=== PATIENT | male | born 1965 | race Caucasian/White ===

== ENCOUNTER 2017-10-28 15:00 | Outpatient (RCR) | payer MEDICAID, SELFPAY ==
[2017-10-14 15:09] VITALS: BP 148/102; PULSE 97; RESP 18; TEMP 37.6; BMI 56.1
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
[2017-10-19 13:52] VITALS: BP 152/85; PULSE 96; RESP 18; TEMP 37; BMI 56.1
[2017-10-21 15:44] VITALS: BP 135/87; PULSE 98; RESP 20; TEMP 36.1; BMI 56.1
--- NOTE | 2017-10-21 16:25 | PCM.WC.PN ---
(1) Ulcer of right lower extremity with fat layer exposed Status: Chronic Current Visit: Yes Code(s): L97.912 - Non-pressure chronic ulcer of unspecified part of right lower leg with fat layer exposed (2) Ulcer of left lower extremity with fat layer exposed Status: Chronic Current Visit: Yes Code(s): L97.922 - Non-pressure chronic ulcer of unspecified part of left lower leg with fat layer exposed (3) Edema of both legs Status: Chronic Current Visit: Yes Code(s): R60.0 - Localized edema (4) Venous insufficiency Status: Chronic Current Visit: Yes Code(s): I87.2 - Venous insufficiency (chronic) (peripheral) (5) Peripheral vascular disease Status: Suspected Current Visit: Yes Code(s): I73.9 - Peripheral vascular disease, unspecified (6) Malnutrition Status: Chronic Current Visit: Yes Code(s): E46 - Unspecified protein-calorie malnutrition Type of Wound Date of Service: 10/21/17 Chief Complaint: Bilateral leg ulcers with chronic swelling History of Wound: This 52-year-old male with multiple comorbidities presents for a left leg wound that has been resistant to traditional wound healing program. He denies recent trauma. He is not able to get home health and his return to the wound care center for help with dressing changes. He denies current shortness of breath or chest pain or fever, chill, nausea, vomiting. He denies odor. He denies claudication. He denies rest paresthesias. He is not able to obtain the recommended tests and studies yet; this scheduled for this upcoming Thursday. Progress of Wound: Stable - Physical Exam Vital Signs Temp Pulse Resp BP 97 F L 98 20 H 135/87 H 10/21/17 15:44 10/21/17 15:44 10/21/17 15:44 10/21/17 15:44 General: Alert, Oriented x3, Cooperative Extremities: No cyanosis, Capillary Refill Less than 3 Seconds, No Calf Tenderness - Negative Tamayo sign bilateral, Diminished Peripheral Pulses, Edema Skin: Ulcer/ Wound - No purulence, no erythema, no streaking, no odor. Decreased skin induration necrosis and scaling noted bilateral. There is hyperpigmentation and continued chronic swelling bilateral there is no interdigital mass bilateral. His skin is very atrophic and friable. Wound Measurements and Assessment WC - Nurse 1 - General Ulcer Measurement Start: 10/14/17 15:08 Freq: Status: Active Protocol: Activity Type Activity Date Activity User E-Sign Co-Sign Detail Recorded Client Recorded Date Recorded By Document 10/19/17 13:52 [facility] [id number] 10/19/17 14:12 [facility] Document 10/21/17 15:44 RB [id number] 10/21/17 15:56 RB 10/19/17 10/21/17 13:52 15:44 Wound Center Nurse 1 [Ulcer Assessment] 2. RLE circumferentail -Combined with other wound No -Current Size (cm) - Length 33 -Current Size (cm) - Width 18 -Current Size (cm) - Depth 0.1 -Total Square Cm 594 -Photo Taken Yes -Tunneling No -Undermining/Tunneling No -Circular Undermining No -Classification - Thickness Full Thickness without Exposed Support Structure -Exudate Amt Small (1-33%) -Exudate Type Serosanguineous -Wound Margin Distinct, Outline Attached -Granulation Amt Medium (34-66%) -Granulation Quality [place] -Slough/Fibrin Yes -Necrosis Amt Medium (34-66%) -Necrotic Tissue Type Adherent Slough -Structure Exposed N/A -Texture (Candy-wound Skin Appearance) Assessed -Moisture (Candy-wound Skin Appearance Maceration ) -Color (Candy-wound Skin Appearance) Assessed -Temperature (Candy-wound Skin No Abnormality Appearance) (Pt Warm) -Tenderness on Palpation (Candy-wound No Skin Appearance) -Ulcer Cleansing Wound Cleanser -Foul Odor after Cleansing Yes -Anesthetic Used 4% Lidocaine Solution 1-left lateral calf cluster -Combined with other wound No No -Current Size (cm) - Length 12 -Current Size (cm) - Width 28 -Current Size (cm) - Depth 0.2 -Total Square Cm 336 -Photo Taken No No -Epithelialization Small 1-33% -Tunneling No No -Undermining/Tunneling No No -Circular Undermining No No -Classification - Thickness Full Thickness without Exposed Support Structure -Classification - Gonzalez Grading ( Grade 2 Diabetic Ulcer) -Exudate Amt Large (67-100%) Large (67-100%) -Exudate Type Serosanguineous Serosanguineous -Wound Margin Flat & Intact Distinct, Outline Attached -Granulation Amt Large (67-100%) Small (1-33%) -Granulation Quality [place] -Slough/Fibrin Yes Yes -Necrosis Amt Small (1-33%) Medium (34-66%) -Necrotic Tissue Type Adherent Slough Adherent Slough -Structure Exposed Fascia N/A Fat Layer Exposed -Texture (Candy-wound Skin Appearance) Excoriation Assessed Friable Localized Edema Scarring -Moisture (Candy-wound Skin Appearance Weeping Assessed ) -Color (Candy-wound Skin Appearance) Erythema Assessed Hemosiderin Staining -Temperature (Candy-wound Skin No Abnormality No Abnormality Appearance) (Pt Warm) (Pt Warm) -Tenderness on Palpation (Candy-wound No Skin Appearance) -Ulcer Cleansing CODY HEX Wound Cleanser -Foul Odor after Cleansing No No -Anesthetic Used 4% Lidocaine Solution [Edema Assessment] -Lower Limb Edema Present Yes -Right Calf (cm) 57.6 -Right Ankle (cm) 32.6 -Left Calf (cm) 58.2 -Left Ankle (cm) 31.5 WC - Nurse 2 - General Ulcer CM Notes Start: 10/14/17 15:08 Freq: Status: Active Protocol: Activity Type Activity Date Activity User E-Sign Co-Sign Detail Recorded Client Recorded Date Recorded By Document 10/21/17 16:17 [id number] 10/21/17 16:22 10/21/17 16:17 Wound Center Nurse 2 [Procedure/Treatment] 2. RLE circumferentail -Time 16:18 -Correct Patient Yes -Correct Side, Site, Position Yes -Correct Procedure Yes -Procedure Performed Yes -Type of Procedure Debridement -Clinical Debridement Subcutaneous -Post Debridement Size (cm) - Length 33.1 -Post Debridement Size (cm) - Width 18.1 -Post Debridement Size (cm) - Depth 0.1 -Total Square Cm 599.11 -Wound/Ulcer Outcome Not Healed -Ulcer Cleansing Rinsed/ Irrigated with Saline -Foul Odor after Cleansing No -Bioengineered Tissue No -Topical Lidocaine (%) 4 -Bleeding Controlled with Pressure -Treatment Response Procedure Tolerated Well 1-left lateral calf cluster -Time 16:18 -Correct Patient Yes -Correct Side, Site, Position Yes -Correct Procedure Yes -Procedure Performed Yes -Type of Procedure Debridement -Clinical Debridement Subcutaneous -Post Debridement Size (cm) - Length 12.1 -Post Debridement Size (cm) - Width 28.1 -Post Debridement Size (cm) - Depth 0.2 -Total Square Cm 340.01 -Wound/Ulcer Outcome Not Healed -Ulcer Cleansing Rinsed/ Irrigated with Saline -Foul Odor after Cleansing No -Bioengineered Tissue No -Bleeding Controlled with Pressure -Treatment Response Procedure Tolerated Well [See Physician Procedure note for Specifics] Pain Scale: 0-10 Numeric [Pain] -Is Patient Pain Free? Yes Musculoskeletal: No Tenderness to Palpation of Joints or Extremities, Muscle Wasting, - - No crepitus on palpation bilateral lower extremities and the compartments remain soft. AROM x 10. Neurological: - - Lack of epicritic sensation light touch bilateral lower extremities Psych/Mental Status: Normal Affect, Appropriate Debridement Note Post-Debridement Measurements/Treatment WC - Nurse 2 - General Ulcer CM Notes Start: 10/14/17 15:08 Freq: Status: Active Protocol: Activity Type Activity Date Activity User E-Sign Co-Sign Detail Recorded Client Recorded Date Recorded By Document 10/21/17 16:17 [id number] 10/21/17 16:22 10/21/17 16:17 Wound Center Nurse 2 2. RLE circumferentail -Time 16:18 -Correct Patient Yes -Correct Side, Site, Position Yes -Correct Procedure Yes -Procedure Performed Yes -Type of Procedure Debridement -Clinical Debridement Subcutaneous -Post Debridement Size (cm) - Length 33.1 -Post Debridement Size (cm) - Width 18.1 -Post Debridement Size (cm) - Depth 0.1 -Total Square Cm 599.11 -Wound/Ulcer Outcome Not Healed -Ulcer Cleansing Rinsed/ Irrigated with Saline -Foul Odor after Cleansing No -Bioengineered Tissue No -Topical Lidocaine (%) 4 -Bleeding Controlled with Pressure -Treatment Response Procedure Tolerated Well 1-left lateral calf cluster -Time 16:18 -Correct Patient Yes -Correct Side, Site, Position Yes -Correct Procedure Yes -Procedure Performed Yes -Type of Procedure Debridement -Clinical Debridement Subcutaneous -Post Debridement Size (cm) - Length 12.1 -Post Debridement Size (cm) - Width 28.1 -Post Debridement Size (cm) - Depth 0.2 -Total Square Cm 340.01 -Wound/Ulcer Outcome Not Healed -Ulcer Cleansing Rinsed/ Irrigated with Saline -Foul Odor after Cleansing No -Bioengineered Tissue No -Bleeding Controlled with Pressure -Treatment Response Procedure Tolerated Well Pain Scale: 0-10 Numeric Is Patient Pain Free? Yes Wound debrided: leg Laterality: Right Type of Debridement: Excisional debridement Anesthesia Used: 4% Lidocaine Solution Depth: in the subcutaneous layer Percentage of wound debrided: 50 Instrument Used: 5mm curette Tissue Removed: fibrous, devitalized subcutaneous, biofilm, slough Severity: Fat Layer Exposed Amount of bleeding with debridement: Mild Bleeding Controlled with: Pressure Patient tolerated procedure well - Additional Wound Wound debrided: leg Laterality: Left Type of Debridement: Excisional debridement Anesthesia Used: 4% Lidocaine Solution Depth: in the subcutaneous layer Percentage of wound debrided: 50 Instrument Used: 5mm curette Tissue Removed: fibrous, devitalized subcutaneous, biofilm, slough Severity: Fat Layer Exposed Amount of bleeding with debridement: Mild Bleeding Controlled with: Pressure Patient tolerated procedure: Patient tolerated procedure well Assessment/Plan Active Problems Ulcer of left lower extremity with fat layer exposed (Chronic) Edema of both legs (Chronic) Venous insufficiency (Chronic) Malnutrition (Chronic) Ulcer of right lower extremity with fat layer exposed (Chronic) Assessment: Cluster left leg ulcer with fat layer exposed, no cellulitis. Cluster right leg with fat layer exposed, no cellulitis. Lower extremity edema. Venous insufficiency. Rule out peripheral vascular disease. Lymphedema. Malnutrition possible. Diabetes with complications Plan: I reviewed and discussed his case today. Debridement of the ulcer sites were performed as noted in the clinical panel. To change the dressing daily with hydrogel and Adaptic and Tubigrip for compression management. I ordered arterial noninvasive studies and venous Doppler studies of reflux. This is scheduled for the thursday. Additional compression or workup will be implemented if the studies indicate further workup. To elevate the legs at rest and to avoid idle sitting and standing. He was reassured no infection is noted today and I do not recommend refilling his antibiotics. To offload this site by keeping pressure off of the posterior leg while lying in bed. I recommend nutritional supplementation to optimize healing. A prescription for Álvaro was provided last visit. To continue to control blood sugars. I recommended diagnostic data including CBC and CMP and hemoglobin A1c. He relates he does have some lab work done at the end of the month. I answered all his questions. To return to clinic in 1 week or call sooner if he has any questions or concerns. He also plans to return prior to that time for nursing dressing changes.
--- NOTE | 2017-10-23 12:46 | VDLE_ITS ---
Reason For Study: Non-healing wound RIGHT LEFT CFV is compressible, spontaneous, phasic, CFV is compressible, spontaneous, phasic, competent and demonstrates normal competent, and demonstrates normal augmentation. augmentation. FV is compressible, spontaneous, phasic, FV is compressible, spontaneous, phasic, competent and demonstrates normal competent and demonstrates normal augmentation. augmentation. POP V is compressible, spontaneous, phasic, POP V is compressible, spontaneous, phasic, competent and demonstrates normal competent and demonstrates normal augmentation. augmentation. T/P Trunk is compressible. T/P Trunk is compressible. SFJ is competent SFJ is INCOMPETENT with reflux greater GSV is INCOMPETENT with reflux greater than .5 sec than .5 sec and diameter of .84 x .83 cm GSV is INCOMPETENT with reflux greater SSV is INCOMPETENT with reflux greater than .5 sec and diameter of .93 x .88 cm than .5 sec and diameter of .85 x .95 cm SSV is INCOMPETENT with reflux greater INCOMPETENT jig and fixture maker 23 cm prox to medial than .5 sec and diameter of .74 x .72 cm. malleolus. Procedure Exam performed in department. Technically difficult due to body habitus. Calf veins not visualized. A preliminary report was called and/or faxed to [facility]. Interpretation Summary Deep veins of the lower extremities are bilaterally patent and compressible segmentally. There is no evidence of deep vein thrombosis on either side. Valvular competence appears intact within the proximal deep venous systems bilaterally. Deep veins of the calf were not visualized on either side. The greater saphenous veins appear bilaterally patent and compressible segmentally. The right sapheno-femoral junction is competent . The left sapheno-femoral junction is incompetent . Segmental valvular incompetence is noted within the greater saphenous veins bilaterally. Small saphenous veins are patent and incompetent bilaterally. An incompetent jig and fixture maker vein is noted in the right calf, located 23 centimeters proximal to the right medial malleolus. Ordering Physician: Taryn Schaffer Referring Physician: Gabby Tolentino Performed By: Cora Brewster RVT
[2017-10-23 14:31] VITALS: BP 159/84; RESP 20; TEMP 37.2; BMI 56.1
--- NOTE | 2017-10-26 08:22 | LEAS_ITS ---
Arterial Study - Arterial Study Arterial Study: This is a 52-year-old male with a history of hypertension and diabetes mellitus. The patient presents with chronic nonhealing wounds to the lower extremities. Suspecting the presence of atherosclerotic peripheral arterial occlusive disease, the patient was brought to the noninvasive vascular laboratory at this time for the purpose of bilateral noninvasive lower extremity arterial assessment. Doppler signal assessment was used to evaluate the pulses at ankle level bilaterally. The posterior tibial and dorsalis pedis pulses were triphasic bilaterally. Segmental limb pressures were obtained at ankle level bilaterally. The right ankle pressure, as determined by posterior tibial pulse, was measured at 138 mmHg. The right ankle pressure, as determined by dorsalis pedis pulse, was measured at 142 mmHg. The left ankle pressure, as determined by posterior tibial pulse, was measured at 154 mmHg. The left ankle pressure, as determined by dorsalis pedis pulse, was measured at 154 mmHg. Pulse-volume recordings were obtained bilaterally and segmentally. Waveform amplitudes appeared to be satisfactory at all levels bilaterally, including low thigh, calf, ankle, and digital levels. Resting ankle-brachial indices were calculated bilaterally. The resting right ankle-brachial index was calculated to be 1.14. The resting left ankle- brachial index was calculated to be 1.23. Impression: Based upon the findings of this resting noninvasive lower extremity arterial study, there is no evidence of significant atherosclerotic peripheral arterial occlusive disease in the lower extremities bilaterally. Triphasic waveforms were noted at ankle level bilaterally. Resting ankle-brachial indices were bilaterally normal. In summary, this represents a normal resting noninvasive lower extremity arterial study bilaterally.
[2017-10-26 15:08] VITALS: BP 147/93; PULSE 94; RESP 18; TEMP 37.2; BMI 56.1
[2017-10-28 15:01] VITALS: BP 147/84; PULSE 91; RESP 18; TEMP 37; BMI 56.1
--- NOTE | 2017-10-28 16:20 | PCM.WC.PN ---
(1) Ulcer of right lower extremity with fat layer exposed Status: Chronic Code(s): L97.912 - Non-pressure chronic ulcer of unspecified part of right lower leg with fat layer exposed (2) Ulcer of left lower extremity with fat layer exposed Status: Chronic Code(s): L97.922 - Non-pressure chronic ulcer of unspecified part of left lower leg with fat layer exposed (3) Edema of both legs Status: Chronic Code(s): R60.0 - Localized edema (4) Venous insufficiency Status: Chronic Code(s): I87.2 - Venous insufficiency (chronic) (peripheral) (5) Peripheral vascular disease Status: Ruled-out Code(s): I73.9 - Peripheral vascular disease, unspecified (6) Malnutrition Status: Chronic Code(s): E46 - Unspecified protein-calorie malnutrition Type of Wound Date of Service: 10/29/17 Chief Complaint: Bilateral leg ulcers with chronic swelling History of Wound: This 52-year-old male with multiple comorbidities presents for a left leg wound that has been resistant to traditional wound healing program. He denies current shortness of breath fever, chill, nausea, vomiting. He denies odor. He denies claudication. He denies rest paresthesias. He is did obtain the recommended tests and studies and is here today to review the findings. Progress of Wound: Improving - Physical Exam Vital Signs Temp Pulse Resp BP 98.6 F 91 18 147/84 H 10/28/17 15:01 10/28/17 15:01 10/28/17 15:01 10/28/17 15:01 General: Alert, Oriented x3, Cooperative Extremities: No cyanosis, Capillary Refill Less than 3 Seconds, No Calf Tenderness - Negative Aline and Tamayo bilateral, Diminished Peripheral Pulses, Edema - Continued moderate bilateral lower extremities with significant skin induration. There is resolved lichenification and scaling Skin: Ulcer/ Wound - No purulence, no erythema, no streaking, no odor. The skin is atrophic. The wounds are granular and fibrous base. Wound Measurements and Assessment WC - Nurse 1 - General Ulcer Measurement Start: 10/14/17 15:08 Freq: Status: Active Protocol: Activity Type Activity Date Activity User E-Sign Co-Sign Detail Recorded Client Recorded Date Recorded By Document 10/26/17 15:08 CARMELINA [id number] 10/26/17 15:12 JF Document 10/28/17 15:01 [id number] 10/28/17 15:11 JF 10/26/17 10/28/17 15:08 15:01 Wound Center Nurse 1 [Ulcer Assessment] 2. RLE circumferentail -Combined with other wound No -Current Size (cm) - Length 20 -Current Size (cm) - Width 16 -Current Size (cm) - Depth 0.1 -Total Square Cm 320 -Photo Taken No -Epithelialization Medium 34-66% -Tunneling No -Undermining/Tunneling No -Circular Undermining No -Exudate Amt Small (1-33%) Large (67-100%) -Exudate Type Serosanguineous Serosanguineous -Wound Margin Flat & Intact -Granulation Amt Medium (34-66%) -Granulation Quality Red -Slough/Fibrin Yes -Necrosis Amt Medium (34-66%) -Necrotic Tissue Type Adherent Slough -Structure Exposed N/A -Texture (Candy-wound Skin Appearance) Localized Edema Assessed Scarring Localized Edema -Moisture (Candy-wound Skin Appearance No Abnormality Assessed ) Dry/Scaly -Color (Candy-wound Skin Appearance) Hemosiderin Assessed Staining Hemosiderin Staining -Temperature (Candy-wound Skin No Abnormality No Abnormality Appearance) (Pt Warm) (Pt Warm) -Tenderness on Palpation (Candy-wound No Skin Appearance) -Ulcer Cleansing Wound Cleanser Wound Cleanser -Foul Odor after Cleansing No -Anesthetic Used 4% Lidocaine Solution 1-left lateral calf cluster -Combined with other wound No -Current Size (cm) - Length 16.0 -Current Size (cm) - Width 10 -Current Size (cm) - Depth 0.1 -Total Square Cm 160.0 -Photo Taken No -Epithelialization Medium 34-66% -Tunneling No -Undermining/Tunneling No -Circular Undermining No -Exudate Amt Small (1-33%) Large (67-100%) -Exudate Type Serosanguineous Serosanguineous -Wound Margin Flat & Intact -Granulation Amt Large (67-100%) -Granulation Quality Red -Slough/Fibrin Yes -Necrosis Amt Small (1-33%) -Necrotic Tissue Type Adherent Slough -Structure Exposed N/A -Texture (Candy-wound Skin Appearance) Localized Edema Assessed Scarring Localized Edema -Moisture (Candy-wound Skin Appearance No Abnormality Assessed ) Dry/Scaly -Color (Candy-wound Skin Appearance) Hemosiderin Assessed Staining Hemosiderin Staining -Temperature (Candy-wound Skin No Abnormality No Abnormality Appearance) (Pt Warm) (Pt Warm) -Tenderness on Palpation (Candy-wound No Skin Appearance) -Ulcer Cleansing Wound Cleanser Wound Cleanser -Foul Odor after Cleansing No No -Anesthetic Used 4% Lidocaine 4% Lidocaine Solution Solution [Edema Assessment] -Lower Limb Edema Present Yes -Right Calf (cm) 53.6 57.4 -Right Ankle (cm) 32.5 31.6 -Left Calf (cm) 52.2 57.7 -Left Ankle (cm) 31.7 30.5 WC - Nurse 2 - General Ulcer CM Notes Start: 10/14/17 15:08 Freq: Status: Active Protocol: Activity Type Activity Date Activity User E-Sign Co-Sign Detail Recorded Client Recorded Date Recorded By Document 10/28/17 15:33 [id number] 10/28/17 15:34 CARMELINA 10/28/17 15:33 Wound Center Nurse 2 [Procedure/Treatment] 2. RLE circumferentail -Time 15:33 -Correct Patient Yes -Correct Side, Site, Position Yes -Correct Procedure Yes -Procedure Performed Yes -Type of Procedure Debridement -Clinical Debridement Subcutaneous -Post Debridement Size (cm) - Length 20.1 -Post Debridement Size (cm) - Width 16.0 -Post Debridement Size (cm) - Depth 0.1 -Total Square Cm 321.60 -Wound/Ulcer Outcome Not Healed -Ulcer Cleansing Rinsed/ Irrigated with Saline -Foul Odor after Cleansing No -Bioengineered Tissue No -Bleeding Controlled with Pressure -Treatment Response Procedure Tolerated Well 1-left lateral calf cluster -Time 15:33 -Correct Patient Yes -Correct Side, Site, Position Yes -Correct Procedure Yes -Procedure Performed Yes -Type of Procedure Debridement -Clinical Debridement Subcutaneous -Post Debridement Size (cm) - Length 16.1 -Post Debridement Size (cm) - Width 10.1 -Post Debridement Size (cm) - Depth 0.1 -Total Square Cm 162.61 -Wound/Ulcer Outcome Not Healed -Ulcer Cleansing Rinsed/ Irrigated with Saline -Foul Odor after Cleansing No -Bioengineered Tissue No -Bleeding Controlled with Pressure -Treatment Response Procedure Tolerated Well [See Physician Procedure note for Specifics] Pain Scale: 0-10 Numeric [Pain] -Is Patient Pain Free? Yes Musculoskeletal: No Tenderness to Palpation of Joints or Extremities, Muscle Wasting, - - Compartments soft bilateral lower extremities Neurological: Sensory exam intact to light touch and pain Psych/Mental Status: Normal Affect, Appropriate Debridement Note Post-Debridement Measurements/Treatment WC - Nurse 2 - General Ulcer CM Notes Start: 10/14/17 15:08 Freq: Status: Active Protocol: Activity Type Activity Date Activity User E-Sign Co-Sign Detail Recorded Client Recorded Date Recorded By Document 10/21/17 16:17 TM [id number] 10/21/17 16:22 TM Document 10/28/17 15:33 [id number] 10/28/17 15:34 10/21/17 10/28/17 16:17 15:33 Wound Center Nurse 2 2Gregory MONTEZ circumferentail -Time 16:18 15:33 -Correct Patient Yes Yes -Correct Side, Site, Position Yes Yes -Correct Procedure Yes Yes -Procedure Performed Yes Yes -Type of Procedure Debridement Debridement -Clinical Debridement Subcutaneous Subcutaneous -Post Debridement Size (cm) - Length 33.1 20.1 -Post Debridement Size (cm) - Width 18.1 16.0 -Post Debridement Size (cm) - Depth 0.1 0.1 -Total Square Cm 599.11 321.60 -Wound/Ulcer Outcome Not Healed Not Healed -Ulcer Cleansing Rinsed/ Rinsed/ Irrigated with Irrigated with Saline Saline -Foul Odor after Cleansing No No -Bioengineered Tissue No No -Topical Lidocaine (%) 4 -Bleeding Controlled with Pressure Pressure -Treatment Response Procedure Procedure Tolerated Well Tolerated Well 1-left lateral calf cluster -Time 16:18 15:33 -Correct Patient Yes Yes -Correct Side, Site, Position Yes Yes -Correct Procedure Yes Yes -Procedure Performed Yes Yes -Type of Procedure Debridement Debridement -Clinical Debridement Subcutaneous Subcutaneous -Post Debridement Size (cm) - Length 12.1 16.1 -Post Debridement Size (cm) - Width 28.1 10.1 -Post Debridement Size (cm) - Depth 0.2 0.1 -Total Square Cm 340.01 162.61 -Wound/Ulcer Outcome Not Healed Not Healed -Ulcer Cleansing Rinsed/ Rinsed/ Irrigated with Irrigated with Saline Saline -Foul Odor after Cleansing No No -Bioengineered Tissue No No -Bleeding Controlled with Pressure Pressure -Treatment Response Procedure Procedure Tolerated Well Tolerated Well Pain Scale: 0-10 Numeric Is Patient Pain Free? Yes Yes Wound debrided: leg cluster Laterality: Right Type of Debridement: Excisional debridement Anesthesia Used: 4% Lidocaine Solution Depth: in the subcutaneous layer Percentage of wound debrided: 100 Instrument Used: 5mm curette Tissue Removed: fibrous, devitalized subcutaneous, biofilm, slough Severity: Fat Layer Exposed Amount of bleeding with debridement: Mild Bleeding Controlled with: Pressure Patient tolerated procedure well - Additional Wound Wound debrided: leg cluster Laterality: Left Wound Grade/Stage: fibrous, devitalized subcutaneous, biofilm, slough Type of Debridement: Excisional debridement Anesthesia Used: 4% Lidocaine Solution Depth: in the subcutaneous layer Percentage of wound debrided: 100 Instrument Used: #15 blade Tissue Removed: fibrous, devitalized subcutaneous, biofilm, slough Severity: Fat Layer Exposed Amount of bleeding with debridement: Mild Bleeding Controlled with: Pressure Patient tolerated procedure: Patient tolerated procedure well Assessment/Plan Assessment: Cluster left leg ulcer with fat layer exposed, no cellulitis. Cluster right leg with fat layer exposed, no cellulitis. Lower extremity edema. Venous insufficiency. peripheral vascular disease has been ruled out. Lymphedema. Malnutrition possible. Diabetes with complications Plan: I reviewed and discussed his case today. Debridement of the ulcer sites were performed as noted in the clinical panel. To change the dressing daily with hydrogel and Adaptic and Tubigrip for compression management. I ordered arterial noninvasive studies and venous Doppler studies of reflux. He demonstrates adequate perfusion of bilateral lower extremities with good waveforms and normal ankle-brachial indices. His venous Doppler studies did demonstrate multiple incompetent veins and I recommend referral. A referral to Dr. Pearson was provided today see potential intervention exists. Additional compression will be applied today with bilateral 3M2L. To elevate the legs at rest and to avoid idle sitting and standing. He was reassured no infection is noted today and I do not recommend refilling his antibiotics. To offload this site by keeping pressure off of the posterior leg while lying in bed. I recommend nutritional supplementation to optimize healing. A prescription for Álvaro was provided last visit. To continue to control blood sugars. I recommended diagnostic data including CBC and CMP and hemoglobin A1c. It is noted he did not obtain this and I encouraged him to obtain this information. I answered all his questions. To return to clinic in 1 week or call sooner if he has any questions or concerns. He also plans to return prior to that time for nursing dressing changes. Advanced wound care products such as Apligraf for epi fix will be considered upon improved edema control. He is demonstrating progress so far and understands he still at limb loss risk.
== END 2017-10-28 23:59 ==
LOC: WC 15:00
PROVIDERS: Family Provider Family Medicine; PCP Family Medicine; Visit Provider Podiatrist
DX: E11.622 Type 2 diabetes mellitus with other skin ulcer (principal); E11.51 Type 2 diabetes mellitus with diabetic peripheral angiopathy without gangrene; I10 Essential (primary) hypertension; R60.0 Localized edema; Z86.718 Personal history of other venous thrombosis and embolism; Z86.711 Personal history of pulmonary embolism; Z79.899 Other long term (current) drug therapy; L97.222 Non-pressure chronic ulcer of left calf with fat layer exposed; L97.812 Non-pressure chronic ulcer of other part of right lower leg with fat layer exposed
CPT/HCPCS: 11042; 11045; 29581; 93923; 93970; 99203; 99213; 99214; G0463

== ENCOUNTER 2017-11-25 15:15 | Outpatient (RCR) | payer MEDICAID, SELFPAY ==
[2017-10-29 01:11] VITALS: PULSE 91; RESP 18; TEMP 37
[2017-10-30 14:47] VITALS: BP 154/111; PULSE 90; RESP 18; TEMP 36.9
[2017-11-02 15:13] VITALS: BP 154/94; PULSE 93; RESP 18; TEMP 36.5
[2017-11-04 15:49] VITALS: BP 156/100; PULSE 86; RESP 18; TEMP 37
--- NOTE | 2017-11-04 16:35 | PCM.WC.PN ---
(1) Ulcer of right lower extremity with fat layer exposed Status: Chronic Current Visit: Yes Code(s): L97.912 - Non-pressure chronic ulcer of unspecified part of right lower leg with fat layer exposed (2) Ulcer of left lower extremity with fat layer exposed Status: Chronic Current Visit: Yes Code(s): L97.922 - Non-pressure chronic ulcer of unspecified part of left lower leg with fat layer exposed (3) Edema of both legs Status: Chronic Current Visit: Yes Code(s): R60.0 - Localized edema (4) Venous insufficiency Status: Chronic Current Visit: Yes Code(s): I87.2 - Venous insufficiency (chronic) (peripheral) Type of Wound Date of Service: 11/04/17 Chief Complaint: Bilateral leg ulcers with chronic swelling History of Wound: This 52-year-old male with multiple comorbidities presents for a left leg wound that has been resistant to traditional wound healing program. He denies recent trauma. He denies current shortness of breath or chest pain or fever, chill, nausea, vomiting, calf pain or shortness of breath. She is scheduled to go for vascular surgery consultation on November 11, [address] Pearson. Progress of Wound: Improving - Physical Exam Vital Signs Temp Pulse Resp BP 98.6 F 86 18 156/100 H 11/04/17 15:49 11/04/17 15:49 11/04/17 15:49 11/04/17 15:49 General: Alert, Oriented x3, Cooperative Extremities: No cyanosis, Capillary Refill Less than 3 Seconds, No Calf Tenderness - Negative creatinine Aline sign bilateral, Diminished Peripheral Pulses, Edema - Decreased leg circumference noted bilateral Skin: Ulcer/ Wound - No purulence, no erythema, no streaking, no infection, no necrosis. Granular wound beds improving and progressive epithelialization is noted bilateral Wound Measurements and Assessment WC - Nurse 1 - General Ulcer Measurement Start: 10/30/17 14:47 Freq: Status: Active Protocol: Activity Type Activity Date Activity User E-Sign Co-Sign Detail Recorded Client Recorded Date Recorded By Document 11/02/17 15:13 DV [id number] 11/02/17 15:19 DV Document 11/04/17 15:49 RB [id number] 11/04/17 16:15 RB 11/02/17 11/04/17 15:13 15:49 Wound Center Nurse 1 [Ulcer Assessment] 2. RLE LOWER LATERAL -Combined with other wound No No -Current Size (cm) - Length 2.5 -Current Size (cm) - Width 3.5 -Current Size (cm) - Depth 0.1 -Total Square Cm 8.75 -Photo Taken No -Tunneling No -Undermining/Tunneling No -Circular Undermining No -Classification - Thickness Full Thickness without Exposed Support Structure -Exudate Amt Medium (34-66%) -Exudate Type Serosanguineous -Wound Margin Distinct, Outline Attached -Granulation Amt Medium (34-66%) -Granulation Quality [place] -Slough/Fibrin Yes -Necrosis Amt Medium (34-66%) -Necrotic Tissue Type Adherent Slough -Structure Exposed N/A -Texture (Candy-wound Skin Appearance) Assessed -Moisture (Candy-wound Skin Appearance Assessed ) Dry/Scaly -Color (Candy-wound Skin Appearance) Assessed Hemosiderin Staining -Temperature (Candy-wound Skin No Abnormality Appearance) (Pt Warm) -Tenderness on Palpation (Candy-wound No Skin Appearance) -Ulcer Cleansing Wound Cleanser -Foul Odor after Cleansing No -Anesthetic Used 4% Lidocaine Solution 1-left lateral calf cluster -Combined with other wound No -Current Size (cm) - Length 17.5 -Current Size (cm) - Width 11 -Current Size (cm) - Depth 0.1 -Total Square Cm 192.5 -Photo Taken No -Tunneling No -Undermining/Tunneling No -Circular Undermining No -Classification - Gonzalez Grading ( Grade 2 Diabetic Ulcer) -Exudate Amt Small (1-33%) -Exudate Type Serosanguineous -Wound Margin Distinct, Outline Attached -Granulation Amt Medium (34-66%) -Granulation Quality [place] -Slough/Fibrin Yes -Necrosis Amt Medium (34-66%) -Necrotic Tissue Type Adherent Slough -Structure Exposed N/A -Texture (Candy-wound Skin Appearance) Assessed -Moisture (Candy-wound Skin Appearance Dry/Scaly ) -Color (Candy-wound Skin Appearance) Assessed Hemosiderin Staining -Temperature (Candy-wound Skin No Abnormality Appearance) (Pt Warm) -Tenderness on Palpation (Candy-wound No Skin Appearance) -Ulcer Cleansing Wound Cleanser -Foul Odor after Cleansing No -Anesthetic Used 4% Lidocaine Solution [Edema Assessment] -Lower Limb Edema Present Yes Yes -Right Calf (cm) 51.8 49.5 -Right Ankle (cm) 31.6 30.8 -Left Calf (cm) 51.6 51.2 -Left Ankle (cm) 30.3 29 WC - Nurse 2 - General Ulcer CM Notes Start: 10/30/17 14:47 Freq: Status: Active Protocol: Activity Type Activity Date Activity User E-Sign Co-Sign Detail Recorded Client Recorded Date Recorded By Document 11/04/17 16:19 [id number] 11/04/17 16:21 11/04/17 16:19 Wound Center Nurse 2 [Procedure/Treatment] 3-RIGHT SUPERIOR LATERAL LEG -Time 16:21 -Correct Patient Yes -Correct Side, Site, Position Yes -Correct Procedure Yes -Procedure Performed Yes -Type of Procedure Debridement -Clinical Debridement Subcutaneous -Post Debridement Size (cm) - Length 3.5 -Post Debridement Size (cm) - Width 2 -Post Debridement Size (cm) - Depth 0.1 -Total Square Cm 7.0 -Wound/Ulcer Outcome Not Healed -Ulcer Cleansing Rinsed/ Irrigated with Saline -Foul Odor after Cleansing No -Bioengineered Tissue No -Bleeding Controlled with Pressure -Treatment Response Procedure Tolerated Well 2. RLE LOWER LATERAL -Time 16:20 -Correct Patient Yes -Correct Side, Site, Position Yes -Correct Procedure Yes -Procedure Performed Yes -Type of Procedure Debridement -Clinical Debridement Subcutaneous -Post Debridement Size (cm) - Length 2.5 -Post Debridement Size (cm) - Width 3.5 -Post Debridement Size (cm) - Depth 0.1 -Total Square Cm 8.75 -Wound/Ulcer Outcome Not Healed -Ulcer Cleansing Rinsed/ Irrigated with Saline -Foul Odor after Cleansing No -Bioengineered Tissue No -Bleeding Controlled with Pressure -Treatment Response Procedure Tolerated Well 1-left lateral calf cluster -Time 16:20 -Correct Patient Yes -Correct Side, Site, Position Yes -Correct Procedure Yes -Procedure Performed Yes -Type of Procedure Debridement -Clinical Debridement Subcutaneous -Post Debridement Size (cm) - Length 17.5 -Post Debridement Size (cm) - Width 11.1 -Post Debridement Size (cm) - Depth 0.1 -Total Square Cm 194.25 -Wound/Ulcer Outcome Not Healed -Ulcer Cleansing Rinsed/ Irrigated with Saline -Foul Odor after Cleansing No -Bioengineered Tissue No -Bleeding Controlled with Pressure -Treatment Response Procedure Tolerated Well [See Physician Procedure note for Specifics] Pain Scale: 0-10 Numeric [Pain] -Is Patient Pain Free? Yes Musculoskeletal: No Tenderness to Palpation of Joints or Extremities, - - Active range of motion toes bilateral. No crepitus on palpation bilateral legs Neurological: Sensory exam intact to light touch and pain Psych/Mental Status: Normal Affect, Appropriate Debridement Note Post-Debridement Measurements/Treatment WC - Nurse 2 - General Ulcer CM Notes Start: 10/30/17 14:47 Freq: Status: Active Protocol: Activity Type Activity Date Activity User E-Sign Co-Sign Detail Recorded Client Recorded Date Recorded By Document 11/04/17 16:19 [id number] 11/04/17 16:21 11/04/17 16:19 Wound Center Nurse 2 3-RIGHT SUPERIOR LATERAL LEG -Time 16:21 -Correct Patient Yes -Correct Side, Site, Position Yes -Correct Procedure Yes -Procedure Performed Yes -Type of Procedure Debridement -Clinical Debridement Subcutaneous -Post Debridement Size (cm) - Length 3.5 -Post Debridement Size (cm) - Width 2 -Post Debridement Size (cm) - Depth 0.1 -Total Square Cm 7.0 -Wound/Ulcer Outcome Not Healed -Ulcer Cleansing Rinsed/ Irrigated with Saline -Foul Odor after Cleansing No -Bioengineered Tissue No -Bleeding Controlled with Pressure -Treatment Response Procedure Tolerated Well 2. RLE LOWER LATERAL -Time 16:20 -Correct Patient Yes -Correct Side, Site, Position Yes -Correct Procedure Yes -Procedure Performed Yes -Type of Procedure Debridement -Clinical Debridement Subcutaneous -Post Debridement Size (cm) - Length 2.5 -Post Debridement Size (cm) - Width 3.5 -Post Debridement Size (cm) - Depth 0.1 -Total Square Cm 8.75 -Wound/Ulcer Outcome Not Healed -Ulcer Cleansing Rinsed/ Irrigated with Saline -Foul Odor after Cleansing No -Bioengineered Tissue No -Bleeding Controlled with Pressure -Treatment Response Procedure Tolerated Well 1-left lateral calf cluster -Time 16:20 -Correct Patient Yes -Correct Side, Site, Position Yes -Correct Procedure Yes -Procedure Performed Yes -Type of Procedure Debridement -Clinical Debridement Subcutaneous -Post Debridement Size (cm) - Length 17.5 -Post Debridement Size (cm) - Width 11.1 -Post Debridement Size (cm) - Depth 0.1 -Total Square Cm 194.25 -Wound/Ulcer Outcome Not Healed -Ulcer Cleansing Rinsed/ Irrigated with Saline -Foul Odor after Cleansing No -Bioengineered Tissue No -Bleeding Controlled with Pressure -Treatment Response Procedure Tolerated Well Pain Scale: 0-10 Numeric Is Patient Pain Free? Yes Wound debrided: leg Laterality: Right Type of Debridement: Excisional debridement Anesthesia Used: 4% Lidocaine Solution Depth: in the subcutaneous layer Percentage of wound debrided: 100 Instrument Used: 5mm curette Tissue Removed: fibrous, devitalized subcutaneous, biofilm, slough Severity: Fat Layer Exposed Amount of bleeding with debridement: Mild Bleeding Controlled with: Pressure Patient tolerated procedure well - Additional Wound Wound debrided: leg Laterality: Left Type of Debridement: Excisional debridement Anesthesia Used: 4% Lidocaine Solution Depth: in the subcutaneous layer Percentage of wound debrided: 100 Instrument Used: #15 blade Tissue Removed: fibrous, devitalized subcutaneous, biofilm, slough Severity: Fat Layer Exposed Amount of bleeding with debridement: Mild Bleeding Controlled with: Pressure Patient tolerated procedure: Patient tolerated procedure well Assessment/Plan Active Problems Ulcer of left lower extremity with fat layer exposed (Chronic) Edema of both legs (Chronic) Venous insufficiency (Chronic) Ulcer of right lower extremity with fat layer exposed (Chronic) Assessment: Cluster left leg ulcer with fat layer exposed, no cellulitis. Cluster right leg with fat layer exposed, no cellulitis. Lower extremity edema. Venous insufficiency. Rule out peripheral vascular disease. Lymphedema. Malnutrition possible. Diabetes with complications Plan: I reviewed and discussed his case today. Debridement of the ulcer sites were performed as noted in the clinical panel. To change the dressing daily with hydrogel and Adaptic and Tubigrip for compression management. Incompetent veins were noted on the venous Doppler he is referred to Dr. Pearson for potential intervention to assist in timely wound healing and future prevention. He is scheduled for November 12, 2017. To elevate the legs at rest and to avoid idle sitting and standing. He was reassured no infection is noted today and I do not recommend refilling his antibiotics. To offload this site by keeping pressure off of the posterior leg while lying in bed. I recommend nutritional supplementation to optimize healing. A prescription for Álvaro was provided last visit. To continue to control blood sugars. I recommended diagnostic data including CBC and CMP and hemoglobin A1c. He relates he does have some lab work done at the end of the month. I answered all his questions. To return to clinic in 1 week or call sooner if he has any questions or concerns. He also plans to return prior to that time for nursing dressing changes.
[2017-11-06 15:11] VITALS: BP 155/108; PULSE 88; RESP 18; TEMP 36.8
[2017-11-09 15:08] VITALS: BP 130/77; PULSE 80; RESP 18; TEMP 37
[2017-11-11 15:22] VITALS: BP 145/87; PULSE 85; RESP 18; TEMP 37.3
--- NOTE | 2017-11-11 17:24 | PCM.WC.PN ---
(1) Ulcer of right lower extremity with fat layer exposed Status: Chronic Current Visit: Yes Code(s): L97.912 - Non-pressure chronic ulcer of unspecified part of right lower leg with fat layer exposed (2) Ulcer of left lower extremity with fat layer exposed Status: Resolved Current Visit: Yes Code(s): L97.922 - Non-pressure chronic ulcer of unspecified part of left lower leg with fat layer exposed (3) Edema of both legs Status: Chronic Current Visit: Yes Code(s): R60.0 - Localized edema (4) Venous insufficiency Status: Chronic Current Visit: Yes Code(s): I87.2 - Venous insufficiency (chronic) (peripheral) (5) Diabetes mellitus with complication Status: Chronic Current Visit: Yes Code(s): E11.8 - Type 2 diabetes mellitus with unspecified complications Type of Wound Date of Service: 11/14/17 Chief Complaint: Bilateral leg ulcers with chronic swelling History of Wound: This 52-year-old male with multiple comorbidities presents for a left leg wound that has been resistant to traditional wound healing program. He denies recent trauma. He denies current shortness of breath or chest pain or fever, chill, nausea, vomiting, calf pain or shortness of breath. He he has been referred to vascular surgery. He reports decreased drainage to the legs. Progress of Wound: Improving - Physical Exam Vital Signs Temp Pulse Resp BP 99.1 F 85 18 145/87 H 11/11/17 15:22 11/11/17 15:22 11/11/17 15:22 11/11/17 15:22 General: Alert, Oriented x3, Cooperative HEENT: Atraumatic Extremities: No cyanosis, Capillary Refill Less than 3 Seconds, No Calf Tenderness - Negative Aline and Tamayo sign bilateral, Diminished Peripheral Pulses, Edema - Bilateral lower extremities decreased Skin: Ulcer/ Wound - No purulence, no erythema, no streaking, no odor bilateral. The skin is atrophic and there is diffuse hyperpigmentation to the legs Wound Measurements and Assessment WC - Nurse 1 - General Ulcer Measurement Start: 10/30/17 14:47 Freq: Status: Active Protocol: Activity Type Activity Date Activity User E-Sign Co-Sign Detail Recorded Client Recorded Date Recorded By Document 11/09/17 15:08 DL [id number] 11/09/17 15:17 DL Document 11/11/17 15:22 DL [id number] 11/11/17 15:27 DL 11/09/17 11/11/17 15:08 15:22 Wound Center Nurse 1 [Ulcer Assessment] 3-RIGHT SUPERIOR LATERAL LEG -Combined with other wound No -Current Size (cm) - Length 0.1 -Current Size (cm) - Width 0.1 -Current Size (cm) - Depth 0.1 -Total Square Cm 0.01 -Photo Taken No No -Epithelialization Large 67-100% -Tunneling No -Undermining/Tunneling No -Circular Undermining No -Classification - Thickness Full Thickness without Exposed Support Structure -Exudate Amt Medium (34-66%) None Present (0 %) -Exudate Type Serous -Wound Margin Distinct, Flat & Intact Outline Attached -Granulation Amt Large (67-100%) Large (67-100%) -Granulation Quality Blue Mounds Blue Mounds -Slough/Fibrin Yes -Necrosis Amt Small (1-33%) Small (1-33%) -Necrotic Tissue Type Adherent Slough Adherent Slough -Structure Exposed Fascia N/A Fat Layer Exposed -Texture (Candy-wound Skin Appearance) Localized Edema Scarring Scarring -Moisture (Candy-wound Skin Appearance No Abnormality Dry/Scaly ) -Color (Candy-wound Skin Appearance) Erythema Hemosiderin Hemosiderin Staining Staining -Temperature (Candy-wound Skin No Abnormality Appearance) (Pt Warm) -Tenderness on Palpation (Candy-wound No Skin Appearance) -Ulcer Cleansing danyel hex Wound Cleanser -Foul Odor after Cleansing No 2. RLE LOWER LATERAL -Combined with other wound No -Current Size (cm) - Length 0.1 -Current Size (cm) - Width 0.1 -Current Size (cm) - Depth 0.1 -Total Square Cm 0.01 -Photo Taken No No -Epithelialization Large 67-100% -Tunneling No -Undermining/Tunneling No -Circular Undermining No -Classification - Thickness Full Thickness without Exposed Support Structure -Exudate Amt Small (1-33%) None Present (0 %) -Exudate Type Serous -Wound Margin Distinct, Flat & Intact Outline Attached -Granulation Amt Large (67-100%) Large (67-100%) -Granulation Quality Blue Mounds Blue Mounds -Slough/Fibrin Yes -Necrosis Amt Small (1-33%) Small (1-33%) -Necrotic Tissue Type Adherent Slough Adherent Slough -Structure Exposed Fascia N/A Fat Layer Exposed -Texture (Candy-wound Skin Appearance) Localized Edema Scarring Scarring -Moisture (Candy-wound Skin Appearance No Abnormality Dry/Scaly ) -Color (Candy-wound Skin Appearance) Erythema Hemosiderin Hemosiderin Staining Staining -Temperature (Candy-wound Skin No Abnormality No Abnormality Appearance) (Pt Warm) (Pt Warm) -Tenderness on Palpation (Candy-wound No Skin Appearance) -Ulcer Cleansing danyel hex Wound Cleanser -Foul Odor after Cleansing No No 1-left lateral calf cluster -Combined with other wound No -Current Size (cm) - Length 3 -Current Size (cm) - Width 1.1 -Current Size (cm) - Depth 0.1 -Total Square Cm 3.3 -Photo Taken No No -Epithelialization Large 67-100% -Tunneling No -Undermining/Tunneling No -Circular Undermining No -Classification - Thickness Full Thickness without Exposed Support Structure -Exudate Amt Small (1-33%) None Present (0 %) -Exudate Type Serous -Wound Margin Distinct, Flat & Intact Outline Attached -Granulation Amt Large (67-100%) Large (67-100%) -Granulation Quality Blue Mounds Blue Mounds -Slough/Fibrin Yes -Necrosis Amt Small (1-33%) Small (1-33%) -Necrotic Tissue Type Adherent Slough Adherent Slough -Structure Exposed Fascia N/A Fat Layer Exposed -Texture (Candy-wound Skin Appearance) Localized Edema Scarring Scarring -Moisture (Candy-wound Skin Appearance No Abnormality Dry/Scaly ) -Color (Candy-wound Skin Appearance) Erythema Hemosiderin Hemosiderin Staining Staining -Temperature (Candy-wound Skin No Abnormality No Abnormality Appearance) (Pt Warm) (Pt Warm) -Tenderness on Palpation (Candy-wound No Skin Appearance) -Ulcer Cleansing danyel hex Wound Cleanser -Foul Odor after Cleansing No No -Anesthetic Used 4% Lidocaine Solution [Edema Assessment] -Lower Limb Edema Present Yes -Right Calf (cm) 48.1 48.2 -Right Ankle (cm) 31.2 30.7 -Left Calf (cm) 48.0 47.2 -Left Ankle (cm) 30.5 29.6 WC - Nurse 2 - General Ulcer CM Notes Start: 10/30/17 14:47 Freq: Status: Active Protocol: Activity Type Activity Date Activity User E-Sign Co-Sign Detail Recorded Client Recorded Date Recorded By Document 11/11/17 15:50 [id number] 11/11/17 15:53 11/11/17 15:50 Wound Center Nurse 2 [Procedure/Treatment] 3-RIGHT SUPERIOR LATERAL LEG -Time 15:50 -Correct Patient Yes -Correct Side, Site, Position Yes -Correct Procedure Yes -Procedure Performed Yes -Post Debridement Size (cm) - Length 0 -Post Debridement Size (cm) - Width 0 -Post Debridement Size (cm) - Depth 0 -Total Square Cm 0 -Wound/Ulcer Outcome Healed- Epithelialized -Ulcer Cleansing hibiclens -Foul Odor after Cleansing No -Bioengineered Tissue No -Topical Lidocaine (%) 5 -Bleeding Controlled with NA -Treatment Response Procedure Tolerated Well 2. RLE LOWER LATERAL -Time 15:51 -Correct Patient Yes -Correct Side, Site, Position Yes -Correct Procedure Yes -Procedure Performed Yes -Type of Procedure Debridement -Clinical Debridement Subcutaneous -Post Debridement Size (cm) - Length 3.8 -Post Debridement Size (cm) - Width 0.7 -Post Debridement Size (cm) - Depth 0.1 -Total Square Cm 2.66 -Wound/Ulcer Outcome Not Healed -Ulcer Cleansing Rinsed/ Irrigated with Saline -Foul Odor after Cleansing No -Bioengineered Tissue No -Topical Lidocaine (%) 5 -Bleeding Controlled with Pressure -Treatment Response Procedure Tolerated Well 1-left lateral calf cluster -Time 15:52 -Correct Patient Yes -Correct Side, Site, Position Yes -Correct Procedure Yes -Procedure Performed Yes -Post Debridement Size (cm) - Length 0 -Post Debridement Size (cm) - Width 0 -Post Debridement Size (cm) - Depth 0 -Total Square Cm 0 -Wound/Ulcer Outcome Healed- Epithelialized -Ulcer Cleansing Rinsed/ Irrigated with Saline -Foul Odor after Cleansing No -Bioengineered Tissue No -Bleeding Controlled with NA -Treatment Response Procedure Tolerated Well [See Physician Procedure note for Specifics] Pain Scale: 0-10 Numeric [Pain] -Is Patient Pain Free? Yes Musculoskeletal: No Tenderness to Palpation of Joints or Extremities, Muscle Wasting, - - Compartments soft bilateral lower extremities Neurological: Sensory exam intact to light touch and pain Psych/Mental Status: Normal Affect, Appropriate Debridement Note Post-Debridement Measurements/Treatment WC - Nurse 2 - General Ulcer CM Notes Start: 10/30/17 14:47 Freq: Status: Active Protocol: Activity Type Activity Date Activity User E-Sign Co-Sign Detail Recorded Client Recorded Date Recorded By Document 11/04/17 16:19 [id number] 11/04/17 16:21 Document 11/11/17 15:50 [id number] 11/11/17 15:53 11/04/17 11/11/17 16:19 15:50 Wound Center Nurse 2 3-RIGHT SUPERIOR LATERAL LEG -Time 16:21 15:50 -Correct Patient Yes Yes -Correct Side, Site, Position Yes Yes -Correct Procedure Yes Yes -Procedure Performed Yes Yes -Type of Procedure Debridement -Clinical Debridement Subcutaneous -Post Debridement Size (cm) - Length 3.5 0 -Post Debridement Size (cm) - Width 2 0 -Post Debridement Size (cm) - Depth 0.1 0 -Total Square Cm 7.0 0 -Wound/Ulcer Outcome Not Healed Healed- Epithelialized -Ulcer Cleansing Rinsed/ hibiclens Irrigated with Saline -Foul Odor after Cleansing No No -Bioengineered Tissue No No -Topical Lidocaine (%) 5 -Bleeding Controlled with Pressure NA -Treatment Response Procedure Procedure Tolerated Well Tolerated Well 2. RLE LOWER LATERAL -Time 16:20 15:51 -Correct Patient Yes Yes -Correct Side, Site, Position Yes Yes -Correct Procedure Yes Yes -Procedure Performed Yes Yes -Type of Procedure Debridement Debridement -Clinical Debridement Subcutaneous Subcutaneous -Post Debridement Size (cm) - Length 2.5 3.8 -Post Debridement Size (cm) - Width 3.5 0.7 -Post Debridement Size (cm) - Depth 0.1 0.1 -Total Square Cm 8.75 2.66 -Wound/Ulcer Outcome Not Healed Not Healed -Ulcer Cleansing Rinsed/ Rinsed/ Irrigated with Irrigated with Saline Saline -Foul Odor after Cleansing No No -Bioengineered Tissue No No -Topical Lidocaine (%) 5 -Bleeding Controlled with Pressure Pressure -Treatment Response Procedure Procedure Tolerated Well Tolerated Well 1-left lateral calf cluster -Time 16:20 15:52 -Correct Patient Yes Yes -Correct Side, Site, Position Yes Yes -Correct Procedure Yes Yes -Procedure Performed Yes Yes -Type of Procedure Debridement -Clinical Debridement Subcutaneous -Post Debridement Size (cm) - Length 17.5 0 -Post Debridement Size (cm) - Width 11.1 0 -Post Debridement Size (cm) - Depth 0.1 0 -Total Square Cm 194.25 0 -Wound/Ulcer Outcome Not Healed Healed- Epithelialized -Ulcer Cleansing Rinsed/ Rinsed/ Irrigated with Irrigated with Saline Saline -Foul Odor after Cleansing No No -Bioengineered Tissue No No -Bleeding Controlled with Pressure NA -Treatment Response Procedure Procedure Tolerated Well Tolerated Well Pain Scale: 0-10 Numeric Is Patient Pain Free? Yes Yes Wound debrided: leg cluster Laterality: Right Wound Grade/Stage: grade 1 Type of Debridement: Excisional debridement Anesthesia Used: 4% Lidocaine Solution Depth: in the subcutaneous layer Percentage of wound debrided: 100 Instrument Used: #15 blade Tissue Removed: fibrous, devitalized subcutaneous, biofilm, slough Severity: Fat Layer Exposed Amount of bleeding with debridement: Mild Bleeding Controlled with: Pressure Patient tolerated procedure well Assessment/Plan Active Problems Edema of both legs (Chronic) Venous insufficiency (Chronic) Ulcer of right lower extremity with fat layer exposed (Chronic) Diabetes mellitus with complication (Chronic) Assessment: Left leg ulcer healed. Cluster right leg with fat layer exposed, no cellulitis- improving. Lower extremity edema. Venous insufficiency. Ruled out peripheral vascular disease. Lymphedema. Malnutrition possible. Diabetes with complications Plan: I reviewed and discussed his case today. Debridement of the ulcer site was performed as noted in the clinical panel. To change the dressing every other day with hydrogel with collagen and adaptic. Compression dressing 3M2L was applied and he will come to the wound center once per week for nursing change. Incompetent veins were noted on the venous Doppler he is referred to Dr. Pearson for potential intervention to assist in timely wound healing and future prevention. He is scheduled for November 12, 2017. To elevate the legs at rest and to avoid idle sitting and standing. He was reassured no infection is noted today and I do not recommend antibiotics. To offload this site by keeping pressure off of the posterior leg while lying in bed (right). I recommend nutritional supplementation to optimize healing. A prescription for Álvaro was provided last visit. To continue to control blood sugars. I answered all his questions. To return to clinic in 1 week or call sooner if he has any questions or concerns.
[2017-11-18 14:56] VITALS: BP 138/79; PULSE 77; RESP 18; TEMP 37.2
--- NOTE | 2017-11-18 16:28 | PN.PCM_ITS ---
(1) Ulcer of right lower extremity with fat layer exposed Status: Chronic Current Visit: Yes Code(s): L97.912 - Non-pressure chronic ulcer of unspecified part of right lower leg with fat layer exposed (2) Edema of both legs Status: Resolved Current Visit: Yes Code(s): R60.0 - Localized edema (3) Venous insufficiency Status: Chronic Current Visit: Yes Code(s): I87.2 - Venous insufficiency ( chronic) (peripheral) (4) Diabetes mellitus with complication Status: Chronic Current Visit: Yes Code(s): E11.8 - Type 2 diabetes mellitus with unspecified complications (5) Lymphedema Status: Chronic Current Visit: Yes Code(s): I89.0 - Lymphedema, not elsewhere classified (6) Ingrowing nail, right great toe Status: Acute Current Visit: Yes Code(s): L60.0 - Ingrowing nail (7) Cellulitis of great toe, right Status: Acute Current Visit: Yes Code(s): L03.031 - Cellulitis of right toe (8) Tinea unguium Status: Chronic Current Visit: Yes Code(s): B35.1 - Tinea unguium Type of Wound Date of Service: 11/18/17 Chief Complaint: Right leg ulcer. Right great toe. Long toenails History of Wound: This 52-year-old male with multiple comorbidities presents for a right leg wound that has been resistant to traditional wound healing program. His left leg ulcers remain healed and both of his legs have decreased edema. He has a red right great toe he denies recent trauma. He denies current shortness of breath or chest pain or fever, chill, nausea, vomiting, calf pain or shortness of breath. And does not recall any trauma or odor. The site is red. He also has long thickened toenails that he does not feel safe trimming on his own. He asked for help today. It is noted that he does have diabetes and lymphedema. Progress of Wound: Improving right leg. New ingrown toenail wound - Physical Exam Vital Signs Temp Pulse Resp BP 98.9 F 77 18 138/79 H 11/18/17 14:56 11/18/17 14:56 11/18/17 14:56 11/18/17 14:56 General: Alert, Oriented x3, Cooperative Extremities: No cyanosis, Capillary Refill Less than 3 Seconds, No Calf Tenderness - Negative Aline and Tamayo signs bilateral, Diminished Peripheral Pulses, Edema - Decreased bilateral lower extremities; still considered moderate with induration Skin: Ulcer/ Wound - Right leg posterior ankle wound does not have any erythema , purulence, odor, infection, or deep exposed tissue noted. The peripheral skin is atrophic and without hair. He does have incurvated right lateral hallux nail border that has created a skin discontinuity, erythema extending to the hallux interphalangeal joint level, and edema. This is consistent with a mild infection., - - Toenails bilateral 1, 2, 3, 4, 5 are elongated, mild the second, with subungual debris in these sites are compromising the adjacent skin on all the toes. Wound Measurements and Assessment WC - Nurse 1 - General Ulcer Measurement Start: 10/30/17 14:47 Freq: Status: Active Protocol: Activity Type Activity Date Activity User E-Sign Co-Sign Detail Recorded Client Recorded Date Recorded By Document 11/18/17 14:56 MW [id number] 11/18/17 14:57 MW 11/18/17 14:56 Wound Center Nurse 1 [Ulcer Assessment] 2. RLE LOWER LATERAL -Combined with other wound No -Current Size (cm) - Length 0.1 -Current Size (cm) - Width 0.1 -Current Size (cm) - Depth 0.1 -Total Square Cm 0.01 -Photo Taken No -Epithelialization Large 67-100% -Tunneling No -Undermining/Tunneling No -Circular Undermining No -Exudate Amt None Present (0 %) -Granulation Amt None Present (0 %) -Granulation Quality N/A -Slough/Fibrin No -Structure Exposed N/A -Texture (Candy-wound Skin Appearance) Assessed Localized Edema -Moisture (Candy-wound Skin Appearance No Abnormality ) Dry/Scaly -Color (Candy-wound Skin Appearance) Assessed Hemosiderin Staining -Temperature (Candy-wound Skin No Abnormality Appearance) (Pt Warm) -Tenderness on Palpation (Candy-wound No Skin Appearance) -Ulcer Cleansing Wound Cleanser -Foul Odor after Cleansing No [Edema Assessment] -Lower Limb Edema Present Yes -Right Calf (cm) 48.2 -Right Ankle (cm) 30.5 -Left Calf (cm) 48.5 -Left Ankle (cm) 29.2 WC - Nurse 2 - General Ulcer CM Notes Start: 10/30/17 14:47 Freq: Status: Active Protocol: Activity Type Activity Date Activity User E-Sign Co-Sign Detail Recorded Client Recorded Date Recorded By Document 11/18/17 15:41 [id number] 11/18/17 15:44 11/18/17 15:41 Wound Center Nurse 2 [Procedure/Treatment] 2. RLE LOWER LATERAL -Time 15:42 -Correct Patient Yes -Correct Side, Site, Position Yes -Correct Procedure Yes -Procedure Performed Yes -Type of Procedure Debridement -Clinical Debridement Subcutaneous -Post Debridement Size (cm) - Length 0.4 -Post Debridement Size (cm) - Width 0.8 -Post Debridement Size (cm) - Depth 0.1 -Total Square Cm 0.32 -Wound/Ulcer Outcome Not Healed -Ulcer Cleansing Rinsed/ Irrigated with Saline -Foul Odor after Cleansing No -Bioengineered Tissue No -Bleeding Controlled with Pressure -Treatment Response Procedure Tolerated Well [See Physician Procedure note for Specifics] Pain Scale: 0-10 Numeric [Pain] -Is Patient Pain Free? Yes Musculoskeletal: No Tenderness to Palpation of Joints or Extremities, Muscle Wasting, Tenderness - No pain with wound debridement right leg, - - Lymphedema bilateral lower extremity Neurological: Sensory exam intact to light touch and pain - Leg right, - - Decreased sensation with palpation to the right great toe Psych/Mental Status: Normal Affect, Appropriate Debridement Note Post-Debridement Measurements/Treatment - Nurse 2 - General Ulcer CM Notes Start: 10/30/17 14:47 Freq: Status: Active Protocol: Activity Type Activity Date Activity User E-Sign Co-Sign Detail Recorded Client Recorded Date Recorded By Document 11/04/17 16:19 [id number] 11/04/17 16:21 Document 11/11/17 15:50 [id number] 11/11/17 15:53 Document 11/18/17 15:41 [id number] 11/18/17 15:44 11/04/17 11/11/17 11/18/17 16:19 15:50 15:41 Wound Center Nurse 2 3-RIGHT SUPERIOR LATERAL LEG -Time 16:21 15:50 -Correct Patient Yes Yes -Correct Side, Site, Position Yes Yes -Correct Procedure Yes Yes -Procedure Performed Yes Yes -Type of Procedure Debridement -Clinical Debridement Subcutaneous -Post Debridement Size (cm) - Length 3.5 0 -Post Debridement Size (cm) - Width 2 0 -Post Debridement Size (cm) - Depth 0.1 0 -Total Square Cm 7.0 0 -Wound/Ulcer Outcome Not Healed Healed- Epithelialized -Ulcer Cleansing Rinsed/ hibiclens Irrigated with Saline -Foul Odor after Cleansing No No -Bioengineered Tissue No No -Topical Lidocaine (%) 5 -Bleeding Controlled with Pressure NA -Treatment Response Procedure Procedure Tolerated Well Tolerated Well 2. RLE LOWER LATERAL -Time 16:20 15:51 15:42 -Correct Patient Yes Yes Yes -Correct Side, Site, Position Yes Yes Yes -Correct Procedure Yes Yes Yes -Procedure Performed Yes Yes Yes -Type of Procedure Debridement Debridement Debridement -Clinical Debridement Subcutaneous Subcutaneous Subcutaneous -Post Debridement Size (cm) - Length 2.5 3.8 0.4 -Post Debridement Size (cm) - Width 3.5 0.7 0.8 -Post Debridement Size (cm) - Depth 0.1 0.1 0.1 -Total Square Cm 8.75 2.66 0.32 -Wound/Ulcer Outcome Not Healed Not Healed Not Healed -Ulcer Cleansing Rinsed/ Rinsed/ Rinsed/ Irrigated with Irrigated with Irrigated with Saline Saline Saline -Foul Odor after Cleansing No No No -Bioengineered Tissue No No No -Topical Lidocaine (%) 5 -Bleeding Controlled with Pressure Pressure Pressure -Treatment Response Procedure Procedure Procedure Tolerated Well Tolerated Well Tolerated Well 1-left lateral calf cluster -Time 16:20 15:52 -Correct Patient Yes Yes -Correct Side, Site, Position Yes Yes -Correct Procedure Yes Yes -Procedure Performed Yes Yes -Type of Procedure Debridement -Clinical Debridement Subcutaneous -Post Debridement Size (cm) - Length 17.5 0 -Post Debridement Size (cm) - Width 11.1 0 -Post Debridement Size (cm) - Depth 0.1 0 -Total Square Cm 194.25 0 -Wound/Ulcer Outcome Not Healed Healed- Epithelialized -Ulcer Cleansing Rinsed/ Rinsed/ Irrigated with Irrigated with Saline Saline -Foul Odor after Cleansing No No -Bioengineered Tissue No No -Bleeding Controlled with Pressure NA -Treatment Response Procedure Procedure Tolerated Well Tolerated Well Pain Scale: 0-10 Numeric Is Patient Pain Free? Yes Yes Yes Wound debrided: posterior leg Laterality: Right Wound Grade/Stage: grade 1 Type of Debridement: Excisional debridement Anesthesia Used: 4% Lidocaine Solution Depth: in the subcutaneous layer Percentage of wound debrided: 100 Instrument Used: #15 blade Tissue Removed: fibrous, devitalized subcutaneous tissue, biofilm, slough Severity: Fat Layer Exposed Amount of bleeding with debridement: Mild Bleeding Controlled with: Pressure Patient tolerated procedure well Assessment/Plan Active Problems Edema of both legs (Chronic) Venous insufficiency (Chronic) Ulcer of right lower extremity with fat layer exposed (Chronic) Diabetes mellitus with complication (Chronic) Lymphedema (Chronic) Ingrowing nail, right great toe (Acute) Cellulitis of great toe, right (Acute) Tinea unguium (Chronic) Assessment: Left leg ulcer bill healed. Ulcer of right leg with fat layer exposed, no cellulitis- improving. New ingrown right hallux lateral toenail with right toe cellulitis. Tinea unguium bilateral 1, 2, 3, 4, 5. Lower extremity edema. Venous insufficiency. Ruled out peripheral vascular disease. Lymphedema. Malnutrition possible. Diabetes with complications Plan: I reviewed and discussed his case today. Debridement of the ulcer site was performed as noted in the clinical panel the right leg. To change the dressing every other day with hydrogel with collagen and adaptic. Compression dressing 3M2L was applied and he will come to the wound center once per week for nursing change. Incompetent veins were noted on the venous Doppler he is referred to Dr. Pearson for potential intervention to assist in timely wound healing and future prevention. He is scheduled for November 12, 2017. To elevate the legs at rest and to avoid idle sitting and standing. To offload this site by keeping pressure off of the posterior leg while lying in bed (right). A prescription for bilateral lower extremity CircAid graduated compression wraps were initiated and preauthorization is pending. I recommend nutritional supplementation to optimize healing. A prescription for Álvaro was provided at a previous visit. To continue to control blood sugars. A nail nipper was used to perform a partial nail avulsion on the right lateral hallux. He does not have feeling to this toe and tolerated this well. There was no trang necrosis or purulence on expression and upon removal of the offending nail border. Deep wound aerobic and anaerobic cultures were obtained. He was started on Bactrim and was advised on safe and proper use. His penicillin allergy was noted. He was advised to clean the site daily with water and soap. To change this dressing daily with gauze and hydrogel with collagen. A prescription was provided to obtain supplies. To offload this site by wearing an open toe shoe while at home. To call immediately if his local signs of infection progresses or if he develops systemic signs of illness. His toenails were manually debrided with a nail nipper in length and thickness; bilateral 1, 2, 3, 4, 5. He tolerated this well. The purpose was to reduce pressure on the adjacent toe soft tissue structures. He is not able to safely perform this on his own. I answered all his questions. To return to clinic in 1 week or call sooner if he has any questions or concerns.
[2017-11-25 15:26] VITALS: BP 138/84; PULSE 74; RESP 18; TEMP 37.4
--- NOTE | 2017-11-25 23:42 | PN.PCM_ITS ---
(1) Ulcer of right lower extremity with fat layer exposed Status: Chronic Current Visit: Yes Code(s): L97.912 - Non-pressure chronic ulcer of unspecified part of right lower leg with fat layer exposed (2) Edema of both legs Status: Chronic Current Visit: Yes Code(s): R60.0 - Localized edema (3) Venous insufficiency Status: Chronic Current Visit: Yes Code(s): I87.2 - Venous insufficiency ( chronic) (peripheral) (4) Diabetes mellitus with complication Status: Chronic Current Visit: Yes Code(s): E11.8 - Type 2 diabetes mellitus with unspecified complications (5) Lymphedema Status: Chronic Current Visit: Yes Code(s): I89.0 - Lymphedema, not elsewhere classified (6) Ingrowing nail, right great toe Status: Acute Current Visit: Yes Code(s): L60.0 - Ingrowing nail (7) Cellulitis of great toe, right Status: Acute Current Visit: Yes Code(s): L03.031 - Cellulitis of right toe (8) Tinea unguium Status: Chronic Current Visit: Yes Code(s): B35.1 - Tinea unguium Type of Wound Date of Service: 11/25/17 Chief Complaint: Right leg ulcer. Right great toe cellulitis resolved with recent hallux lateral wedge resection History of Wound: This 52-year-old male with multiple comorbidities presents for a right leg wound that has been resistant to traditional wound healing program. His left leg ulcers remain healed and both of his legs have decreased edema. He denies current shortness of breath or chest pain or fever, chill, nausea, vomiting, calf pain or shortness of breath. And does not recall any trauma or odor. He has a new wound to the right leg and denies trauma. He tries to elevate his legs at rest. He relates his right great toe is less red and he denies pain. He took his antibiotics, augmentin, as advised. Progress of Wound: healed lower leg. new right leg wound proximal medial. resolved cellulitis at ingrown toenail site - Physical Exam Vital Signs Temp Pulse Resp BP 99.3 F H 74 18 138/84 H 11/25/17 15:26 11/25/17 15:26 11/25/17 15:26 11/25/17 15:26 General: Alert, Oriented x3, Cooperative Extremities: No cyanosis, Capillary Refill Less than 3 Seconds, No Calf Tenderness - negative sia and gomez signs bilateral, Diminished Peripheral Pulses, Edema - bilateral lower exremities severe Skin: Ulcer/ Wound - no purulence, no erythema, no infection, no necrosis noted. inflammation is resolved to the right hallux and there is no longer drainage or a wound noted. the distal posterior right leg ulcer site has full epithelialization notee Wound Measurements and Assessment WC - Nurse 1 - General Ulcer Measurement Start: 10/30/17 14:47 Freq: Status: Active Protocol: Activity Type Activity Date Activity User E-Sign Co-Sign Detail Recorded Client Recorded Date Recorded By Document 11/25/17 15:26 MW [id number] 11/25/17 15:35 MW 11/25/17 15:26 Wound Center Nurse 1 [Ulcer Assessment] #4 RLE POSTERIOR -Combined with other wound No -Current Size (cm) - Length 1.1 -Current Size (cm) - Width 6.5 -Current Size (cm) - Depth 0.1 -Total Square Cm 7.15 -Date of Last Picture (Recall this 11/25/17 field) -Photo Taken Yes -Epithelialization None Present -Tunneling No -Undermining/Tunneling No -Circular Undermining No -Exudate Amt Small (1-33%) -Exudate Type Serosanguineous -Wound Margin Flat & Intact -Granulation Amt Large (67-100%) -Granulation Quality Red -Slough/Fibrin Yes -Necrosis Amt Small (1-33%) -Necrotic Tissue Type Adherent Slough -Structure Exposed N/A -Texture (Candy-wound Skin Appearance) Assessed Localized Edema -Moisture (Candy-wound Skin Appearance Assessed ) Dry/Scaly -Color (Candy-wound Skin Appearance) Assessed Hemosiderin Staining -Temperature (Candy-wound Skin No Abnormality Appearance) (Pt Warm) -Ulcer Cleansing SOAP AND WATER -Foul Odor after Cleansing No -Anesthetic Used 5% Lidocaine Gel 2. RLE LOWER LATERAL -Combined with other wound No -Current Size (cm) - Length 0.1 -Current Size (cm) - Width 0.1 -Current Size (cm) - Depth 0.1 -Total Square Cm 0.01 -Photo Taken No -Epithelialization None Present -Tunneling No -Undermining/Tunneling No -Circular Undermining No -Wound Margin Flat & Intact -Granulation Amt None Present (0 %) -Granulation Quality N/A -Necrosis Amt Small (1-33%) -Necrotic Tissue Type Adherent Slough -Structure Exposed N/A -Texture (Candy-wound Skin Appearance) Assessed Localized Edema -Moisture (Candy-wound Skin Appearance Assessed ) Dry/Scaly -Color (Candy-wound Skin Appearance) Assessed Hemosiderin Staining -Temperature (Candy-wound Skin No Abnormality Appearance) (Pt Warm) -Tenderness on Palpation (Candy-wound No Skin Appearance) -Ulcer Cleansing SOAP AND WATER -Foul Odor after Cleansing No [Edema Assessment] -Lower Limb Edema Present Yes -Right Calf (cm) 47.2 -Right Ankle (cm) 29.7 -Left Calf (cm) 49.5 -Left Ankle (cm) 28.2 WC - Nurse 2 - General Ulcer CM Notes Start: 10/30/17 14:47 Freq: Status: Active Protocol: Activity Type Activity Date Activity User E-Sign Co-Sign Detail Recorded Client Recorded Date Recorded By Document 11/25/17 16:03 [id number] 11/25/17 16:05 CARMELINA 11/25/17 16:03 Wound Center Nurse 2 [Procedure/Treatment] #4 RLE POSTERIOR -Time 16:03 -Correct Patient Yes -Correct Side, Site, Position Yes -Correct Procedure Yes -Procedure Performed Yes -Type of Procedure Debridement -Clinical Debridement Subcutaneous -Post Debridement Size (cm) - Length 1.2 -Post Debridement Size (cm) - Width 6.5 -Post Debridement Size (cm) - Depth 0.1 -Total Square Cm 7.80 -Wound/Ulcer Outcome Not Healed -Ulcer Cleansing Rinsed/ Irrigated with Saline -Foul Odor after Cleansing No -Bioengineered Tissue No -Bleeding Controlled with Pressure -Treatment Response Procedure Tolerated Well 2. RLE LOWER LATERAL -Time 16:05 -Correct Patient No -Correct Side, Site, Position No -Correct Procedure No -Procedure Performed No -Post Debridement Size (cm) - Length 0 -Post Debridement Size (cm) - Width 0 -Post Debridement Size (cm) - Depth 0 -Total Square Cm 0 -Wound/Ulcer Outcome Healed- Epithelialized -Bleeding Controlled with Pressure -Treatment Response Procedure Tolerated Well [See Physician Procedure note for Specifics] Pain Scale: 0-10 Numeric [Pain] -Is Patient Pain Free? Yes Musculoskeletal: No Tenderness to Palpation of Joints or Extremities, Muscle Wasting Neurological: - - lack of epicritic sensation via light touch noted bilateral lower extremities Psych/Mental Status: Normal Affect, Appropriate Debridement Note Post-Debridement Measurements/Treatment WC - Nurse 2 - General Ulcer CM Notes Start: 10/30/17 14:47 Freq: Status: Active Protocol: Activity Type Activity Date Activity User E-Sign Co-Sign Detail Recorded Client Recorded Date Recorded By Document 11/04/17 16:19 [id number] 11/04/17 16:21 Document 11/11/17 15:50 [id number] 11/11/17 15:53 Document 11/18/17 15:41 [id number] 11/18/17 15:44 Document 11/25/17 16:03 [id number] 11/25/17 16:05 11/04/17 11/11/17 11/18/17 16:19 15:50 15:41 Wound Center Nurse 2 #4 RLE POSTERIOR -Time -Correct Patient -Correct Side, Site, Position -Correct Procedure -Procedure Performed -Type of Procedure -Clinical Debridement -Post Debridement Size (cm) - Length -Post Debridement Size (cm) - Width -Post Debridement Size (cm) - Depth -Total Square Cm -Wound/Ulcer Outcome -Ulcer Cleansing -Foul Odor after Cleansing -Bioengineered Tissue -Bleeding Controlled with -Treatment Response 3-RIGHT SUPERIOR LATERAL LEG -Time 16:21 15:50 -Correct Patient Yes Yes -Correct Side, Site, Position Yes Yes -Correct Procedure Yes Yes -Procedure Performed Yes Yes -Type of Procedure Debridement -Clinical Debridement Subcutaneous -Post Debridement Size (cm) - Length 3.5 0 -Post Debridement Size (cm) - Width 2 0 -Post Debridement Size (cm) - Depth 0.1 0 -Total Square Cm 7.0 0 -Wound/Ulcer Outcome Not Healed Healed- Epithelialized -Ulcer Cleansing Rinsed/ hibiclens Irrigated with Saline -Foul Odor after Cleansing No No -Bioengineered Tissue No No -Topical Lidocaine (%) 5 -Bleeding Controlled with Pressure NA -Treatment Response Procedure Procedure Tolerated Well Tolerated Well 2. RLE LOWER LATERAL -Time 16:20 15:51 15:42 -Correct Patient Yes Yes Yes -Correct Side, Site, Position Yes Yes Yes -Correct Procedure Yes Yes Yes -Procedure Performed Yes Yes Yes -Type of Procedure Debridement Debridement Debridement -Clinical Debridement Subcutaneous Subcutaneous Subcutaneous -Post Debridement Size (cm) - Length 2.5 3.8 0.4 -Post Debridement Size (cm) - Width 3.5 0.7 0.8 -Post Debridement Size (cm) - Depth 0.1 0.1 0.1 -Total Square Cm 8.75 2.66 0.32 -Wound/Ulcer Outcome Not Healed Not Healed Not Healed -Ulcer Cleansing Rinsed/ Rinsed/ Rinsed/ Irrigated with Irrigated with Irrigated with Saline Saline Saline -Foul Odor after Cleansing No No No -Bioengineered Tissue No No No -Topical Lidocaine (%) 5 -Bleeding Controlled with Pressure Pressure Pressure -Treatment Response Procedure Procedure Procedure Tolerated Well Tolerated Well Tolerated Well 1-left lateral calf cluster -Time 16:20 15:52 -Correct Patient Yes Yes -Correct Side, Site, Position Yes Yes -Correct Procedure Yes Yes -Procedure Performed Yes Yes -Type of Procedure Debridement -Clinical Debridement Subcutaneous -Post Debridement Size (cm) - Length 17.5 0 -Post Debridement Size (cm) - Width 11.1 0 -Post Debridement Size (cm) - Depth 0.1 0 -Total Square Cm 194.25 0 -Wound/Ulcer Outcome Not Healed Healed- Epithelialized -Ulcer Cleansing Rinsed/ Rinsed/ Irrigated with Irrigated with Saline Saline -Foul Odor after Cleansing No No -Bioengineered Tissue No No -Bleeding Controlled with Pressure NA -Treatment Response Procedure Procedure Tolerated Well Tolerated Well Pain Scale: 0-10 Numeric Is Patient Pain Free? Yes Yes Yes 11/25/17 16:03 Wound Center Nurse 2 #4 RLE POSTERIOR -Time 16:03 -Correct Patient Yes -Correct Side, Site, Position Yes -Correct Procedure Yes -Procedure Performed Yes -Type of Procedure Debridement -Clinical Debridement Subcutaneous -Post Debridement Size (cm) - Length 1.2 -Post Debridement Size (cm) - Width 6.5 -Post Debridement Size (cm) - Depth 0.1 -Total Square Cm 7.80 -Wound/Ulcer Outcome Not Healed -Ulcer Cleansing Rinsed/ Irrigated with Saline -Foul Odor after Cleansing No -Bioengineered Tissue No -Bleeding Controlled with Pressure -Treatment Response Procedure Tolerated Well 3-RIGHT SUPERIOR LATERAL LEG -Time -Correct Patient -Correct Side, Site, Position -Correct Procedure -Procedure Performed -Type of Procedure -Clinical Debridement -Post Debridement Size (cm) - Length -Post Debridement Size (cm) - Width -Post Debridement Size (cm) - Depth -Total Square Cm -Wound/Ulcer Outcome -Ulcer Cleansing -Foul Odor after Cleansing -Bioengineered Tissue -Topical Lidocaine (%) -Bleeding Controlled with -Treatment Response 2. RLE LOWER LATERAL -Time 16:05 -Correct Patient No -Correct Side, Site, Position No -Correct Procedure No -Procedure Performed No -Type of Procedure -Clinical Debridement -Post Debridement Size (cm) - Length 0 -Post Debridement Size (cm) - Width 0 -Post Debridement Size (cm) - Depth 0 -Total Square Cm 0 -Wound/Ulcer Outcome Healed- Epithelialized -Ulcer Cleansing -Foul Odor after Cleansing -Bioengineered Tissue -Topical Lidocaine (%) -Bleeding Controlled with Pressure -Treatment Response Procedure Tolerated Well 1-left lateral calf cluster -Time -Correct Patient -Correct Side, Site, Position -Correct Procedure -Procedure Performed -Type of Procedure -Clinical Debridement -Post Debridement Size (cm) - Length -Post Debridement Size (cm) - Width -Post Debridement Size (cm) - Depth -Total Square Cm -Wound/Ulcer Outcome -Ulcer Cleansing -Foul Odor after Cleansing -Bioengineered Tissue -Bleeding Controlled with -Treatment Response Pain Scale: 0-10 Numeric Is Patient Pain Free? Yes Wound debrided: leg Laterality: Right Wound Grade/Stage: grade 1 Type of Debridement: Excisional debridement Anesthesia Used: 4% Lidocaine Solution Depth: in the subcutaneous layer Percentage of wound debrided: 100 Instrument Used: #15 blade Tissue Removed: fibrous, devitalized subcutaneous, biofilm, slough Severity: Fat Layer Exposed Amount of bleeding with debridement: Mild Bleeding Controlled with: Pressure Patient tolerated procedure well Assessment/Plan Active Problems Edema of both legs (Chronic) Venous insufficiency (Chronic) Ulcer of right lower extremity with fat layer exposed (Chronic) Diabetes mellitus with complication (Chronic) Lymphedema (Chronic) Ingrowing nail, right great toe (Acute) Cellulitis of great toe, right (Acute) Tinea unguium (Chronic) Assessment: Left leg ulcer bill healed. Ulcer of right leg at posterior distal site - healed today. new ulcer right leg medial posterior with fat layer exposed - no infection. ingrown right hallux lateral toenail with resolved cellulitis and wound s/p wedge resection. Lower extremity edema. Venous insufficiency. Ruled out peripheral vascular disease. Lymphedema. Diabetes with complications Plan: I reviewed and discussed his case today. Debridement of the ulcer site was performed as noted in the clinical panel the right leg at the new site. The right hallux and lower leg have healed and he was reassured no infection is noted. To change the dressing every other day with hydrogel with collagen and adaptic. Compression dressing 3M2L was applied and he will come to the wound center once per week for nursing change. Incompetent veins were noted on the venous Doppler he is referred to Dr. Pearson for potential intervention to assist in timely wound healing and future prevention. He is scheduled for November 12, 2017. To elevate the legs at rest and to avoid idle sitting and standing. To offload this site by keeping pressure off of the posterior leg while lying in bed (right). A prescription for bilateral lower extremity CircAid graduated compression wraps were initiated and preauthorization was completed. He will have a fee of around 66 dollars. He was encouraged to proceed if he has the funds to prevent ongoing leg swelling and ulcer formation. I recommend nutritional supplementation to optimize healing. A prescription for Álvaro was provided at a previous visit. To continue to control blood sugars. . I reviewed his cultures obtained from the right toe last week and evaluated his toe clinically. His wound and infection are resolved. No additional antibiotics are recommended and he is not required to do dressing care to this healed site. . I answered all his questions. To return to clinic in 1 week or call sooner if he has any questions or concerns.
== END 2017-11-28 23:59 ==
LOC: WC 15:15
PROVIDERS: Family Provider Family Medicine; PCP Family Medicine; Visit Provider Podiatrist
DX: E11.622 Type 2 diabetes mellitus with other skin ulcer (principal); L97.822 Non-pressure chronic ulcer of other part of left lower leg with fat layer exposed; L97.812 Non-pressure chronic ulcer of other part of right lower leg with fat layer exposed; R60.0 Localized edema; I89.0 Lymphedema, not elsewhere classified; E11.51 Type 2 diabetes mellitus with diabetic peripheral angiopathy without gangrene; L60.0 Ingrowing nail; L03.031 Cellulitis of right toe; B35.1 Tinea unguium
CPT/HCPCS: 11042; 11045; 11721; 29581; 87070; 87075; 87077; 87186; 87205; 99212; 99213; 99214; G0463

== ENCOUNTER 2017-12-23 15:45 | Outpatient (RCR) | payer MEDICAID, SELFPAY ==
[2017-11-29 00:58] VITALS: PULSE 74; RESP 18; TEMP 37.4
[2017-12-02 15:53] VITALS: BP 149/90; PULSE 82; RESP 16; TEMP 37.6
--- NOTE | 2017-12-02 15:57 | WC ---
pt has excoration of LLE noted after 3M removed
--- NOTE | 2017-12-02 22:24 | PN.PCM_ITS ---
(1) Ulcer of left lower extremity with fat layer exposed Status: Acute Current Visit: Yes Code(s): L97.922 - Non-pressure chronic ulcer of unspecified part of left lower leg with fat layer exposed (2) Edema of both legs Status: Chronic Current Visit: Yes Code(s): R60.0 - Localized edema (3) Venous insufficiency Status: Chronic Current Visit: Yes Code(s): I87.2 - Venous insufficiency ( chronic) (peripheral) (4) Malnutrition Status: Chronic Current Visit: No Code(s): E46 - Unspecified protein- calorie malnutrition (5) Ulcer of right lower extremity with fat layer exposed Status: Resolved Current Visit: Yes Code(s): L97.912 - Non-pressure chronic ulcer of unspecified part of right lower leg with fat layer exposed (6) Diabetes mellitus with complication Status: Chronic Current Visit: Yes Code(s): E11.8 - Type 2 diabetes mellitus with unspecified complications (7) Lymphedema Status: Chronic Current Visit: Yes Code(s): I89.0 - Lymphedema, not elsewhere classified Type of Wound Date of Service: 12/03/17 Chief Complaint: Right leg ulcer. Right great toe cellulitis resolved with recent hallux lateral wedge resection History of Wound: This 52-year-old male with multiple comorbidities presents for a right leg wound that has not been draining. His left leg now has an opening. He denies current shortness of breath or chest pain or fever, chill, nausea, vomiting, calf pain or shortness of breath. And does not recall any trauma or odor to the left limb. He was not able to afford the recommended circaid compression garments. He denies other new concerns today. Progress of Wound: healed lower leg right. new left leg wound central cluster - Physical Exam Vital Signs Temp Pulse Resp BP 99.6 F H 82 16 149/90 H 12/02/17 15:53 12/02/17 15:53 12/02/17 15:53 12/02/17 15:53 General: Alert, Oriented x3, Cooperative Extremities: No cyanosis, Capillary Refill Less than 3 Seconds, No Calf Tenderness - negative sia and gomez signs bilateral, Diminished Peripheral Pulses, Edema - bilateral lower extremity +3 edema and lymphedema clinical findings Skin: - - full epithelialization right leg; the ulcer has healed. granular based skin discontinuity (cluster) to left leg. atrophic and hairless skin noted bilateral Wound Measurements and Assessment WC - Nurse 1 - General Ulcer Measurement Start: 12/02/17 15:53 Freq: Status: Active Protocol: Activity Type Activity Date Activity User E-Sign Co-Sign Detail Recorded Client Recorded Date Recorded By Document 12/02/17 15:53 RB [id number] 12/02/17 15:58 RB 12/02/17 15:53 Wound Center Nurse 1 [Ulcer Assessment] 5. LLE cluster -Combined with other wound No -Current Size (cm) - Length 22 -Current Size (cm) - Width 23 -Current Size (cm) - Depth 0.1 -Total Square Cm 506 -Photo Taken Yes -Tunneling No -Undermining/Tunneling No -Circular Undermining No -Classification - Thickness Full Thickness without Exposed Support Structure -Exudate Amt Small (1-33%) -Exudate Type Serosanguineous -Wound Margin Distinct, Outline Attached -Granulation Amt Large (67-100%) -Granulation Quality [place] -Slough/Fibrin Yes -Necrosis Amt Small (1-33%) -Necrotic Tissue Type Adherent Slough -Structure Exposed N/A -Texture (Candy-wound Skin Appearance) Assessed Excoriation -Moisture (Candy-wound Skin Appearance Assessed ) -Color (Candy-wound Skin Appearance) Assessed -Temperature (Candy-wound Skin No Abnormality Appearance) (Pt Warm) -Tenderness on Palpation (Candy-wound No Skin Appearance) -Ulcer Cleansing Wound Cleanser -Anesthetic Used 4% Lidocaine Solution #4 RLE POSTERIOR -Combined with other wound No -Current Size (cm) - Length 0.3 -Current Size (cm) - Width 0.3 -Current Size (cm) - Depth 0.1 -Total Square Cm 0.09 -Photo Taken No -Tunneling No -Undermining/Tunneling No -Circular Undermining No -Classification - Thickness Full Thickness without Exposed Support Structure -Exudate Amt Small (1-33%) -Exudate Type Serosanguineous -Wound Margin Distinct, Outline Attached -Granulation Amt Medium (34-66%) -Granulation Quality [place] -Slough/Fibrin Yes -Necrosis Amt Small (1-33%) -Necrotic Tissue Type Adherent Slough -Structure Exposed N/A -Texture (Candy-wound Skin Appearance) Assessed Excoriation -Moisture (Candy-wound Skin Appearance Assessed ) -Color (Candy-wound Skin Appearance) Assessed -Temperature (Candy-wound Skin No Abnormality Appearance) (Pt Warm) -Tenderness on Palpation (Candy-wound No Skin Appearance) -Ulcer Cleansing Wound Cleanser -Foul Odor after Cleansing No -Anesthetic Used 5% Lidocaine Gel [Edema Assessment] -Lower Limb Edema Present Yes -Right Calf (cm) 49.5 -Right Ankle (cm) 29.5 -Left Calf (cm) 49 -Left Ankle (cm) 28.8 12/02/17 15:57 Wound Center by Ade Boateng pt has excoration of LLE noted after 3M removed Initialized on 12/02/17 15:57 - END OF NOTE WC - Nurse 2 - General Ulcer CM Notes Start: 12/02/17 15:53 Freq: Status: Active Protocol: Activity Type Activity Date Activity User E-Sign Co-Sign Detail Recorded Client Recorded Date Recorded By Document 12/02/17 16:14 CARMELINA [id number] 12/02/17 16:17 CARMELINA 12/02/17 16:14 Wound Center Nurse 2 [Procedure/Treatment] 5. LLE cluster -Time 16:16 -Correct Patient Yes -Correct Side, Site, Position Yes -Correct Procedure Yes -Procedure Performed Yes -Type of Procedure Debridement -Clinical Debridement Subcutaneous -Post Debridement Size (cm) - Length 22.1 -Post Debridement Size (cm) - Width 23 -Post Debridement Size (cm) - Depth 0.1 -Total Square Cm 508.3 -Wound/Ulcer Outcome Not Healed -Ulcer Cleansing Rinsed/ Irrigated with Saline -Foul Odor after Cleansing No -Bioengineered Tissue No -Bleeding Controlled with Pressure -Other only 5% of ulcer was debrided. -Treatment Response Procedure Tolerated Well #4 RLE POSTERIOR -Correct Patient No -Correct Side, Site, Position No -Correct Procedure No -Procedure Performed No -Post Debridement Size (cm) - Length 0 -Post Debridement Size (cm) - Width 0 -Post Debridement Size (cm) - Depth 0 -Total Square Cm 0 -Wound/Ulcer Outcome Healed- Epithelialized [See Physician Procedure note for Specifics] Pain Scale: 0-10 Numeric [Pain] -Is Patient Pain Free? Yes Musculoskeletal: No Tenderness to Palpation of Joints or Extremities, Muscle Wasting, - - no crepitus to palpate bilateral lower extremities Neurological: Sensory exam intact to light touch and pain Psych/Mental Status: Normal Affect, Appropriate Debridement Note Post-Debridement Measurements/Treatment WC - Nurse 2 - General Ulcer CM Notes Start: 12/02/17 15:53 Freq: Status: Active Protocol: Activity Type Activity Date Activity User E-Sign Co-Sign Detail Recorded Client Recorded Date Recorded By Document 12/02/17 16:14 CARMELINA [id number] 12/02/17 16:17 CARMELINA 12/02/17 16:14 Wound Center Nurse 2 5. LLE cluster -Time 16:16 -Correct Patient Yes -Correct Side, Site, Position Yes -Correct Procedure Yes -Procedure Performed Yes -Type of Procedure Debridement -Clinical Debridement Subcutaneous -Post Debridement Size (cm) - Length 22.1 -Post Debridement Size (cm) - Width 23 -Post Debridement Size (cm) - Depth 0.1 -Total Square Cm 508.3 -Wound/Ulcer Outcome Not Healed -Ulcer Cleansing Rinsed/ Irrigated with Saline -Foul Odor after Cleansing No -Bioengineered Tissue No -Bleeding Controlled with Pressure -Other only 5% of ulcer was debrided. -Treatment Response Procedure Tolerated Well #4 RLE POSTERIOR -Correct Patient No -Correct Side, Site, Position No -Correct Procedure No -Procedure Performed No -Post Debridement Size (cm) - Length 0 -Post Debridement Size (cm) - Width 0 -Post Debridement Size (cm) - Depth 0 -Total Square Cm 0 -Wound/Ulcer Outcome Healed- Epithelialized Pain Scale: 0-10 Numeric Is Patient Pain Free? Yes Wound debrided: leg cluster Laterality: Left Type of Debridement: Excisional debridement Anesthesia Used: 4% Lidocaine Solution Depth: in the subcutaneous layer Percentage of wound debrided: - - 5% Instrument Used: 3mm curette Tissue Removed: devitalized subcutaneous, fibrous, biofilm, slough Severity: Fat Layer Exposed Amount of bleeding with debridement: Mild Bleeding Controlled with: Pressure Patient tolerated procedure well Assessment/Plan Active Problems Ulcer of left lower extremity with fat layer exposed (Acute) Edema of both legs (Chronic) Venous insufficiency (Chronic) Diabetes mellitus with complication (Chronic) Lymphedema (Chronic) Assessment: Left leg ulcer new with fat layer exposed. Ulcer of right leg - healed today. Lower extremity edema. Venous insufficiency. Ruled out peripheral vascular disease. Lymphedema. Diabetes with complications Plan: I reviewed and discussed his case today. Debridement of the ulcer site was performed as noted in the clinical panel the left leg at the new site. To change the dressing every other day with hydrogel with collagen and adaptic. Compression dressing 3M2L was applied and he will come to the wound center once per week for nursing change. Incompetent veins were noted on the venous Doppler he is referred to Dr. Pearson for potential intervention to assist in timely wound healing and future prevention. To elevate the legs at rest and to avoid idle sitting and standing. To offload this site by keeping pressure off of the leg while lying in bed (left). A prescription for bilateral lower extremity CircAid graduated compression wraps were initiated and preauthorization was completed. This is medically necessary and imperative to prevent chronic recurrence and limb loss. He will have a fee of around 66 dollars. He cannot afford this and additional coverage options will be pursued. I recommend nutritional supplementation to optimize healing. A prescription for Álvaro was provided at a previous visit. To continue to control blood sugars. His toe site cellulitis, ingrown toenail, and wound have resolved. There is no infection noted. . I answered all his questions. To return to clinic in 1 week or call sooner if he has any questions or concerns.
[2017-12-09 15:42] VITALS: BP 157/110; PULSE 89; RESP 24; TEMP 37.5
--- NOTE | 2017-12-09 17:27 | PN.PCM_ITS ---
(1) Ulcer of right lower extremity with fat layer exposed Status: Chronic Current Visit: Yes Code(s): L97.912 - Non-pressure chronic ulcer of unspecified part of right lower leg with fat layer exposed (2) Ulcer of left lower extremity with fat layer exposed Status: Chronic Current Visit: Yes Code(s): L97.922 - Non-pressure chronic ulcer of unspecified part of left lower leg with fat layer exposed (3) Edema of both legs Status: Chronic Current Visit: Yes Code(s): R60.0 - Localized edema (4) Venous insufficiency Status: Chronic Current Visit: Yes Code(s): I87.2 - Venous insufficiency ( chronic) (peripheral) (5) Malnutrition Status: Chronic Current Visit: No Code(s): E46 - Unspecified protein- calorie malnutrition (6) Diabetes mellitus with complication Status: Chronic Current Visit: Yes Code(s): E11.8 - Type 2 diabetes mellitus with unspecified complications (7) Lymphedema Status: Chronic Current Visit: Yes Code(s): I89.0 - Lymphedema, not elsewhere classified Type of Wound Date of Service: 12/09/17 Chief Complaint: Right leg ulcer. left leg ulcer History of Wound: This 52-year-old male with multiple comorbidities presents for a right leg wound that has not been draining. His left leg now has an opening. He denies current shortness of breath or chest pain or fever, chill, nausea, vomiting, calf pain or shortness of breath. And does not recall any trauma or odor to the left limb. He was not able to afford the recommended circaid compression garments. He denies other new concerns today. Progress of Wound: Stable. Return right leg ulcer - Physical Exam Vital Signs Temp Pulse Resp BP 99.5 F H 89 24 H 157/110 H 12/09/17 15:42 12/09/17 15:42 12/09/17 15:42 12/09/17 15:42 General: Alert, Oriented x3, Cooperative Extremities: No cyanosis, Capillary Refill Less than 3 Seconds, No Calf Tenderness - Negative Aline and Tamayo bilateral, Diminished Peripheral Pulses, Edema - Bilateral lower extremities Skin: Ulcer/ Wound - Return the right leg ulcer. No purulence, no erythema, streaking, no odor, no infection bilateral lower extremities. The skin is atrophic bilateral. Wound Measurements and Assessment WC - Nurse 1 - General Ulcer Measurement Start: 12/02/17 15:53 Freq: Status: Active Protocol: Activity Type Activity Date Activity User E-Sign Co-Sign Detail Recorded Client Recorded Date Recorded By Document 12/09/17 15:42 GEMMA [id number] 12/09/17 16:02 GEMMA 12/09/17 15:42 Wound Center Nurse 1 [Ulcer Assessment] #7 RIGHT MEDIAL CALF (Lower Leg) -Combined with other wound No -Current Size (cm) - Length 1.5 -Current Size (cm) - Width 2.2 -Current Size (cm) - Depth 0.1 -Total Square Cm 3.30 -Date of Last Picture (Recall this 12/09/17 field) -Photo Taken Yes -Epithelialization None Present -Tunneling No -Undermining/Tunneling No -Circular Undermining No -Classification - Thickness Full Thickness without Exposed Support Structure -Exudate Amt Small (1-33%) -Exudate Type Serosanguineous -Wound Margin Distinct, Outline Attached -Granulation Amt Medium (34-66%) -Granulation Quality [place] -Slough/Fibrin Yes -Necrosis Amt None Present (0 %) -Necrotic Tissue Type Adherent Slough -Structure Exposed None/Limited to Skin Breakdown -Texture (Candy-wound Skin Appearance) No Abnormality -Moisture (Candy-wound Skin Appearance We[place] ) -Color (Candy-wound Skin Appearance) Hemosiderin Staining -Temperature (Candy-wound Skin No Abnormality Appearance) (Pt Warm) -Tenderness on Palpation (Candy-wound No Skin Appearance) -Ulcer Cleansing PROVON SOAP -Foul Odor after Cleansing No -Anesthetic Used 5% Lidocaine Gel #6 RIGHT POSTERIOR CALF -Combined with other wound No -Current Size (cm) - Length 0.8 -Current Size (cm) - Width 1.5 -Current Size (cm) - Depth 0.1 -Total Square Cm 1.20 -Date of Last Picture (Recall this 12/09/17 field) -Photo Taken Yes -Epithelialization None Present -Tunneling No -Undermining/Tunneling No -Circular Undermining No -Classification - Thickness Full Thickness without Exposed Support Structure -Exudate Amt Small (1-33%) -Exudate Type Serosanguineous -Wound Margin Distinct, Outline Attached -Granulation Amt Small (1-33%) -Granulation Quality [place] -Slough/Fibrin Yes -Necrosis Amt None Present (0 %) -Necrotic Tissue Type Adherent Slough -Structure Exposed None/Limited to Skin Breakdown -Texture (Candy-wound Skin Appearance) No Abnormality -Moisture (Candy-wound Skin Appearance Weeping ) -Color (Candy-wound Skin Appearance) Hemosiderin Staining -Temperature (Candy-wound Skin No Abnormality Appearance) (Pt Warm) -Tenderness on Palpation (Candy-wound No Skin Appearance) -Ulcer Cleansing PROVON SOAP -Foul Odor after Cleansing No -Anesthetic Used 5% Lidocaine Gel 5. LLE cluster -Combined with other wound No -Current Size (cm) - Length 1.5 -Current Size (cm) - Width 7.4 -Current Size (cm) - Depth 0.1 -Total Square Cm 11.10 -Date of Last Picture (Recall this 12/02/17 field) -Photo Taken No -Epithelialization Small 1-33% -Tunneling No -Undermining/Tunneling No -Circular Undermining No -Classification - Thickness Full Thickness without Exposed Support Structure -Exudate Amt Medium (34-66%) -Exudate Type Serosanguineous -Wound Margin Distinct, Outline Attached -Granulation Amt Small (1-33%) -Granulation Quality [place] -Slough/Fibrin Yes -Necrosis Amt None Present (0 %) -Necrotic Tissue Type Adherent Slough -Structure Exposed N/A -Texture (Candy-wound Skin Appearance) Localized Edema -Moisture (Candy-wound Skin Appearance No Abnormality ) -Color (Candy-wound Skin Appearance) Hemosiderin Staining -Temperature (Candy-wound Skin No Abnormality Appearance) (Pt Warm) -Tenderness on Palpation (Candy-wound No Skin Appearance) -Ulcer Cleansing PROVON SOAP -Foul Odor after Cleansing No -Anesthetic Used 5% Lidocaine Gel [Edema Assessment] -Lower Limb Edema Present Yes -Right Calf (cm) 58.5 -Right Ankle (cm) 30.5 -Left Calf (cm) 55.5 -Left Ankle (cm) 28.5 WC - Nurse 2 - General Ulcer CM Notes Start: 12/02/17 15:53 Freq: Status: Active Protocol: Activity Type Activity Date Activity User E-Sign Co-Sign Detail Recorded Client Recorded Date Recorded By Document 12/09/17 16:48 TM [id number] 12/09/17 16:52 TM 12/09/17 16:48 Wound Center Nurse 2 [Procedure/Treatment] #7 RIGHT MEDIAL CALF (Lower Leg) -Time 16:50 -Correct Patient Yes -Correct Side, Site, Position Yes -Correct Procedure Yes -Procedure Performed Yes -Type of Procedure Debridement -Clinical Debridement Subcutaneous -Post Debridement Size (cm) - Length 1.6 -Post Debridement Size (cm) - Width 2.3 -Post Debridement Size (cm) - Depth 0.1 -Total Square Cm 3.68 -Wound/Ulcer Outcome Not Healed -Ulcer Cleansing Rinsed/ Irrigated with Saline -Foul Odor after Cleansing No -Bioengineered Tissue No -Topical Lidocaine (%) 5 -Bleeding Controlled with Pressure -Treatment Response Procedure Tolerated Well #6 RIGHT POSTERIOR CALF -Time 16:50 -Correct Patient Yes -Correct Side, Site, Position Yes -Correct Procedure Yes -Procedure Performed Yes -Type of Procedure Debridement -Clinical Debridement Subcutaneous -Post Debridement Size (cm) - Length 0.9 -Post Debridement Size (cm) - Width 1.6 -Post Debridement Size (cm) - Depth 0.1 -Total Square Cm 1.44 -Wound/Ulcer Outcome Not Healed -Ulcer Cleansing Rinsed/ Irrigated with Saline -Foul Odor after Cleansing No -Bioengineered Tissue No -Topical Lidocaine (%) 5 -Bleeding Controlled with Pressure -Treatment Response Procedure Tolerated Well 5. LLE cluster -Time 16:51 -Correct Patient Yes -Correct Side, Site, Position Yes -Correct Procedure Yes -Procedure Performed Yes -Type of Procedure Debridement -Clinical Debridement Subcutaneous -Post Debridement Size (cm) - Length 1.6 -Post Debridement Size (cm) - Width 7.5 -Post Debridement Size (cm) - Depth 0.1 -Total Square Cm 12.00 -Wound/Ulcer Outcome Not Healed -Ulcer Cleansing Rinsed/ Irrigated with Saline -Foul Odor after Cleansing No -Bioengineered Tissue No -Topical Lidocaine (%) 5 -Bleeding Controlled with Pressure -Treatment Response Procedure Tolerated Well [See Physician Procedure note for Specifics] Pain Scale: 0-10 Numeric [Pain] -Is Patient Pain Free? Yes Musculoskeletal: No Tenderness to Palpation of Joints or Extremities, Muscle Wasting, - - arom all toes. Compartments remain soft to touch bilateral lower extremities Neurological: Sensory exam intact to light touch and pain Psych/Mental Status: Normal Affect, Appropriate Debridement Note Post-Debridement Measurements/Treatment WC - Nurse 2 - General Ulcer CM Notes Start: 04/04/18 15:53 Freq: Status: Active Protocol: Activity Type Activity Date Activity User E-Sign Co-Sign Detail Recorded Client Recorded Date Recorded By Document 12/02/17 16:14 [id number] 12/02/17 16:17 Document 12/09/17 16:48 TM [id number] 12/09/17 16:52 TM 12/02/17 12/09/17 16:14 16:48 Wound Center Nurse 2 #7 RIGHT MEDIAL CALF (Lower Leg) -Time 16:50 -Correct Patient Yes -Correct Side, Site, Position Yes -Correct Procedure Yes -Procedure Performed Yes -Type of Procedure Debridement -Clinical Debridement Subcutaneous -Post Debridement Size (cm) - Length 1.6 -Post Debridement Size (cm) - Width 2.3 -Post Debridement Size (cm) - Depth 0.1 -Total Square Cm 3.68 -Wound/Ulcer Outcome Not Healed -Ulcer Cleansing Rinsed/ Irrigated with Saline -Foul Odor after Cleansing No -Bioengineered Tissue No -Topical Lidocaine (%) 5 -Bleeding Controlled with Pressure -Treatment Response Procedure Tolerated Well #6 RIGHT POSTERIOR CALF -Time 16:50 -Correct Patient Yes -Correct Side, Site, Position Yes -Correct Procedure Yes -Procedure Performed Yes -Type of Procedure Debridement -Clinical Debridement Subcutaneous -Post Debridement Size (cm) - Length 0.9 -Post Debridement Size (cm) - Width 1.6 -Post Debridement Size (cm) - Depth 0.1 -Total Square Cm 1.44 -Wound/Ulcer Outcome Not Healed -Ulcer Cleansing Rinsed/ Irrigated with Saline -Foul Odor after Cleansing No -Bioengineered Tissue No -Topical Lidocaine (%) 5 -Bleeding Controlled with Pressure -Treatment Response Procedure Tolerated Well 5. LLE cluster -Time 16:16 16:51 -Correct Patient Yes Yes -Correct Side, Site, Position Yes Yes -Correct Procedure Yes Yes -Procedure Performed Yes Yes -Type of Procedure Debridement Debridement -Clinical Debridement Subcutaneous Subcutaneous -Post Debridement Size (cm) - Length 22.1 1.6 -Post Debridement Size (cm) - Width 23 7.5 -Post Debridement Size (cm) - Depth 0.1 0.1 -Total Square Cm 508.3 12.00 -Wound/Ulcer Outcome Not Healed Not Healed -Ulcer Cleansing Rinsed/ Rinsed/ Irrigated with Irrigated with Saline Saline -Foul Odor after Cleansing No No -Bioengineered Tissue No No -Topical Lidocaine (%) 5 -Bleeding Controlled with Pressure Pressure -Other only 5% of ulcer was debrided. -Treatment Response Procedure Procedure Tolerated Well Tolerated Well #4 RLE POSTERIOR -Correct Patient No -Correct Side, Site, Position No -Correct Procedure No -Procedure Performed No -Post Debridement Size (cm) - Length 0 -Post Debridement Size (cm) - Width 0 -Post Debridement Size (cm) - Depth 0 -Total Square Cm 0 -Wound/Ulcer Outcome Healed- Epithelialized Pain Scale: 0-10 Numeric Is Patient Pain Free? Yes Yes Wound debrided: leg Laterality: Right Wound Grade/Stage: grade 1 Type of Debridement: Excisional debridement Anesthesia Used: 4% Lidocaine Solution Depth: in the subcutaneous layer Percentage of wound debrided: 100 Instrument Used: #15 blade Tissue Removed: fibrous, devitalized subcutaneous, biofilm, slough Severity: Fat Layer Exposed Amount of bleeding with debridement: Mild Bleeding Controlled with: Pressure Patient tolerated procedure well - Additional Wound Wound debrided: leg Laterality: Left Wound Grade/Stage: grade 1 Type of Debridement: Excisional debridement Anesthesia Used: 4% Lidocaine Solution Depth: in the subcutaneous layer Percentage of wound debrided: 100 Instrument Used: #15 blade Tissue Removed: fibrous, devitalized subcutaneous, biofilm, slough Severity: Fat Layer Exposed Amount of bleeding with debridement: Mild Bleeding Controlled with: Pressure Patient tolerated procedure: Patient tolerated procedure well Assessment/Plan Active Problems Ulcer of left lower extremity with fat layer exposed (Chronic) Edema of both legs (Chronic) Venous insufficiency (Chronic) Ulcer of right lower extremity with fat layer exposed (Chronic) Diabetes mellitus with complication (Chronic) Lymphedema (Chronic) Assessment: Left leg ulcer new with fat layer exposed. Ulcer of right leg - returned today. Lower extremity edema. Venous insufficiency. Ruled out peripheral vascular disease. Lymphedema. Diabetes with complications Plan: I reviewed and discussed his case today. Debridement of the ulcer sites were performed as noted in the clinical panel the left leg at the new site. To change the dressing every other day with hydrogel with collagen and adaptic. Compression dressing 3M2L was applied and he will come to the wound center once per week for nursing change. Incompetent veins were noted on the venous Doppler he is referred to Dr. Pearson for potential intervention to assist in timely wound healing and future prevention. To elevate the legs at rest and to avoid idle sitting and standing. To offload this site by keeping pressure off of the leg while lying in bed (left). A prescription for bilateral lower extremity CircAid graduated compression wraps were initiated and preauthorization was completed. This is medically necessary and imperative to prevent chronic recurrence and limb loss. He will have a fee of around 66 dollars. He cannot afford this and additional coverage options will be pursued. His sunshine option is still pending. He reports he is in significant financial hardship at this time and this is imperative for his long-term. He understands he is at risk for limb loss. I recommend nutritional supplementation to optimize healing. A prescription for Álvaro was provided at a previous visit. To continue to control blood sugars. . I answered all his questions. To return to clinic in 1 week or call sooner if he has any questions or concerns.
[2017-12-16 16:11] VITALS: BP 153/108; PULSE 78; RESP 18; TEMP 37.1
[2017-12-16 16:17] LABS: Absolute Lymphocyte Count 2.86 X10^3/ul (0.83-4.51); Absolute Neutrophil Count 6.6 X10^3/uL (2.0-7.7); Basophil# 0.03 X10^3/uL; Basophil% 0.3 % (0-1); Eosinophil# 0.29 X10^3/uL; Eosinophils% 2.7 % (0-5); Hematocrit 40.8 % (40-54); Hemoglobin 12.5 g/dl (13.0-16.5); Lymphocyte # 2.86 X10^3/ul (4.0); Lymphocyte % 26.8 % (19-41); Mean Corp Hgb Conc 30.6 g/gl (32-36); Mean Corpuscular Hgb 28.6 pg (27.0-32.0); Mean Corpuscular Volume 93.4 fL (80-94); Mean Platelet Vol. 9.8 fl (6.2-12.0); Monocyte# 0.85 X10^3/uL; Neutrophil # 6.62 X10^3/uL (2.7-7.7); Neutrophil % 61.9 % (47-70); POSITIVE COUNT NO; POSITIVE DIFFERENTIAL NO; POSITIVE MORPHOLOGY NO; Platelet Count 240 K/mm3 (150-450); RBC Distribution Width SD 46.2 fl (35.1-43.9); Red Blood Count 4.37 M/mm3 (4.6-6.2); White Blood Count 10.7 K/mm3 (4.4-11.0)
[2017-12-16 16:24] LABS: Hemoglobin A1c 8.4 % (4.2-6.3)
[2017-12-16 16:29] LABS: ALB/GLOB Ratio 0.6 RATIO (0.9-2.4); AST(SGOT) 15 U/L (15-37); Alanine Aminotransfer ALT/SGPT 23 U/L (16-61); Albumin, Serum 2.9 g/dL (3.2-5.0); Alkaline Phosphatase 81 U/L (45-117); Anion Gap 8 (5-15); BUN 30 mg/dL (7-18); BUN/Creat Ratio 16.4 RATIO (10-20); Calcium,Total 8.6 mg/dL (8.5-10.1); Chloride 101 mmol/L (98-107); Creatinine, Serum 1.83 mg/dL (0.70-1.30); EST Glomerular Filtration Rate 42 mL/min (>60); Est Glom Filt Rate - Afr Amer 50 mL/min (>60); Estimated Creatinine Clearance 52.42 ml/min; Globulin 5.2 g/dL (2.2-4.2); Glucose 150 mg/dL (74-106); Potassium 4.4 mmol/L (3.5-5.1); Protein, Total 8.1 g/dL (6.4-8.2); Sodium Level 136 mmol/L (136-145)
[2017-12-23 16:07] VITALS: BP 153/95; PULSE 86; RESP 18; TEMP 36.3
--- NOTE | 2017-12-24 12:55 | PN.PCM_ITS ---
(1) Ulcer of right lower extremity with fat layer exposed Status: Chronic Current Visit: Yes Code(s): L97.912 - Non-pressure chronic ulcer of unspecified part of right lower leg with fat layer exposed (2) Ulcer of left lower extremity with fat layer exposed Status: Chronic Current Visit: Yes Code(s): L97.922 - Non-pressure chronic ulcer of unspecified part of left lower leg with fat layer exposed (3) Edema of both legs Status: Chronic Current Visit: Yes Code(s): R60.0 - Localized edema (4) Venous insufficiency Status: Chronic Current Visit: Yes Code(s): I87.2 - Venous insufficiency ( chronic) (peripheral) (5) Malnutrition Status: Chronic Current Visit: No Code(s): E46 - Unspecified protein- calorie malnutrition (6) Diabetes mellitus with complication Status: Chronic Current Visit: Yes Code(s): E11.8 - Type 2 diabetes mellitus with unspecified complications (7) Lymphedema Status: Chronic Current Visit: Yes Code(s): I89.0 - Lymphedema, not elsewhere classified Type of Wound Date of Service: 12/25/17 Chief Complaint: Right leg ulcer healed. left leg ulcer History of Wound: This 52-year-old male with multiple comorbidities presents for a right leg wound he thinks is now healed and a left leg ulcer. He denies fever, chill, nausea, vomiting, calf pain or shortness of breath. And does not recall any trauma or odor to the left limb. He was not able to afford the recommended circaid compression garments. He denies other new concerns today. Progress of Wound: Stable left leg ulcer with improvement. Healed right leg ulcer - Physical Exam Vital Signs Temp Pulse Resp BP 97.3 F L 86 18 153/95 H 12/23/17 16:07 12/23/17 16:07 12/23/17 16:07 12/23/17 16:07 General: Alert, Oriented x3, Cooperative Extremities: No cyanosis, No edema, No Calf Tenderness - Negative Aline and Tamayo bilateral, Diminished Peripheral Pulses, Edema Skin: Ulcer/ Wound - No purulence, no erythema, streaking, no odor, no necrosis no acute signs of infection bilateral lower extremity. Full epithelialization noted to the right lower extremity and is noted his skin does have some hyperpigmentation and no hair. The left leg cluster site has skin discontinuity involving approximately 10% of the noted measure in the clinical panel in this is some hemorrhagic and granular base. Wound Measurements and Assessment WC - Nurse 1 - General Ulcer Measurement Start: 12/02/17 15:53 Freq: Status: Active Protocol: Activity Type Activity Date Activity User E-Sign Co-Sign Detail Recorded Client Recorded Date Recorded By Document 12/23/17 16:07 RB [id number] 12/23/17 16:28 RB 12/23/17 16:07 Wound Center Nurse 1 [Ulcer Assessment] #7 RIGHT MEDIAL CALF (Lower Leg) -Combined with other wound No -Current Size (cm) - Length 0.1 -Current Size (cm) - Width 0.1 -Current Size (cm) - Depth 0.1 -Total Square Cm 0.01 -Photo Taken No -Tunneling No -Undermining/Tunneling No -Circular Undermining No -Classification - Thickness Full Thickness without Exposed Support Structure -Exudate Amt None Present (0 %) -Wound Margin Distinct, Outline Attached -Granulation Amt Large (67-100%) -Granulation Quality Red -Slough/Fibrin Yes -Necrosis Amt Small (1-33%) -Necrotic Tissue Type Adherent Slough -Structure Exposed N/A -Texture (Candy-wound Skin Appearance) Assessed Excoriation -Moisture (Candy-wound Skin Appearance Assessed ) -Color (Candy-wound Skin Appearance) Assessed -Temperature (Candy-wound Skin No Abnormality Appearance) (Pt Warm) -Tenderness on Palpation (Candy-wound No Skin Appearance) -Ulcer Cleansing Wound Cleanser -Foul Odor after Cleansing No -Anesthetic Used 5% Lidocaine Gel #6 RIGHT POSTERIOR CALF -Combined with other wound No -Current Size (cm) - Length 0.1 -Current Size (cm) - Width 0.1 -Current Size (cm) - Depth 0.1 -Total Square Cm 0.01 -Epithelialization Large 67-100% -Tunneling No -Undermining/Tunneling No -Circular Undermining No -Classification - Thickness Full Thickness without Exposed Support Structure -Exudate Amt None Present (0 %) -Wound Margin Distinct, Outline Attached -Granulation Amt Large (67-100%) -Granulation Quality [place] -Necrosis Amt None Present (0 %) -Structure Exposed N/A -Texture (Candy-wound Skin Appearance) Assessed -Moisture (Candy-wound Skin Appearance Assessed ) -Color (Candy-wound Skin Appearance) Assessed -Temperature (Candy-wound Skin No Abnormality Appearance) (Pt Warm) -Tenderness on Palpation (Candy-wound No Skin Appearance) -Ulcer Cleansing Wound Cleanser #5 LLE cluster -Combined with other wound No -Current Size (cm) - Length 8 -Current Size (cm) - Width 7.5 -Current Size (cm) - Depth 0.1 -Total Square Cm 60.0 -Epithelialization Small 1-33% -Tunneling No -Undermining/Tunneling No -Circular Undermining No -Classification - Thickness Full Thickness without Exposed Support Structure -Exudate Amt Small (1-33%) -Exudate Type Serosanguineous -Wound Margin Distinct, Outline Attached -Granulation Amt Medium (34-66%) -Granulation Quality Red -Slough/Fibrin Yes -Necrosis Amt Small (1-33%) -Necrotic Tissue Type Adherent Slough -Structure Exposed N/A -Texture (Candy-wound Skin Appearance) Assessed Excoriation -Moisture (Candy-wound Skin Appearance Assessed ) -Color (Candy-wound Skin Appearance) Assessed -Temperature (Candy-wound Skin No Abnormality Appearance) (Pt Warm) -Tenderness on Palpation (Candy-wound No Skin Appearance) -Ulcer Cleansing Wound Cleanser -Foul Odor after Cleansing No -Anesthetic Used 5% Lidocaine Gel [Edema Assessment] -Lower Limb Edema Present Yes -Right Calf (cm) 47.5 -Right Ankle (cm) 28.2 -Left Calf (cm) 47.5 -Left Ankle (cm) 29.5 WC - Nurse 2 - General Ulcer CM Notes Start: 12/02/17 15:53 Freq: Status: Active Protocol: Activity Type Activity Date Activity User E-Sign Co-Sign Detail Recorded Client Recorded Date Recorded By Document 12/23/17 17:07 CARMELINA [id number] 12/23/17 17:10 CARMELINA 12/23/17 17:07 Wound Center Nurse 2 [Procedure/Treatment] #7 RIGHT MEDIAL CALF (Lower Leg) -Correct Patient No -Correct Side, Site, Position No -Correct Procedure No -Procedure Performed No -Post Debridement Size (cm) - Length 0 -Post Debridement Size (cm) - Width 0 -Post Debridement Size (cm) - Depth 0 -Total Square Cm 0 -Wound/Ulcer Outcome Healed- Epithelialized #6 RIGHT POSTERIOR CALF -Correct Patient No -Correct Side, Site, Position No -Correct Procedure No -Procedure Performed No -Post Debridement Size (cm) - Length 0 -Post Debridement Size (cm) - Width 0 -Post Debridement Size (cm) - Depth 0 -Total Square Cm 0 -Wound/Ulcer Outcome Healed- Epithelialized #5 LLE cluster -Time 17:09 -Correct Patient Yes -Correct Side, Site, Position Yes -Correct Procedure Yes -Procedure Performed Yes -Type of Procedure Debridement -Clinical Debridement Subcutaneous -Post Debridement Size (cm) - Length 8.0 -Post Debridement Size (cm) - Width 7.6 -Post Debridement Size (cm) - Depth 0.1 -Total Square Cm 60.80 -Wound/Ulcer Outcome Not Healed -Ulcer Cleansing Rinsed/ Irrigated with Saline -Foul Odor after Cleansing No -Bioengineered Tissue No -Bleeding Controlled with Pressure -Other 20% of wound debridement by Dr Schaffer. -Treatment Response Procedure Tolerated Well [See Physician Procedure note for Specifics] Pain Scale: 0-10 Numeric [Pain] -Is Patient Pain Free? Yes Musculoskeletal: No Tenderness to Palpation of Joints or Extremities, Muscle Wasting, - - No pain with wound manipulation. Bilateral lymphedema noted. Neurological: - - Lack of normal epicritic sensation bilateral lower extremities Psych/Mental Status: Normal Affect, Appropriate Debridement Note Post-Debridement Measurements/Treatment WC - Nurse 2 - General Ulcer CM Notes Start: 12/02/17 15:53 Freq: Status: Active Protocol: Activity Type Activity Date Activity User E-Sign Co-Sign Detail Recorded Client Recorded Date Recorded By Document 12/02/17 16:14 [id number] 12/02/17 16:17 Document 12/09/17 16:48 [id number] 12/09/17 16:52 Document 12/23/17 17:07 [id number] 12/23/17 17:10 12/02/17 12/09/17 12/23/17 16:14 16:48 17:07 Wound Center Nurse 2 #7 RIGHT MEDIAL CALF (Lower Leg) -Time 16:50 -Correct Patient Yes No -Correct Side, Site, Position Yes No -Correct Procedure Yes No -Procedure Performed Yes No -Type of Procedure Debridement -Clinical Debridement Subcutaneous -Post Debridement Size (cm) - Length 1.6 0 -Post Debridement Size (cm) - Width 2.3 0 -Post Debridement Size (cm) - Depth 0.1 0 -Total Square Cm 3.68 0 -Wound/Ulcer Outcome Not Healed Healed- Epithelialized -Ulcer Cleansing Rinsed/ Irrigated with Saline -Foul Odor after Cleansing No -Bioengineered Tissue No -Topical Lidocaine (%) 5 -Bleeding Controlled with Pressure -Treatment Response Procedure Tolerated Well #6 RIGHT POSTERIOR CALF -Time 16:50 -Correct Patient Yes No -Correct Side, Site, Position Yes No -Correct Procedure Yes No -Procedure Performed Yes No -Type of Procedure Debridement -Clinical Debridement Subcutaneous -Post Debridement Size (cm) - Length 0.9 0 -Post Debridement Size (cm) - Width 1.6 0 -Post Debridement Size (cm) - Depth 0.1 0 -Total Square Cm 1.44 0 -Wound/Ulcer Outcome Not Healed Healed- Epithelialized -Ulcer Cleansing Rinsed/ Irrigated with Saline -Foul Odor after Cleansing No -Bioengineered Tissue No -Topical Lidocaine (%) 5 -Bleeding Controlled with Pressure -Treatment Response Procedure Tolerated Well #5 LLE cluster -Time 16:16 16:51 17:09 -Correct Patient Yes Yes Yes -Correct Side, Site, Position Yes Yes Yes -Correct Procedure Yes Yes Yes -Procedure Performed Yes Yes Yes -Type of Procedure Debridement Debridement Debridement -Clinical Debridement Subcutaneous Subcutaneous Subcutaneous -Post Debridement Size (cm) - Length 22.1 1.6 8.0 -Post Debridement Size (cm) - Width 23 7.5 7.6 -Post Debridement Size (cm) - Depth 0.1 0.1 0.1 -Total Square Cm 508.3 12.00 60.80 -Wound/Ulcer Outcome Not Healed Not Healed Not Healed -Ulcer Cleansing Rinsed/ Rinsed/ Rinsed/ Irrigated with Irrigated with Irrigated with Saline Saline Saline -Foul Odor after Cleansing No No No -Bioengineered Tissue No No No -Topical Lidocaine (%) 5 -Bleeding Controlled with Pressure Pressure Pressure -Other only 5% of 20% of wound ulcer was debridement by debrided. Dr Schaffer. -Treatment Response Procedure Procedure Procedure Tolerated Well Tolerated Well Tolerated Well #4 RLE POSTERIOR -Correct Patient No -Correct Side, Site, Position No -Correct Procedure No -Procedure Performed No -Post Debridement Size (cm) - Length 0 -Post Debridement Size (cm) - Width 0 -Post Debridement Size (cm) - Depth 0 -Total Square Cm 0 -Wound/Ulcer Outcome Healed- Epithelialized Pain Scale: 0-10 Numeric Is Patient Pain Free? Yes Yes Yes Wound debrided: leg Laterality: Left Type of Debridement: Excisional debridement Anesthesia Used: 4% Lidocaine Solution Depth: in the subcutaneous layer Percentage of wound debrided: 10 Instrument Used: #15 blade Tissue Removed: fibrous, devitalized subcutaneous, biofilm, slough Severity: Fat Layer Exposed Amount of bleeding with debridement: Mild Bleeding Controlled with: Pressure Patient tolerated procedure well Assessment/Plan Active Problems Ulcer of left lower extremity with fat layer exposed (Chronic) Edema of both legs (Chronic) Venous insufficiency (Chronic) Ulcer of right lower extremity with fat layer exposed (Chronic) Diabetes mellitus with complication (Chronic) Lymphedema (Chronic) Assessment: Left leg ulcer new with fat layer exposed. Ulcer of right leg - healed today. Lower extremity edema. Venous insufficiency. Ruled out peripheral vascular disease. Lymphedema. Diabetes with complications Plan: I reviewed and discussed his case today. Debridement of the ulcer site was performed as noted in the clinical panel the left leg at the new site. To change the dressing every other day with hydrogel with collagen and adaptic. Compression dressing 3M2L was applied and he will come to the wound center once per week for nursing change. Incompetent veins were noted on the venous Doppler he is referred to Dr. Pearson for potential intervention to assist in timely wound healing and future prevention. To elevate the legs at rest and to avoid idle sitting and standing. To offload this site by keeping pressure off of the leg while lying in bed (left). A prescription for bilateral lower extremity CircAid graduated compression wraps were initiated and preauthorization was completed. This is medically necessary and imperative to prevent chronic recurrence and limb loss. He will have a fee of around 66 dollars. He cannot afford this and additional coverage options will be pursued. His sunshine option is still pending in the committee that reviews this is anticipated to me during the first week of the upcoming month. He reports he is in significant financial hardship at this time and this is imperative for his long-term. He understands he is at risk for limb loss. Pending results with the CircAid wraps, a lymphedema clinic referral or compression pumps may also be considered in the future. I recommend nutritional supplementation to optimize healing. A prescription for Álvaro was provided at a previous visit. To continue to control blood sugars. . I answered all his questions. To return to clinic in 1 week or call sooner if he has any questions or concerns.
== END 2017-12-28 23:59 ==
LOC: WC 15:45
PROVIDERS: Family Provider Family Medicine; PCP Family Medicine; Visit Provider Podiatrist
DX: E11.622 Type 2 diabetes mellitus with other skin ulcer (principal); R60.0 Localized edema; L97.822 Non-pressure chronic ulcer of other part of left lower leg with fat layer exposed; I87.2 Venous insufficiency (chronic) (peripheral); I89.0 Lymphedema, not elsewhere classified; L97.812 Non-pressure chronic ulcer of other part of right lower leg with fat layer exposed
CPT/HCPCS: 11042; 11045; 29580; 29581; 36415; 80053; 83036; 85025

== ENCOUNTER 2018-01-27 14:00 | Outpatient (RCR) | payer MEDICAID, SELFPAY ==
[2017-12-29 00:48] VITALS: PULSE 86; RESP 18; TEMP 36.3
[2017-12-30 14:35] VITALS: BP 165/101; PULSE 100; RESP 20; TEMP 37
--- NOTE | 2017-12-30 17:27 | PCM.WC.PN ---
(1) Ulcer of right lower extremity with fat layer exposed Status: Resolved Current Visit: Yes Code(s): L97.912 - Non-pressure chronic ulcer of unspecified part of right lower leg with fat layer exposed (2) Ulcer of left lower extremity with fat layer exposed Status: Resolved Current Visit: Yes Code(s): L97.922 - Non-pressure chronic ulcer of unspecified part of left lower leg with fat layer exposed (3) Edema of both legs Status: Chronic Current Visit: Yes Code(s): R60.0 - Localized edema (4) Diabetes mellitus with complication Status: Chronic Current Visit: Yes Code(s): E11.8 - Type 2 diabetes mellitus with unspecified complications (5) Lymphedema Status: Chronic Current Visit: Yes Code(s): I89.0 - Lymphedema, not elsewhere classified Type of Wound Date of Service: 12/31/17 Chief Complaint: Right leg ulcer healed. left leg ulcer healed History of Wound: This 52-year-old male with multiple comorbidities presents for a right leg wound he thinks is now healed and a left leg ulcer. He denies fever, chill, nausea, vomiting, calf pain or shortness of breath. And does not recall any trauma or odor to the left limb. He was not able to afford the recommended circaid compression garments and donation is still pending. The meeting is most likely this upcoming week. He denies other new concerns today. He denies drainage and thinks the wounds are healed. Progress of Wound: . Healed right and left leg ulcers - Physical Exam Vital Signs Temp Pulse Resp BP 98.6 F 100 20 H 165/101 H 12/30/17 14:35 12/30/17 14:35 12/30/17 14:35 12/30/17 14:35 General: Alert, Oriented x3, Cooperative HEENT: Atraumatic Extremities: No cyanosis, Capillary Refill Less than 3 Seconds, No Calf Tenderness - negative Aline and Tamayo sign bilateral, Diminished Peripheral Pulses, Edema Skin: Ulcer/ Wound - No purulence, no erythema, streaking, no odor, and no infection bilateral. There is no hair bilateral., - - The skin is atrophic and with hyperpigmentation bilateral Wound Measurements and Assessment WC - Nurse 1 - General Ulcer Measurement Start: 12/30/17 14:34 Freq: Status: Active Protocol: Activity Type Activity Date Activity User E-Sign Co-Sign Detail Recorded Client Recorded Date Recorded By Document 12/30/17 14:35 [email or web address] [id number] 12/30/17 14:39 DV 12/30/17 14:35 Wound Center Nurse 1 [Ulcer Assessment] #5 LLE cluster -Combined with other wound No -Current Size (cm) - Length 0.1 -Current Size (cm) - Width 0.1 -Current Size (cm) - Depth 0.1 -Total Square Cm 0.01 -Photo Taken No -Epithelialization Small 1-33% -Undermining/Tunneling No -Circular Undermining No -Classification - Thickness Full Thickness without Exposed Support Structure -Exudate Amt None Present (0 %) -Granulation Amt None Present (0 %) -Slough/Fibrin Yes -Necrosis Amt Small (1-33%) -Necrotic Tissue Type Adherent Slough -Structure Exposed None/Limited to Skin Breakdown -Texture (Candy-wound Skin Appearance) Assessed Localized Edema Scarring -Moisture (Candy-wound Skin Appearance No Abnormality ) Assessed -Color (Candy-wound Skin Appearance) Assessed Hemosiderin Staining -Temperature (Candy-wound Skin No Abnormality Appearance) (Pt Warm) -Tenderness on Palpation (Candy-wound No Skin Appearance) -Ulcer Cleansing Wound Cleanser -Foul Odor after Cleansing No [Edema Assessment] -Lower Limb Edema Present Yes -Right Calf (cm) 51.5 -Right Ankle (cm) 29.5 -Left Calf (cm) 53.2 -Left Ankle (cm) 28.0 WC - Nurse 2 - General Ulcer CM Notes Start: 12/30/17 14:34 Freq: Status: Active Protocol: Activity Type Activity Date Activity User E-Sign Co-Sign Detail Recorded Client Recorded Date Recorded By Document 12/30/17 14:59 [id number] 12/30/17 15:01 12/30/17 14:59 Wound Center Nurse 2 [Procedure/Treatment] #5 LLE cluster -Correct Patient No -Correct Side, Site, Position No -Correct Procedure No -Procedure Performed No -Post Debridement Size (cm) - Length 0 -Post Debridement Size (cm) - Width 0 -Post Debridement Size (cm) - Depth 0 -Total Square Cm 0 -Wound/Ulcer Outcome Healed- Epithelialized [See Physician Procedure note for Specifics] Pain Scale: 0-10 Numeric [Pain] -Is Patient Pain Free? Yes Musculoskeletal: No Tenderness to Palpation of Joints or Extremities, Muscle Wasting, - - Negative Aline and Tamayo sign bilateral Neurological: - Psych/Mental Status: Normal Affect, Appropriate Debridement Note Post-Debridement Measurements/Treatment WC - Nurse 2 - General Ulcer CM Notes Start: 12/30/17 14:34 Freq: Status: Active Protocol: Activity Type Activity Date Activity User E-Sign Co-Sign Detail Recorded Client Recorded Date Recorded By Document 12/30/17 14:59 [id number] 12/30/17 15:01 12/30/17 14:59 Wound Center Nurse 2 #5 LLE cluster -Correct Patient No -Correct Side, Site, Position No -Correct Procedure No -Procedure Performed No -Post Debridement Size (cm) - Length 0 -Post Debridement Size (cm) - Width 0 -Post Debridement Size (cm) - Depth 0 -Total Square Cm 0 -Wound/Ulcer Outcome Healed- Epithelialized Pain Scale: 0-10 Numeric Is Patient Pain Free? Yes Patient did not tolerate procedure well - The wounds are healed Assessment/Plan Active Problems Edema of both legs (Chronic) Diabetes mellitus with complication (Chronic) Lymphedema (Chronic) Assessment: . Ulcer of right and left leg -healed. Lower extremity edema. Venous insufficiency. Lymphedema. Diabetes with complications Plan: I reviewed and discussed his case today. The ulcers are healed and there was no debridement performed today. Compression dressing 3M2L was applied and he will come to the wound center next week for nursing change until he can get his CircAid dressings hopefully in the very near future. His donated pair decision is still pending. Incompetent veins were noted on the venous Doppler he is referred to Dr. Pearson for potential intervention to assist in timely wound healing and future prevention. To elevate the legs at rest and to avoid idle sitting and standing. To offload this site by keeping pressure off of the leg while lying in bed (left). The compression dressings is medically necessary and imperative to prevent chronic recurrence and limb loss. He will have a fee of around 66 dollars. He cannot afford this and additional coverage options will be pursued. His sunshine option is still pending in the committee that reviews this is anticipated to me during the first week of the upcoming month. He reports he is in significant financial hardship at this time and this is imperative for his long-term. He understands he is at risk for limb loss. Pending results with the CircAid wraps, a lymphedema clinic referral or compression pumps may also be considered in the future. I recommend nutritional supplementation to optimize healing. A prescription for Álvaro was provided at a previous visit. To continue to control blood sugars. . I answered all his questions. To return to clinic in 1 week or call sooner if he has any questions or concerns.
[2018-01-06 09:22] VITALS: BP 128/77; PULSE 70; RESP 18; TEMP 36.6
[2018-01-13 15:02] VITALS: BP 133/79; PULSE 84; RESP 18; TEMP 37.3
--- NOTE | 2018-01-13 15:13 | WC ---
exoration noted on LLE
--- NOTE | 2018-01-13 16:02 | PCM.WC.PN ---
(1) Ulcer of right lower extremity with fat layer exposed Status: Acute Current Visit: Yes Code(s): L97.912 - Non-pressure chronic ulcer of unspecified part of right lower leg with fat layer exposed (2) Ulcer of left lower extremity with fat layer exposed Status: Acute Current Visit: Yes Code(s): L97.922 - Non-pressure chronic ulcer of unspecified part of left lower leg with fat layer exposed (3) Edema of both legs Status: Chronic Current Visit: Yes Code(s): R60.0 - Localized edema (4) Diabetes mellitus with complication Status: Chronic Current Visit: Yes Code(s): E11.8 - Type 2 diabetes mellitus with unspecified complications (5) Lymphedema Status: Chronic Current Visit: Yes Code(s): I89.0 - Lymphedema, not elsewhere classified Type of Wound Date of Service: 01/14/18 Chief Complaint: Right leg ulcer return. left leg ulcer return History of Wound: This 52-year-old male with multiple comorbidities presents a new right and leg ulcer. He was advised to change his dressings and compression wraps since his last visit and he was not able to do so. He developed new wounds underneath the dressings. He was approved for CircAid compression wraps through donation and has not received the medical devices yet. He denies trauma. He denies fever, chill, nausea, vomiting, calf pain or shortness of breath. Progress of Wound: . Returned right and left leg ulcers - Physical Exam Vital Signs Temp Pulse Resp BP 99.1 F 84 18 133/79 H 01/13/18 15:02 01/13/18 15:02 01/13/18 15:02 01/13/18 15:02 General: Alert, Oriented x3, Cooperative Extremities: No cyanosis, Capillary Refill Less than 3 Seconds, No Calf Tenderness - Negative Aline and Tamayo sign bilateral, Diminished Peripheral Pulses, Edema - Bilateral lower extremities Skin: Ulcer/ Wound - No part no purulence, no erythema, streaking, no odor, no acute infection, bilateral. The skin is atrophic and hairless Wound Measurements and Assessment WC - Nurse 1 - General Ulcer Measurement Start: 12/30/17 14:34 Freq: Status: Active Protocol: Activity Type Activity Date Activity User E-Sign Co-Sign Detail Recorded Client Recorded Date Recorded By Document 01/13/18 15:02 RB [id number] 01/13/18 15:13 01/13/18 15:02 Wound Center Nurse 1 [Edema Assessment] -Lower Limb Edema Present Yes -Right Calf (cm) 48 -Right Ankle (cm) 29.4 -Left Calf (cm) 47 -Left Ankle (cm) 29.2 01/13/18 15:13 Wound Center by Ade Boateng exoration noted on LLE Initialized on 01/13/18 15:13 - END OF NOTE Musculoskeletal: No Tenderness to Palpation of Joints or Extremities, Muscle Wasting Neurological: Sensory exam intact to light touch and pain Psych/Mental Status: Normal Affect, Appropriate Debridement Note Post-Debridement Measurements/Treatment WC - Nurse 2 - General Ulcer CM Notes Start: 12/30/17 14:34 Freq: Status: Active Protocol: Activity Type Activity Date Activity User E-Sign Co-Sign Detail Recorded Client Recorded Date Recorded By Document 12/30/17 14:59 [id number] 12/30/17 15:01 12/30/17 14:59 Wound Center Nurse 2 #5 LLE cluster -Correct Patient No -Correct Side, Site, Position No -Correct Procedure No -Procedure Performed No -Post Debridement Size (cm) - Length 0 -Post Debridement Size (cm) - Width 0 -Post Debridement Size (cm) - Depth 0 -Total Square Cm 0 -Wound/Ulcer Outcome Healed- Epithelialized Pain Scale: 0-10 Numeric Is Patient Pain Free? Yes Wound debrided: leg Laterality: Right Type of Debridement: Excisional debridement Anesthesia Used: 5% Lidocaine Gel Depth: in the subcutaneous layer Percentage of wound debrided: 100 Instrument Used: 5mm curette Tissue Removed: fibrous, devitalized subcutaneous, biofilm, slough Severity: Fat Layer Exposed Amount of bleeding with debridement: Mild Bleeding Controlled with: Pressure Patient tolerated procedure well - Additional Wound Wound debrided: leg Laterality: Left Type of Debridement: Excisional debridement Anesthesia Used: 5% Lidocaine Gel Depth: in the subcutaneous layer Percentage of wound debrided: 100 Instrument Used: #15 blade Tissue Removed: fibrous, devitalized subcutaneous, biofilm, slough Severity: Fat Layer Exposed Amount of bleeding with debridement: Mild Bleeding Controlled with: Pressure Patient tolerated procedure: Patient tolerated procedure well Assessment/Plan Active Problems Ulcer of left lower extremity with fat layer exposed (Acute) Edema of both legs (Chronic) Ulcer of right lower extremity with fat layer exposed (Acute) Diabetes mellitus with complication (Chronic) Lymphedema (Chronic) Assessment: . Ulcer of right and left leg - returned. Lower extremity edema. Venous insufficiency. Lymphedema. Diabetes with complications. Compliance challenge Plan: I reviewed and discussed his case today. The ulcers have recurred and debridement was performed performed today as noted in the clinical panel. Compression dressing 3M2L was applied and he will come to the wound center next week. To proceed with obtaining a CircAid compression garments. His donated pair decision was approved. Incompetent veins were noted on the venous Doppler he is referred to Dr. Pearson for potential intervention to assist in timely wound healing and future prevention. To elevate the legs at rest and to avoid idle sitting and standing. To offload this site by keeping pressure off of the leg while lying in bed (left). I also recommend a lymphedema clinic referral or compression pumps may also be considered in the future. I recommend nutritional supplementation to optimize healing. A prescription for Álvaro was provided at a previous visit. To continue to control blood sugars. . I answered all his questions. To return to clinic in 1 week or call sooner if he has any questions or concerns. Compliance was discussed and is imperative he participated in his treatment plan for success.
[2018-01-20 15:37] VITALS: BP 162/110; PULSE 87; RESP 20; TEMP 36.5
--- NOTE | 2018-01-20 16:33 | PCM.WC.PN ---
(1) Ulcer of right lower extremity with fat layer exposed Status: Resolved Current Visit: Yes Code(s): L97.912 - Non-pressure chronic ulcer of unspecified part of right lower leg with fat layer exposed (2) Ulcer of left lower extremity with fat layer exposed Status: Resolved Current Visit: Yes Code(s): L97.922 - Non-pressure chronic ulcer of unspecified part of left lower leg with fat layer exposed (3) Edema of both legs Status: Chronic Current Visit: Yes Code(s): R60.0 - Localized edema (4) Diabetes mellitus with complication Status: Chronic Current Visit: Yes Code(s): E11.8 - Type 2 diabetes mellitus with unspecified complications (5) Lymphedema Status: Chronic Current Visit: Yes Code(s): I89.0 - Lymphedema, not elsewhere classified Type of Wound Date of Service: 01/22/18 Chief Complaint: Right leg ulcer healed. left leg ulcer healed History of Wound: This 52-year-old male with multiple comorbidities presents a new right and leg ulcer. He denies drainage. He denies illness. He did not obtain his CircAid compression dressings yet. Progress of Wound: . Healed right and left leg ulcers - Physical Exam Vital Signs Temp Pulse Resp BP 97.7 F L 87 20 H 162/110 H 01/20/18 15:37 01/20/18 15:37 01/20/18 15:37 01/20/18 15:37 General: Alert, Oriented x3, Cooperative Extremities: No cyanosis, Capillary Refill Less than 3 Seconds, No Calf Tenderness, Diminished Peripheral Pulses, Edema Skin: Ulcer/ Wound - Full epithelialization is noted in the wounds have healed. There is no excoriations. There is hyperpigmentation and edema noted bilateral lower extremities. His skin is atrophic. Wound Measurements and Assessment WC - Nurse 1 - General Ulcer Measurement Start: 12/30/17 14:34 Freq: Status: Active Protocol: Activity Type Activity Date Activity User E-Sign Co-Sign Detail Recorded Client Recorded Date Recorded By Document 01/20/18 15:37 DL [id number] 01/20/18 15:47 DL 01/20/18 15:37 Wound Center Nurse 1 [Edema Assessment] -Right Calf (cm) 47 -Right Ankle (cm) 29.8 -Left Calf (cm) 46.2 -Left Ankle (cm) 28 WC - Nurse 2 - General Ulcer CM Notes Start: 12/30/17 14:34 Freq: Status: Active Protocol: Activity Type Activity Date Activity User E-Sign Co-Sign Detail Recorded Client Recorded Date Recorded By Document 01/20/18 16:05 [id number] 01/20/18 16:06 01/20/18 16:05 Pain Scale: 0-10 Numeric [Pain] -Is Patient Pain Free? Yes Musculoskeletal: No Tenderness to Palpation of Joints or Extremities, Muscle Wasting Neurological: - - Lack of normal epicritic sensation light touch bilateral lower extremities Psych/Mental Status: Normal Affect, Appropriate Debridement Note Post-Debridement Measurements/Treatment WC - Nurse 2 - General Ulcer CM Notes Start: 12/30/17 14:34 Freq: Status: Active Protocol: Activity Type Activity Date Activity User E-Sign Co-Sign Detail Recorded Client Recorded Date Recorded By Document 12/30/17 14:59 [id number] 12/30/17 15:01 Document 01/20/18 16:05 [id number] 01/20/18 16:06 12/30/17 01/20/18 14:59 16:05 Wound Center Nurse 2 #5 LLE cluster -Correct Patient No -Correct Side, Site, Position No -Correct Procedure No -Procedure Performed No -Post Debridement Size (cm) - Length 0 -Post Debridement Size (cm) - Width 0 -Post Debridement Size (cm) - Depth 0 -Total Square Cm 0 -Wound/Ulcer Outcome Healed- Epithelialized Pain Scale: 0-10 Numeric Is Patient Pain Free? Yes Yes No debridement was completed today - All of the wounds have healed Assessment/Plan Active Problems Edema of both legs (Chronic) Diabetes mellitus with complication (Chronic) Lymphedema (Chronic) Assessment: . Ulcer of right and left leg -healed. Lower extremity edema. Venous insufficiency. Lymphedema. Diabetes with complications. Compliance challenge Plan: I reviewed and discussed his case today. The ulcers fully epithelialized and prevention was discussed today. To proceed with obtaining a CircAid compression garments. His donated pair decision was approved. Incompetent veins were noted on the venous Doppler he is referred to Dr. Pearson for potential intervention to assist in timely wound healing and future prevention. To elevate the legs at rest and to avoid idle sitting and standing. To offload this site by keeping pressure off of the leg while lying in bed (left). I also recommend a lymphedema clinic referral or compression pumps may also be considered in the future. To discontinue all wound care changes. Compression dressings consisting of 3 m 2 L were applied bilaterally. I answered all his questions. To return to clinic in 2 week or call sooner if he has any questions or concerns. He will return in 1 week for nurse visit to change his compression dressings while he is getting set up for his CircAid compression wraps. Compliance was discussed and is imperative he participated in his treatment plan for success.
[2018-01-27 14:43] VITALS: BP 147/86; PULSE 84; RESP 18; TEMP 36.3
== END 2018-01-28 23:59 ==
LOC: WC 14:00
PROVIDERS: Family Provider Family Medicine; PCP Family Medicine; Visit Provider Podiatrist
DX: I89.0 Lymphedema, not elsewhere classified (principal); I87.2 Venous insufficiency (chronic) (peripheral); R60.0 Localized edema; E11.8 Type 2 diabetes mellitus with unspecified complications
CPT/HCPCS: 11042; 29581; 99212; 99213; 99214; G0463

== ENCOUNTER 2018-02-17 14:30 | Outpatient (RCR) | payer MEDICAID, SELFPAY ==
[2018-01-29 00:42] VITALS: BP 147/86; PULSE 84; RESP 18; TEMP 36.3
[2018-02-10 14:36] VITALS: BP 168/96; PULSE 83; RESP 18; TEMP 36.6
--- NOTE | 2018-02-10 14:38 | WC ---
pt stopped at [facility] and circaid not in yet maybe will arrive by this thursday.
[2018-02-17 14:39] VITALS: BP 160/93; PULSE 89; RESP 18; TEMP 37.3
--- NOTE | 2018-02-17 15:40 | PCM.WC.PN ---
(1) Edema of both legs Status: Chronic Current Visit: Yes Code(s): R60.0 - Localized edema (2) Venous insufficiency Status: Chronic Current Visit: Yes Code(s): I87.2 - Venous insufficiency (chronic) (peripheral) (3) Lymphedema Status: Chronic Current Visit: Yes Code(s): I89.0 - Lymphedema, not elsewhere classified Type of Wound Date of Service: 02/17/18 Chief Complaint: Right leg ulcer healed. left leg ulcer healed History of Wound: This 52-year-old male with multiple comorbidities presents for follow-up of chronic leg swelling and healed ulcers. He denies drainage. He denies illness. He did obtain his CircAid compression dressings yet. He is ready for education on how to apply these at home today. His father is here to consider on the educational session as well. He denies calf pain, shortness of breath, chest pain, increased leg swelling. Progress of Wound: . Healed right and left leg ulcers - Physical Exam Vital Signs Temp Pulse Resp BP 99.1 F 89 18 160/93 H 02/17/18 14:39 02/17/18 14:39 02/17/18 14:39 02/17/18 14:39 General: Alert, Oriented x3, Cooperative Extremities: No cyanosis, Capillary Refill Less than 3 Seconds, No Calf Tenderness - Negative Aline and Tamayo sign bilateral, Diminished Peripheral Pulses, Edema - Bilateral lower extremities and lymphedema, - - 5 out of 5 ankle muscle strength in all directions bilateral lower extremities Skin: Ulcer/ Wound - No purulence, no erythema, streaking, no odor, no infection bilateral. The skin is atrophic and hypopigmented bilateral lower extremities. There is no ulcer full epithelialization is noted to bilateral lower extremities Wound Measurements and Assessment WC - Nurse 1 - General Ulcer Measurement Start: 02/10/18 14:36 Freq: Status: Active Protocol: Activity Type Activity Date Activity User E-Sign Co-Sign Detail Recorded Client Recorded Date Recorded By Document 02/17/18 14:39 RB [id number] 02/17/18 14:43 RB 02/17/18 14:39 Wound Center Nurse 1 [Edema Assessment] -Lower Limb Edema Present Yes -Right Calf (cm) 46.2 -Right Ankle (cm) 28.5 -Left Calf (cm) 46 -Left Ankle (cm) 27.4 WC - Nurse 2 - General Ulcer CM Notes Start: 02/10/18 14:36 Freq: Status: Active Protocol: Activity Type Activity Date Activity User E-Sign Co-Sign Detail Recorded Client Recorded Date Recorded By Document 02/17/18 15:21 [id number] 02/17/18 15:22 02/17/18 15:21 Pain Scale: 0-10 Numeric [Pain] -Is Patient Pain Free? Yes Musculoskeletal: No Tenderness to Palpation of Joints or Extremities, Muscle Wasting Neurological: Sensory exam intact to light touch and pain Psych/Mental Status: Normal Affect, Appropriate Debridement Note Post-Debridement Measurements/Treatment WC - Nurse 2 - General Ulcer CM Notes Start: 02/10/18 14:36 Freq: Status: Active Protocol: Activity Type Activity Date Activity User E-Sign Co-Sign Detail Recorded Client Recorded Date Recorded By Document 02/17/18 15:21 [id number] 02/17/18 15:22 02/17/18 15:21 Pain Scale: 0-10 Numeric Is Patient Pain Free? Yes No debridement was completed today - There are no open lesions today bilateral Assessment/Plan Active Problems Edema of both legs (Chronic) Venous insufficiency (Chronic) Lymphedema (Chronic) Assessment: . Ulcer of right and left leg -healed. Lower extremity edema. Venous insufficiency. Lymphedema. Diabetes with complications. Compliance challenge Plan: I reviewed and discussed his case today. The ulcers fully epithelialized and prevention was discussed today. To proceed with obtaining a CircAid compression garments. His donated pair decision was approved any about the devices today; education was provided for the patient as well as his father. Incompetent veins were noted on the venous Doppler he is referred to Dr. Pearson for potential intervention to assist in timely wound healing and future prevention. To elevate the legs at rest and to avoid idle sitting and standing. To offload this site by keeping pressure off of the leg while lying in bed (left). I also recommend a lymphedema clinic referral or compression pumps may also be considered in the future. To discontinue all wound care changes. Compression dressings consisting of 3 m 2 L were applied bilaterally. I answered all his questions. To return to clinic in 1 month or call sooner if he has any questions or concerns.
--- NOTE | 2018-02-17 15:49 | PN.PCM_ITS ---
(1) Edema of both legs Status: Chronic Current Visit: Yes Code(s): R60.0 - Localized edema (2) Venous insufficiency Status: Chronic Current Visit: Yes Code(s): I87.2 - Venous insufficiency ( chronic) (peripheral) (3) Lymphedema Status: Chronic Current Visit: Yes Code(s): I89.0 - Lymphedema, not elsewhere classified Type of Wound Date of Service: 02/17/18 Chief Complaint: Right leg ulcer healed. left leg ulcer healed History of Wound: This 52-year-old male with multiple comorbidities presents for follow-up of chronic leg swelling and healed ulcers. He denies drainage. He denies illness. He did obtain his CircAid compression dressings yet. He is ready for education on how to apply these at home today. His father is here to consider on the educational session as well. He denies calf pain, shortness of breath, chest pain, increased leg swelling. Progress of Wound: . Healed right and left leg ulcers - Physical Exam Vital Signs Temp Pulse Resp BP 99.1 F 89 18 160/93 H 02/17/18 14:39 02/17/18 14:39 02/17/18 14:39 02/17/18 14:39 General: Alert, Oriented x3, Cooperative Extremities: No cyanosis, Capillary Refill Less than 3 Seconds, No Calf Tenderness - Negative Aline and Tamayo sign bilateral, Diminished Peripheral Pulses, Edema - Bilateral lower extremities and lymphedema, - - 5 out of 5 ankle muscle strength in all directions bilateral lower extremities Skin: Ulcer/ Wound - No purulence, no erythema, streaking, no odor, no infection bilateral. The skin is atrophic and hypopigmented bilateral lower extremities. There is no ulcer full epithelialization is noted to bilateral lower extremities Wound Measurements and Assessment WC - Nurse 1 - General Ulcer Measurement Start: 02/10/18 14:36 Freq: Status: Active Protocol: Activity Type Activity Date Activity User E-Sign Co-Sign Detail Recorded Client Recorded Date Recorded By Document 02/17/18 14:39 RB [id number] 02/17/18 14:43 RB 02/17/18 14:39 Wound Center Nurse 1 [Edema Assessment] -Lower Limb Edema Present Yes -Right Calf (cm) 46.2 -Right Ankle (cm) 28.5 -Left Calf (cm) 46 -Left Ankle (cm) 27.4 WC - Nurse 2 - General Ulcer CM Notes Start: 02/10/18 14:36 Freq: Status: Active Protocol: Activity Type Activity Date Activity User E-Sign Co-Sign Detail Recorded Client Recorded Date Recorded By Document 02/17/18 15:21 [id number] 02/17/18 15:22 02/17/18 15:21 Pain Scale: 0-10 Numeric [Pain] -Is Patient Pain Free? Yes Musculoskeletal: No Tenderness to Palpation of Joints or Extremities, Muscle Wasting Neurological: Sensory exam intact to light touch and pain Psych/Mental Status: Normal Affect, Appropriate Debridement Note Post-Debridement Measurements/Treatment WC - Nurse 2 - General Ulcer CM Notes Start: 02/10/18 14:36 Freq: Status: Active Protocol: Activity Type Activity Date Activity User E-Sign Co-Sign Detail Recorded Client Recorded Date Recorded By Document 02/17/18 15:21 [id number] 02/17/18 15:22 02/17/18 15:21 Pain Scale: 0-10 Numeric Is Patient Pain Free? Yes No debridement was completed today - There are no open lesions today bilateral Assessment/Plan Active Problems Edema of both legs (Chronic) Venous insufficiency (Chronic) Lymphedema (Chronic) Assessment: . Ulcer of right and left leg -healed. Lower extremity edema. Venous insufficiency. Lymphedema. Diabetes with complications. Compliance challenge Plan: I reviewed and discussed his case today. The ulcers fully epithelialized and prevention was discussed today. To proceed with obtaining a CircAid compression garments. His donated pair decision was approved any about the devices today; education was provided for the patient as well as his father. Incompetent veins were noted on the venous Doppler he is referred to Dr. Pearson for potential intervention to assist in timely wound healing and future prevention. To elevate the legs at rest and to avoid idle sitting and standing. To offload this site by keeping pressure off of the leg while lying in bed (left). I also recommend a lymphedema clinic referral or compression pumps may also be considered in the future. To discontinue all wound care changes. Compression dressings consisting of 3 m 2 L were applied bilaterally. I answered all his questions. To return to clinic in 1 month or call sooner if he has any questions or concerns.
== END 2018-02-27 23:59 ==
LOC: WC 14:30
PROVIDERS: Family Provider Family Medicine; PCP Family Medicine; Visit Provider Podiatrist
DX: R60.0 Localized edema (principal); I87.2 Venous insufficiency (chronic) (peripheral); I89.0 Lymphedema, not elsewhere classified; E11.8 Type 2 diabetes mellitus with unspecified complications
CPT/HCPCS: 99212; 99213; G0463

== ENCOUNTER 2018-03-17 14:17 | Inpatient (IN) | payer MEDICAID, SELFPAY ==
[2018-03-17] VITALS (8 sets, daily range): BP systolic 125–150; BP diastolic 85–102; PULSE 92–119; RESP 14–24; TEMP 37.1; O2SAT 96–98; BMI 54.2; BMI 54.1
--- NOTE | 2018-03-17 15:08 | ED.VISSUMM ---
- ER Visit Summary Date of Service: 03/17/18 Chief Complaint: Cellulitis History of Present Illness: The patient is a 52 M with a history of chronic lymphedema and he follows with the wound center. Patient states his legs worsened last weekend and has yellow pustules with draining of clear fluid. He went to urgent care today where his temperature, measured in his ear, was reportedly 101.5. He was sent to the ER. Patient denies known fever or chills at home. He is a diabetic but does not check his blood sugars regularly. Physical Examination: Blood pressure is 150/102, temperature 98.7 TA, heart rate 119, respiratory rate 24, pulse ox 98% on room air. Oral temperature at the time of my examination is 98.3. Head neck examination is unremarkable. Heart is slightly tachycardic and regular. Lung sounds are clear. Abdomen is soft nontender. Lower external examination was chronic lymphedema to the bilateral lower legs with linear excoriations. They are yellow colored scabs and serosanguineous drainage noted. Test Results: CBC was a white count of 14.7 with 75% neutrophils. Hemoglobin is 12.3. Chemistry studies reveal sodium of 132, glucose 205, BUN 30, creatinine 1.91. Blood cultures were obtained. Emergency Department Course and Treatment: Patient is given a dose IV clindamycin. Due to some nausea he was given Zofran. Patient be admitted for IV antibiotics. Treatment Plan: [] Disposition: Admit Impression: Cellulitis bilateral lower extremities This note was generated with [employer] dictation software. It may contain incorrect words, spelling, and punctuation that were not noted in review of the chart prior to signing ED Disposition - Plan for ED Patient: Disposition: Acute Care Hospital [facility] Chief Complaint: Cellulitis
[2018-03-17] MEDS: Clindamycin 600 MG/50 ML BAG 100 MG IV (16:38)
[2018-03-17] MEDS: Ondansetron 4 MG/2 ML Vial IV ×2 (16:55→22:07)
[2018-03-17 16:56] LABS: Anion Gap 6 (5-15); BUN 30 mg/dL (7-18); BUN/Creat Ratio 15.7 RATIO (10-20); Calcium,Total 8.8 mg/dL (8.5-10.1); Chloride 101 mmol/L (98-107); Creatinine, Serum 1.91 mg/dL (0.70-1.30); EST Glomerular Filtration Rate 40 mL/min (>60); Est Glom Filt Rate - Afr Amer 48 mL/min (>60); Estimated Creatinine Clearance 50.22 ml/min; Glucose 205 mg/dL (74-106); Potassium 4.6 mmol/L (3.5-5.1); Sodium Level 132 mmol/L (136-145)
[2018-03-17 18:58] LABS: Absolute Lymphocyte Count 1.76 X10^3/ul (0.83-4.51); Absolute Neutrophil Count 11.1 X10^3/uL (2.0-7.7); Basophil# 0.03 X10^3/uL; Basophil% 0.2 % (0-1); Eosinophil# 0.07 X10^3/uL; Eosinophils% 0.5 % (0-5); Hematocrit 38.8 % (40-54); Hemoglobin 12.3 g/dl (13.0-16.5); Lymphocyte # 1.76 X10^3/ul (4.0); Mean Corp Hgb Conc 31.7 g/gl (32-36); Mean Corpuscular Hgb 28.8 pg (27.0-32.0); Mean Corpuscular Volume 90.9 fL (80-94); Mean Platelet Vol. 9.5 fl (6.2-12.0); Monocyte# 1.66 X10^3/uL; Monocyte% 11.3 % (0-10); Neutrophil # 11.11 X10^3/uL (2.7-7.7); Neutrophil % 75.6 % (47-70); Platelet Count 275 K/mm3 (150-450); RBC Distribution Width CV 14.1 % (11.6-14.6); RBC Distribution Width SD 46.5 fl (35.1-43.9); Red Blood Count 4.27 M/mm3 (4.6-6.2); White Blood Count 14.7 K/mm3 (4.4-11.0)
[2018-03-17 19:00] LABS: Differential Indicated SCAN CRITERIA MET; POSITIVE COUNT NO; POSITIVE DIFFERENTIAL YES; POSITIVE MORPHOLOGY NO
[2018-03-17 19:24] LABS: Differential Comment SCANNED
--- NOTE | 2018-03-17 20:05 | NURSING ---
Dr. Kline called this RN and advised me that there was a consult for Dr. Rodriguez but that Dr. Rodriguez had called him back and the consult was complete.
--- NOTE | 2018-03-17 20:12 | PCM.HP.STD ---
Problem List (1) Redness of the legs Status: Acute (2) Localized swelling of both lower legs Status: Acute History of Present Illness Date of Admission: 03/17/18 Chief Complaint: Increased swelling of the lower legs, increased redness of the lower legs The patient is a 52 year old M who was seen in the emergency room at [facility] after being sent in from an urgent care where he went for evaluation of increased swelling of his lower legs and increased redness of his lower legs. Patient has a history of chronic lymphedema and chronic wounds to both lower legs, he is being seen on an ongoing basis at the wound care center. Patient states the swelling and redness of his legs increased starting 3 days ago, he could not tell this examiner why he waited so long to seek medical care. Patient was an overall poor informant, he stated he has been placed on insulin recently but could not tell this examiner what type of insulin he was taking. Evaluation in the emergency room included labs which showed an elevated white blood cell count 14.7, creatinine was elevated at 1.91, BUN was elevated at 30, and glucose was 205. Examination of the patient's lower legs revealed chronic lymphedematous changes over both lower legs along with redness and warmth from an area just above the ankles extending to the mid lower leg area. There appeared to be excoriation over multiple areas of the lower legs. Patient was given IV clindamycin in the emergency room as he was allergic to penicillin (patient stated that he had peeling of the soles of his feet after he was given penicillin at one time), and reviewing the patient's blood cultures from October of this year, it appears the patient had enterococcus, strep, and a staph organism which may have been a skin contaminant. I have decided to place the patient on vancomycin and have ID see the patient tomorrow, Dr. Rodriguez was notified by phone tonight and I discussed the case with him. Patient will be admitted to [facility] for bilateral cellulitis. Past Medical History Past Medical History (Chronic Problems): Chronic Problems Edema of both legs (Chronic) Venous insufficiency (Chronic) Malnutrition (Chronic) Diabetes mellitus with complication (Chronic) Lymphedema (Chronic) Tinea unguium (Chronic) Allergies Penicillins [PCN] Allergy (Verified 03/17/18 14:19) Other skin peels Home Medications: Ambulatory Orders Medication Instructions Recorded Alogliptin Benzoate [Nesina] 25 mg PO DAILY 10/14/17 Clonidine HCl 0.1 mg PO BID 10/14/17 Furosemide [Lasix] 20 mg PO BID 10/14/17 Glipizide [Glipizide ER] 10 mg PO DAILY 10/14/17 Lisinopril [Zestril] 10 mg PO DAILY 10/14/17 Metoprolol Tartrate [Lopressor 100 mg PO BID 10/14/17 (Beta Patrick)] Rivaroxaban [Xarelto] 20 mg PO DAILY 10/14/17 hydrALAZINE [Apresoline] 25 mg PO TID 10/14/17 Insulin Glargine,Hum.rec.anlog 1 dose SQ DAILY 03/17/18 [Basaglar Kwikpen U-100] Surgical History: no surgical history Psychiatric History: No pertinent psych hx Lives: With Family Smoking Status: Never smoker Tobacco Use: Non-smoker Alcohol: None Drugs: None - *Family History Maternal History Items: Diabetes Paternal History Items: No pertinent history Review of Systems Constitutional: Denies: Anorexia, Chills, Fever, Night Sweats, Malaise, Weakness, Weight Change, Fatigue Eyes: Denies: Blurred vision, Cataracts, Conjunctivae Inflammation, Double vision, Drainage HEENT: Denies: Difficulty Swallowing, Dysphasia, Ear Pain, Eye Pain, Head Aches, Hearing Changes, Nasal bleeding, Nasal Congestion, Post Nasal Drip Cardiovascular: Denies: Chest Pain, Claudication, Chest Pressure, Chest Tightness, Edema, Heaviness, Orthopnea, Palpitations, Paroxysmal Noc. Dyspnea, Syncope Respiratory: Denies: Cough, Hemoptysis, Pleuritic Pain, Shortness of Breath, Shortness of breath at rest, Shortness of breath upon exertion, Sputum production Gastrointestinal: Denies: Abdominal Pain, Constipation, Diarrhea, Hematemesis, Hematochezia, Nausea, Melena, Vomiting Genitourinary: Denies: Dysuria, Frequency, Hematuria, Hesitancy, Incontinence, Nocturia, Retention, Urgency Musculoskeletal: Reports: Leg Pain. Denies: Back Pain, Foot Pain, Hand Pain, Joint Pain, Joint stiffness, Joint swelling, Joint Tenderness Skin: Reports: Rash - Patient reports increased redness to his lower legs X 3 days, Skin Changes - Patient has a history of lymphedematous changes his lower legs, Wounds - Patient has a history of chronic wounds of his lower legs. Denies: Dryness, Pruritis Neurological: Denies: Balance problems, Blurred vision, Double vision, Slurred speech, Difficulty swallowing, Focal weakness, Headaches, Incoordination, Numbness, Tingling Psychiatric: Denies: Anxiety, Depression, Homicidal Ideations, Suicidal Ideations Endocrine: Denies: Change in Body Habitus, Heat/ Cold Intolerance, Polydipsia, Polyuria Hematologic/ Lymphatic: Denies: Adenopathy, Anemia, Easy Bruising, Easy Bleeding, Petechiae, Purpura VTE Information - Inpt Only VTE Present on Admission: No VTE Mechan Device Prophylaxis: None VTE Pharm Prophylaxis ordered?: No Reason prophylaxis not ordered:: Medical Contraindication - On Xarelto Patient Problems: Active and Suspected Problems Redness of the legs (Acute) Localized swelling of both lower legs (Acute) - Physical Exam General: Alert, Oriented x3, Cooperative, No apparent distress, Well developed, Well nourished HEENT: Atraumatic, PERRLA, EOMI, Normocephalic Oral: Moist Mucosa Neck: Supple, No JVD, Negative Carotid Bruits, No Nuchal Rigidity, Trachea Midline, Thyroid Normal Size and Texture Lungs: Clear to auscultation, Normal air movement, No rhonchi, No wheeze, No rales Cardiovascular: Regular rate, Regular Rhythm, Normal S1, Normal S2, No murmurs, No Ectopic Activity, PMI Normal, No rub noted, No Gallop Abdomen: Bowel Sounds Present, Soft, Non Tender, Non-Distended, Obese, No hernias noted Extremities: No clubbing, No cyanosis, Edema - Generalized lymphedematous changes are noted over both lower legs, there is redness and excoriation over the patient's lower legs from the mid lower leg area down to the ankles Skin: Ulcer/ Wound - There are multiple superficial ulcerations noted of the patient's lower legs along with generalized excoriation of the skin of the lower legs from the mid lower leg area down to the area just above the ankles, Rash Present, Excoriated - Both lower legs are excoriated Musculoskeletal: No Tenderness to Palpation of Joints or Extremities Neurological: Cranial nerves II-XII grossly intact, Neuro grossly intact, Sensory exam intact to light touch and pain, Coordination normal Psych/Mental Status: Appropriate, Flat Affect, Alert and oriented to time, place, person, mood and affect Vital Signs Temp Pulse Resp BP Pulse Ox 98.7 F 92 14 135/96 H 98 03/17/18 14:18 03/17/18 20:11 03/17/18 20:11 03/17/18 20:11 03/17/18 20:11 Oxygen Delivery Method Room Air Assessment/Plan All Active Problems Ulcer of left lower extremity with fat layer exposed (Resolved) Peripheral vascular disease (Ruled-out) Ulcer of right lower extremity with fat layer exposed (Resolved) Ingrowing nail, right great toe (Acute) Cellulitis of great toe, right (Acute) Redness of the legs (Acute) Localized swelling of both lower legs (Acute) #1 cellulitis of the lower legs-suspect staph or strep, and in addition, enterococcus may be present-patient will be admitted to [facility], he was placed on IV vancomycin with pharmacy to dose, labs will be monitored, ID will see the patient, wound care nurse will see the patient tomorrow, I talked with Dr. Schaffer who has seen him before and she will see him tomorrow #2 chronic lymphedema of both lower legs #3 type 2 diabetes-patient will remain on most of his home medications with the addition of sliding scale insulin, blood sugars will be monitored #4 morbid obesity #5 Poor compliance with medical regimen at home-patient states that he supposed to wrap his legs at home, he does not know the wrapping material for his legs #6 chronic kidney disease stage III secondary to type 2 diabetes #7 History of pulmonary embolism-on Xarelto, I have gleaned this information from the patient's wound care notes I suspect patient has a component of cognitive impairment (? MRDD) Code Visit Inpatient E&M: 20194 Init Hosp L3
--- NOTE | 2018-03-17 20:22 | HP.PCM_ITS ---
Problem List (1) Redness of the legs Status: Acute (2) Localized swelling of both lower legs Status: Acute History of Present Illness Date of Admission: 03/17/18 Chief Complaint: Increased swelling of the lower legs, increased redness of the lower legs The patient is a 52 year old M who was seen in the emergency room at [facility] after being sent in from an urgent care where he went for evaluation of increased swelling of his lower legs and increased redness of his lower legs. Patient has a history of chronic lymphedema and chronic wounds to both lower legs, he is being seen on an ongoing basis at the wound care center. Patient states the swelling and redness of his legs increased starting 3 days ago, he could not tell this examiner why he waited so long to seek medical care. Patient was an overall poor informant, he stated he has been placed on insulin recently but could not tell this examiner what type of insulin he was taking. Evaluation in the emergency room included labs which showed an elevated white blood cell count 14.7, creatinine was elevated at 1.91, BUN was elevated at 30, and glucose was 205. Examination of the patient's lower legs revealed chronic lymphedematous changes over both lower legs along with redness and warmth from an area just above the ankles extending to the mid lower leg area. There appeared to be excoriation over multiple areas of the lower legs. Patient was given IV clindamycin in the emergency room as he was allergic to penicillin (patient stated that he had peeling of the soles of his feet after he was given penicillin at one time), and reviewing the patient's blood cultures from October of this year, it appears the patient had enterococcus, strep , and a staph organism which may have been a skin contaminant. I have decided to place the patient on vancomycin and have ID see the patient tomorrow, Dr. Rodriguez was notified by phone tonight and I discussed the case with him. Patient will be admitted to [facility] for bilateral cellulitis. Past Medical History Past Medical History (Chronic Problems): Chronic Problems Edema of both legs (Chronic) Venous insufficiency (Chronic) Malnutrition (Chronic) Diabetes mellitus with complication (Chronic) Lymphedema (Chronic) Tinea unguium (Chronic) Allergies Penicillins [PCN] Allergy (Verified 03/17/18 14:19) Other skin peels Home Medications: Ambulatory Orders Medication Instructions Recorded Alogliptin Benzoate [Nesina] 25 mg PO DAILY 10/14/17 Clonidine HCl 0.1 mg PO BID 10/14/17 Furosemide [Lasix] 20 mg PO BID 10/14/17 Glipizide [Glipizide ER] 10 mg PO DAILY 10/14/17 Lisinopril [Zestril] 10 mg PO DAILY 10/14/17 Metoprolol Tartrate [Lopressor 100 mg PO BID 10/14/17 (Beta Patrick)] Rivaroxaban [Xarelto] 20 mg PO DAILY 10/14/17 hydrALAZINE [Apresoline] 25 mg PO TID 10/14/17 Insulin Glargine,Hum.rec.anlog 1 dose SQ DAILY 03/17/18 [Basaglar Kwikpen U-100] Surgical History: no surgical history Psychiatric History: No pertinent psych hx Lives: With Family Smoking Status: Never smoker Tobacco Use: Non-smoker Alcohol: None Drugs: None - *Family History Maternal History Items: Diabetes Paternal History Items: No pertinent history Review of Systems Constitutional: Denies: Anorexia, Chills, Fever, Night Sweats, Malaise, Weakness , Weight Change, Fatigue Eyes: Denies: Blurred vision, Cataracts, Conjunctivae Inflammation, Double vision, Drainage HEENT: Denies: Difficulty Swallowing, Dysphasia, Ear Pain, Eye Pain, Head Aches , Hearing Changes, Nasal bleeding, Nasal Congestion, Post Nasal Drip Cardiovascular: Denies: Chest Pain, Claudication, Chest Pressure, Chest Tightness, Edema, Heaviness, Orthopnea, Palpitations, Paroxysmal Noc. Dyspnea, Syncope Respiratory: Denies: Cough, Hemoptysis, Pleuritic Pain, Shortness of Breath, Shortness of breath at rest, Shortness of breath upon exertion, Sputum production Gastrointestinal: Denies: Abdominal Pain, Constipation, Diarrhea, Hematemesis, Hematochezia, Nausea, Melena, Vomiting Genitourinary: Denies: Dysuria, Frequency, Hematuria, Hesitancy, Incontinence, Nocturia, Retention, Urgency Musculoskeletal: Reports: Leg Pain. Denies: Back Pain, Foot Pain, Hand Pain, Joint Pain, Joint stiffness, Joint swelling, Joint Tenderness Skin: Reports: Rash - Patient reports increased redness to his lower legs X 3 days, Skin Changes - Patient has a history of lymphedematous changes his lower legs, Wounds - Patient has a history of chronic wounds of his lower legs. Denies: Dryness, Pruritis Neurological: Denies: Balance problems, Blurred vision, Double vision, Slurred speech, Difficulty swallowing, Focal weakness, Headaches, Incoordination, Numbness, Tingling Psychiatric: Denies: Anxiety, Depression, Homicidal Ideations, Suicidal Ideations Endocrine: Denies: Change in Body Habitus, Heat/ Cold Intolerance, Polydipsia, Polyuria Hematologic/ Lymphatic: Denies: Adenopathy, Anemia, Easy Bruising, Easy Bleeding , Petechiae, Purpura VTE Information - Inpt Only VTE Present on Admission: No VTE Mechan Device Prophylaxis: None VTE Pharm Prophylaxis ordered?: No Reason prophylaxis not ordered:: Medical Contraindication - On Xarelto Patient Problems: Active and Suspected Problems Redness of the legs (Acute) Localized swelling of both lower legs (Acute) - Physical Exam General: Alert, Oriented x3, Cooperative, No apparent distress, Well developed, Well nourished HEENT: Atraumatic, PERRLA, EOMI, Normocephalic Oral: Moist Mucosa Neck: Supple, No JVD, Negative Carotid Bruits, No Nuchal Rigidity, Trachea Midline, Thyroid Normal Size and Texture Lungs: Clear to auscultation, Normal air movement, No rhonchi, No wheeze, No rales Cardiovascular: Regular rate, Regular Rhythm, Normal S1, Normal S2, No murmurs, No Ectopic Activity, PMI Normal, No rub noted, No Gallop Abdomen: Bowel Sounds Present, Soft, Non Tender, Non-Distended, Obese, No hernias noted Extremities: No clubbing, No cyanosis, Edema - Generalized lymphedematous changes are noted over both lower legs, there is redness and excoriation over the patient's lower legs from the mid lower leg area down to the ankles Skin: Ulcer/ Wound - There are multiple superficial ulcerations noted of the patient's lower legs along with generalized excoriation of the skin of the lower legs from the mid lower leg area down to the area just above the ankles, Rash Present, Excoriated - Both lower legs are excoriated Musculoskeletal: No Tenderness to Palpation of Joints or Extremities Neurological: Cranial nerves II-XII grossly intact, Neuro grossly intact, Sensory exam intact to light touch and pain, Coordination normal Psych/Mental Status: Appropriate, Flat Affect, Alert and oriented to time, place , person, mood and affect Vital Signs Temp Pulse Resp BP Pulse Ox 98.7 F 92 14 135/96 H 98 03/17/18 14:18 03/17/18 20:11 03/17/18 20:11 03/17/18 20:11 03/17/18 20:11 Oxygen Delivery Method Room Air Assessment/Plan All Active Problems Ulcer of left lower extremity with fat layer exposed (Resolved) Peripheral vascular disease (Ruled-out) Ulcer of right lower extremity with fat layer exposed (Resolved) Ingrowing nail, right great toe (Acute) Cellulitis of great toe, right (Acute) Redness of the legs (Acute) Localized swelling of both lower legs (Acute) #1 cellulitis of the lower legs-suspect staph or strep, and in addition, enterococcus may be present-patient will be admitted to [facility], he was placed on IV vancomycin with pharmacy to dose, labs will be monitored, ID will see the patient, wound care nurse will see the patient tomorrow, I talked with Dr. Schaffer who has seen him before and she will see him tomorrow #2 chronic lymphedema of both lower legs #3 type 2 diabetes-patient will remain on most of his home medications with the addition of sliding scale insulin, blood sugars will be monitored #4 morbid obesity #5 Poor compliance with medical regimen at home-patient states that he supposed to wrap his legs at home, he does not know the wrapping material for his legs #6 chronic kidney disease stage III secondary to type 2 diabetes #7 History of pulmonary embolism-on Xarelto, I have gleaned this information from the patient's wound care notes I suspect patient has a component of cognitive impairment (? MRDD) Code Visit Inpatient E&M: 69784 Init Hosp L3
[2018-03-17] MEDS: 0.9% NaCl Peripheral Flush Adult/Peds IV (22:07)
[2018-03-17] MEDS: cloNIDine HCl 0.1 MG Tablet PO (22:14)
[2018-03-17] MEDS: hydrALAZINE 25 MG Tablet PO (22:15)
[2018-03-17] MEDS: Metoprolol Tartrate 100 MG Tablet PO (22:16)
[2018-03-17] MEDS: Insulin Lispro 100 UNIT/ML INSULN.PEN SC (22:20)
[2018-03-17 22:55] LABS: Bedside Glucose 224 mg/dL (70-110)
[2018-03-18] VITALS (11 sets, daily range): BP systolic 99–129; BP diastolic 54–83; PULSE 78–109; RESP 18–22; TEMP 36.7–37.1; O2SAT 95–100
--- NOTE | 2018-03-18 03:09 | PCM.RX.CS ---
Consult Pharmacy has been consulted to manage selected antiobiotic: Vancomycin Type of Consult: New start Suspected Infection: Skin/Soft tissue Prior Doses of Antibiotics Received/Current Regimen: Medications Discontinued Medications Clindamycin Phosphate (Cleocin) 600 mg in 50 mls @ 100 mls/hr IV X1 ONE Stop: 03/17/18 15:34 Last Admin: 03/17/18 16:38 Dose: 100 mls/hr Vancomycin HCl 2,000 mg/ (Sodium Chloride) 540 mls @ 260 mls/hr IV X1 ONE Stop: 03/18/18 00:04 Last Admin: 03/17/18 22:07 Dose: 260 mls/hr Labs: Sodium 132 mmol/L (136-145) L 03/17/18 16:30 Potassium 4.6 mmol/L (3.5-5.1) 03/17/18 16:30 Chloride 101 mmol/L (98-107) 03/17/18 16:30 Carbon Dioxide 25.0 mmol/L (21.0-32.0) 03/17/18 16:30 Anion Gap 6 (5-15) 03/17/18 16:30 BUN 30 mg/dL (7-18) H 03/17/18 16:30 Creatinine 1.91 mg/dL (0.70-1.30) H 03/17/18 16:30 Est GFR (MDRD) Af Amer 48 mL/min (>60) L 03/17/18 16:30 Est GFR (MDRD) Non-Af 40 mL/min (>60) L 03/17/18 16:30 BUN/Creatinine Ratio 15.7 RATIO (10-20) 03/17/18 16:30 Glucose 205 mg/dL (74-106) H 03/17/18 16:30 Weight used for dosin.4 kg Estimated Creatinine Clearance: 50.22 Goal Trough: 10-15 mcg/mL Pharmacy Plan for Drug Dosing: Pharmacy Service will continue to monitor and adjust dosing as required. Follow-Up Labs: Trough Vancomycin Labs to be done on [date and time ordered]: 01/17 @ 1000
[2018-03-18] MEDS: hydrALAZINE 25 MG Tablet PO ×3 (06:20→22:54)
[2018-03-18] MEDS: Insulin Lispro 100 UNIT/ML INSULN.PEN SC ×3 (06:25→22:53)
[2018-03-18 06:30] LABS: Bedside Glucose 183 mg/dL (70-110)
[2018-03-18 06:31] LABS: Absolute Lymphocyte Count 1.65 X10^3/ul (0.83-4.51); Basophil# 0.02 X10^3/uL; Basophil% 0.1 % (0-1); Eosinophil# 0.14 X10^3/uL; Hematocrit 37.5 % (40-54); Hemoglobin 11.7 g/dl (13.0-16.5); Lymphocyte # 1.65 X10^3/ul (4.0); Lymphocyte % 11.7 % (19-41); Mean Corp Hgb Conc 31.2 g/gl (32-36); Mean Corpuscular Hgb 28.7 pg (27.0-32.0); Mean Corpuscular Volume 91.9 fL (80-94); Mean Platelet Vol. 9.6 fl (6.2-12.0); Monocyte% 9.2 % (0-10); Neutrophil # 10.98 X10^3/uL (2.7-7.7); Neutrophil % 77.7 % (47-70); Platelet Count 305 K/mm3 (150-450); RBC Distribution Width CV 14.3 % (11.6-14.6); Red Blood Count 4.08 M/mm3 (4.6-6.2); White Blood Count 14.1 K/mm3 (4.4-11.0)
[2018-03-18 06:43] LABS: POSITIVE COUNT NO; POSITIVE DIFFERENTIAL NO; POSITIVE MORPHOLOGY NO
--- NOTE | 2018-03-18 06:43 | PCM.PROGNOTE ---
Subjective: Mr Kent is a 52 YO male with super obesity, chronic venous insufficiency of both lower extremities, chronic renal failure stage III, diabetes mellitus type 2 and history of pulmonary embolus on chronic anticoagulation with Xarelto who was sent to the [facility] emergency department from an urgent care for increased swelling and redness of his legs. He is followed chronically at the wound care center. Vital signs at presentation to the emergency room were temp 98.7, pulse rate 119, blood pressure 150/102, respiratory rate 24 and he was 90% saturated on room air. White blood cell count was elevated at 14.7 with 75.6% neutrophils. Hemoglobin is decreased to 12.3 with an MCV of 90.9 and an RDW of 14.1. Platelets were within normal limits. Sodium was low at 132 and the BUN was 30 with a creatinine of 1.91 and an estimated GFR of 40. Arterial studies done in October 2017 showed no evidence of PVD. Venous ultrasounds done in October 2017 showed no evidence of deep vein thrombosis. Valvular competence appeared intact within the proximal deep venous systems bilaterally. On physical examination at admission there were multiple superficial ulcerations of the patient's lower legs. He was admitted to the hospital and started on vancomycin. Consult was ordered with Dr. Schaffer who follows him in the wound care clinic. Hemoglobin A1c in November was 8.4%. Afebrile since admission Antibiotic day #2 Blood pressure and heart rate are well controlled He denies pain Objective: PHYSICAL EXAM: GENERAL: alert, oriented X 3, Cooperative, NAD ORAL: moist mucosa, no mucosal lesions NECK: No JVD, supple, trachea midline LUNGS: CTA, symmetric chest expansion HEART: RRR, Normal S1 and S2, no rub, no gallop ABDOMEN: soft, NT, ND, BS present, no guarding with palpation EXTREMITIES: Both LE's had just been examined by Dr. Schaffer and the dressings were reapplied. Please see her dicattion for appearance of the wounds SKIN: No rashes, no breakdown NEUROLOGIC: no focal neurologic deficits PSYCH: appropriate, normal affect, pleasant - Physical Exam Vital Signs Temp Pulse Resp BP Pulse Ox 98.7 F 88 22 H 115/83 H 95 03/18/18 02:45 03/18/18 06:20 03/18/18 02:45 03/18/18 02:45 03/18/18 02:45 Oxygen Delivery Method Room Air Weight: 400 lb 0.001 oz Body Mass Index (BMI) 54.1 Intake and Output for Last 24 Hours 03/16/18 03/17/18 03/18/18 23:59 23:59 23:59 Intake Total 448 / 448 645 / 645 Output Total 400 / 400 Balance 48 / 48 645 / 645 Laboratory Tests Past 24 Hrs 03/18/18 05:36 WBC Pending RBC Pending Hgb Pending Hct Pending MCV Pending MCH Pending MCHC Pending RDW Pending RDW Differential Pending Plt Count Pending Neut % (Auto) Pending Absolute Neuts (auto) Pending Total Counted Pending POC Glucose 03/18/18 03/17/18 06:25 22:14 POC Glucose 183 H 224 H Medical Necessity - Tobacco Use Smoking Status: Never smoker Tobacco Use: Non-smoker Assessment/Plan All Active Problems Cellulitis of left leg (Acute) Cellulitis of right leg (Acute) Ulcer of left lower extremity with fat layer exposed (Resolved) Peripheral vascular disease (Ruled-out) Ulcer of right lower extremity with fat layer exposed (Resolved) Ingrowing nail, right great toe (Acute) Cellulitis of great toe, right (Acute) Redness of the legs (Acute) Localized swelling of both lower legs (Acute) Impressions 1. cellulitis of the BL LE's with multiple venous stasis ulcers - wound culture is unremarkable. Having low grade fevers today in conjunction with N/V and Abdominal pain - fevers may be due to gastroenteritis and not cellulitis because the wounds look good. 2. suspect gastroenteritis 3. morbid obesity 4. DM II-not adequately controlled with a hemoglobin A1c of 9.3 5. venous insufficiency with multiple incompetent valves on venous US's 6. stasis dermatitis 7. Chronic renal failure stage II 8. History of pulmonary embolus in the past on chronic anticoagulation with Xarelto 9. Erratic blood pressures 10. Hyponatremia at admission 11. Constipation Continue the current care Dr. Rodriguez is following - he will manage antibiotics discussed with Dr. Schaffer Code Visit Inpatient E&M: 62883 Subs Hosp L2
[2018-03-18 07:30] LABS: Erythrocyte Sedimentation Rate 104 mm/hr (0-20)
[2018-03-18] MEDS: glipiZIDE 10 MG Tablet PO (07:36)
[2018-03-18] MEDS: levoFLOXacin 500 MG Tablet PO (07:36)
[2018-03-18 08:04] LABS: Hemoglobin A1c 9.3 % (4.2-6.3)
[2018-03-18 08:29] LABS: Cholesterol 94 mg/dL (200); High Density Lipoprotein 36 mg/dL; Magnesium 1.9 mg/dL (1.6-2.6); Phosphorus 2.8 mg/dL (2.5-4.9); Triglycerides 88 mg/dL; Very Low Density Lipoprotein 18 mg/dL (5-40)
[2018-03-18] MEDS: Metoprolol Tartrate 100 MG Tablet PO ×2 (09:40→22:54)
[2018-03-18] MEDS: Vancomycin IV 1,000 MG/200 ML BAG 200 MG IV ×2 (09:41→22:07)
[2018-03-18] MEDS: cloNIDine HCl 0.1 MG Tablet PO ×2 (09:41→22:54)
[2018-03-18] MEDS: Furosemide 40 MG Tablet PO (09:41)
[2018-03-18] MEDS: Glucerna Shake 120 ML LIQUID PO ×4 (09:41→22:53)
[2018-03-18] MEDS: Rivaroxaban 20 MG Tablet PO (09:42)
[2018-03-18] MEDS: Lisinopril 10 MG Tablet PO (09:43)
--- NOTE | 2018-03-18 10:39 | NURSING ---
ATTEMPTED TO START IV IN RT FA, THOUGHT IT WAS IN, BUT IT INFILTRATED IMMEDIATELY AND DC'D. fLUSHED THE IV SITE IN LT FA AND IT FLUSHED WELL AND NO EDEMA OR INFILTRATION WHEN FLUSHED, WILL KEEP SITE FOR NOW AND MONITOR. INSTRUCTED TO NOTIFY NURSE IF IT BECOMES PAINFUL, EDEMATOUS OR INCREASES IN REDNESS. VERBALIZED UNDERSTANDING.
--- NOTE | 2018-03-18 10:40 | CASEMGMT ---
RN ASHWINI Face to Face with patient for initial transition planning/care coordination assessment. RN CM introduced self and role at [facility]. Patient lying in bed, alert and oriented. Patient willing to participate in assessment and is able to answer all questions appropriately. Care providers, pharmacy, and demographics verified. See link attached. Patient wishes to discharge home, denies need for home health at this time. Patient states he has no further needs or concerns at this time. CM to follow for discharge planning needs that may arise. Disposition Plan: Patient to discharge home with family support and follow-up plans in place.
--- NOTE | 2018-03-18 11:56 | PCM.PROGNOTE ---
Patient Problems: Active and Suspected Problems Redness of the legs (Acute) Localized swelling of both lower legs (Acute) Subjective: This 52 male was seen bedside for bilateral lower extremity worsening swelling redness and wound recurrence. He was admitted for IV antibiotics. He has been previously seen the wound center for bilateral leg chronic swelling and wounds. He has been educated on home compression dressing use and is simply not been able to remain compliant on how to perform this. He denies leg pain today. He denies fever or chill. He relates he was having nausea and even vomited yesterday. - Physical Exam General: Alert, Oriented x3, Cooperative Extremities: No cyanosis, Capillary Refill Less than 3 Seconds, No Calf Tenderness - Negative Aline and Tamayo sign bilateral, Diminished Peripheral Pulses - Likely secondary to edema Skin: Ulcer/ Wound - Multiple excoriations in cluster formation circumferential to bilateral legs with a problem to the posterior aspect. There is peripheral dark erythema with some dried hematogenous drainage noted. There is more inflammation, erythema, and induration compared to previous examinations consistent with cellulitis and venous stasis flareup. His skin is atrophic and hairless to bilateral lower extremities. There is no interdigital macerations or deep tissues exposed bilateral Musculoskeletal: No Tenderness to Palpation of Joints or Extremities, - - No pain with excoriation palpation. Bilateral lower extremity compartments remain soft Neurological: Sensory exam intact to light touch and pain Psych/Mental Status: Normal Affect, Appropriate Vital Signs Temp Pulse Resp BP Pulse Ox 98.4 F 91 18 122/82 H 97 03/18/18 09:34 03/18/18 09:40 03/18/18 09:34 03/18/18 09:34 03/18/18 09:34 Oxygen Delivery Method Room Air Weight: 181.437 kg Body Mass Index (BMI) 54.1 Intake and Output for Last 24 Hours 03/16/18 03/17/18 03/18/18 23:59 23:59 23:59 Intake Total 448 / 448 645 / 645 Output Total 400 / 400 Balance 48 / 48 645 / 645 Laboratory Tests Past 24 Hrs 03/18/18 03/18/18 03/18/18 05:36 05:36 05:36 WBC 14.1 H RBC 4.08 L Hgb 11.7 L Hct 37.5 L MCV 91.9 MCH 28.7 MCHC 31.2 L RDW 14.3 RDW Differential 47.0 H Plt Count 305 MPV 9.6 Immature Gran % (Auto) 0.300 Neut % (Auto) 77.7 H Lymph % (Auto) 11.7 L [place] % (Auto) 9.2 Eos % (Auto) 1.0 Baso % (Auto) 0.1 Absolute Neuts (auto) 11.0 H Absolute Lymphs (auto) 1.65 Total Counted Not Reportable ESR 104 H Hemoglobin A1c Phosphorus 2.8 Magnesium 1.9 C-React Prot Ext Range 140.00 H Triglycerides 88 Cholesterol 94 LDL Cholesterol 40 VLDL Cholesterol 18 HDL Cholesterol 36 L 03/18/18 03/18/18 05:36 05:36 WBC RBC Hgb Hct MCV MCH MCHC RDW RDW Differential Plt Count MPV Immature Gran % (Auto) Neut % (Auto) Lymph % (Auto) [place] % (Auto) Eos % (Auto) Baso % (Auto) Absolute Neuts (auto) Absolute Lymphs (auto) Total Counted ESR Hemoglobin A1c 9.3 H Phosphorus Cancelled Magnesium C-React Prot Ext Range Triglycerides Cholesterol LDL Cholesterol VLDL Cholesterol HDL Cholesterol POC Glucose 03/18/18 03/17/18 06:25 22:14 POC Glucose 183 H 224 H Medical Necessity - Tobacco Use Smoking Status: Never smoker Tobacco Use: Non-smoker Assessment/Plan All Active Problems Ulcer of left lower extremity with fat layer exposed (Resolved) Peripheral vascular disease (Ruled-out) Ulcer of right lower extremity with fat layer exposed (Resolved) Ingrowing nail, right great toe (Acute) Cellulitis of great toe, right (Acute) Redness of the legs (Acute) Localized swelling of both lower legs (Acute) Cellulitis bilateral lower extremities excoriations /superficial wounds bilateral legs Venous insufficiency Lower extremity edema noncompliance and inability to follow care plan I reviewed and discussed his case today. His legs are evaluated. Dressings were applied including Adaptic, gauze, abdominal pad, and Holden wrap. I reviewed his chart and his diagnostic data. He does have leukocytosis and his white blood cell count is 14.7. It is noted that he is on Levaquin and vancomycin. Blood cultures are negative for bacterial growth so far. A culture of the wound was ordered and results are pending. I recommend more aggressive edema control. I recommend he elevate the limbs at rest and additional Unna boot with multilayer compression. He has been educated on proper CircAid compression wraps on multiple occasions and does not demonstrate ability to do this at home on his own. He is not able to get extended home health coverage for compression gear. This will be reviewed again with him once his cellulitis has resolved and he is transitioning back into the home. He is previously known to wound care center and was advised to follow-up there after discharge. Answered all his questions please not hesitate to call if you have any questions. Thank you very much for the consultation. Taryn Schaffer DPM, F[facility] [phone]
[2018-03-18] MEDS: 0.9% NaCl Peripheral Flush Adult/Peds IV (11:58)
[2018-03-18 12:01] LABS: Bedside Glucose 222 mg/dL (70-110)
--- NOTE | 2018-03-18 13:34 | NURSING ---
Pt resting in bed. was asked to see patient for wounds to bilateral lower legs. Had been in earlier this am to see patient, but wanted to wait to assess wounds since Dr Schaffer was consulted. Pt states that Dr Schaffer had just been in and redressed wounds. pt prefers this nurse does not unwrap the legs again. left dressings and LUPILLO wraps in place for now. will assess in am. Kaden RN aware as well.
--- NOTE | 2018-03-18 15:27 | CHAPLAIN ---
Type of Pastoral Visit _x__ Initial Visit ___ Follow-up Visit ___ On-call Visit ___ General Patient Visit ___ Spiritual Assessment ___ Family Conference ___ Bereavement ___ Rapid Response ___ Code Blue ___ Other (describe below) Pastoral Care Referral From _x__ Patient ___ Family ___ Nurse ___ Physician ___ Material Engineer ___ Order Analyst ___ Other (describe below) Sacrament/Intervention _x__ Active listening ___ Anointing ___ Sikhism ___ Bereavement ___ Communion ___ Ramonita exploration ___ ___ Life review _x__ Prayer ___ Reconciliation ___ Sacrament of Sick ___ Supportive presence ___ Wedding ___ Other (describe below) Pastoral Comments patient appears and says that he is content with situation; pt does not work and would not be doing much if not in the hospital; pt has a ramonita connection and accepts prayer; no other concerns
--- NOTE | 2018-03-18 16:53 | PCM.HP.ID ---
Problem List (1) Localized swelling of both lower legs Status: Acute Reason for Consult: cellulitis Consulted by: Dr. Kline History of Present Illness: The patient is a 52 year old M with chronic BLE edema and DM who presented to ED 03/17 with about a week of increased BLE swelling, redness, and clear yellowish drainage. No fever or chills. Did have some nausea and an episode of emesis. No recent abx. No inciting events. Pain was moderate. Went to urgent care, was told to go to ED. Given dose of clinda, admitted on vanc, levaquin was added. Seen by Dr. Schaffer. Legs wrapped. Full ROS performed and neg except as noted above. - Medical History Past Medical History (Chronic Problems): Chronic Problems Edema of both legs (Chronic) Venous insufficiency (Chronic) Malnutrition (Chronic) Diabetes mellitus with complication (Chronic) Lymphedema (Chronic) Tinea unguium (Chronic) Allergies/Adverse Reactions: Allergies Penicillins [PCN] Allergy (Verified 03/17/18 14:19) Other skin peels Home Medications: Ambulatory Orders Medication Instructions Recorded Alogliptin Benzoate [Nesina] 25 mg PO DAILY 10/14/17 Clonidine HCl 0.1 mg PO BID 10/14/17 Furosemide [Lasix] 20 mg PO BID 10/14/17 Glipizide [Glipizide ER] 10 mg PO DAILY 10/14/17 Lisinopril [Zestril] 10 mg PO DAILY 10/14/17 Metoprolol Tartrate [Lopressor 100 mg PO BID 10/14/17 (Beta Patrick)] Rivaroxaban [Xarelto] 20 mg PO DAILY 10/14/17 hydrALAZINE [Apresoline] 25 mg PO TID 10/14/17 Insulin Glargine,Hum.rec.anlog 1 dose SQ DAILY 03/17/18 [Basaglar Kwikpen U-100] - Social History SMOKING STATUS:: Never smoker Vital Signs Temp Pulse Resp BP Pulse Ox 98.0 F 97 20 H 99/54 L 95 03/18/18 19:45 03/18/18 20:10 03/18/18 19:45 03/18/18 19:45 03/18/18 19:45 Oxygen Delivery Method Room Air Weight: 181.437 kg Body Mass Index (BMI) 54.1 Laboratory Tests Past 24 Hrs 03/18/18 03/18/18 03/18/18 05:36 05:36 05:36 WBC 14.1 H RBC 4.08 L Hgb 11.7 L Hct 37.5 L MCV 91.9 MCH 28.7 MCHC 31.2 L RDW 14.3 RDW Differential 47.0 H Plt Count 305 MPV 9.6 Immature Gran % (Auto) 0.300 Neut % (Auto) 77.7 H Lymph % (Auto) 11.7 L [place] % (Auto) 9.2 Eos % (Auto) 1.0 Baso % (Auto) 0.1 Absolute Neuts (auto) 11.0 H Absolute Lymphs (auto) 1.65 Total Counted Not Reportable ESR 104 H Hemoglobin A1c Phosphorus 2.8 Magnesium 1.9 C-React Prot Ext Range 140.00 H Triglycerides 88 Cholesterol 94 LDL Cholesterol 40 VLDL Cholesterol 18 HDL Cholesterol 36 L 03/18/18 03/18/18 05:36 05:36 WBC RBC Hgb Hct MCV MCH MCHC RDW RDW Differential Plt Count MPV Immature Gran % (Auto) Neut % (Auto) Lymph % (Auto) [place] % (Auto) Eos % (Auto) Baso % (Auto) Absolute Neuts (auto) Absolute Lymphs (auto) Total Counted ESR Hemoglobin A1c 9.3 H Phosphorus Cancelled Magnesium C-React Prot Ext Range Triglycerides Cholesterol LDL Cholesterol VLDL Cholesterol HDL Cholesterol - Other Studies Radiology: [] reviewed Other Studies: [] Route of nutrition/ use of supplements: [] Nutritional Intake: [] IV Site: [] Willett Catheter: [] - Physical Exam General: Alert, Oriented x3, Cooperative, No apparent distress HEENT: Atraumatic, PERRLA, EOMI Neck: Supple, No Nodes Lungs: Clear to auscultation, Normal air movement Cardiovascular: Regular rate, Regular Rhythm Abdomen: Bowel Sounds Present, Soft, Non Tender, Non-Distended Extremities: Edema Skin: Rash Present - BLE shins/calves IV Site: Peripheral, without redness Musculoskeletal: No Tenderness to Palpation of Joints or Extremities Neurological: Cranial nerves II-XII grossly intact - Assessment/Plan Antibiotics: [] Assessment/Plan: [] Active and Suspected Problems Redness of the legs (Acute) Localized swelling of both lower legs (Acute) BLE cellulitis with ELIER on CKD and chronic edema - wbc elevated, no fever. Reports h/o reaction to PCN as an , denies taking any other beta lactams in the past. Seen by Dr. Schaffer. Wound cx and bcx pending. Previous wound cx of toe with enterococcus, staph simulans, anaerobes, and group C strep. Not clear at this point how severe his infection is. Cont vanc and levaquin for now. Thank you, will follow, d/w Dr. Kline.
[2018-03-18 17:01] LABS: Bedside Glucose 124 mg/dL (70-110)
[2018-03-18 23:15] LABS: Bedside Glucose 252 mg/dL (70-110)
[2018-03-19] VITALS (10 sets, daily range): BP systolic 90–162; BP diastolic 49–94; PULSE 83–100; RESP 18–20; TEMP 36.9–38.1; O2SAT 93–97
[2018-03-19] MEDS: Insulin Lispro 100 UNIT/ML INSULN.PEN SC ×4 (07:19→22:35)
[2018-03-19 07:50] LABS: Bedside Glucose 229 mg/dL (70-110)
--- NOTE | 2018-03-19 09:59 | NURSING ---
wound photo: right anterior lower leg
--- NOTE | 2018-03-19 09:59 | NURSING ---
wound photo: right posterior/lateral lower leg
--- NOTE | 2018-03-19 10:00 | NURSING ---
wound photo: left anterior lower leg
--- NOTE | 2018-03-19 10:00 | NURSING ---
wound photo: left lateral lower leg
[2018-03-19 10:03] LABS: Vancomycin, Trough Level 15.7 ug/mL (5.0-15.0)
--- NOTE | 2018-03-19 10:31 | PN_ITS ---
Patient Problems: Active and Suspected Problems Redness of the legs (Acute) Localized swelling of both lower legs (Acute) Subjective: Mr Kent is a 52 YO male with super obesity, chronic venous insufficiency of both lower extremities, chronic renal failure stage III, diabetes mellitus type 2 and history of pulmonary embolus on chronic anticoagulation with Xarelto who was sent to the [facility] emergency department from an urgent care for increased swelling and redness of his legs. He is followed chronically at the wound care center by Dr. Schaffer. He was diagnosed with cellulitis and venous stasis ulcers and admitted to the hospital on Vanco and Levaquin. He is being followed by Dr. Schaffer and Dr. Rodriguez. BL unna boots were placed this AM. Day #3 vancomycin and Levaquin T-max is 99.9 this a.m. at 4 AM. Blood sugars are creeping up. ESR at admission was 104 and the CRP was 140. Hemoglobin A1c is 9.3 and I suspect he is not compliant with diet. The Gram stain on the wound drainage showed no white blood cells. Culture is pending. Blood cultures have no growth to date. Arterial and venous studies in October 2017 were negative for significant arterial disease and negative for VTE. The valves in the distal lower extremities are incompetent. He is complaining of nausea today. He had an emesis last night. He is also complaining of epigastric distress. Denies chest pain, denies shortness of breath, he is not diaphoretic. EKG was obtained and showed normal sinus rhythm with no suspicious ST or T-wave changes. He has not had a BM since Thursday and he feels bloated. - Physical Exam General: Alert, Cooperative, No apparent distress HEENT: Atraumatic, Normocephalic Oral: Moist Mucosa, No Gingival or Mucosal Lesions/ Ulcerations Neck: Supple, Trachea Midline Lungs: Clear to auscultation Cardiovascular: Regular rate, Regular Rhythm, Normal S1, Normal S2, No Gallop Abdomen: Bowel Sounds Present, Soft, Non-Distended, Obese, Tender - tender in the epigastric area with no guarding Extremities: No clubbing, No cyanosis, - - the edema in the LE's is much improved with elevation and compression and the toes are wrinkled Skin: - - There is stasis hyperpigmentation of both LE's from long standing swelling. He has linear abrasion and a linear erosion on the distal LE that look as though they may be from the elastic straps on his home compression stockings being too tight...he applies himself. He has extensive superficial venous stasis ulcers on the R lateral/posterio R calf......a few on the Left lateral posterior calf. There is no purulent DC and no odor. The erythema is more due to venous hypertension/insufficiency and not to cellulitis Neurological: Cranial nerves II-XII grossly intact, Neuro grossly intact Psych/Mental Status: Appropriate, Flat Affect Vital Signs Temp Pulse Resp BP Pulse Ox 99.9 F H 90 18 90/49 L 93 03/19/18 04:02 03/19/18 07:42 03/19/18 04:02 03/19/18 07:42 03/19/18 04:02 Oxygen Delivery Method Room Air Weight: 400 lb 0.001 oz Body Mass Index (BMI) 54.1 Intake and Output for Last 24 Hours 03/17/18 03/18/18 03/19/18 23:59 23:59 23:59 Intake Total 448 / 448 1246 / 1246 1051 / 1051 Output Total 400 / 400 300 / 300 Balance 48 / 48 1246 / 1246 751 / 751 Microbiology Past 72 Hours 03/18/18 17:30 Gram Stain - Final Wound - Aerobic & Anaerobic Swabs Laboratory Tests Past 24 Hrs 03/19/18 09:15 Vancomycin Trough 15.7 H POC Glucose 03/19/18 03/18/18 03/18/18 07:17 22:48 16:55 POC Glucose 229 H 252 H 124 H 03/18/18 11:53 POC Glucose 222 H Medical Necessity - Tobacco Use Smoking Status: Never smoker Tobacco Use: Non-smoker Assessment/Plan All Active Problems Ulcer of left lower extremity with fat layer exposed (Resolved) Peripheral vascular disease (Ruled-out) Ulcer of right lower extremity with fat layer exposed (Resolved) Ingrowing nail, right great toe (Acute) Cellulitis of great toe, right (Acute) Redness of the legs (Acute) Localized swelling of both lower legs (Acute) Impressions 1. cellulitis of the BL LE's with multiple venous stasis ulcers - wound culture is unremarkable. Having low grade fevers today in conjunction with N/V and Abdominal pain - fevers may be due to gastroenteritis and not cellulitis because the wounds look good. 2. suspect gastroenteritis 3. morbid obesity 4. DM II-not adequately controlled with a hemoglobin A1c of 9.3 5. venous insufficiency with multiple incompetent valves on venous US's 6. stasis dermatitis 7. Chronic renal failure stage II 8. History of pulmonary embolus in the past on chronic anticoagulation with Xarelto 9. Erratic blood pressures 10. Hyponatremia at admission 11. Constipation Hx is difficult to obtain from this gentleman whom I suspect has MRDD. Will start a stool softener. Give Anti-emetics. Add pepcid to his drug regimen and repeat lab in the AM. If no further N/V/abd pain in the AM DC home on Doxy and Levaquin for 7 days.....discussed with Dr. Rodriguez Code Visit Inpatient E&M: 14437 Subs Hosp L2
--- NOTE | 2018-03-19 10:46 | PCM.RX.CS ---
Consult Pharmacy has been consulted to manage selected antiobiotic: Vancomycin Type of Consult: Follow-up Suspected Infection: Skin/Soft tissue Prior Doses of Antibiotics Received/Current Regimen: Medications Vancomycin HCl (Vancomycin) 1,000 mg in 200 mls @ 200 mls/hr IV Q12H CLAU Last Admin: 03/18/18 22:07 Dose: 200 mls/hr Labs: Sodium 132 mmol/L (136-145) L 03/17/18 16:30 Potassium 4.6 mmol/L (3.5-5.1) 03/17/18 16:30 Chloride 101 mmol/L (98-107) 03/17/18 16:30 Carbon Dioxide 25.0 mmol/L (21.0-32.0) 03/17/18 16:30 Anion Gap 6 (5-15) 03/17/18 16:30 BUN 30 mg/dL (7-18) H 03/17/18 16:30 Creatinine 1.91 mg/dL (0.70-1.30) H 03/17/18 16:30 Est GFR (MDRD) Af Amer 48 mL/min (>60) L 03/17/18 16:30 Est GFR (MDRD) Non-Af 40 mL/min (>60) L 03/17/18 16:30 BUN/Creatinine Ratio 15.7 RATIO (10-20) 03/17/18 16:30 Glucose 205 mg/dL (74-106) H 03/17/18 16:30 Vancomycin Trough 15.7 ug/mL (5.0-15.0) H 03/19/18 09:15 Microbiology: Microbiology 03/18/18 17:30 Wound - Aerobic & Anaerobic Swabs Gram Stain - Final Weight used for dosin kg Estimated Creatinine Clearance: 50 mL/min Goal Trough: 10-15 mcg/mL Pharmacy Plan for Drug Dosing: Vancomycin trough (11 hr) at high end of goal range. Recommend to change to q24h dosing, 2000mg. Likely not at steady-state yet considering large BMI and q12h dosing may lead to accumulation once steady-state is reached. Check trough Thursday. Pharmacy Service will continue to monitor and adjust dosing as required. Follow-Up Labs: Trough Vancomycin - 03/22/18 @ 1100
--- NOTE | 2018-03-19 11:05 | EKG12_ITS ---
Test Reason : INDIGESION/CP Blood Pressure : / mmHG Vent. Rate : 095 BPM Atrial Rate : 095 BPM P-R Int : 194 ms QRS Dur : 090 ms QT Int : 360 ms P-R-T Axes : 046 014 040 degrees QTc Int : 452 ms Normal sinus rhythm Low voltage QRS Poor R wave progression Borderline ECG Confirmed by EL VALERO, BRENTON ([id number]), news videotape editor NICOLE LONG ([id number] on 03/30/2018 3:31:07 PM Referred By: IDA Confirmed By:BRENTON GALLEGOS MD
[2018-03-19 11:46] LABS: Bedside Glucose 242 mg/dL (70-110)
[2018-03-19] MEDS: Ondansetron 4 MG/2 ML Vial IV (12:08)
[2018-03-19] MEDS: 0.9% NaCl Peripheral Flush Adult/Peds IV (12:08)
[2018-03-19] MEDS: Mag Hydrox/Al Hydrox/Simeth 30 ML UDC PO (12:12)
[2018-03-19] MEDS: levoFLOXacin 250 MG Tablet PO (13:04)
--- NOTE | 2018-03-19 16:11 | PCM.PN.ID ---
Patient Problems: Active and Suspected Problems Redness of the legs (Acute) Localized swelling of both lower legs (Acute) Subjective: Feeling better, no fever, legs less sore. - Physical Exam General: Alert, Cooperative Lungs: Clear to auscultation, Normal air movement Cardiovascular: Regular rate, Regular Rhythm Abdomen: Soft, Non Tender, Non-Distended Skin: Rash Present - reviewed photos, BLE redness Vital Signs Temp Pulse Resp BP Pulse Ox 100.6 F H 93 20 H 154/94 H 94 03/19/18 10:02 03/19/18 10:02 03/19/18 10:02 03/19/18 10:02 03/19/18 10:02 Oxygen Delivery Method Room Air Weight: 181.437 kg Body Mass Index (BMI) 54.1 Intake and Output for Last 24 Hours 03/17/18 03/18/18 03/19/18 23:59 23:59 23:59 Intake Total 448 / 448 1246 / 1246 1051 / 1051 Output Total 400 / 400 300 / 300 Balance 48 / 48 1246 / 1246 751 / 751 Microbiology Past 72 Hours 03/18/18 17:30 Gram Stain - Final Wound - Aerobic & Anaerobic Swabs Wound Culture - Preliminary Staphylococcus species Gram negative kenisha Laboratory Tests Past 24 Hrs 03/19/18 09:15 Vancomycin Trough 15.7 H POC Glucose 03/19/18 03/19/18 03/18/18 11:37 07:17 22:48 POC Glucose 242 H 229 H 252 H 03/18/18 16:55 POC Glucose 124 H Medical Necessity - Tobacco Use Smoking Status: Never smoker Tobacco Use: Non-smoker Route of nutrition/ use of supplements: [] Nutritional Intake: [] IV Site: [] Willett Catheter: [] - Assessment/Plan Antibiotics: [] Assessment/Plan: [] Active and Suspected Problems Redness of the legs (Acute) Localized swelling of both lower legs (Acute) BLE cellulitis with ELIER on CKD and chronic edema - wbc elevated, no fever. Reports h/o reaction to PCN as an infant, denies taking any other beta lactams in the past. Seen by Dr. Schaffer. Wound cx with staph and anaerobes. Previous wound cx of toe with enterococcus, staph simulans, anaerobes, and group C strep. Plan on total 7 days of abx. Narrow him to doxy/levaquin. Will follow, d/w Dr. Castillo
[2018-03-19] MEDS: Polyethylene Glycol 3350 17 GM PACKET PO (16:32)
[2018-03-19] MEDS: glipiZIDE 10 MG Tablet PO (16:32)
[2018-03-19] MEDS: Rivaroxaban 20 MG Tablet PO (16:32)
[2018-03-19] MEDS: cloNIDine HCl 0.1 MG Tablet PO ×2 (16:33→22:41)
[2018-03-19] MEDS: Furosemide 40 MG Tablet PO (16:33)
[2018-03-19] MEDS: Metoprolol Tartrate 100 MG Tablet PO ×2 (16:33→22:40)
[2018-03-19 17:20] LABS: Bedside Glucose 208 mg/dL (70-110)
[2018-03-19] MEDS: Lisinopril 10 MG Tablet PO (17:51)
[2018-03-19] MEDS: hydrALAZINE 25 MG Tablet PO ×2 (17:52→22:41)
[2018-03-19] MEDS: Bisacodyl 5 MG Tablet 10 MG PO (17:52)
[2018-03-19] MEDS: Doxycycline 100 MG CAPSULE PO (22:35)
[2018-03-19] MEDS: Glucerna Shake 120 ML LIQUID PO (22:37)
[2018-03-19] MEDS: Famotidine 20 MG Tablet PO (22:42)
[2018-03-20 03:20] VITALS: BP 105/67; PULSE 79; RESP 18; TEMP 36.6; O2SAT 95
[2018-03-20 03:31] LABS: Bedside Glucose 176 mg/dL (70-110)
[2018-03-20 06:49] VITALS: BP 135/78; PULSE 82
[2018-03-20] MEDS: Insulin Lispro 100 UNIT/ML INSULN.PEN SC ×2 (06:49→11:11)
[2018-03-20] MEDS: hydrALAZINE 25 MG Tablet PO ×2 (06:49→14:24)
[2018-03-20] MEDS: levoFLOXacin 500 MG Tablet PO (07:00)
[2018-03-20 07:01] LABS: Bedside Glucose 163 mg/dL (70-110)
[2018-03-20 07:33] LABS: Absolute Lymphocyte Count 1.86 X10^3/ul (0.83-4.51); Absolute Neutrophil Count 6.4 X10^3/uL (2.0-7.7); Basophil# 0.05 X10^3/uL; Basophil% 0.5 % (0-1); Eosinophil# 0.33 X10^3/uL; Eosinophils% 3.5 % (0-5); Hematocrit 35.2 % (40-54); Hemoglobin 10.8 g/dl (13.0-16.5); Lymphocyte # 1.86 X10^3/ul (4.0); Lymphocyte % 19.9 % (19-41); Mean Corp Hgb Conc 30.7 g/gl (32-36); Mean Corpuscular Hgb 28.7 pg (27.0-32.0); Mean Corpuscular Volume 93.6 fL (80-94); Mean Platelet Vol. 9.4 fl (6.2-12.0); Monocyte# 0.74 X10^3/uL; Monocyte% 7.9 % (0-10); Neutrophil # 6.35 X10^3/uL (2.7-7.7); Neutrophil % 67.9 % (47-70); Platelet Count 278 K/mm3 (150-450); RBC Distribution Width CV 14.3 % (11.6-14.6); RBC Distribution Width SD 47.1 fl (35.1-43.9); Red Blood Count 3.76 M/mm3 (4.6-6.2); White Blood Count 9.4 K/mm3 (4.4-11.0)
[2018-03-20 07:40] LABS: POSITIVE COUNT NO; POSITIVE DIFFERENTIAL NO; POSITIVE MORPHOLOGY NO
[2018-03-20 07:41] LABS: Anion Gap 7 (5-15); BUN 30 mg/dL (7-18); Calcium,Total 8.6 mg/dL (8.5-10.1); Chloride 105 mmol/L (98-107); Creatinine, Serum 1.88 mg/dL (0.70-1.30); EST Glomerular Filtration Rate 40 mL/min (>60); Est Glom Filt Rate - Afr Amer 49 mL/min (>60); Estimated Creatinine Clearance 51.02 ml/min; Glucose 162 mg/dL (74-106); Potassium 4.8 mmol/L (3.5-5.1); Sodium Level 139 mmol/L (136-145)
[2018-03-20 09:20] VITALS: BP 113/66; PULSE 97; RESP 18; TEMP 36.8; O2SAT 94
[2018-03-20] MEDS: Doxycycline 100 MG CAPSULE PO (09:22)
[2018-03-20] MEDS: Famotidine 20 MG Tablet PO (09:22)
[2018-03-20] MEDS: Polyethylene Glycol 3350 17 GM PACKET PO (09:22)
[2018-03-20] MEDS: cloNIDine HCl 0.1 MG Tablet PO (09:23)
[2018-03-20] MEDS: Rivaroxaban 20 MG Tablet PO (09:23)
[2018-03-20] MEDS: Furosemide 40 MG Tablet PO (09:24)
[2018-03-20] MEDS: glipiZIDE 10 MG Tablet PO (09:24)
[2018-03-20] MEDS: Glucerna Shake 120 ML LIQUID PO ×2 (09:24→14:25)
[2018-03-20 09:29] VITALS: PULSE 97
[2018-03-20] MEDS: Metoprolol Tartrate 100 MG Tablet PO (09:29)
[2018-03-20] MEDS: Lisinopril 10 MG Tablet PO (09:30)
--- NOTE | 2018-03-20 10:48 | PCM.PN.HOSP ---
Patient Problems: Active and Suspected Problems Redness of the legs (Acute) Localized swelling of both lower legs (Acute) Subjective: Patient seen and examined this morning. He was sitting comfortably in bed and had no complaints. Lower legs were wrapped in Holden wraps. He denied any fever or chills, any cough or chest pain, any shortness of breath, abdominal pain, any diarrhea or vomiting. Review of systems is otherwise negative. Vitals/I&O's: Vital Signs Temp Pulse Resp BP Pulse Ox 98.2 F 97 18 113/66 94 03/20/18 09:20 03/20/18 09:29 03/20/18 09:20 03/20/18 09:20 03/20/18 09:20 Oxygen Delivery Method Room Air Weight: 400 lb 0.001 oz Body Mass Index (BMI) 54.1 Intake and Output for Last 24 Hours 03/18/18 03/19/18 03/20/18 23:59 23:59 23:59 Intake Total 1246 / 1246 2783 / 2783 1013 / 1013 Output Total 300 / 300 Balance 1246 / 1246 2483 / 2483 1013 / 1013 General: Alert, Oriented x3, Cooperative, No apparent distress HEENT: Atraumatic, PERRLA, EOMI, Normocephalic Oral: Moist Mucosa Neck: Supple, No JVD, Negative Carotid Bruits Lungs: Clear to auscultation, Normal air movement, No rhonchi, No wheeze, No rales Cardiovascular: Regular rate, Regular Rhythm, Normal S1, Normal S2, No murmurs Abdomen: Bowel Sounds Present, Soft, Non Tender, Non-Distended, No Hepato-splenomegaly Extremities: No clubbing, No cyanosis, No edema, Capillary Refill Less than 3 Seconds, - - LEs wrapped in HOLDEN bandages. Skin: No rashes, No breakdown Musculoskeletal: No Tenderness to Palpation of Joints or Extremities Lymphatic: No Cervical, Supraclavicular, or Inguinal Adenopathy Neurological: Cranial nerves II-XII grossly intact Psych/Mental Status: Normal Affect, Appropriate, Alert and oriented to time, place, person, mood and affect Microbiology Past 72 Hours 03/18/18 17:30 Wound - Aerobic & Anaerobic Swabs Gram Stain - Final 03/18/18 17:30 Wound - Aerobic & Anaerobic Swabs Wound Culture - Preliminary Staphylococcus aureus Gram negative kenisha Laboratory Results 03/19/18 11:37: POC Glucose 242 H 03/19/18 16:44: POC Glucose 208 H 03/19/18 22:34: POC Glucose 176 H 03/20/18 06:44: POC Glucose 163 H 03/20/18 07:00: WBC 9.4, RBC 3.76 L, Hgb 10.8 L, Hct 35.2 L, MCV 93.6, MCH 28.7, MCHC 30.7 L, RDW 14.3, RDW Differential 47.1 H, Plt Count 278, MPV 9.4, Immature Gran % (Auto) 0.300, Neut % (Auto) 67.9, Lymph % (Auto) 19.9, Johnson % (Auto) 7.9, Eos % (Auto) 3.5, Baso % (Auto) 0.5, Absolute Neuts (auto) 6.4, Absolute Lymphs (auto) 1.86, Total Counted Not Reportable 03/20/18 07:00: Sodium 139, Potassium 4.8, Chloride 105, Carbon Dioxide 27.0, Anion Gap 7, BUN 30 H, Creatinine 1.88 H, Estim Creat Clear Calc 51.02, Est GFR (MDRD) Af Amer 49 L, Est GFR (MDRD) Non-Af 40 L, BUN/Creatinine Ratio 16.0, Glucose 162 H, Calcium 8.6 Current Medications Acetaminophen (Tylenol) 650 mg PO Q6H PRN PRN PRN Reason: Mild Pain (1-3)/Temp > 100.7 F Clonidine (Catapres) 0.1 mg PO BID [facility] Last Admin: 03/20/18 09:23 Dose: 0.1 mg Doxycycline Monohydrate (Doxycycline) 100 mg PO BID [facility] Last Admin: 03/20/18 09:22 Dose: 100 mg Famotidine (Pepcid) 20 mg PO BID [facility] Last Admin: 03/20/18 09:22 Dose: 20 mg Furosemide (Lasix) 40 mg PO DAILY [facility] Last Admin: 03/20/18 09:24 Dose: 40 mg Glipizide (Glucotrol) 10 mg PO DAILY@0730 [facility] Last Admin: 03/20/18 09:24 Dose: 10 mg Hydralazine HCl (Apresoline) 25 mg PO TID [facility] Last Admin: 03/20/18 06:49 Dose: 25 mg Sodium Chloride () 250 mls @ 15 mls/hr IV .[id number] PRN PRN Reason: SALINE FLUSH Insulin Human Lispro (Humalog Kwikpen (Bkc)) 0 unit SC ACHS [facility] PRN Reason: Protocol Last Admin: 03/20/18 06:49 Dose: 2 units Levofloxacin (Levaquin Tablet) 500 mg PO DAILY@0600 [facility] Last Admin: 03/20/18 07:00 Dose: 500 mg Lisinopril (Zestril) 10 mg PO DAILY [facility] Last Admin: 03/20/18 09:30 Dose: 10 mg Metoprolol Tartrate (Lopressor (Beta Patrick)) 100 mg PO BID [facility] Last Admin: 03/20/18 09:29 Dose: 100 mg Nutritional Formula (Lactose Free) (Glucerna Shake) 120 ml PO 4X/DAY [facility] Last Admin: 03/20/18 09:24 Dose: 120 ml Ondansetron HCl (Zofran) 4 mg IV Q6H PRN PRN PRN Reason: NAUSEA Last Admin: 03/19/18 12:08 Dose: 4 mg Polyethylene Glycol (Miralax) 17 gm PO DAILY [facility] Last Admin: 03/20/18 09:22 Dose: 17 gm Rivaroxaban (Xarelto) 20 mg PO DAILY [facility] Last Admin: 03/20/18 09:23 Dose: 20 mg Sodium Chloride () 5 - 30 ml IV UD PRN PRN Reason: SALINE FLUSH Last Admin: 03/19/18 12:08 Dose: 10 ml Medical Necessity - Tobacco Use Smoking Status: Never smoker Tobacco Use: Non-smoker Assessment/Plan All Active Problems Ulcer of left lower extremity with fat layer exposed (Resolved) Peripheral vascular disease (Ruled-out) Ulcer of right lower extremity with fat layer exposed (Resolved) Ingrowing nail, right great toe (Acute) Cellulitis of great toe, right (Acute) Redness of the legs (Acute) Localized swelling of both lower legs (Acute) 1. Cellulitis of the LEs bilaterally has bilateral venous stasis ulcers. has no complaints today. LEs in HOLDEN wraps. for DC today on PO doxycycline and levaquin for 7 days. ID on board and ok with plan. 2. Low grade fever: resolved. Temp was up to 100.6F 2 days ago but has resolved. 3. DM2: A1C is 9.3. Inadequately controlled. On insulin and oral hypoglycemic agents. To follow up with PCP for adjustment of meds and doses on outpatient basis. 4. CKD II: stable 5. History of PE: stable. on xarelto 6. Hyponatremia: resolved. 7. DVT prophylaxis; xarelto. Disposition: DC home today on levaquin and doxyxycline for 7 days. r
--- NOTE | 2018-03-20 10:57 | PN_ITS ---
Patient Problems: Active and Suspected Problems Redness of the legs (Acute) Localized swelling of both lower legs (Acute) Subjective: Patient seen and examined this morning. He was sitting comfortably in bed and had no complaints. Lower legs were wrapped in Holden wraps. He denied any fever or chills, any cough or chest pain, any shortness of breath, abdominal pain, any diarrhea or vomiting. Review of systems is otherwise negative. Vitals/I&O's: Vital Signs Temp Pulse Resp BP Pulse Ox 98.2 F 97 18 113/66 94 03/20/18 09:20 03/20/18 09:29 03/20/18 09:20 03/20/18 09:20 03/20/18 09:20 Oxygen Delivery Method Room Air Weight: 400 lb 0.001 oz Body Mass Index (BMI) 54.1 Intake and Output for Last 24 Hours 03/18/18 03/19/18 03/20/18 23:59 23:59 23:59 Intake Total 1246 / 1246 2783 / 2783 1013 / 1013 Output Total 300 / 300 Balance 1246 / 1246 2483 / 2483 1013 / 1013 General: Alert, Oriented x3, Cooperative, No apparent distress HEENT: Atraumatic, PERRLA, EOMI, Normocephalic Oral: Moist Mucosa Neck: Supple, No JVD, Negative Carotid Bruits Lungs: Clear to auscultation, Normal air movement, No rhonchi, No wheeze, No rales Cardiovascular: Regular rate, Regular Rhythm, Normal S1, Normal S2, No murmurs Abdomen: Bowel Sounds Present, Soft, Non Tender, Non-Distended, No Hepato- splenomegaly Extremities: No clubbing, No cyanosis, No edema, Capillary Refill Less than 3 Seconds, - - LEs wrapped in HOLDEN bandages. Skin: No rashes, No breakdown Musculoskeletal: No Tenderness to Palpation of Joints or Extremities Lymphatic: No Cervical, Supraclavicular, or Inguinal Adenopathy Neurological: Cranial nerves II-XII grossly intact Psych/Mental Status: Normal Affect, Appropriate, Alert and oriented to time, place, person, mood and affect Microbiology Past 72 Hours 03/18/18 17:30 Wound - Aerobic & Anaerobic Swabs Gram Stain - Final 03/18/18 17:30 Wound - Aerobic & Anaerobic Swabs Wound Culture - Preliminary Staphylococcus aureus Gram negative kenisha Laboratory Results 03/19/18 11:37: POC Glucose 242 H 03/19/18 16:44: POC Glucose 208 H 03/19/18 22:34: POC Glucose 176 H 03/20/18 06:44: POC Glucose 163 H 03/20/18 07:00: WBC 9.4, RBC 3.76 L, Hgb 10.8 L, Hct 35.2 L, MCV 93.6, MCH 28.7 , MCHC 30.7 L, RDW 14.3, RDW Differential 47.1 H, Plt Count 278, MPV 9.4, Immature Gran % (Auto) 0.300, Neut % (Auto) 67.9, Lymph % (Auto) 19.9, [place] % ( Auto) 7.9, Eos % (Auto) 3.5, Baso % (Auto) 0.5, Absolute Neuts (auto) 6.4, Absolute Lymphs (auto) 1.86, Total Counted Not Reportable 03/20/18 07:00: Sodium 139, Potassium 4.8, Chloride 105, Carbon Dioxide 27.0, Anion Gap 7, BUN 30 H, Creatinine 1.88 H, Estim Creat Clear Calc 51.02, Est GFR (MDRD) Af Amer 49 L, Est GFR (MDRD) Non-Af 40 L, BUN/Creatinine Ratio 16.0, Glucose 162 H, Calcium 8.6 Current Medications Acetaminophen (Tylenol) 650 mg PO Q6H PRN PRN PRN Reason: Mild Pain (1-3)/Temp > 100.7 F Clonidine (Catapres) 0.1 mg PO BID [facility] Last Admin: 03/20/18 09:23 Dose: 0.1 mg Doxycycline Monohydrate (Doxycycline) 100 mg PO BID [facility] Last Admin: 03/20/18 09:22 Dose: 100 mg Famotidine (Pepcid) 20 mg PO BID [facility] Last Admin: 03/20/18 09:22 Dose: 20 mg Furosemide (Lasix) 40 mg PO DAILY [facility] Last Admin: 03/20/18 09:24 Dose: 40 mg Glipizide (Glucotrol) 10 mg PO DAILY@0730 [facility] Last Admin: 03/20/18 09:24 Dose: 10 mg Hydralazine HCl (Apresoline) 25 mg PO TID [facility] Last Admin: 03/20/18 06:49 Dose: 25 mg Sodium Chloride () 250 mls @ 15 mls/hr IV .[id number] PRN PRN Reason: SALINE FLUSH Insulin Human Lispro (Humalog Kweliopen (Bkc)) 0 unit SC ACHS [facility] PRN Reason: Protocol Last Admin: 03/20/18 06:49 Dose: 2 units Levofloxacin (Levaquin Tablet) 500 mg PO DAILY@0600 [facility] Last Admin: 03/20/18 07:00 Dose: 500 mg Lisinopril (Zestril) 10 mg PO DAILY [facility] Last Admin: 03/20/18 09:30 Dose: 10 mg Metoprolol Tartrate (Lopressor (Beta Patrick)) 100 mg PO BID [facility] Last Admin: 03/20/18 09:29 Dose: 100 mg Nutritional Formula (Lactose Free) (Glucerna Shake) 120 ml PO 4X/DAY [facility] Last Admin: 03/20/18 09:24 Dose: 120 ml Ondansetron HCl (Zofran) 4 mg IV Q6H PRN PRN PRN Reason: NAUSEA Last Admin: 03/19/18 12:08 Dose: 4 mg Polyethylene Glycol (Miralax) 17 gm PO DAILY [facility] Last Admin: 03/20/18 09:22 Dose: 17 gm Rivaroxaban (Xarelto) 20 mg PO DAILY [facility] Last Admin: 03/20/18 09:23 Dose: 20 mg Sodium Chloride () 5 - 30 ml IV UD PRN PRN Reason: SALINE FLUSH Last Admin: 03/19/18 12:08 Dose: 10 ml Medical Necessity - Tobacco Use Smoking Status: Never smoker Tobacco Use: Non-smoker Assessment/Plan All Active Problems Ulcer of left lower extremity with fat layer exposed (Resolved) Peripheral vascular disease (Ruled-out) Ulcer of right lower extremity with fat layer exposed (Resolved) Ingrowing nail, right great toe (Acute) Cellulitis of great toe, right (Acute) Redness of the legs (Acute) Localized swelling of both lower legs (Acute) 1. Cellulitis of the LEs bilaterally * has bilateral venous stasis ulcers. * has no complaints today. * LEs in HOLDEN wraps. * for DC today on PO doxycycline and levaquin for 7 days. ID on board and ok with plan. * 2. Low grade fever: resolved. Temp was up to 100.6F 2 days ago but has resolved. 3. DM2: A1C is 9.3. Inadequately controlled. On insulin and oral hypoglycemic agents. To follow up with PCP for adjustment of meds and doses on outpatient basis. 4. CKD II: stable 5. History of PE: stable. on xarelto 6. Hyponatremia: resolved. 7. DVT prophylaxis; xarelto. Disposition: DC home today on levaquin and doxyxycline for 7 days. r
--- NOTE | 2018-03-20 11:05 | PCM.DC ---
- Discharge Diagnoses Current Active Problems: Current Active and Chronic Problems Redness of the legs (Acute) Localized swelling of both lower legs (Acute) You will use the following diet at home:: Calorie/Carbohydrate Controlled (specify 1200, 1400, etc) Your food should be the consistency of: Regular Your liquids should be the consistency of: Regular/Thin Discharge Activity: Return to Normal Activity Call your doctor if you observe: Fever of 101 or Higher Additional Instructions: Keep LEs elevated. Allergies/Adverse Reactions: Allergies Penicillins [PCN] Allergy (Verified 03/17/18 14:19) Other skin peels Medications to take at Discharge Alogliptin Benzoate [Nesina] 25 mg PO DAILY 10/14/17 Clonidine HCl 0.1 mg PO BID 10/14/17 Furosemide [Lasix] 20 mg PO BID 10/14/17 Lisinopril [Zestril] 10 mg PO DAILY 10/14/17 Metoprolol Tartrate [Lopressor (beta maxim)] 100 mg PO BID 10/14/17 Rivaroxaban [Xarelto] 20 mg PO DAILY 10/14/17 hydrALAZINE [Apresoline] 25 mg PO TID 10/14/17 Insulin Glargine,Hum.rec.anlog [Basaglar Kwikpen U-100] 1 dose SQ DAILY 03/17/18 Doxycycline 100 mg PO BID #14 cap 03/20/18 glipiZIDE [Glucotrol] 10 mg PO DAILY@0730 #30 tab 03/20/18 levoFLOXacin tablet [Levaquin tablet] 500 mg PO DAILY@0600 #7 tab 03/20/18 The following prescriptions were given: glipiZIDE [Glucotrol] 10 mg PO DAILY@0730 #30 tab levoFLOXacin tablet [Levaquin tablet] 500 mg PO DAILY@0600 #7 tab Doxycycline 100 mg PO BID #14 cap Test Results: Test results from this visit will be discussed in further detail at your follow-up appointment, if applicable. Please Follow Up With: Josep Rodriguez MD When: one week Please Follow Up With: Taryn Schaffer DPM When: next Thursday03/24/18 Proposed Discharge Date: 03/20/18
--- NOTE | 2018-03-20 11:14 | DCINST_ITS ---
- Discharge Diagnoses Current Active Problems: Current Active and Chronic Problems Redness of the legs (Acute) Localized swelling of both lower legs (Acute) You will use the following diet at home:: Calorie/Carbohydrate Controlled ( specify 1200, 1400, etc) Your food should be the consistency of: Regular Your liquids should be the consistency of: Regular/Thin Discharge Activity: Return to Normal Activity Call your doctor if you observe: Fever of 101 or Higher Additional Instructions: Keep LEs elevated. Allergies/Adverse Reactions: Allergies Penicillins [PCN] Allergy (Verified 03/17/18 14:19) Other skin peels Medications to take at Discharge Alogliptin Benzoate [Nesina] 25 mg PO DAILY 10/14/17 Clonidine HCl 0.1 mg PO BID 10/14/17 Furosemide [Lasix] 20 mg PO BID 10/14/17 Lisinopril [Zestril] 10 mg PO DAILY 10/14/17 Metoprolol Tartrate [Lopressor (beta maxim)] 100 mg PO BID 10/14/17 Rivaroxaban [Xarelto] 20 mg PO DAILY 10/14/17 hydrALAZINE [Apresoline] 25 mg PO TID 10/14/17 Insulin Glargine,Hum.rec.anlog [Basaglar Kwikpen U-100] 1 dose SQ DAILY Doxycycline 100 mg PO BID #14 cap 03/20/18 glipiZIDE [Glucotrol] 10 mg PO DAILY@0730 #30 tab 03/20/18 levoFLOXacin tablet [Levaquin tablet] 500 mg PO DAILY@0600 #7 tab 03/20/18 The following prescriptions were given: glipiZIDE [Glucotrol] 10 mg PO DAILY@0730 #30 tab levoFLOXacin tablet [Levaquin tablet] 500 mg PO DAILY@0600 #7 tab Doxycycline 100 mg PO BID #14 cap Test Results: Test results from this visit will be discussed in further detail at your follow- up appointment, if applicable. Please Follow Up With: Josep Rodriguez MD When: one week Please Follow Up With: Taryn Schaffer DPM When: next Thursday03/24/18 Proposed Discharge Date: 03/20/18
--- NOTE | 2018-03-20 11:15 | DS.PCM_ITS ---
Discharge Date and Diagnosis Date of Admission: 03/17/18 Date of Discharge: 03/20/18 - Primary Discharge Diagnosis Active and Suspected Problems Redness of the legs (Acute) Localized swelling of both lower legs (Acute) - Secondary Discharge Diagnosis Chronic Problems Edema of both legs (Chronic) Venous insufficiency (Chronic) Malnutrition (Chronic) Diabetes mellitus with complication (Chronic) Lymphedema (Chronic) Tinea unguium (Chronic) Hospital Course and Treatment Imaging Results: Microbiology Past 72 Hours 03/18/18 17:30 Gram Stain - Final Wound - Aerobic & Anaerobic Swabs Wound Culture - Preliminary Staphylococcus aureus Gram negative kenisha Anaerobic Culture - Preliminary Checking for anaerobes, further studies to follow. 03/17/18 16:30 Blood Culture - Preliminary Blood Culture (Wb) - Right Wrist No growth in 48 hours. 03/17/18 16:30 Blood Culture - Preliminary Blood Culture (Wb) - Anticubital Left No growth in 48 hours. Laboratory Tests Past 24 Hrs 03/20/18 03/20/18 07:00 07:00 WBC 9.4 RBC 3.76 L Hgb 10.8 L Hct 35.2 L MCV 93.6 MCH 28.7 MCHC 30.7 L RDW 14.3 RDW Differential 47.1 H Plt Count 278 MPV 9.4 Immature Gran % (Auto) 0.300 Neut % (Auto) 67.9 Lymph % (Auto) 19.9 [place] % (Auto) 7.9 Eos % (Auto) 3.5 Baso % (Auto) 0.5 Absolute Neuts (auto) 6.4 Absolute Lymphs (auto) 1.86 Total Counted Not Reportable Sodium 139 Potassium 4.8 Chloride 105 Carbon Dioxide 27.0 Anion Gap 7 BUN 30 H Creatinine 1.88 H Estim Creat Clear Calc 51.02 Est GFR (MDRD) Af Amer 49 L Est GFR (MDRD) Non-Af 40 L BUN/Creatinine Ratio 16.0 Glucose 162 H Calcium 8.6 Consultations 03/17/18 20:35 Consult: Onc/Wound/credit and collections representative Routine Comment: Operations: None Procedures: None Summary of Care Provided: The patient is a 52 year old M with a history of diabetes mellitus and venous insufficiency as well as lymphedema of both lower extremities. He was admitted with a complaint of increased swelling and redness of his lower extremities. He does have a history of chronic wounds to both lower extremities for which she was being seen at the wound center. Swelling and redness was of 3 days duration. Labs in the ED showed elevated white cell count of 14.7 with creatinine of 1.91 BUN elevated at 30 and glucose of 205. He was started on IV clindamycin and managed for cellulitis of the lower extremities. He was subsequently put on IV vancomycin and ID was consulted. She remained stable and his low-grade fever also resolved. He was discharged home on 03/20/2018 on p.o. doxycycline and p.o. Levaquin for 7 days. His glipizide was also increased to 10 mg daily upon discharge he is to follow-up with his PCP for adjustment of diabetes medications as A1c was 9.3. Please continue his Xarelto which he takes for history of embolic events. He is to follow-up with his primary care doctor, podiatry and ID doctor. [] Discharge Diet: 1800 Calorie Control Diet Discharge Activity: Return to Normal Activity Weight Bearing Status: Weight bearing as tolerated Call your doctor if you observe: Fever of 101 or Higher Home Medications: Medications to take at Discharge Alogliptin Benzoate [Nesina] 25 mg PO DAILY 10/14/17 Clonidine HCl 0.1 mg PO BID 10/14/17 Furosemide [Lasix] 20 mg PO BID 10/14/17 Lisinopril [Zestril] 10 mg PO DAILY 10/14/17 Metoprolol Tartrate [Lopressor (beta maxim)] 100 mg PO BID 10/14/17 Rivaroxaban [Xarelto] 20 mg PO DAILY 10/14/17 hydrALAZINE [Apresoline] 25 mg PO TID 10/14/17 Insulin Glargine,Hum.rec.anlog [Basaglar Kwikpen U-100] 1 dose SQ DAILY Doxycycline 100 mg PO BID #14 cap 03/20/18 glipiZIDE [Glucotrol] 10 mg PO DAILY@0730 #30 tab 03/20/18 levoFLOXacin tablet [Levaquin tablet] 500 mg PO DAILY@0600 #7 tab 03/20/18 Following Prescrptions Were Given to Patient: glipiZIDE [Glucotrol] 10 mg PO DAILY@0730 #30 tab levoFLOXacin tablet [Levaquin tablet] 500 mg PO DAILY@0600 #7 tab Doxycycline 100 mg PO BID #14 cap Primary Care Physician: Care Physician,No Primary [Primary Care Provider] - Please Follow Up With: Josep Rodriguez MD When: one week Please Follow Up With: Taryn Schaffer DPM When: next Thursday03/24/18 Disposition: Home Minutes spent on discharge:: 35 Patient Condition:: Stable Medical Necessity - Tobacco Use Smoking Status: Never smoker Tobacco Use: Non-smoker Meaningful Use Info Meaningful Use Diagnoses (Choose all that apply): None applicable Code Visit Inpatient E&M: 33758 Disch Hosp
[2018-03-20 11:21] LABS: Bedside Glucose 218 mg/dL (70-110)
[2018-03-20 14:24] VITALS: PULSE 80
[2018-03-20] MEDS: Acetaminophen 325 MG Tablet 650 MG PO (14:35)
[2018-03-20 14:38] VITALS: BP 107/63; PULSE 80; RESP 18; TEMP 36.8; O2SAT 94
--- NOTE | 2018-03-20 14:46 | PCM.DC.POD ---
Discharge Activity: Return to Normal Activity Call your doctor if your incision/area has: Continuous Slow Oozing, Sudden Increased Bleeding, Increased Pain/ Swelling, Increased Redness, Foul Smelling Discharge, Swelling at the incision site Call your doctor if you observe: Fever of 101 or Higher, Increased palpitations (irregular heartbeat), Calf discomfort Cleanse incision/area with: Keep Dressing Clean & Dry - both legs Allergies/Adverse Reactions: Allergies Penicillins [PCN] Allergy (Verified 03/17/18 14:19) Other skin peels Medications to take at Discharge Alogliptin Benzoate [Nesina] 25 mg PO DAILY 10/14/17 Clonidine HCl 0.1 mg PO BID 10/14/17 Furosemide [Lasix] 20 mg PO BID 10/14/17 Lisinopril [Zestril] 10 mg PO DAILY 10/14/17 Metoprolol Tartrate [Lopressor (beta maxim)] 100 mg PO BID 10/14/17 Rivaroxaban [Xarelto] 20 mg PO DAILY 10/14/17 hydrALAZINE [Apresoline] 25 mg PO TID 10/14/17 Insulin Glargine,Hum.rec.anlog [Basaglar Kwikpen U-100] 1 dose SQ DAILY 03/17/18 Doxycycline 100 mg PO BID #14 cap 03/20/18 glipiZIDE [Glucotrol] 10 mg PO DAILY@0730 #30 tab 03/20/18 levoFLOXacin tablet [Levaquin tablet] 500 mg PO DAILY@0600 #7 tab 03/20/18 The following prescriptions were given: glipiZIDE [Glucotrol] 10 mg PO DAILY@0730 #30 tab levoFLOXacin tablet [Levaquin tablet] 500 mg PO DAILY@0600 #7 tab Doxycycline 100 mg PO BID #14 cap Primary Care Physician: Care Physician,No Primary [Primary Care Provider] - Test Results: Test results from this visit will be discussed in further detail at your follow-up appointment, if applicable. Please Follow Up With: Josep Rodriguez MD When: one week Please Follow Up With: Taryn Schaffer DPM When: [facility] Thursday03/24/[facility] Proposed Discharge Date: 03/20/18
== END 2018-03-20 15:04 | disposition home or self-care (01) | DRG 277 ==
LOC: ED 16:14 → MS3 20:08
PROVIDERS: Internal Medicine; Admitting Provider Internal Medicine; Emergency Provider Emergency Medicine; Visit Provider Student in an Organized Health Care Education/Training Program
DX: L03.116 Cellulitis of left lower limb (principal); E87.1 Hypo-osmolality and hyponatremia; E11.65 Type 2 diabetes mellitus with hyperglycemia; N18.2 Chronic kidney disease, stage 2 (mild); N17.9 Acute kidney failure, unspecified; L03.115 Cellulitis of right lower limb; I87.2 Venous insufficiency (chronic) (peripheral); I89.0 Lymphedema, not elsewhere classified; D72.829 Elevated white blood cell count, unspecified; R50.9 Fever, unspecified; R11.2 Nausea with vomiting, unspecified; K59.00 Constipation, unspecified; I12.9 Hypertensive chronic kidney disease with stage 1 through stage 4 chronic kidney disease, or unspecified chronic kidney disease; E11.22 Type 2 diabetes mellitus with diabetic chronic kidney disease; Z79.4 Long term (current) use of insulin; Z91.19 Patient's noncompliance with other medical treatment and regimen; E66.01 Morbid (severe) obesity due to excess calories; Z68.43 Body mass index [BMI] 50.0-59.9, adult; Z86.718 Personal history of other venous thrombosis and embolism; Z86.711 Personal history of pulmonary embolism; Z79.899 Other long term (current) drug therapy; Z79.02 Long term (current) use of antithrombotics/antiplatelets
CPT/HCPCS: 36415; 80048; 80061; 80202; 82962; 83036; 83735; 84100; 85025; 85652; 86140; 87040; 87070; 87075; 87077; 87186; 87205; 93005; 97802; 99285; J7040; J7050; A4216; J2405

== ENCOUNTER 2018-04-28 15:45 | Outpatient (RCR) | payer MEDICAID, SELFPAY ==
[2018-02-28 00:39] VITALS: BP 160/93; PULSE 89; RESP 18; TEMP 37.3
[2018-03-24 13:12] VITALS: BP 120/76; PULSE 79; RESP 18; TEMP 36.6; BMI 54.3
--- NOTE | 2018-03-24 14:33 | PCM.WC.PN ---
(1) Ulcer of right lower extremity with fat layer exposed Status: Chronic Code(s): L97.912 - Non-pressure chronic ulcer of unspecified part of right lower leg with fat layer exposed (2) Cellulitis of left leg Status: Resolved Code(s): L03.116 - Cellulitis of left lower limb (3) Cellulitis of right leg Status: Resolved Code(s): L03.115 - Cellulitis of right lower limb (4) Edema of both legs Status: Chronic Code(s): R60.0 - Localized edema (5) Venous insufficiency Status: Chronic Code(s): I87.2 - Venous insufficiency (chronic) (peripheral) (6) Diabetes mellitus with complication Status: Chronic Code(s): E11.8 - Type 2 diabetes mellitus with unspecified complications (7) Lymphedema Status: Chronic Code(s): I89.0 - Lymphedema, not elsewhere classified Type of Wound Date of Service: 03/24/18 Chief Complaint: Right leg ulcer returned History of Wound: This 52-year-old male with multiple comorbidities presents for follow-up of chronic leg swelling and healed ulcers. He denies drainage. He denies illness. He did obtain his CircAid compression dressings and reports that he does indeed know how to use them. During his last hospital admission he seemed very confused on proper use and now relates he actually wore them to bed which initiated these issues. He also reports he is trying to wash them in the sink and they never fully dried he thinks this was also contributing factor to his return of wounds and cellulitis which she was admitted to the hospital for. He is taking his antibiotics as recommended. He denies fever, chill, nausea, vomiting, loss of appetite, calf pain, shortness of breath or chest pain. Progress of Wound: Return right leg ulcer - Physical Exam Vital Signs Temp Pulse Resp BP 97.9 F 79 18 120/76 03/24/18 13:12 03/24/18 13:12 03/24/18 13:12 03/24/18 13:12 General: Alert, Oriented x3, Cooperative Extremities: No cyanosis, Capillary Refill Less than 3 Seconds, No Calf Tenderness - Negative Aline and Tamayo bilateral, Diminished Peripheral Pulses, Edema, - - Decrease inflammation bilateral legs with most excoriation sites resolved compared to most recent hospital admission Skin: Ulcer/ Wound - No purulence, no erythema, streaking, no odor, no infection bilateral. The peripheral skin is atrophic hairless skin with skin peeling. Wound bed is granular and fibrous to the right leg in a linear horizontally oriented fashion to the limb Wound Measurements and Assessment WC - Nurse 1 - General Ulcer Measurement Start: 03/24/18 13:12 Freq: Status: Active Protocol: Activity Type Activity Date Activity User E-Sign Co-Sign Detail Recorded Client Recorded Date Recorded By Document 03/24/18 13:12 DL [id number] 03/24/18 13:32 DL 03/24/18 13:12 Wound Center Nurse 1 [Ulcer Assessment] #8 R Lat LE -Current Size (cm) - Length 1 -Current Size (cm) - Width 10.3 -Current Size (cm) - Depth 0.2 -Total Square Cm 10.3 -Photo Taken Yes -Exudate Amt Medium (34-66%) -Exudate Type Serosanguineous -Wound Margin Distinct, Outline Attached -Granulation Amt Medium (34-66%) -Granulation Quality Red -Necrosis Amt Medium (34-66%) -Necrotic Tissue Type Adherent Slough -Structure Exposed N/A -Texture (Candy-wound Skin Appearance) Scarring -Color (Candy-wound Skin Appearance) Erythema Hemosiderin Staining Rubor -Temperature (Candy-wound Skin No Abnormality Appearance) (Pt Warm) -Tenderness on Palpation (Candy-wound No Skin Appearance) -Ulcer Cleansing Wound Cleanser -Foul Odor after Cleansing No -Anesthetic Used 4% Lidocaine Solution [Edema Assessment] -Right Calf (cm) 48 -Right Ankle (cm) 28.8 -Left Calf (cm) 50 -Left Ankle (cm) 29.4 WC - Nurse 2 - General Ulcer CM Notes Start: 03/24/18 13:12 Freq: Status: Active Protocol: Activity Type Activity Date Activity User E-Sign Co-Sign Detail Recorded Client Recorded Date Recorded By Document 03/24/18 13:57 CARMELINA [id number] 03/24/18 13:58 CARMELINA 03/24/18 13:57 Wound Center Nurse 2 [Procedure/Treatment] #8 R Lat LE -Time 13:57 -Correct Patient Yes -Correct Side, Site, Position Yes -Correct Procedure Yes -Procedure Performed Yes -Type of Procedure Debridement -Clinical Debridement Subcutaneous -Post Debridement Size (cm) - Length 1 -Post Debridement Size (cm) - Width 10.5 -Post Debridement Size (cm) - Depth 0.2 -Total Square Cm 10.5 -Wound/Ulcer Outcome Not Healed -Ulcer Cleansing Rinsed/ Irrigated with Saline -Foul Odor after Cleansing No -Bioengineered Tissue No -Bleeding Controlled with Pressure -Treatment Response Procedure Tolerated Well [See Physician Procedure note for Specifics] Pain Scale: 0-10 Numeric [Pain] -Is Patient Pain Free? Yes Musculoskeletal: No Tenderness to Palpation of Joints or Extremities, Muscle Wasting, - - Compartment soft on palpation right and left Neurological: - - Lack of epicritic sensation light touch Psych/Mental Status: Normal Affect, Appropriate Debridement Note Post-Debridement Measurements/Treatment WC - Nurse 2 - General Ulcer CM Notes Start: 03/24/18 13:12 Freq: Status: Active Protocol: Activity Type Activity Date Activity User E-Sign Co-Sign Detail Recorded Client Recorded Date Recorded By Document 03/24/18 13:57 CARMELINA [id number] 03/24/18 13:58 CARMELINA 03/24/18 13:57 Wound Center Nurse 2 #8 R Lat LE -Time 13:57 -Correct Patient Yes -Correct Side, Site, Position Yes -Correct Procedure Yes -Procedure Performed Yes -Type of Procedure Debridement -Clinical Debridement Subcutaneous -Post Debridement Size (cm) - Length 1 -Post Debridement Size (cm) - Width 10.5 -Post Debridement Size (cm) - Depth 0.2 -Total Square Cm 10.5 -Wound/Ulcer Outcome Not Healed -Ulcer Cleansing Rinsed/ Irrigated with Saline -Foul Odor after Cleansing No -Bioengineered Tissue No -Bleeding Controlled with Pressure -Treatment Response Procedure Tolerated Well Pain Scale: 0-10 Numeric Is Patient Pain Free? Yes Wound debrided: leg Laterality: Right Wound Grade/Stage: grade 1 Type of Debridement: Excisional debridement Anesthesia Used: 5% Lidocaine Gel Depth: in the subcutaneous layer Percentage of wound debrided: 100 Instrument Used: 5mm curette Tissue Removed: fibrous, devitalized subcutaneous, biofilm, slough Severity: Fat Layer Exposed Amount of bleeding with debridement: Mild Bleeding Controlled with: Pressure Patient tolerated procedure well Assessment/Plan Assessment: Cellulitis bilateral lower extremities resolved. Ulcer of right leg return. Lower extremity edema decreased after Unna boot use last week. Venous insufficiency. Lymphedema. Diabetes with complications. Compliance challenge Plan: I reviewed and discussed his case today. The ulcers fully epithelialized to the left limb and the right leg ulcer was debrided as noted in the clinical panel.. To proceed with obtaining a CircAid compression garments. Incompetent veins were noted on the venous Doppler he is referred to Dr. Pearson for potential intervention to assist in timely wound healing and future prevention. To elevate the legs at rest and to avoid idle sitting and standing. To offload this site by keeping pressure off of the leg while lying in bed (left). I also recommend a lymphedema clinic referral or compression pumps may also be considered in the future. To discontinue all wound care changes. Compression dressings Holden wraps are applied and he will resume his CircAid dressings when he returns home. He will bring these for further education and evaluation next week. Prior authorization will be initiated for peer applied to address his resolving periwound inflammation. Further advanced wound products will be considered if needed if lack of healing is noted. She was advised to change his dressing daily with [employer]el Ag and this was applied today. I answered all his questions. To return to clinic in 1 month or call sooner if he has any questions or concerns.
[2018-03-31 14:13] VITALS: BP 159/95; PULSE 85; RESP 20; TEMP 36.6; BMI 54.3
--- NOTE | 2018-04-01 20:37 | PCM.WC.PN ---
(1) Ulcer of right lower extremity with fat layer exposed Status: Chronic Current Visit: Yes Code(s): L97.912 - Non-pressure chronic ulcer of unspecified part of right lower leg with fat layer exposed (2) Edema of both legs Status: Chronic Current Visit: No Code(s): R60.0 - Localized edema (3) Venous insufficiency Status: Chronic Current Visit: Yes Code(s): I87.2 - Venous insufficiency (chronic) (peripheral) (4) Diabetes mellitus with complication Status: Chronic Current Visit: Yes Code(s): E11.8 - Type 2 diabetes mellitus with unspecified complications (5) Lymphedema Status: Chronic Current Visit: Yes Code(s): I89.0 - Lymphedema, not elsewhere classified Type of Wound Date of Service: 03/31/18 Chief Complaint: Right leg ulcer returned History of Wound: This 52-year-old male with multiple comorbidities presents for follow-up of chronic leg swelling and healed ulcers. He denies drainage. He denies illness. He did obtain his CircAid compression dressings and reports that he does indeed know how to use them. He denies fever, chill, nausea, vomiting, loss of appetite, calf pain, shortness of breath or chest pain. He changed so to a nonallergenic baby soap and has less skin irritation. Progress of Wound: Return right leg ulcer - Physical Exam Vital Signs Temp Pulse Resp BP 98 F 85 20 H 159/95 H 03/31/18 14:13 03/31/18 14:13 03/31/18 14:13 03/31/18 14:13 General: Alert, Oriented x3, Cooperative Extremities: No cyanosis, Capillary Refill Less than 3 Seconds, No Calf Tenderness - Negative Aline and Tamayo sign bilateral, Diminished Peripheral Pulses, Edema - Moderate bilateral lower extremities Skin: Ulcer/ Wound - No purulence, no erythema, streaking, odor, no infection right lower extremity with significant peripheral epithelialization to the wound. The bed is granular. No ulcer noted to left lower extremity. Wound Measurements and Assessment WC - Nurse 1 - General Ulcer Measurement Start: 03/24/18 13:12 Freq: Status: Active Protocol: Activity Type Activity Date Activity User E-Sign Co-Sign Detail Recorded Client Recorded Date Recorded By Document 03/31/18 14:13 DL [id number] 03/31/18 14:16 DL 03/31/18 14:13 Wound Center Nurse 1 [Ulcer Assessment] #8 R Lat LE -Current Size (cm) - Length 0.7 -Current Size (cm) - Width 5 -Current Size (cm) - Depth 0.2 -Total Square Cm 3.5 -Photo Taken No -Exudate Amt Medium (34-66%) -Exudate Type Serosanguineous -Wound Margin Distinct, Outline Attached -Granulation Amt Large (67-100%) -Granulation Quality Red -Necrosis Amt Small (1-33%) -Necrotic Tissue Type Adherent Slough -Structure Exposed N/A -Texture (Candy-wound Skin Appearance) Localized Edema Scarring -Moisture (Candy-wound Skin Appearance No Abnormality ) -Color (Candy-wound Skin Appearance) Hemosiderin Staining -Temperature (Candy-wound Skin No Abnormality Appearance) (Pt Warm) -Ulcer Cleansing Wound Cleanser -Foul Odor after Cleansing No -Anesthetic Used 4% Lidocaine Solution [Edema Assessment] -Right Calf (cm) 52 -Right Ankle (cm) 29.5 -Left Calf (cm) 50.5 -Left Ankle (cm) 29.2 WC - Nurse 2 - General Ulcer CM Notes Start: 03/24/18 13:12 Freq: Status: Active Protocol: Activity Type Activity Date Activity User E-Sign Co-Sign Detail Recorded Client Recorded Date Recorded By Document 03/31/18 14:44 [id number] 03/31/18 14:45 03/31/18 14:44 Wound Center Nurse 2 [Procedure/Treatment] #8 R Lat LE -Time 14:44 -Correct Patient Yes -Correct Side, Site, Position Yes -Correct Procedure Yes -Procedure Performed Yes -Type of Procedure Debridement -Clinical Debridement Subcutaneous -Post Debridement Size (cm) - Length 0.8 -Post Debridement Size (cm) - Width 5.1 -Post Debridement Size (cm) - Depth 0.2 -Total Square Cm 4.08 -Ulcer Cleansing Rinsed/ Irrigated with Saline -Foul Odor after Cleansing No -Bioengineered Tissue No -Topical Lidocaine (%) 4 -Bleeding Controlled with Pressure -Treatment Response Procedure Tolerated Well [See Physician Procedure note for Specifics] Pain Scale: 0-10 Numeric [Pain] -Is Patient Pain Free? Yes Musculoskeletal: No Tenderness to Palpation of Joints or Extremities, Muscle Wasting Neurological: - - Lack of normal sensation light touch and debridement right lower extremity. No infection noted Psych/Mental Status: Normal Affect, Appropriate Debridement Note Post-Debridement Measurements/Treatment WC - Nurse 2 - General Ulcer CM Notes Start: 03/24/18 13:12 Freq: Status: Active Protocol: Activity Type Activity Date Activity User E-Sign Co-Sign Detail Recorded Client Recorded Date Recorded By Document 03/24/18 13:57 [id number] 03/24/18 13:58 Document 03/31/18 14:44 [id number] 03/31/18 14:45 03/24/18 03/31/18 13:57 14:44 Wound Center Nurse 2 #8 R Lat LE -Time 13:57 14:44 -Correct Patient Yes Yes -Correct Side, Site, Position Yes Yes -Correct Procedure Yes Yes -Procedure Performed Yes Yes -Type of Procedure Debridement Debridement -Clinical Debridement Subcutaneous Subcutaneous -Post Debridement Size (cm) - Length 1 0.8 -Post Debridement Size (cm) - Width 10.5 5.1 -Post Debridement Size (cm) - Depth 0.2 0.2 -Total Square Cm 10.5 4.08 -Wound/Ulcer Outcome Not Healed -Ulcer Cleansing Rinsed/ Rinsed/ Irrigated with Irrigated with Saline Saline -Foul Odor after Cleansing No No -Bioengineered Tissue No No -Topical Lidocaine (%) 4 -Bleeding Controlled with Pressure Pressure -Treatment Response Procedure Procedure Tolerated Well Tolerated Well Pain Scale: 0-10 Numeric Is Patient Pain Free? Yes Yes Wound debrided: leg Laterality: Right Wound Grade/Stage: grade 1 Type of Debridement: Excisional debridement Anesthesia Used: 4% Lidocaine Solution Depth: in the subcutaneous layer Percentage of wound debrided: 100 Instrument Used: #15 blade Tissue Removed: fibrous, devitalized subcutaneous, biofilm, slough Severity: Fat Layer Exposed Amount of bleeding with debridement: Mild Bleeding Controlled with: Pressure Patient tolerated procedure well Assessment/Plan Active Problems Venous insufficiency (Chronic) Ulcer of right lower extremity with fat layer exposed (Chronic) Diabetes mellitus with complication (Chronic) Lymphedema (Chronic) Assessment: Cellulitis bilateral lower extremities resolved. Ulcer of right leg with fat layer exposed. Lower extremity edema. Venous insufficiency. Lymphedema. Diabetes with complications. Compliance challenge Plan: I reviewed and discussed his case today. The ulcers fully epithelialized to the left limb and the right leg ulcer was debrided as noted in the clinical panel. To proceed with obtaining a CircAid compression garments. Incompetent veins were noted on the venous Doppler he is referred to Dr. Pearson for potential intervention to assist in timely wound healing and future prevention. He is following up as advised. To elevate the legs at rest and to avoid idle sitting and standing. To offload this site by keeping pressure off of the leg while lying in bed (left). I also recommend a lymphedema clinic referral or compression pumps may also be considered in the future. To discontinue all wound care changes. Compression dressings Holden wraps are applied and he will resume his CircAid dressings when he returns home. He was educated on proper use. Purpaly, collagen and antimicrobial wound care product, authorization will be initiated for peer applied to address his resolving periwound inflammation. Further advanced wound products will be considered if needed if lack of healing is noted. he was advised to change his dressing daily with Aquacel Ag and this was applied today. To continue to use a non-irritating soap for personal hygiene daily. I answered all his questions. To return to clinic in 1 week or call sooner if he has any questions or concerns.
--- NOTE | 2018-04-01 20:42 | PN.PCM_ITS ---
(1) Ulcer of right lower extremity with fat layer exposed Status: Chronic Current Visit: Yes Code(s): L97.912 - Non-pressure chronic ulcer of unspecified part of right lower leg with fat layer exposed (2) Edema of both legs Status: Chronic Current Visit: No Code(s): R60.0 - Localized edema (3) Venous insufficiency Status: Chronic Current Visit: Yes Code(s): I87.2 - Venous insufficiency ( chronic) (peripheral) (4) Diabetes mellitus with complication Status: Chronic Current Visit: Yes Code(s): E11.8 - Type 2 diabetes mellitus with unspecified complications (5) Lymphedema Status: Chronic Current Visit: Yes Code(s): I89.0 - Lymphedema, not elsewhere classified Type of Wound Date of Service: 03/31/18 Chief Complaint: Right leg ulcer returned History of Wound: This 52-year-old male with multiple comorbidities presents for follow-up of chronic leg swelling and healed ulcers. He denies drainage. He denies illness. He did obtain his CircAid compression dressings and reports that he does indeed know how to use them. He denies fever, chill, nausea, vomiting, loss of appetite, calf pain, shortness of breath or chest pain. He changed so to a nonallergenic baby soap and has less skin irritation. Progress of Wound: Return right leg ulcer - Physical Exam Vital Signs Temp Pulse Resp BP 98 F 85 20 H 159/95 H 03/31/18 14:13 03/31/18 14:13 03/31/18 14:13 03/31/18 14:13 General: Alert, Oriented x3, Cooperative Extremities: No cyanosis, Capillary Refill Less than 3 Seconds, No Calf Tenderness - Negative Aline and Tamayo sign bilateral, Diminished Peripheral Pulses, Edema - Moderate bilateral lower extremities Skin: Ulcer/ Wound - No purulence, no erythema, streaking, odor, no infection right lower extremity with significant peripheral epithelialization to the wound. The bed is granular. No ulcer noted to left lower extremity. Wound Measurements and Assessment WC - Nurse 1 - General Ulcer Measurement Start: 03/24/18 13:12 Freq: Status: Active Protocol: Activity Type Activity Date Activity User E-Sign Co-Sign Detail Recorded Client Recorded Date Recorded By Document 03/31/18 14:13 DL [id number] 03/31/18 14:16 DL 03/31/18 14:13 Wound Center Nurse 1 [Ulcer Assessment] #8 R Lat LE -Current Size (cm) - Length 0.7 -Current Size (cm) - Width 5 -Current Size (cm) - Depth 0.2 -Total Square Cm 3.5 -Photo Taken No -Exudate Amt Medium (34-66%) -Exudate Type Serosanguineous -Wound Margin Distinct, Outline Attached -Granulation Amt Large (67-100%) -Granulation Quality Red -Necrosis Amt Small (1-33%) -Necrotic Tissue Type Adherent Slough -Structure Exposed N/A -Texture (Candy-wound Skin Appearance) Localized Edema Scarring -Moisture (Candy-wound Skin Appearance No Abnormality ) -Color (Candy-wound Skin Appearance) Hemosiderin Staining -Temperature (Candy-wound Skin No Abnormality Appearance) (Pt Warm) -Ulcer Cleansing Wound Cleanser -Foul Odor after Cleansing No -Anesthetic Used 4% Lidocaine Solution [Edema Assessment] -Right Calf (cm) 52 -Right Ankle (cm) 29.5 -Left Calf (cm) 50.5 -Left Ankle (cm) 29.2 WC - Nurse 2 - General Ulcer CM Notes Start: 03/24/18 13:12 Freq: Status: Active Protocol: Activity Type Activity Date Activity User E-Sign Co-Sign Detail Recorded Client Recorded Date Recorded By Document 03/31/18 14:44 [id number] 03/31/18 14:45 03/31/18 14:44 Wound Center Nurse 2 [Procedure/Treatment] #8 R Lat LE -Time 14:44 -Correct Patient Yes -Correct Side, Site, Position Yes -Correct Procedure Yes -Procedure Performed Yes -Type of Procedure Debridement -Clinical Debridement Subcutaneous -Post Debridement Size (cm) - Length 0.8 -Post Debridement Size (cm) - Width 5.1 -Post Debridement Size (cm) - Depth 0.2 -Total Square Cm 4.08 -Ulcer Cleansing Rinsed/ Irrigated with Saline -Foul Odor after Cleansing No -Bioengineered Tissue No -Topical Lidocaine (%) 4 -Bleeding Controlled with Pressure -Treatment Response Procedure Tolerated Well [See Physician Procedure note for Specifics] Pain Scale: 0-10 Numeric [Pain] -Is Patient Pain Free? Yes Musculoskeletal: No Tenderness to Palpation of Joints or Extremities, Muscle Wasting Neurological: - - Lack of normal sensation light touch and debridement right lower extremity. No infection noted Psych/Mental Status: Normal Affect, Appropriate Debridement Note Post-Debridement Measurements/Treatment WC - Nurse 2 - General Ulcer CM Notes Start: 03/24/18 13:12 Freq: Status: Active Protocol: Activity Type Activity Date Activity User E-Sign Co-Sign Detail Recorded Client Recorded Date Recorded By Document 03/24/18 13:57 [id number] 03/24/18 13:58 Document 03/31/18 14:44 [id number] 03/31/18 14:45 03/24/18 03/31/18 13:57 14:44 Wound Center Nurse 2 #8 R Lat LE -Time 13:57 14:44 -Correct Patient Yes Yes -Correct Side, Site, Position Yes Yes -Correct Procedure Yes Yes -Procedure Performed Yes Yes -Type of Procedure Debridement Debridement -Clinical Debridement Subcutaneous Subcutaneous -Post Debridement Size (cm) - Length 1 0.8 -Post Debridement Size (cm) - Width 10.5 5.1 -Post Debridement Size (cm) - Depth 0.2 0.2 -Total Square Cm 10.5 4.08 -Wound/Ulcer Outcome Not Healed -Ulcer Cleansing Rinsed/ Rinsed/ Irrigated with Irrigated with Saline Saline -Foul Odor after Cleansing No No -Bioengineered Tissue No No -Topical Lidocaine (%) 4 -Bleeding Controlled with Pressure Pressure -Treatment Response Procedure Procedure Tolerated Well Tolerated Well Pain Scale: 0-10 Numeric Is Patient Pain Free? Yes Yes Wound debrided: leg Laterality: Right Wound Grade/Stage: grade 1 Type of Debridement: Excisional debridement Anesthesia Used: 4% Lidocaine Solution Depth: in the subcutaneous layer Percentage of wound debrided: 100 Instrument Used: #15 blade Tissue Removed: fibrous, devitalized subcutaneous, biofilm, slough Severity: Fat Layer Exposed Amount of bleeding with debridement: Mild Bleeding Controlled with: Pressure Patient tolerated procedure well Assessment/Plan Active Problems Venous insufficiency (Chronic) Ulcer of right lower extremity with fat layer exposed (Chronic) Diabetes mellitus with complication (Chronic) Lymphedema (Chronic) Assessment: Cellulitis bilateral lower extremities resolved. Ulcer of right leg with fat layer exposed. Lower extremity edema. Venous insufficiency. Lymphedema. Diabetes with complications. Compliance challenge Plan: I reviewed and discussed his case today. The ulcers fully epithelialized to the left limb and the right leg ulcer was debrided as noted in the clinical panel. To proceed with obtaining a CircAid compression garments. Incompetent veins were noted on the venous Doppler he is referred to Dr. Pearson for potential intervention to assist in timely wound healing and future prevention. He is following up as advised. To elevate the legs at rest and to avoid idle sitting and standing. To offload this site by keeping pressure off of the leg while lying in bed (left). I also recommend a lymphedema clinic referral or compression pumps may also be considered in the future. To discontinue all wound care changes. Compression dressings Holden wraps are applied and he will resume his CircAid dressings when he returns home. He was educated on proper use. Purpaly, collagen and antimicrobial wound care product , authorization will be initiated for peer applied to address his resolving periwound inflammation. Further advanced wound products will be considered if needed if lack of healing is noted. he was advised to change his dressing daily with Aquacel Ag and this was applied today. To continue to use a non- irritating soap for personal hygiene daily. I answered all his questions. To return to clinic in 1 week or call sooner if he has any questions or concerns.
[2018-04-07 14:32] VITALS: BP 159/89; PULSE 79; RESP 18; TEMP 37; BMI 54.3
--- NOTE | 2018-04-07 16:47 | PCM.WC.PN ---
(1) Ulcer of right lower extremity with fat layer exposed Status: Chronic Code(s): L97.912 - Non-pressure chronic ulcer of unspecified part of right lower leg with fat layer exposed (2) Edema of both legs Status: Chronic Code(s): R60.0 - Localized edema (3) Venous insufficiency Status: Chronic Code(s): I87.2 - Venous insufficiency (chronic) (peripheral) (4) Diabetes mellitus with complication Status: Chronic Code(s): E11.8 - Type 2 diabetes mellitus with unspecified complications (5) Lymphedema Status: Chronic Code(s): I89.0 - Lymphedema, not elsewhere classified Type of Wound Date of Service: 04/10/18 Chief Complaint: Right leg ulcer returned History of Wound: This 52-year-old male with multiple comorbidities presents for follow-up of chronic leg swelling and healed ulcers. He denies drainage. He denies illness. He had CircAid compression dressings. He denies fever, chill, nausea, vomiting, loss of appetite, calf pain, shortness of breath or chest pain. Progress of Wound: Return right leg ulcer - Physical Exam Vital Signs Temp Pulse Resp BP 98.6 F 79 18 159/89 H 04/07/18 14:32 04/07/18 14:32 04/07/18 14:32 04/07/18 14:32 General: Alert, Oriented x3, Cooperative HEENT: Atraumatic Extremities: No cyanosis, Capillary Refill Less than 3 Seconds, No Calf Tenderness - Negative Aline and Tamayo's and bilateral, Diminished Peripheral Pulses, Edema - Bilateral lower extremities Skin: Ulcer/ Wound - No purulence, no erythema, streaking, no odor, no infection right, - - The peripheral skin is atrophic and hairless Wound Measurements and Assessment WC - Nurse 1 - General Ulcer Measurement Start: 03/24/18 13:12 Freq: Status: Active Protocol: Activity Type Activity Date Activity User E-Sign Co-Sign Detail Recorded Client Recorded Date Recorded By Document 04/07/18 14:32 RB [id number] 04/07/18 14:43 RB 04/07/18 14:32 Wound Center Nurse 1 [Ulcer Assessment] #8 R Lat LE -Combined with other wound No -Current Size (cm) - Length 0.5 -Current Size (cm) - Width 4.6 -Current Size (cm) - Depth 0.2 -Total Square Cm 2.30 -Photo Taken No -Tunneling No -Undermining/Tunneling No -Circular Undermining No -Classification - Thickness Full Thickness without Exposed Support Structure -Exudate Amt Small (1-33%) -Exudate Type Serosanguineous -Wound Margin Thickened & Rolled Under -Granulation Amt Large (67-100%) -Granulation Quality [place] -Slough/Fibrin Yes -Necrosis Amt Medium (34-66%) -Necrotic Tissue Type Adherent Slough -Structure Exposed N/A -Texture (Candy-wound Skin Appearance) Assessed -Moisture (Candy-wound Skin Appearance Assessed ) -Color (Candy-wound Skin Appearance) Assessed -Temperature (Candy-wound Skin No Abnormality Appearance) (Pt Warm) -Tenderness on Palpation (Candy-wound No Skin Appearance) -Ulcer Cleansing Rinsed/ Irrigated with Saline -Foul Odor after Cleansing No -Anesthetic Used 5% Lidocaine Gel [Edema Assessment] -Lower Limb Edema Present Yes -Right Calf (cm) 51 -Right Ankle (cm) 28 -Left Calf (cm) 49.2 -Left Ankle (cm) 27.5 WC - Nurse 2 - General Ulcer CM Notes Start: 03/24/18 13:12 Freq: Status: Active Protocol: Activity Type Activity Date Activity User E-Sign Co-Sign Detail Recorded Client Recorded Date Recorded By Document 04/07/18 15:31 [id number] 04/07/18 15:34 04/07/18 15:31 Wound Center Nurse 2 [Procedure/Treatment] #8 R Lat LE -Time 15:32 -Correct Patient Yes -Correct Side, Site, Position Yes -Correct Procedure Yes -Procedure Performed Yes -Type of Procedure Debridement -Clinical Debridement Subcutaneous -Post Debridement Size (cm) - Length 0.6 -Post Debridement Size (cm) - Width 4.7 -Post Debridement Size (cm) - Depth 0.2 -Total Square Cm 2.82 -Wound/Ulcer Outcome Not Healed -Ulcer Cleansing Rinsed/ Irrigated with Saline -Foul Odor after Cleansing No -Bioengineered Tissue Yes -Type of bioengineered Tissue [id number] -Expiration Date 11/29/19 -Product Lot Number [id number] -Percent Used 100 -Saline Lot Number [id number] -Topical Lidocaine (%) 4 -Bleeding Controlled with Pressure -Treatment Response Procedure Tolerated Well [See Physician Procedure note for Specifics] Pain Scale: 0-10 Numeric [Pain] -Is Patient Pain Free? Yes Musculoskeletal: No Tenderness to Palpation of Joints or Extremities, Muscle Wasting Neurological: - - Lack of epicritic sensation light touch and no pain with wound manipulation noted Psych/Mental Status: Normal Affect, Appropriate Debridement Note Post-Debridement Measurements/Treatment WC - Nurse 2 - General Ulcer CM Notes Start: 03/24/18 13:12 Freq: Status: Active Protocol: Activity Type Activity Date Activity User E-Sign Co-Sign Detail Recorded Client Recorded Date Recorded By Document 03/24/18 13:57 [id number] 03/24/18 13:58 Document 03/31/18 14:44 TM [id number] 03/31/18 14:45 TM Document 04/07/18 15:31 TM [id number] 04/07/18 15:34 03/24/18 03/31/18 04/07/18 13:57 14:44 15:31 Wound Center Nurse 2 #8 R Lat LE -Time 13:57 14:44 15:32 -Correct Patient Yes Yes Yes -Correct Side, Site, Position Yes Yes Yes -Correct Procedure Yes Yes Yes -Procedure Performed Yes Yes Yes -Type of Procedure Debridement Debridement Debridement -Clinical Debridement Subcutaneous Subcutaneous Subcutaneous -Post Debridement Size (cm) - Length 1 0.8 0.6 -Post Debridement Size (cm) - Width 10.5 5.1 4.7 -Post Debridement Size (cm) - Depth 0.2 0.2 0.2 -Total Square Cm 10.5 4.08 2.82 -Wound/Ulcer Outcome Not Healed Not Healed -Ulcer Cleansing Rinsed/ Rinsed/ Rinsed/ Irrigated with Irrigated with Irrigated with Saline Saline Saline -Foul Odor after Cleansing No No No -Bioengineered Tissue No No Yes -Type of bioengineered Tissue [id number] -Expiration Date 11/29/19 -Product Lot Number [id number] -Percent Used 100 -Saline Lot Number [id number] -Topical Lidocaine (%) 4 4 -Bleeding Controlled with Pressure Pressure Pressure -Treatment Response Procedure Procedure Procedure Tolerated Well Tolerated Well Tolerated Well Pain Scale: 0-10 Numeric Is Patient Pain Free? Yes Yes Yes Wound debrided: leg Laterality: Right Wound Grade/Stage: grade 1 Type of Debridement: Excisional debridement Anesthesia Used: 4% Lidocaine Solution Depth: in the subcutaneous layer Percentage of wound debrided: 100 Instrument Used: #15 blade Tissue Removed: fibrous, devitalized subcutaneous, biofilm, slough Severity: Fat Layer Exposed Amount of bleeding with debridement: Mild Bleeding Controlled with: Pressure Patient tolerated procedure well Assessment/Plan Assessment: Cellulitis bilateral lower extremities resolved. Ulcer of right leg with fat layer exposed. Lower extremity edema. Venous insufficiency. Lymphedema. Diabetes with complications. Compliance challenge Plan: I reviewed and discussed his case today. The ulcers fully epithelialized to the left limb and the right leg ulcer was debrided as noted in the clinical panel. Verbal consent was obtained for advanced wound product today , puraply (collagen antimicrobial). The purpose of this device, indications, planned procedure, and anticipated healing time and management were discussed. This was applied according to standard protocol after debridement and saline irrigation. This product was secured in place with wound veil and Steri-Strips. He tolerated the procedure well. Incompetent veins were noted on the venous Doppler he is referred to Dr. Pearson for potential intervention to assist in timely wound healing and future prevention. He is following up as advised. To elevate the legs at rest and to avoid idle sitting and standing. To offload this site by keeping pressure off of the leg while lying in bed (left). To continue CircAid compression dressings. I also recommend a lymphedema clinic referral or compression pumps may also be considered in the future. To continue to use a non-irritating soap for personal hygiene daily. I answered all his questions. To return to clinic in 1 week or call sooner if he has any questions or concerns.
[2018-04-14 14:38] VITALS: BP 146/84; PULSE 84; RESP 18; TEMP 37.4; BMI 54.3
--- NOTE | 2018-04-14 16:35 | PCM.WC.PN ---
(1) Ulcer of right lower extremity with fat layer exposed Status: Chronic Current Visit: Yes Code(s): L97.912 - Non-pressure chronic ulcer of unspecified part of right lower leg with fat layer exposed (2) Edema of both legs Status: Chronic Current Visit: Yes Code(s): R60.0 - Localized edema (3) Venous insufficiency Status: Chronic Current Visit: Yes Code(s): I87.2 - Venous insufficiency (chronic) (peripheral) (4) Diabetes mellitus with complication Status: Chronic Current Visit: Yes Code(s): E11.8 - Type 2 diabetes mellitus with unspecified complications (5) Lymphedema Status: Chronic Current Visit: Yes Code(s): I89.0 - Lymphedema, not elsewhere classified Type of Wound Date of Service: 04/14/18 Chief Complaint: Right leg ulcer returned History of Wound: This 52-year-old male with multiple comorbidities presents for follow-up of chronic leg swelling and healed ulcers. He denies drainage. He denies illness. He had CircAid compression dressings. He denies fever, chill, nausea, vomiting, loss of appetite, calf pain, shortness of breath or chest pain. He left puraply advanced product dressing intact last week as advised. Progress of Wound: right leg ulcer - Physical Exam Vital Signs Temp Pulse Resp BP 99.3 F H 84 18 146/84 H 04/14/18 14:38 04/14/18 14:38 04/14/18 14:38 04/14/18 14:38 General: Alert, Oriented x3, Cooperative Extremities: No cyanosis, Capillary Refill Less than 3 Seconds, No Calf Tenderness - Negative Aline and Tamayo sign bilateral, Diminished Peripheral Pulses, Edema - Bilateral lower extremities Skin: Ulcer/ Wound - No purulence, erythema resolved, no odor, no streaking, no deep tissue exposure, no necrosis, - - The peripheral skin is atrophic and hairless right. There is no skin discontinuity at this time to the left lower extremity Wound Measurements and Assessment WC - Nurse 1 - General Ulcer Measurement Start: 03/24/18 13:12 Freq: Status: Active Protocol: Activity Type Activity Date Activity User E-Sign Co-Sign Detail Recorded Client Recorded Date Recorded By Document 04/14/18 14:38 RB [id number] 04/14/18 14:40 RB 04/14/18 14:38 Wound Center Nurse 1 [Ulcer Assessment] #8 R Lat LE -Combined with other wound No -Current Size (cm) - Length 3 -Current Size (cm) - Width 0.4 -Current Size (cm) - Depth 0.2 -Total Square Cm 1.2 -Photo Taken No -Tunneling No -Undermining/Tunneling No -Circular Undermining No -Classification - Thickness Full Thickness without Exposed Support Structure -Exudate Amt Small (1-33%) -Exudate Type Serosanguineous -Wound Margin Distinct, Outline Attached -Granulation Amt Large (67-100%) -Granulation Quality [place] -Slough/Fibrin Yes -Necrosis Amt Small (1-33%) -Necrotic Tissue Type Adherent Slough -Structure Exposed N/A -Texture (Candy-wound Skin Appearance) Assessed -Moisture (Candy-wound Skin Appearance Assessed ) -Color (Candy-wound Skin Appearance) Assessed -Temperature (Candy-wound Skin No Abnormality Appearance) (Pt Warm) -Tenderness on Palpation (Candy-wound No Skin Appearance) -Ulcer Cleansing Wound Cleanser -Foul Odor after Cleansing No -Anesthetic Used 4% Lidocaine Solution [Edema Assessment] -Lower Limb Edema Present Yes -Right Calf (cm) 49.5 -Right Ankle (cm) 28.7 -Left Calf (cm) 48.5 -Left Ankle (cm) 27.5 WC - Nurse 2 - General Ulcer CM Notes Start: 03/24/18 13:12 Freq: Status: Active Protocol: Activity Type Activity Date Activity User E-Sign Co-Sign Detail Recorded Client Recorded Date Recorded By Document 04/14/18 14:43 [id number] 04/14/18 14:47 04/14/18 14:43 Wound Center Nurse 2 [Procedure/Treatment] #8 R Lat LE -Time 14:43 -Correct Patient Yes -Correct Side, Site, Position Yes -Correct Procedure Yes -Procedure Performed Yes -Type of Procedure Debridement -Clinical Debridement Subcutaneous -Post Debridement Size (cm) - Length 3.1 -Post Debridement Size (cm) - Width 0.5 -Post Debridement Size (cm) - Depth 0.2 -Total Square Cm 1.55 -Wound/Ulcer Outcome Not Healed -Ulcer Cleansing Rinsed/ Irrigated with Saline -Foul Odor after Cleansing No -Bioengineered Tissue Yes -Type of bioengineered Tissue [id number] -Expiration Date 11/29/19 -Product Lot Number [id number] -Percent Used 100 -Saline Lot Number [id number] -Topical Lidocaine (%) 4 -Bleeding Controlled with Pressure -Treatment Response Procedure Tolerated Well [See Physician Procedure note for Specifics] Pain Scale: 0-10 Numeric [Pain] -Is Patient Pain Free? Yes Musculoskeletal: No Tenderness to Palpation of Joints or Extremities, Muscle Wasting Neurological: - - Lack of epicritic sensation light touch Psych/Mental Status: Normal Affect, Appropriate Debridement Note Post-Debridement Measurements/Treatment WC - Nurse 2 - General Ulcer CM Notes Start: 03/24/18 13:12 Freq: Status: Active Protocol: Activity Type Activity Date Activity User E-Sign Co-Sign Detail Recorded Client Recorded Date Recorded By Document 03/24/18 13:57 [id number] 03/24/18 13:58 Document 03/31/18 14:44 TM [id number] 03/31/18 14:45 TM Document 04/07/18 15:31 TM [id number] 04/07/18 15:34 Document 04/14/18 14:43 TM [id number] 04/14/18 14:47 TM 03/24/18 03/31/18 04/07/18 13:57 14:44 15:31 Wound Center Nurse 2 #8 R Lat LE -Time 13:57 14:44 15:32 -Correct Patient Yes Yes Yes -Correct Side, Site, Position Yes Yes Yes -Correct Procedure Yes Yes Yes -Procedure Performed Yes Yes Yes -Type of Procedure Debridement Debridement Debridement -Clinical Debridement Subcutaneous Subcutaneous Subcutaneous -Post Debridement Size (cm) - Length 1 0.8 0.6 -Post Debridement Size (cm) - Width 10.5 5.1 4.7 -Post Debridement Size (cm) - Depth 0.2 0.2 0.2 -Total Square Cm 10.5 4.08 2.82 -Wound/Ulcer Outcome Not Healed Not Healed -Ulcer Cleansing Rinsed/ Rinsed/ Rinsed/ Irrigated with Irrigated with Irrigated with Saline Saline Saline -Foul Odor after Cleansing No No No -Bioengineered Tissue No No Yes -Type of bioengineered Tissue [id number] -Expiration Date 11/29/19 -Product Lot Number [id number] -Percent Used 100 -Saline Lot Number [id number] -Topical Lidocaine (%) 4 4 -Bleeding Controlled with Pressure Pressure Pressure -Treatment Response Procedure Procedure Procedure Tolerated Well Tolerated Well Tolerated Well Pain Scale: 0-10 Numeric Is Patient Pain Free? Yes Yes Yes 04/14/18 14:43 Wound Center Nurse 2 #8 R Lat LE -Time 14:43 -Correct Patient Yes -Correct Side, Site, Position Yes -Correct Procedure Yes -Procedure Performed Yes -Type of Procedure Debridement -Clinical Debridement Subcutaneous -Post Debridement Size (cm) - Length 3.1 -Post Debridement Size (cm) - Width 0.5 -Post Debridement Size (cm) - Depth 0.2 -Total Square Cm 1.55 -Wound/Ulcer Outcome Not Healed -Ulcer Cleansing Rinsed/ Irrigated with Saline -Foul Odor after Cleansing No -Bioengineered Tissue Yes -Type of bioengineered Tissue [id number] -Expiration Date 11/29/19 -Product Lot Number [id number] -Percent Used 100 -Saline Lot Number [id number] -Topical Lidocaine (%) 4 -Bleeding Controlled with Pressure -Treatment Response Procedure Tolerated Well Pain Scale: 0-10 Numeric Is Patient Pain Free? Yes Wound debrided: leg Laterality: Right Type of Debridement: Excisional debridement Anesthesia Used: 4% Lidocaine Solution Depth: in the subcutaneous layer Percentage of wound debrided: 100 Instrument Used: #15 blade Tissue Removed: fibrous, devitalized subcutaneous, biofilm, slough Severity: Fat Layer Exposed Amount of bleeding with debridement: Mild Bleeding Controlled with: Pressure Patient tolerated procedure well Assessment/Plan Active Problems Edema of both legs (Chronic) Venous insufficiency (Chronic) Ulcer of right lower extremity with fat layer exposed (Chronic) Diabetes mellitus with complication (Chronic) Lymphedema (Chronic) Assessment: Cellulitis bilateral lower extremities resolved. Ulcer of right leg with fat layer exposed. Lower extremity edema. Venous insufficiency. Lymphedema. Diabetes with complications. Compliance challenge Plan: I reviewed and discussed his case today. The ulcers fully epithelialized to the left limb and the right leg ulcer was debrided as noted in the clinical panel. Verbal consent was obtained for advanced wound product today , puraply (collagen antimicrobial). The purpose of this device, indications, planned procedure, and anticipated healing time and management were discussed. This was applied according to standard protocol after debridement and saline irrigation. This product was secured in place with wound veil and Steri-Strips. He tolerated the procedure well. Incompetent veins were noted on the venous Doppler he is referred to Dr. Pearson for potential intervention to assist in timely wound healing and future prevention. He is following up as advised. To elevate the legs at rest and to avoid idle sitting and standing. To offload this site by keeping pressure off of the leg while lying in bed (left). To continue CircAid compression dressings. I also recommend a lymphedema clinic referral or compression pumps may also be considered in the future. To continue to use a non-irritating soap for personal hygiene daily. I answered all his questions. To return to clinic in 1 week or call sooner if he has any questions or concerns.
[2018-04-21 15:17] VITALS: BP 146/90; PULSE 86; RESP 18; TEMP 37.3; BMI 54.3
--- NOTE | 2018-04-21 15:57 | PCM.WC.PN ---
(1) Chronic ulcer of left foot with fat layer exposed Status: Acute Code(s): L97.522 - Non-pressure chronic ulcer of other part of left foot with fat layer exposed (2) Ulcer of right lower extremity with fat layer exposed Status: Resolved Code(s): L97.912 - Non-pressure chronic ulcer of unspecified part of right lower leg with fat layer exposed (3) Edema of both legs Status: Chronic Code(s): R60.0 - Localized edema (4) Venous insufficiency Status: Chronic Code(s): I87.2 - Venous insufficiency (chronic) (peripheral) (5) Diabetes mellitus with complication Status: Chronic Code(s): E11.8 - Type 2 diabetes mellitus with unspecified complications (6) Lymphedema Status: Chronic Code(s): I89.0 - Lymphedema, not elsewhere classified Type of Wound Date of Service: 04/25/18 Chief Complaint: Right leg ulcer returned History of Wound: This 52-year-old male with multiple comorbidities presents for follow-up of chronic leg swelling and healed ulcers. He denies drainage. He denies illness. He had CircAid compression dressings. He denies fever, chill, nausea, vomiting, loss of appetite, calf pain, shortness of breath or chest pain. He denies drainage to the right leg. He has a new open wound to the left foot with onset of this past week. He denies redness. Progress of Wound: right leg ulcer healed. new left leg ulcer - Physical Exam Vital Signs Temp Pulse Resp BP 99.1 F 86 18 146/90 H 04/21/18 15:17 04/21/18 15:17 04/21/18 15:17 04/21/18 15:17 General: Alert, Oriented x3, Cooperative Extremities: No cyanosis, Capillary Refill Less than 3 Seconds, No Calf Tenderness - negative sia and gomez signs, Diminished Peripheral Pulses, Edema Skin: Ulcer/ Wound - full epithelialization noted right leg; this is healed. no erythema, no streaking, no odor, no acute infection.there is a new skin discontinuity to the left foot (3rd toe); no deep tissue exposed or necrotic noted, - - atrophic skin noted bilateral lower extremity Wound Measurements and Assessment WC - Nurse 1 - General Ulcer Measurement Start: 03/24/18 13:12 Freq: Status: Active Protocol: Activity Type Activity Date Activity User E-Sign Co-Sign Detail Recorded Client Recorded Date Recorded By Document 04/21/18 15:17 RB [id number] 04/21/18 15:35 RB 04/21/18 15:17 Wound Center Nurse 1 [Ulcer Assessment] 9. left 3rd toe -Combined with other wound No -Current Size (cm) - Length 0.8 -Current Size (cm) - Width 0.8 -Current Size (cm) - Depth 0.1 -Total Square Cm 0.64 -Photo Taken No -Tunneling No -Undermining/Tunneling No -Circular Undermining No -Classification - Thickness Full Thickness without Exposed Support Structure -Exudate Amt Small (1-33%) -Exudate Type Serosanguineous -Wound Margin Distinct, Outline Attached -Granulation Amt Large (67-100%) -Granulation Quality Latta -Slough/Fibrin Yes -Necrosis Amt Small (1-33%) -Necrotic Tissue Type Adherent Slough -Structure Exposed N/A -Texture (Candy-wound Skin Appearance) Assessed -Moisture (Candy-wound Skin Appearance Assessed ) -Color (Candy-wound Skin Appearance) Assessed -Temperature (Candy-wound Skin No Abnormality Appearance) (Pt Warm) -Tenderness on Palpation (Candy-wound No Skin Appearance) -Ulcer Cleansing Wound Cleanser -Foul Odor after Cleansing No #8 R Lat LE -Combined with other wound No -Current Size (cm) - Length 0.6 -Current Size (cm) - Width 0.2 -Current Size (cm) - Depth 0.1 -Total Square Cm 0.12 -Photo Taken No -Tunneling No -Undermining/Tunneling No -Circular Undermining No -Classification - Thickness Full Thickness without Exposed Support Structure -Change in Wound Grade/Stage No Query Text:If change please identify the Stage/Grade in the comment (ie. S2 G3) -Exudate Amt Small (1-33%) -Exudate Type Serosanguineous -Wound Margin Distinct, Outline Attached -Granulation Amt Large (67-100%) -Granulation Quality Latta -Slough/Fibrin Yes -Necrosis Amt Small (1-33%) -Necrotic Tissue Type Adherent Slough -Structure Exposed N/A -Texture (Candy-wound Skin Appearance) Assessed -Moisture (Candy-wound Skin Appearance Assessed ) -Color (Candy-wound Skin Appearance) Assessed -Temperature (Candy-wound Skin No Abnormality Appearance) (Pt Warm) -Tenderness on Palpation (Candy-wound No Skin Appearance) -Ulcer Cleansing Wound Cleanser -Anesthetic Used 5% Lidocaine Gel [Edema Assessment] -Lower Limb Edema Present Yes -Right Calf (cm) 51 -Right Ankle (cm) 29 -Left Calf (cm) 53.5 -Left Ankle (cm) 29.5 RAE - Nurse 2 - General Ulcer CM Notes Start: 03/24/18 13:12 Freq: Status: Active Protocol: Activity Type Activity Date Activity User E-Sign Co-Sign Detail Recorded Client Recorded Date Recorded By Document 04/21/18 15:40 [id number] 04/21/18 15:42 TM 04/21/18 15:40 Wound Center Nurse 2 [Procedure/Treatment] 9. left 3rd toe -Time 15:40 -Correct Patient Yes -Correct Side, Site, Position Yes -Correct Procedure Yes -Procedure Performed Yes -Type of Procedure Debridement -Clinical Debridement Subcutaneous -Post Debridement Size (cm) - Length 0.9 -Post Debridement Size (cm) - Width 0.9 -Post Debridement Size (cm) - Depth 0.1 -Total Square Cm 0.81 -Wound/Ulcer Outcome Not Healed -Ulcer Cleansing Rinsed/ Irrigated with Saline -Foul Odor after Cleansing No -Bioengineered Tissue No -Topical Lidocaine (%) 5 -Bleeding Controlled with Pressure -Treatment Response Procedure Tolerated Well #8 R Lat LE -Time 15:40 -Correct Patient Yes -Correct Side, Site, Position Yes -Correct Procedure Yes -Procedure Performed Yes -Post Debridement Size (cm) - Length 0 -Post Debridement Size (cm) - Width 0 -Post Debridement Size (cm) - Depth 0 -Total Square Cm 0 -Wound/Ulcer Outcome Healed- Epithelialized -Ulcer Cleansing Rinsed/ Irrigated with Saline -Foul Odor after Cleansing No -Bioengineered Tissue No -Bleeding Controlled with NA -Treatment Response Procedure Tolerated Well [See Physician Procedure note for Specifics] Pain Scale: 0-10 Numeric [Pain] -Is Patient Pain Free? Yes Musculoskeletal: No Tenderness to Palpation of Joints or Extremities, Muscle Wasting, - Neurological: - - lack of normal epicritic sensation via light touch noted left foot and right leg Psych/Mental Status: Normal Affect, Appropriate Debridement Note Post-Debridement Measurements/Treatment RAE - Nurse 2 - General Ulcer CM Notes Start: 03/24/18 13:12 Freq: Status: Active Protocol: Activity Type Activity Date Activity User E-Sign Co-Sign Detail Recorded Client Recorded Date Recorded By Document 03/24/18 13:57 [id number] 03/24/18 13:58 Document 03/31/18 14:44 TM [id number] 03/31/18 14:45 TM Document 04/07/18 15:31 TM [id number] 04/07/18 15:34 TM Document 04/14/18 14:43 TM [id number] 04/14/18 14:47 TM Document 04/21/18 15:40 TM [id number] 04/21/18 15:42 TM 03/24/18 03/31/18 04/07/18 13:57 14:44 15:31 Wound Center Nurse 2 9. left 3rd toe -Time -Correct Patient -Correct Side, Site, Position -Correct Procedure -Procedure Performed -Type of Procedure -Clinical Debridement -Post Debridement Size (cm) - Length -Post Debridement Size (cm) - Width -Post Debridement Size (cm) - Depth -Total Square Cm -Wound/Ulcer Outcome -Ulcer Cleansing -Foul Odor after Cleansing -Bioengineered Tissue -Topical Lidocaine (%) -Bleeding Controlled with -Treatment Response #8 R Lat LE -Time 13:57 14:44 15:32 -Correct Patient Yes Yes Yes -Correct Side, Site, Position Yes Yes Yes -Correct Procedure Yes Yes Yes -Procedure Performed Yes Yes Yes -Type of Procedure Debridement Debridement Debridement -Clinical Debridement Subcutaneous Subcutaneous Subcutaneous -Post Debridement Size (cm) - Length 1 0.8 0.6 -Post Debridement Size (cm) - Width 10.5 5.1 4.7 -Post Debridement Size (cm) - Depth 0.2 0.2 0.2 -Total Square Cm 10.5 4.08 2.82 -Wound/Ulcer Outcome Not Healed Not Healed -Ulcer Cleansing Rinsed/ Rinsed/ Rinsed/ Irrigated with Irrigated with Irrigated with Saline Saline Saline -Foul Odor after Cleansing No No No -Bioengineered Tissue No No Yes -Type of bioengineered Tissue [id number] -Expiration Date 11/29/19 -Product Lot Number [id number] -Percent Used 100 -Saline Lot Number [id number] -Topical Lidocaine (%) 4 4 -Bleeding Controlled with Pressure Pressure Pressure -Treatment Response Procedure Procedure Procedure Tolerated Well Tolerated Well Tolerated Well Pain Scale: 0-10 Numeric Is Patient Pain Free? Yes Yes Yes 04/14/18 04/21/18 14:43 15:40 Wound Center Nurse 2 9. left 3rd toe -Time 15:40 -Correct Patient Yes -Correct Side, Site, Position Yes -Correct Procedure Yes -Procedure Performed Yes -Type of Procedure Debridement -Clinical Debridement Subcutaneous -Post Debridement Size (cm) - Length 0.9 -Post Debridement Size (cm) - Width 0.9 -Post Debridement Size (cm) - Depth 0.1 -Total Square Cm 0.81 -Wound/Ulcer Outcome Not Healed -Ulcer Cleansing Rinsed/ Irrigated with Saline -Foul Odor after Cleansing No -Bioengineered Tissue No -Topical Lidocaine (%) 5 -Bleeding Controlled with Pressure -Treatment Response Procedure Tolerated Well #8 R Lat LE -Time 14:43 15:40 -Correct Patient Yes Yes -Correct Side, Site, Position Yes Yes -Correct Procedure Yes Yes -Procedure Performed Yes Yes -Type of Procedure Debridement -Clinical Debridement Subcutaneous -Post Debridement Size (cm) - Length 3.1 0 -Post Debridement Size (cm) - Width 0.5 0 -Post Debridement Size (cm) - Depth 0.2 0 -Total Square Cm 1.55 0 -Wound/Ulcer Outcome Not Healed Healed- Epithelialized -Ulcer Cleansing Rinsed/ Rinsed/ Irrigated with Irrigated with Saline Saline -Foul Odor after Cleansing No No -Bioengineered Tissue Yes No -Type of bioengineered Tissue [id number] -Expiration Date 11/29/19 -Product Lot Number [id number] -Percent Used 100 -Saline Lot Number [id number] -Topical Lidocaine (%) 4 -Bleeding Controlled with Pressure NA -Treatment Response Procedure Procedure Tolerated Well Tolerated Well Pain Scale: 0-10 Numeric Is Patient Pain Free? Yes Yes Wound debrided: third toe Laterality: Left Type of Debridement: Excisional debridement Anesthesia Used: 4% Lidocaine Solution Depth: in the subcutaneous layer Percentage of wound debrided: 100 Instrument Used: #15 blade Tissue Removed: fibrous, devitalized subcutaneous tissue, biofilm, slough Severity: Fat Layer Exposed Amount of bleeding with debridement: Mild Bleeding Controlled with: Pressure Patient tolerated procedure well Assessment/Plan Assessment: Ulcer of right leg - healed. left third toe ulcer, new with fat layer exposed, no infection. Lower extremity edema. Venous insufficiency. Lymphedema. Diabetes with complications. Compliance challenge Plan: I reviewed and discussed his case today. The ulcers fully epithelialized to the left limb and the right leg ulcer was debrided as noted in the clinical panel. Hydrogel was applied; to change 1-2 days. He was reassured no infection was noted. Incompetent veins were noted on the venous Doppler he is referred to Dr. Pearson for potential intervention to assist in timely wound healing and future prevention. He is following up as advised. To elevate the legs at rest and to avoid idle sitting and standing. To offload with a surgical shoe; a prescription was provided for him to obtain from [facility]. To continue CircAid compression dressings. I also recommend a lymphedema clinic referral or compression pumps may also be considered in the future. To continue to use a non-irritating soap for personal hygiene daily. I answered all his questions. To return to clinic in 1 week or call sooner if he has any questions or concerns.
[2018-04-28 15:59] VITALS: BP 158/91; PULSE 91; RESP 18; TEMP 36.9; BMI 54.3
--- NOTE | 2018-05-01 14:21 | PCM.WC.PN ---
(1) Chronic ulcer of left foot with fat layer exposed Status: Chronic Code(s): L97.522 - Non-pressure chronic ulcer of other part of left foot with fat layer exposed (2) Edema of both legs Status: Chronic Code(s): R60.0 - Localized edema (3) Venous insufficiency Status: Chronic Code(s): I87.2 - Venous insufficiency (chronic) (peripheral) (4) Diabetes mellitus with complication Status: Chronic Code(s): E11.8 - Type 2 diabetes mellitus with unspecified complications (5) Lymphedema Status: Chronic Code(s): I89.0 - Lymphedema, not elsewhere classified Type of Wound Date of Service: 04/28/18 Chief Complaint: Left foot ulcer History of Wound: This 52-year-old male with multiple comorbidities presents for follow-up of chronic leg swelling and a newer ulcer with the past couple weeks to the left foot. He denies drainage. He denies illness. He had CircAid compression dressings. He denies fever, chill, nausea, vomiting, loss of appetite, calf pain, shortness of breath or chest pain. He denies drainage to the right leg and his previous ulcer site remains closed. He denies redness. Progress of Wound: right leg ulcer healed. Left foot ulcer - Physical Exam Vital Signs Temp Pulse Resp BP 98.5 F 91 18 158/91 H 04/28/18 15:59 04/28/18 15:59 04/28/18 15:59 04/28/18 15:59 General: Alert, Oriented x3, Cooperative Extremities: No cyanosis, Capillary Refill Less than 3 Seconds, No Calf Tenderness, Diminished Peripheral Pulses, Edema - Bilateral lower extremities consistent with lymphedema Skin: Ulcer/ Wound - No purulence, no erythema, streaking, odor, no acute signs of infection. Peripheral skin is hairless atrophic. The ulcer has a granular base the left foot. There remains full epithelialization to the previous right leg ulcer site that is still healed Wound Measurements and Assessment WC - Nurse 1 - General Ulcer Measurement Start: 03/24/18 13:12 Freq: Status: Active Protocol: Activity Type Activity Date Activity User E-Sign Co-Sign Detail Recorded Client Recorded Date Recorded By Document 04/28/18 15:59 DL [id number] 04/28/18 16:06 DL 04/28/18 15:59 Wound Center Nurse 1 [Ulcer Assessment] 9. left 3rd toe -Current Size (cm) - Length 1 -Current Size (cm) - Width 1.1 -Current Size (cm) - Depth 0.1 -Total Square Cm 1.1 -Photo Taken No -Exudate Amt Small (1-33%) -Exudate Type Serosanguineous -Wound Margin Distinct, Outline Attached -Granulation Amt Large (67-100%) -Granulation Quality Red -Necrosis Amt Small (1-33%) -Necrotic Tissue Type Adherent Slough -Structure Exposed N/A -Texture (Candy-wound Skin Appearance) Scarring -Moisture (Candy-wound Skin Appearance Maceration ) -Color (Candy-wound Skin Appearance) Hemosiderin Staining Rubor -Temperature (Candy-wound Skin No Abnormality Appearance) (Pt Warm) -Tenderness on Palpation (Candy-wound No Skin Appearance) -Ulcer Cleansing Rinsed/ Irrigated with Saline -Foul Odor after Cleansing No -Anesthetic Used 4% Lidocaine Solution [Edema Assessment] -Right Calf (cm) 48.1 -Right Ankle (cm) 30.5 -Left Calf (cm) 48 -Left Ankle (cm) 29 WC - Nurse 2 - General Ulcer CM Notes Start: 03/24/18 13:12 Freq: Status: Active Protocol: Activity Type Activity Date Activity User E-Sign Co-Sign Detail Recorded Client Recorded Date Recorded By Document 04/28/18 16:17 [email or web address] [id number] 04/28/18 16:18 CARMELINA 04/28/18 16:17 Wound Center Nurse 2 [Procedure/Treatment] 9. left 3rd toe -Time 16:17 -Correct Patient Yes -Correct Side, Site, Position Yes -Correct Procedure Yes -Procedure Performed Yes -Type of Procedure Debridement -Clinical Debridement Subcutaneous -Post Debridement Size (cm) - Length 1.1 -Post Debridement Size (cm) - Width 1.1 -Post Debridement Size (cm) - Depth 0.1 -Total Square Cm 1.21 -Wound/Ulcer Outcome Not Healed -Ulcer Cleansing Rinsed/ Irrigated with Saline -Foul Odor after Cleansing No -Bioengineered Tissue No -Bleeding Controlled with Pressure -Treatment Response Procedure Tolerated Well [See Physician Procedure note for Specifics] Pain Scale: 0-10 Numeric [Pain] -Is Patient Pain Free? Yes Musculoskeletal: No Tenderness to Palpation of Joints or Extremities, Muscle Wasting, - - Lymphedema bilateral Neurological: - - Lack of normal epicritic sensation light touch bilateral lower extremities Psych/Mental Status: Normal Affect, Appropriate Debridement Note Post-Debridement Measurements/Treatment WC - Nurse 2 - General Ulcer CM Notes Start: 03/24/18 13:12 Freq: Status: Active Protocol: Activity Type Activity Date Activity User E-Sign Co-Sign Detail Recorded Client Recorded Date Recorded By Document 03/24/18 13:57 [id number] 03/24/18 13:58 Document 03/31/18 14:44 [id number] 03/31/18 14:45 Document 04/07/18 15:31 TM [id number] 04/07/18 15:34 TM Document 04/14/18 14:43 TM [id number] 04/14/18 14:47 TM Document 04/21/18 15:40 TM [id number] 04/21/18 15:42 Document 04/28/18 16:17 [id number] 04/28/18 16:18 03/24/18 03/31/18 04/07/18 13:57 14:44 15:31 Wound Center Nurse 2 9. left 3rd toe -Time -Correct Patient -Correct Side, Site, Position -Correct Procedure -Procedure Performed -Type of Procedure -Clinical Debridement -Post Debridement Size (cm) - Length -Post Debridement Size (cm) - Width -Post Debridement Size (cm) - Depth -Total Square Cm -Wound/Ulcer Outcome -Ulcer Cleansing -Foul Odor after Cleansing -Bioengineered Tissue -Topical Lidocaine (%) -Bleeding Controlled with -Treatment Response #8 R Lat LE -Time 13:57 14:44 15:32 -Correct Patient Yes Yes Yes -Correct Side, Site, Position Yes Yes Yes -Correct Procedure Yes Yes Yes -Procedure Performed Yes Yes Yes -Type of Procedure Debridement Debridement Debridement -Clinical Debridement Subcutaneous Subcutaneous Subcutaneous -Post Debridement Size (cm) - Length 1 0.8 0.6 -Post Debridement Size (cm) - Width 10.5 5.1 4.7 -Post Debridement Size (cm) - Depth 0.2 0.2 0.2 -Total Square Cm 10.5 4.08 2.82 -Wound/Ulcer Outcome Not Healed Not Healed -Ulcer Cleansing Rinsed/ Rinsed/ Rinsed/ Irrigated with Irrigated with Irrigated with Saline Saline Saline -Foul Odor after Cleansing No No No -Bioengineered Tissue No No Yes -Type of bioengineered Tissue [id number] -Expiration Date 11/29/19 -Product Lot Number [id number] -Percent Used 100 -Saline Lot Number [id number] -Topical Lidocaine (%) 4 4 -Bleeding Controlled with Pressure Pressure Pressure -Treatment Response Procedure Procedure Procedure Tolerated Well Tolerated Well Tolerated Well Pain Scale: 0-10 Numeric Is Patient Pain Free? Yes Yes Yes 04/14/18 04/21/18 04/28/18 14:43 15:40 16:17 Wound Center Nurse 2 9. left 3rd toe -Time 15:40 16:17 -Correct Patient Yes Yes -Correct Side, Site, Position Yes Yes -Correct Procedure Yes Yes -Procedure Performed Yes Yes -Type of Procedure Debridement Debridement -Clinical Debridement Subcutaneous Subcutaneous -Post Debridement Size (cm) - Length 0.9 1.1 -Post Debridement Size (cm) - Width 0.9 1.1 -Post Debridement Size (cm) - Depth 0.1 0.1 -Total Square Cm 0.81 1.21 -Wound/Ulcer Outcome Not Healed Not Healed -Ulcer Cleansing Rinsed/ Rinsed/ Irrigated with Irrigated with Saline Saline -Foul Odor after Cleansing No No -Bioengineered Tissue No No -Topical Lidocaine (%) 5 -Bleeding Controlled with Pressure Pressure -Treatment Response Procedure Procedure Tolerated Well Tolerated Well #8 R Lat LE -Time 14:43 15:40 -Correct Patient Yes Yes -Correct Side, Site, Position Yes Yes -Correct Procedure Yes Yes -Procedure Performed Yes Yes -Type of Procedure Debridement -Clinical Debridement Subcutaneous -Post Debridement Size (cm) - Length 3.1 0 -Post Debridement Size (cm) - Width 0.5 0 -Post Debridement Size (cm) - Depth 0.2 0 -Total Square Cm 1.55 0 -Wound/Ulcer Outcome Not Healed Healed- Epithelialized -Ulcer Cleansing Rinsed/ Rinsed/ Irrigated with Irrigated with Saline Saline -Foul Odor after Cleansing No No -Bioengineered Tissue Yes No -Type of bioengineered Tissue [id number] -Expiration Date 11/29/19 -Product Lot Number [id number] -Percent Used 100 -Saline Lot Number [id number] -Topical Lidocaine (%) 4 -Bleeding Controlled with Pressure NA -Treatment Response Procedure Procedure Tolerated Well Tolerated Well Pain Scale: 0-10 Numeric Is Patient Pain Free? Yes Yes Yes Wound debrided: dorsal third toe Laterality: Left Type of Debridement: Excisional debridement Anesthesia Used: 4% Lidocaine Solution Depth: in the subcutaneous layer Percentage of wound debrided: 100 Instrument Used: #15 blade Tissue Removed: fibrous, devitalized subcutaneous, biofilm, slough Severity: Fat Layer Exposed Amount of bleeding with debridement: Mild Bleeding Controlled with: Pressure Patient tolerated procedure well Assessment/Plan Assessment: Ulcer of right leg - healed. left third toe ulcer, fat layer exposed, no infection. Lower extremity edema. Venous insufficiency. Lymphedema. Diabetes with complications. Compliance challenge Plan: I reviewed and discussed his case today. The ulcer left dorsal third toe was debrided as noted in the clinical panel. Hydrogel was applied; to change 1-2 days. He was reassured no infection was noted. Incompetent veins were noted on the venous Doppler he is referred to Dr. Pearson for potential intervention to assist in timely wound healing and future prevention. He is following up as advised. To elevate the legs at rest and to avoid idle sitting and standing. To continue lymphedema pumps and CircAid compression dressings. To offload with a surgical shoe, left. I also recommend a lymphedema clinic referral or compression pumps may also be considered in the future. To continue to use a non-irritating soap for personal hygiene daily. I answered all his questions. To return to clinic in 1 week or call sooner if he has any questions or concerns.
== END 2018-04-30 23:59 ==
LOC: WC 15:45
PROVIDERS: Visit Provider Podiatrist
DX: E11.622 Type 2 diabetes mellitus with other skin ulcer (principal); I89.0 Lymphedema, not elsewhere classified; I87.2 Venous insufficiency (chronic) (peripheral); R60.0 Localized edema; L97.912 Non-pressure chronic ulcer of unspecified part of right lower leg with fat layer exposed
CPT/HCPCS: 11042; 15271; Q4172

== ENCOUNTER 2018-05-26 16:00 | Outpatient (RCR) | payer MEDICAID, SELFPAY ==
[2018-05-01 00:16] VITALS: BP 158/91; PULSE 91; RESP 18; TEMP 36.9
[2018-05-05 15:29] VITALS: BP 133/81; PULSE 88; RESP 18; TEMP 36.6
--- NOTE | 2018-05-05 16:06 | PCM.WC.PN ---
(1) Chronic ulcer of left foot with fat layer exposed Status: Chronic Current Visit: Yes Code(s): L97.522 - Non-pressure chronic ulcer of other part of left foot with fat layer exposed (2) Edema of both legs Status: Chronic Current Visit: Yes Code(s): R60.0 - Localized edema (3) Lymphedema Status: Chronic Current Visit: Yes Code(s): I89.0 - Lymphedema, not elsewhere classified (4) Hammertoe of left foot Status: Chronic Current Visit: Yes Code(s): M20.42 - Other hammer toe(s) (acquired), left foot Type of Wound Date of Service: 05/05/18 Chief Complaint: Left toe ulcer History of Wound: This 52-year-old male with multiple comorbidities presents for follow-up of chronic leg swelling and left toe ulcer that has been present for a few weeks. He denies drainage. He denies illness. He had CircAid compression dressings. He denies fever, chill, nausea, vomiting, loss of appetite, calf pain, shortness of breath or chest pain. He denies redness or odor. Progress of Wound: Left toe improving - Physical Exam Vital Signs Temp Pulse Resp BP 98 F 88 18 133/81 H 05/05/18 15:29 05/05/18 15:29 05/05/18 15:29 05/05/18 15:29 General: Alert, Oriented x3, Cooperative Extremities: No cyanosis, Capillary Refill Less than 3 Seconds, No Calf Tenderness - Negative Aline and Tamayo sign left, Diminished Peripheral Pulses, Edema - Bilateral lower extremities moderate to severe Skin: Ulcer/ Wound - No purulence, no erythema, streaking, no odor, no acute signs of infection noted. Significant central wound and peripheral epithelialization are noted. The adjacent skin is atrophic and hairless. There is no interdigital maceration. Wound Measurements and Assessment WC - Nurse 1 - General Ulcer Measurement Start: 05/05/18 15:25 Freq: Status: Active Protocol: Activity Type Activity Date Activity User E-Sign Co-Sign Detail Recorded Client Recorded Date Recorded By Document 05/05/18 15:29 [email or web address] [id number] 05/05/18 15:34 MT 05/05/18 15:29 Wound Center Nurse 1 [Ulcer Assessment] 9. left 3rd toe -Combined with other wound No -Current Size (cm) - Length 1 -Current Size (cm) - Width 1.9 -Current Size (cm) - Depth 0.1 -Total Square Cm 1.9 -Photo Taken No -Epithelialization Small 1-33% -Tunneling No -Undermining/Tunneling No -Circular Undermining No -Exudate Amt Small (1-33%) -Exudate Type Serosanguineous -Wound Margin Flat & Intact -Granulation Amt Large (67-100%) -Granulation Quality [place] -Slough/Fibrin No -Necrosis Amt None Present (0 %) -Texture (Candy-wound Skin Appearance) Assessed Localized Edema -Moisture (Candy-wound Skin Appearance Assessed ) Maceration -Color (Candy-wound Skin Appearance) Assessed Hemosiderin Staining -Temperature (Candy-wound Skin No Abnormality Appearance) (Pt Warm) -Tenderness on Palpation (Candy-wound No Skin Appearance) -Ulcer Cleansing Rinsed/ Irrigated with Saline -Foul Odor after Cleansing No -Anesthetic Used 4% Lidocaine Solution [Edema Assessment] -Left Calf (cm) 49 -Left Ankle (cm) 29.5 WC - Nurse 2 - General Ulcer CM Notes Start: 05/05/18 15:25 Freq: Status: Active Protocol: Activity Type Activity Date Activity User E-Sign Co-Sign Detail Recorded Client Recorded Date Recorded By Document 05/05/18 15:54 [id number] 05/05/18 15:55 05/05/18 15:54 Wound Center Nurse 2 [Procedure/Treatment] 9. left 3rd toe -Time 15:54 -Correct Patient Yes -Correct Side, Site, Position Yes -Correct Procedure Yes -Procedure Performed Yes -Type of Procedure Debridement -Clinical Debridement Subcutaneous -Post Debridement Size (cm) - Length 1 -Post Debridement Size (cm) - Width 2 -Post Debridement Size (cm) - Depth 0.1 -Total Square Cm 2 -Wound/Ulcer Outcome Not Healed -Ulcer Cleansing Rinsed/ Irrigated with Saline -Foul Odor after Cleansing No -Bioengineered Tissue No -Bleeding Controlled with Pressure -Treatment Response Procedure Tolerated Well [See Physician Procedure note for Specifics] Pain Scale: 0-10 Numeric [Pain] -Is Patient Pain Free? Yes Musculoskeletal: No Tenderness to Palpation of Joints or Extremities, Muscle Wasting, - - Very subtle dorsal contraction of the lesser toes at the distal interphalangeal joints consistent with hammertoe deformity on the left foot Neurological: - - Lack of normal epicritic sensation light touch left foot Psych/Mental Status: Normal Affect, Appropriate Debridement Note Post-Debridement Measurements/Treatment WC - Nurse 2 - General Ulcer CM Notes Start: 05/05/18 15:25 Freq: Status: Active Protocol: Activity Type Activity Date Activity User E-Sign Co-Sign Detail Recorded Client Recorded Date Recorded By Document 05/05/18 15:54 [id number] 05/05/18 15:55 05/05/18 15:54 Wound Center Nurse 2 9. left 3rd toe -Time 15:54 -Correct Patient Yes -Correct Side, Site, Position Yes -Correct Procedure Yes -Procedure Performed Yes -Type of Procedure Debridement -Clinical Debridement Subcutaneous -Post Debridement Size (cm) - Length 1 -Post Debridement Size (cm) - Width 2 -Post Debridement Size (cm) - Depth 0.1 -Total Square Cm 2 -Wound/Ulcer Outcome Not Healed -Ulcer Cleansing Rinsed/ Irrigated with Saline -Foul Odor after Cleansing No -Bioengineered Tissue No -Bleeding Controlled with Pressure -Treatment Response Procedure Tolerated Well Pain Scale: 0-10 Numeric Is Patient Pain Free? Yes Wound debrided: dorsal third toe (distal aspect) Laterality: Left Type of Debridement: Excisional debridement Anesthesia Used: 4% Lidocaine Solution Depth: in the subcutaneous layer Percentage of wound debrided: 100 Instrument Used: #15 blade Tissue Removed: fibrous, devitalized subcutaneous, biofilm, slough Severity: Fat Layer Exposed Amount of bleeding with debridement: Mild Bleeding Controlled with: Pressure Patient tolerated procedure well Assessment/Plan Active Problems Chronic ulcer of left foot with fat layer exposed (Chronic) Hammertoe of left foot (Chronic) Edema of both legs (Chronic) Lymphedema (Chronic) Assessment: Ulcer of right leg - healed. left third toe ulcer, new with fat layer exposed, no infection. Lower extremity edema. Venous insufficiency. Lymphedema. Diabetes with complications. Compliance challenge Plan: I reviewed and discussed his case today. Subcutaneous excisional debridement was performed as noted in the clinical panel to the left toe. Hydrogel was applied; to change 1-2 days. He was reassured no infection was noted. Incompetent veins were previously noted on the venous Doppler he is referred to Dr. Pearson for potential intervention to assist in timely wound healing and future prevention. He is following up as advised. To elevate the legs at rest and to avoid idle sitting and standing. To continue to offload with a surgical shoe; this is noted today. To continue CircAid compression dressings. I also recommend a lymphedema clinic referral or compression pumps may also be considered in the future. To continue to use a non-irritating soap for personal hygiene daily. He is progressing well. I answered all his questions. To return to clinic in 1 week or call sooner if he has any questions or concerns.
[2018-05-12 15:17] VITALS: BP 145/86; PULSE 74; RESP 18; TEMP 37
--- NOTE | 2018-05-12 16:54 | PCM.WC.PN ---
(1) Chronic ulcer of left foot with fat layer exposed Status: Chronic Current Visit: Yes Code(s): L97.522 - Non-pressure chronic ulcer of other part of left foot with fat layer exposed (2) Edema of both legs Status: Chronic Current Visit: Yes Code(s): R60.0 - Localized edema (3) Lymphedema Status: Chronic Current Visit: Yes Code(s): I89.0 - Lymphedema, not elsewhere classified (4) Hammertoe of left foot Status: Chronic Current Visit: Yes Code(s): M20.42 - Other hammer toe(s) (acquired), left foot Type of Wound Date of Service: 05/12/18 Chief Complaint: Left toe ulcer History of Wound: This 52-year-old male with multiple comorbidities presents for follow-up of chronic leg swelling and left toe ulcer that has been present for a few weeks. He denies drainage. He denies illness. He had CircAid compression dressings. He denies fever, chill, nausea, vomiting, loss of appetite, calf pain, shortness of breath or chest pain. He denies redness or odor. Progress of Wound: Left toe improving - Physical Exam Vital Signs Temp Pulse Resp BP 98.6 F 74 18 145/86 H 05/12/18 15:17 05/12/18 15:17 05/12/18 15:17 05/12/18 15:17 General: Alert, Oriented x3, Cooperative Extremities: No cyanosis, Capillary Refill Less than 3 Seconds, No Calf Tenderness - Negative Aline and Tamayo, Diminished Peripheral Pulses, Edema, - - Active range of motion lesser digits left foot and subtle dorsal contraction noted Skin: Ulcer/ Wound - No purulence, erythema, streaking, odor or infection left foot. No interdigital maceration. The peripheral skin is atrophic and hairless. Wound Measurements and Assessment WC - Nurse 1 - General Ulcer Measurement Start: 05/05/18 15:25 Freq: Status: Active Protocol: Activity Type Activity Date Activity User E-Sign Co-Sign Detail Recorded Client Recorded Date Recorded By Document 05/12/18 15:17 RB [id number] 05/12/18 15:26 RB 05/12/18 15:17 Wound Center Nurse 1 [Ulcer Assessment] 9. left 3rd toe -Combined with other wound No -Current Size (cm) - Length 0.3 -Current Size (cm) - Width 0.4 -Current Size (cm) - Depth 0.1 -Total Square Cm 0.12 -Photo Taken No -Tunneling No -Undermining/Tunneling No -Circular Undermining No -Classification - Thickness Full Thickness without Exposed Support Structure -Exudate Amt Small (1-33%) -Exudate Type Serosanguineous -Wound Margin Distinct, Outline Attached -Granulation Amt Medium (34-66%) -Granulation Quality [place] -Slough/Fibrin Yes -Necrosis Amt Medium (34-66%) -Necrotic Tissue Type Adherent Slough -Structure Exposed N/A -Texture (Candy-wound Skin Appearance) Assessed -Moisture (Candy-wound Skin Appearance Assessed ) -Color (Candy-wound Skin Appearance) Assessed -Temperature (Candy-wound Skin No Abnormality Appearance) (Pt Warm) -Tenderness on Palpation (Candy-wound No Skin Appearance) -Ulcer Cleansing Rinsed/ Irrigated with Saline -Foul Odor after Cleansing No -Anesthetic Used 4% Lidocaine Solution [Edema Assessment] -Lower Limb Edema Present Yes -Left Calf (cm) 50 -Left Ankle (cm) 29.5 WC - Nurse 2 - General Ulcer CM Notes Start: 05/05/18 15:25 Freq: Status: Active Protocol: Activity Type Activity Date Activity User E-Sign Co-Sign Detail Recorded Client Recorded Date Recorded By Document 05/12/18 16:32 [id number] 05/12/18 16:34 05/12/18 16:32 Wound Center Nurse 2 [Procedure/Treatment] 9. left 3rd toe -Time 16:32 -Correct Patient Yes -Correct Side, Site, Position Yes -Correct Procedure Yes -Procedure Performed Yes -Type of Procedure Debridement -Clinical Debridement Subcutaneous -Post Debridement Size (cm) - Length 0.2 -Post Debridement Size (cm) - Width 0.2 -Post Debridement Size (cm) - Depth 0.1 -Total Square Cm 0.04 -Wound/Ulcer Outcome Not Healed -Ulcer Cleansing Rinsed/ Irrigated with Saline -Foul Odor after Cleansing No -Bioengineered Tissue No -Topical Lidocaine (%) 4 -Bleeding Controlled with Pressure -Treatment Response Procedure Tolerated Well [See Physician Procedure note for Specifics] Pain Scale: 0-10 Numeric [Pain] -Is Patient Pain Free? Yes Musculoskeletal: No Tenderness to Palpation of Joints or Extremities, Muscle Wasting Neurological: - - Lack of normal epicritic sensation light touch left foot noted Psych/Mental Status: Normal Affect, Appropriate Debridement Note Post-Debridement Measurements/Treatment WC - Nurse 2 - General Ulcer CM Notes Start: 05/05/18 15:25 Freq: Status: Active Protocol: Activity Type Activity Date Activity User E-Sign Co-Sign Detail Recorded Client Recorded Date Recorded By Document 05/05/18 15:54 [id number] 05/05/18 15:55 Document 05/12/18 16:32 [id number] 05/12/18 16:34 05/05/18 05/12/18 15:54 16:32 Wound Center Nurse 2 9. left 3rd toe -Time 15:54 16:32 -Correct Patient Yes Yes -Correct Side, Site, Position Yes Yes -Correct Procedure Yes Yes -Procedure Performed Yes Yes -Type of Procedure Debridement Debridement -Clinical Debridement Subcutaneous Subcutaneous -Post Debridement Size (cm) - Length 1 0.2 -Post Debridement Size (cm) - Width 2 0.2 -Post Debridement Size (cm) - Depth 0.1 0.1 -Total Square Cm 2 0.04 -Wound/Ulcer Outcome Not Healed Not Healed -Ulcer Cleansing Rinsed/ Rinsed/ Irrigated with Irrigated with Saline Saline -Foul Odor after Cleansing No No -Bioengineered Tissue No No -Topical Lidocaine (%) 4 -Bleeding Controlled with Pressure Pressure -Treatment Response Procedure Procedure Tolerated Well Tolerated Well Pain Scale: 0-10 Numeric Is Patient Pain Free? Yes Yes Wound debrided: dorsal third distal toe Laterality: Left Type of Debridement: Excisional debridement Anesthesia Used: 4% Lidocaine Solution Depth: in the subcutaneous layer Percentage of wound debrided: 100 Instrument Used: #15 blade Tissue Removed: fibrous , devitalized subcutaneous, biofilm, slough Severity: Fat Layer Exposed Amount of bleeding with debridement: Mild Bleeding Controlled with: Pressure Patient tolerated procedure well Assessment/Plan Active Problems Chronic ulcer of left foot with fat layer exposed (Chronic) Hammertoe of left foot (Chronic) Edema of both legs (Chronic) Lymphedema (Chronic) Assessment: . left third toe ulcer, new with fat layer exposed, no infection. Lower extremity edema. Venous insufficiency. Lymphedema. Diabetes with complications. Compliance challenge Plan: I reviewed and discussed his case today. Subcutaneous excisional debridement was performed as noted in the clinical panel to the left toe. Hydrogel was applied; to change 1-2 days. He was reassured no infection was noted. Incompetent veins were previously noted on the venous Doppler he is referred to Dr. Pearson for potential intervention to assist in timely wound healing and future prevention. He is following up as advised. To elevate the legs at rest and to avoid idle sitting and standing. To continue to offload with a surgical shoe; this is noted today. To continue CircAid compression dressings. I also recommend a lymphedema clinic referral or compression pumps may also be considered in the future. To continue to use a non-irritating soap for personal hygiene daily. He is progressing well. I answered all his questions. To return to clinic in 1 week or call sooner if he has any questions or concerns.
[2018-05-19 14:45] VITALS: BP 163/94; PULSE 79; RESP 20; TEMP 37.1
--- NOTE | 2018-05-19 15:49 | PCM.WC.PN ---
(1) Ulcer of right lower extremity with fat layer exposed Status: Acute Code(s): L97.912 - Non-pressure chronic ulcer of unspecified part of right lower leg with fat layer exposed (2) Chronic ulcer of left foot with fat layer exposed Status: Resolved Code(s): L97.522 - Non-pressure chronic ulcer of other part of left foot with fat layer exposed (3) Edema of both legs Status: Chronic Code(s): R60.0 - Localized edema (4) Lymphedema Status: Chronic Code(s): I89.0 - Lymphedema, not elsewhere classified (5) Hammertoe of left foot Status: Chronic Code(s): M20.42 - Other hammer toe(s) (acquired), left foot Type of Wound Date of Service: 05/22/18 Chief Complaint: Left toe ulcer History of Wound: This 52-year-old male with multiple comorbidities presents for follow-up of chronic leg swelling and left toe ulcer that has been present for a few weeks. He denies drainage and thinks this site healed. He does have a new right leg ulcer today that started within the past week. He denies illness. He had CircAid compression dressings. He denies fever, chill, nausea, vomiting, loss of appetite, calf pain, shortness of breath or chest pain. He denies redness or odor. Progress of Wound: Left toe healed. new right leg ulcer - Physical Exam Vital Signs Temp Pulse Resp BP 98.7 F 79 20 H 163/94 H 05/19/18 14:45 05/19/18 14:45 05/19/18 14:45 05/19/18 14:45 General: Alert, Oriented x3, Cooperative Extremities: No cyanosis, Capillary Refill Less than 3 Seconds, No Calf Tenderness - negative sia and gomez sign, Diminished Peripheral Pulses, Edema - bilateral lower extremity Skin: Ulcer/ Wound - no purulence, no erythema, no streaking not odor, no eschar, - - peripheral skin atrophic. there is full epithelialization noted to the left 2nd toe Wound Measurements and Assessment WC - Nurse 1 - General Ulcer Measurement Start: 05/05/18 15:25 Freq: Status: Active Protocol: Activity Type Activity Date Activity User E-Sign Co-Sign Detail Recorded Client Recorded Date Recorded By Document 05/19/18 14:45 [email or web address] [id number] 05/19/18 14:53 DL 05/19/18 14:45 Wound Center Nurse 1 [Ulcer Assessment] #10 R Junior -Current Size (cm) - Length 3.8 -Current Size (cm) - Width 3 -Current Size (cm) - Depth 0.1 -Total Square Cm 11.4 -Photo Taken Yes -Classification - Thickness Full Thickness without Exposed Support Structure -Exudate Amt Small (1-33%) -Exudate Type Serosanguineous -Wound Margin Distinct, Outline Attached -Granulation Amt Large (67-100%) -Granulation Quality Red -Necrosis Amt None Present (0 %) -Structure Exposed N/A -Texture (Candy-wound Skin Appearance) Scarring -Moisture (Candy-wound Skin Appearance Maceration ) -Color (Candy-wound Skin Appearance) Hemosiderin Staining -Temperature (Candy-wound Skin No Abnormality Appearance) (Pt Warm) -Ulcer Cleansing Wound Cleanser -Foul Odor after Cleansing No -Anesthetic Used 4% Lidocaine Solution 9. left 3rd toe -Current Size (cm) - Length 0 -Current Size (cm) - Width 0 -Current Size (cm) - Depth 0 -Total Square Cm 0 -Photo Taken Yes -Exudate Amt None Present (0 %) -Wound Margin Flat & Intact -Granulation Amt Medium (34-66%) -Granulation Quality [place] -Necrosis Amt None Present (0 %) -Structure Exposed N/A -Texture (Candy-wound Skin Appearance) Scarring -Moisture (Candy-wound Skin Appearance Dry/Scaly ) -Color (Candy-wound Skin Appearance) Hemosiderin Staining -Temperature (Candy-wound Skin No Abnormality Appearance) (Pt Warm) -Ulcer Cleansing Rinsed/ Irrigated with Saline -Foul Odor after Cleansing No [Edema Assessment] -Right Calf (cm) 50 -Right Ankle (cm) 30 -Left Calf (cm) 47.5 -Left Ankle (cm) 29 WC - Nurse 2 - General Ulcer CM Notes Start: 05/05/18 15:25 Freq: Status: Active Protocol: Activity Type Activity Date Activity User E-Sign Co-Sign Detail Recorded Client Recorded Date Recorded By Document 05/19/18 15:45 [email or web address] [id number] 05/19/18 15:46 [email or web address] 05/19/18 15:45 Wound Center Nurse 2 [Procedure/Treatment] #10 R Junior -Time 15:46 -Correct Patient Yes -Correct Side, Site, Position Yes -Correct Procedure Yes -Procedure Performed Yes -Type of Procedure Debridement -Clinical Debridement Subcutaneous -Post Debridement Size (cm) - Length 3.9 -Post Debridement Size (cm) - Width 3.1 -Post Debridement Size (cm) - Depth 0.1 -Total Square Cm 12.09 -Wound/Ulcer Outcome Not Healed -Ulcer Cleansing Rinsed/ Irrigated with Saline -Foul Odor after Cleansing No -Bioengineered Tissue No -Bleeding Controlled with Pressure -Treatment Response Procedure Tolerated Well 9. left 3rd toe -Correct Patient No -Correct Side, Site, Position No -Correct Procedure No -Procedure Performed No -Wound/Ulcer Outcome Healed- Epithelialized [See Physician Procedure note for Specifics] Pain Scale: 0-10 Numeric [Pain] -Is Patient Pain Free? Yes Musculoskeletal: No Tenderness to Palpation of Joints or Extremities, Muscle Wasting, - - compartments remain soft to the lower extremities. Neurological: - - altered sensation to light touch bilateral lower extremities. Psych/Mental Status: Normal Affect, Appropriate Debridement Note Post-Debridement Measurements/Treatment WC - Nurse 2 - General Ulcer CM Notes Start: 05/05/18 15:25 Freq: Status: Active Protocol: Activity Type Activity Date Activity User E-Sign Co-Sign Detail Recorded Client Recorded Date Recorded By Document 05/05/18 15:54 [id number] 05/05/18 15:55 Document 05/12/18 16:32 [id number] 05/12/18 16:34 Document 05/19/18 15:45 [id number] 05/19/18 15:46 05/05/18 05/12/18 05/19/18 15:54 16:32 15:45 Wound Center Nurse 2 #10 R Junior -Time 15:46 -Correct Patient Yes -Correct Side, Site, Position Yes -Correct Procedure Yes -Procedure Performed Yes -Type of Procedure Debridement -Clinical Debridement Subcutaneous -Post Debridement Size (cm) - Length 3.9 -Post Debridement Size (cm) - Width 3.1 -Post Debridement Size (cm) - Depth 0.1 -Total Square Cm 12.09 -Wound/Ulcer Outcome Not Healed -Ulcer Cleansing Rinsed/ Irrigated with Saline -Foul Odor after Cleansing No -Bioengineered Tissue No -Bleeding Controlled with Pressure -Treatment Response Procedure Tolerated Well 9. left 3rd toe -Time 15:54 16:32 -Correct Patient Yes Yes No -Correct Side, Site, Position Yes Yes No -Correct Procedure Yes Yes No -Procedure Performed Yes Yes No -Type of Procedure Debridement Debridement -Clinical Debridement Subcutaneous Subcutaneous -Post Debridement Size (cm) - Length 1 0.2 -Post Debridement Size (cm) - Width 2 0.2 -Post Debridement Size (cm) - Depth 0.1 0.1 -Total Square Cm 2 0.04 -Wound/Ulcer Outcome Not Healed Not Healed Healed- Epithelialized -Ulcer Cleansing Rinsed/ Rinsed/ Irrigated with Irrigated with Saline Saline -Foul Odor after Cleansing No No -Bioengineered Tissue No No -Topical Lidocaine (%) 4 -Bleeding Controlled with Pressure Pressure -Treatment Response Procedure Procedure Tolerated Well Tolerated Well Pain Scale: 0-10 Numeric Is Patient Pain Free? Yes Yes Yes Wound debrided: leg Laterality: Right Type of Debridement: Excisional debridement Anesthesia Used: 4% Lidocaine Solution Depth: in the subcutaneous layer Percentage of wound debrided: 100 Instrument Used: #15 blade Tissue Removed: fibrous, devitalized subcutaneous, biofilm, slough Severity: Fat Layer Exposed Amount of bleeding with debridement: Mild Bleeding Controlled with: Pressure Patient tolerated procedure well Assessment/Plan Assessment: right leg ulcer with fat layer exposed, new, no infection. left third toe ulcer, healed. Lower extremity edema. Venous insufficiency. Lymphedema. Diabetes with complications. Compliance challenge Plan: I reviewed and discussed his case today. Subcutaneous excisional debridement was performed as noted in the clinical panel to the left toe. Hydrogel was applied; to change 1-2 days. He was reassured no infection was noted. Incompetent veins were previously noted on the venous Doppler he is referred to Dr. Pearson for potential intervention to assist in timely wound healing and future prevention. He is following up as advised. To elevate the legs at rest and to avoid idle sitting and standing. To continue to offload with a surgical shoe; this is noted today. To continue CircAid compression dressings. I also recommend a lymphedema clinic referral or compression pumps may also be considered in the future. To continue to use a non-irritating soap for personal hygiene daily. He is progressing well. Her new ulcer status is noted on the right lower extremity. Debridement was performed as noted in the clinic panel. I answered all his questions. To return to clinic in 1 week or call sooner if he has any questions or concerns.
[2018-05-26 15:57] VITALS: BP 128/70; PULSE 80; RESP 18; TEMP 36.4
--- NOTE | 2018-05-26 17:43 | PN.PCM_ITS ---
(1) Ulcer of right lower extremity with fat layer exposed Status: Chronic Current Visit: Yes Code(s): L97.912 - Non-pressure chronic ulcer of unspecified part of right lower leg with fat layer exposed (2) Edema of both legs Status: Chronic Current Visit: Yes Code(s): R60.0 - Localized edema (3) Lymphedema Status: Chronic Current Visit: Yes Code(s): I89.0 - Lymphedema, not elsewhere classified Type of Wound Date of Service: 05/26/18 Chief Complaint: right leg ulcer History of Wound: This 52-year-old male with multiple comorbidities presents for follow-up of chronic leg swelling and left toe ulcer that has been present for a few weeks. He denies drainage and thinks this site healed. He denies illness. He had CircAid compression dressings. He denies fever, chill, nausea, vomiting, loss of appetite, calf pain, shortness of breath or chest pain. He denies redness or odor. Progress of Wound: right leg ulcer - Physical Exam Vital Signs Temp Pulse Resp BP 97.6 F L 80 18 128/70 H 05/26/18 15:57 05/26/18 15:57 05/26/18 15:57 05/26/18 15:57 General: Alert, Oriented x3, Cooperative Extremities: No cyanosis, Capillary Refill Less than 3 Seconds, No Calf Tenderness - negative sia and gomez signs bilateral, Diminished Peripheral Pulses, Edema Skin: Ulcer/ Wound - no purulence, no erythema, no infection, no eschar, no infection noted bilateral Wound Measurements and Assessment WC - Nurse 1 - General Ulcer Measurement Start: 05/05/18 15:25 Freq: Status: Active Protocol: Activity Type Activity Date Activity User E-Sign Co-Sign Detail Recorded Client Recorded Date Recorded By Document 05/26/18 15:57 [id number] 05/26/18 16:01 05/26/18 15:57 Wound Center Nurse 1 [Ulcer Assessment] #10 R Junior -Combined with other wound No -Current Size (cm) - Length 2.7 -Current Size (cm) - Width 2.3 -Current Size (cm) - Depth 0.1 -Total Square Cm 6.21 -Photo Taken No -Epithelialization Large 67-100% -Tunneling No -Undermining/Tunneling No -Circular Undermining No -Exudate Amt Small (1-33%) -Exudate Type Serosanguineous -Wound Margin Flat & Intact -Granulation Amt Large (67-100%) -Granulation Quality Red -Slough/Fibrin Yes -Necrosis Amt Small (1-33%) -Necrotic Tissue Type Adherent Slough -Structure Exposed N/A -Texture (Candy-wound Skin Appearance) Assessed Localized Edema -Moisture (Candy-wound Skin Appearance Assessed ) Dry/Scaly -Color (Candy-wound Skin Appearance) Assessed -Temperature (Candy-wound Skin No Abnormality Appearance) (Pt Warm) -Tenderness on Palpation (Candy-wound No Skin Appearance) -Ulcer Cleansing Rinsed/ Irrigated with Saline -Foul Odor after Cleansing No -Anesthetic Used 5% Lidocaine Gel [Edema Assessment] -Lower Limb Edema Present Yes -Right Calf (cm) 52.1 -Right Ankle (cm) 31.3 WC - Nurse 2 - General Ulcer CM Notes Start: 05/05/18 15:25 Freq: Status: Active Protocol: Activity Type Activity Date Activity User E-Sign Co-Sign Detail Recorded Client Recorded Date Recorded By Document 05/26/18 16:39 [id number] 05/26/18 16:40 05/26/18 16:39 Wound Center Nurse 2 [Procedure/Treatment] #10 R Junior -Time 16:40 -Correct Patient Yes -Correct Side, Site, Position Yes -Correct Procedure Yes -Procedure Performed Yes -Type of Procedure Debridement -Clinical Debridement Subcutaneous -Post Debridement Size (cm) - Length 3.0 -Post Debridement Size (cm) - Width 2.5 -Post Debridement Size (cm) - Depth 0.1 -Total Square Cm 7.50 -Wound/Ulcer Outcome Not Healed -Ulcer Cleansing Rinsed/ Irrigated with Saline -Foul Odor after Cleansing No -Bioengineered Tissue No -Topical Lidocaine (%) 4 -Bleeding Controlled with Pressure -Treatment Response Procedure Tolerated Well [See Physician Procedure note for Specifics] Pain Scale: 0-10 Numeric [Pain] -Is Patient Pain Free? Yes Musculoskeletal: No Tenderness to Palpation of Joints or Extremities, Muscle Wasting Neurological: Sensory exam intact to light touch and pain Psych/Mental Status: Normal Affect, Appropriate Debridement Note Post-Debridement Measurements/Treatment WC - Nurse 2 - General Ulcer CM Notes Start: 05/05/18 15:25 Freq: Status: Active Protocol: Activity Type Activity Date Activity User E-Sign Co-Sign Detail Recorded Client Recorded Date Recorded By Document 05/05/18 15:54 [id number] 05/05/18 15:55 Document 05/12/18 16:32 [id number] 05/12/18 16:34 Document 05/19/18 15:45 [id number] 05/19/18 15:46 Document 05/26/18 16:39 [id number] 05/26/18 16:40 05/05/18 05/12/18 05/19/18 15:54 16:32 15:45 Wound Center Nurse 2 #10 R Junior -Time 15:46 -Correct Patient Yes -Correct Side, Site, Position Yes -Correct Procedure Yes -Procedure Performed Yes -Type of Procedure Debridement -Clinical Debridement Subcutaneous -Post Debridement Size (cm) - Length 3.9 -Post Debridement Size (cm) - Width 3.1 -Post Debridement Size (cm) - Depth 0.1 -Total Square Cm 12.09 -Wound/Ulcer Outcome Not Healed -Ulcer Cleansing Rinsed/ Irrigated with Saline -Foul Odor after Cleansing No -Bioengineered Tissue No -Topical Lidocaine (%) -Bleeding Controlled with Pressure -Treatment Response Procedure Tolerated Well 9. left 3rd toe -Time 15:54 16:32 -Correct Patient Yes Yes No -Correct Side, Site, Position Yes Yes No -Correct Procedure Yes Yes No -Procedure Performed Yes Yes No -Type of Procedure Debridement Debridement -Clinical Debridement Subcutaneous Subcutaneous -Post Debridement Size (cm) - Length 1 0.2 -Post Debridement Size (cm) - Width 2 0.2 -Post Debridement Size (cm) - Depth 0.1 0.1 -Total Square Cm 2 0.04 -Wound/Ulcer Outcome Not Healed Not Healed Healed- Epithelialized -Ulcer Cleansing Rinsed/ Rinsed/ Irrigated with Irrigated with Saline Saline -Foul Odor after Cleansing No No -Bioengineered Tissue No No -Topical Lidocaine (%) 4 -Bleeding Controlled with Pressure Pressure -Treatment Response Procedure Procedure Tolerated Well Tolerated Well Pain Scale: 0-10 Numeric Is Patient Pain Free? Yes Yes Yes 05/26/18 16:39 Wound Center Nurse 2 #10 R Junior -Time 16:40 -Correct Patient Yes -Correct Side, Site, Position Yes -Correct Procedure Yes -Procedure Performed Yes -Type of Procedure Debridement -Clinical Debridement Subcutaneous -Post Debridement Size (cm) - Length 3.0 -Post Debridement Size (cm) - Width 2.5 -Post Debridement Size (cm) - Depth 0.1 -Total Square Cm 7.50 -Wound/Ulcer Outcome Not Healed -Ulcer Cleansing Rinsed/ Irrigated with Saline -Foul Odor after Cleansing No -Bioengineered Tissue No -Topical Lidocaine (%) 4 -Bleeding Controlled with Pressure -Treatment Response Procedure Tolerated Well 9. left 3rd toe -Time -Correct Patient -Correct Side, Site, Position -Correct Procedure -Procedure Performed -Type of Procedure -Clinical Debridement -Post Debridement Size (cm) - Length -Post Debridement Size (cm) - Width -Post Debridement Size (cm) - Depth -Total Square Cm -Wound/Ulcer Outcome -Ulcer Cleansing -Foul Odor after Cleansing -Bioengineered Tissue -Topical Lidocaine (%) -Bleeding Controlled with -Treatment Response Pain Scale: 0-10 Numeric Is Patient Pain Free? Yes Wound debrided: leg Laterality: Right Type of Debridement: Excisional debridement Anesthesia Used: 4% Lidocaine Solution Depth: in the subcutaneous layer Percentage of wound debrided: 100 Instrument Used: #15 blade Tissue Removed: fibrous, devitalized subcutaneous, biofilm, slough Severity: Fat Layer Exposed Amount of bleeding with debridement: Mild Bleeding Controlled with: Pressure Patient tolerated procedure well Assessment/Plan Active Problems Hammertoe of left foot (Chronic) Ulcer of right lower extremity with fat layer exposed (Chronic) Edema of both legs (Chronic) Lymphedema (Chronic) Assessment: right leg ulcer with fat layer exposed, new, no infection. left third toe ulcer, healed. Lower extremity edema. Venous insufficiency. Lymphedema. Diabetes with complications. Compliance challenge Plan: I reviewed and discussed his case today. Subcutaneous excisional debridement was performed as noted in the clinical panel to the left toe. Hydrogel was applied; to change 1-2 days. He was reassured no infection was noted. Incompetent veins were previously noted on the venous Doppler he is referred to Dr. Pearson for potential intervention to assist in timely wound healing and future prevention. He is following up as advised. To elevate the legs at rest and to avoid idle sitting and standing. To continue to offload with a surgical shoe; this is noted today. To continue CircAid compression dressings. I also recommend a lymphedema clinic referral or compression pumps m ay also be considered in the future. To continue to use a non-irritating soap for personal hygiene daily. He is progressing well. Debridement was performed as noted in the clinic panel to the right leg. I answered all his questions. To return to clinic in 1 week or call sooner if he has any questions or concerns.
== END 2018-05-30 23:59 ==
LOC: WC 16:00
PROVIDERS: Visit Provider Podiatrist
DX: E11.621 Type 2 diabetes mellitus with foot ulcer (principal); L97.522 Non-pressure chronic ulcer of other part of left foot with fat layer exposed; R60.0 Localized edema; I89.0 Lymphedema, not elsewhere classified; M20.42 Other hammer toe(s) (acquired), left foot; M79.89 Other specified soft tissue disorders; I87.2 Venous insufficiency (chronic) (peripheral); E11.622 Type 2 diabetes mellitus with other skin ulcer; L97.812 Non-pressure chronic ulcer of other part of right lower leg with fat layer exposed
CPT/HCPCS: 11042

== ENCOUNTER 2018-06-23 14:30 | Outpatient (RCR) | payer MEDICAID, SELFPAY ==
[2018-05-31 00:19] VITALS: BP 128/70; PULSE 80; RESP 18; TEMP 36.4
[2018-06-02 15:02] VITALS: BP 143/91; PULSE 69; RESP 16; TEMP 36.9
--- NOTE | 2018-06-02 17:10 | PN.PCM_ITS ---
(1) Ulcer of right lower extremity with fat layer exposed Status: Chronic Code(s): L97.912 - Non-pressure chronic ulcer of unspecified part of right lower leg with fat layer exposed (2) Edema of both legs Status: Chronic Code(s): R60.0 - Localized edema (3) Venous insufficiency Status: Chronic Code(s): I87.2 - Venous insufficiency (chronic) (peripheral) (4) Malnutrition Status: Chronic Code(s): E46 - Unspecified protein-calorie malnutrition (5) Lymphedema Status: Chronic Code(s): I89.0 - Lymphedema, not elsewhere classified Type of Wound Date of Service: 06/02/18 Chief Complaint: right leg ulcer History of Wound: This 52-year-old male with multiple comorbidities presents for follow-up of chronic leg swelling and left toe ulcer that has been present for a few weeks. He denies drainage and thinks this site healed. He denies illness. He had CircAid compression dressings. He denies fever, chill, nausea, vomiting, loss of appetite, calf pain, shortness of breath or chest pain. He denies redness or odor. Progress of Wound: right leg ulcer - Physical Exam Vital Signs Temp Pulse Resp BP 98.4 F 69 16 143/91 H 06/02/18 15:02 06/02/18 15:02 06/02/18 15:02 06/02/18 15:02 General: Alert, Oriented x3, Cooperative Extremities: No cyanosis, Capillary Refill Less than 3 Seconds, No Calf Tenderness, Diminished Peripheral Pulses, Edema Skin: Ulcer/ Wound - no purulence, no erythema, no streaking, no acute infection. no deep tissue exposed. the peripheral skin is atrophic Wound Measurements and Assessment WC - Nurse 1 - General Ulcer Measurement Start: 06/02/18 14:57 Freq: Status: Active Protocol: Activity Type Activity Date Activity User E-Sign Co-Sign Detail Recorded Client Recorded Date Recorded By Document 06/02/18 15:02 [facility] [id number] 06/02/18 15:09 [facility] 06/02/18 15:02 Wound Center Nurse 1 [Ulcer Assessment] #10 R Junior -Combined with other wound No -Current Size (cm) - Length 2.5 -Current Size (cm) - Width 2 -Current Size (cm) - Depth 0.1 -Total Square Cm 5.0 -Photo Taken No -Epithelialization Medium 34-66% -Tunneling No -Undermining/Tunneling No -Circular Undermining No -Exudate Amt Small (1-33%) -Exudate Type Serosanguineous -Wound Margin Distinct, Outline Attached -Granulation Amt Large (67-100%) -Granulation Quality Red -Slough/Fibrin No -Necrosis Amt None Present (0 %) -Texture (Candy-wound Skin Appearance) Scarring -Moisture (Candy-wound Skin Appearance Dry/Scaly ) -Color (Candy-wound Skin Appearance) Hemosiderin Staining -Temperature (Candy-wound Skin No Abnormality Appearance) (Pt Warm) -Tenderness on Palpation (Candy-wound No Skin Appearance) -Ulcer Cleansing Wound Cleanser -Foul Odor after Cleansing No -Anesthetic Used 4% Lidocaine Solution [Edema Assessment] -Lower Limb Edema Present Yes -Right Calf (cm) 50.5 -Right Ankle (cm) 30.6 -Left Calf (cm) 49 -Left Ankle (cm) 30.2 WC - Nurse 2 - General Ulcer CM Notes Start: 06/02/18 14:57 Freq: Status: Active Protocol: Activity Type Activity Date Activity User E-Sign Co-Sign Detail Recorded Client Recorded Date Recorded By Document 06/02/18 15:26 [id number] 06/02/18 15:27 06/02/18 15:26 Wound Center Nurse 2 [Procedure/Treatment] #10 R Junior -Time 15:27 -Correct Patient Yes -Correct Side, Site, Position Yes -Correct Procedure Yes -Procedure Performed Yes -Type of Procedure Debridement -Clinical Debridement Subcutaneous -Post Debridement Size (cm) - Length 2.6 -Post Debridement Size (cm) - Width 2.1 -Post Debridement Size (cm) - Depth 0.1 -Total Square Cm 5.46 -Wound/Ulcer Outcome Not Healed -Ulcer Cleansing Rinsed/ Irrigated with Saline -Foul Odor after Cleansing No -Bioengineered Tissue No -Topical Lidocaine (%) 4 -Bleeding Controlled with Pressure -Treatment Response Procedure Tolerated Well [See Physician Procedure note for Specifics] Pain Scale: 0-10 Numeric [Pain] -Is Patient Pain Free? Yes Musculoskeletal: No Tenderness to Palpation of Joints or Extremities, Muscle Wasting Neurological: - - lack of normal sensation to light touch leg Psych/Mental Status: Normal Affect, Appropriate Debridement Note Post-Debridement Measurements/Treatment WC - Nurse 2 - General Ulcer CM Notes Start: 06/02/18 14:57 Freq: Status: Active Protocol: Activity Type Activity Date Activity User E-Sign Co-Sign Detail Recorded Client Recorded Date Recorded By Document 06/02/18 15:26 [id number] 06/02/18 15:27 TM 06/02/18 15:26 Wound Center Nurse 2 #10 R Junior -Time 15:27 -Correct Patient Yes -Correct Side, Site, Position Yes -Correct Procedure Yes -Procedure Performed Yes -Type of Procedure Debridement -Clinical Debridement Subcutaneous -Post Debridement Size (cm) - Length 2.6 -Post Debridement Size (cm) - Width 2.1 -Post Debridement Size (cm) - Depth 0.1 -Total Square Cm 5.46 -Wound/Ulcer Outcome Not Healed -Ulcer Cleansing Rinsed/ Irrigated with Saline -Foul Odor after Cleansing No -Bioengineered Tissue No -Topical Lidocaine (%) 4 -Bleeding Controlled with Pressure -Treatment Response Procedure Tolerated Well Pain Scale: 0-10 Numeric Is Patient Pain Free? Yes Wound debrided: leg Laterality: Right Type of Debridement: Excisional debridement Anesthesia Used: 4% Lidocaine Solution Depth: in the subcutaneous layer Percentage of wound debrided: 100 Instrument Used: #15 blade Tissue Removed: fibrous, devitalized subcutaneous, biofim, slough Severity: Fat Layer Exposed Amount of bleeding with debridement: Mild Bleeding Controlled with: Pressure Patient tolerated procedure well Assessment/Plan Assessment: right leg ulcer with fat layer exposed, no infection. left third toe ulcer, healed. Lower extremity edema. Venous insufficiency. Lymphedema. Diabetes with complications. Compliance challenge Plan: I reviewed and discussed his case today. Subcutaneous excisional debridement was performed as noted in the clinical panel to the left toe. Hydrogel was applied; to change 1-2 days. He was reassured no infection was noted. Incompetent veins were previously noted on the venous Doppler he is referred to Dr. Pearson for potential intervention to assist in timely wound healing and future prevention. He is following up as advised. To elevate the legs at rest and to avoid idle sitting and standing. To wear protective shoes.To continue CircAid compression dressings. I also recommend a lymphedema clinic referral or compression pumps may also be considered in the future. To continue to use a non-irritating soap for personal hygiene daily. He is progressing well. Debridement was performed as noted in the clinic panel to the right leg. To change dressing with noah daily at this time. I recommend advance wound care product application to optimize a faster healing rate; epifix. The indications, planned procedure, benefits, risks, and anticipated stage management were discussed. he is amendable and prior authorization will be initiated. This is medically necessary and he has a h/o of delayed and poor healing. I answered all his questions. To return to clinic in 1 week or call sooner if he has any questions or concerns.
[2018-06-09 13:16] VITALS: BP 142/74; PULSE 73; RESP 18; TEMP 37.1
--- NOTE | 2018-06-09 14:59 | PCM.WC.PN ---
(1) Ulcer of right lower extremity with fat layer exposed Status: Chronic Current Visit: Yes Code(s): L97.912 - Non-pressure chronic ulcer of unspecified part of right lower leg with fat layer exposed (2) Edema of both legs Status: Chronic Current Visit: Yes Code(s): R60.0 - Localized edema (3) Venous insufficiency Status: Chronic Current Visit: Yes Code(s): I87.2 - Venous insufficiency (chronic) (peripheral) (4) Malnutrition Status: Chronic Current Visit: Yes Code(s): E46 - Unspecified protein-calorie malnutrition (5) Lymphedema Status: Chronic Current Visit: Yes Code(s): I89.0 - Lymphedema, not elsewhere classified Type of Wound Date of Service: 06/09/18 Chief Complaint: right leg ulcer History of Wound: This 53-year-old male with multiple comorbidities presents for follow-up of chronic leg swelling and left toe ulcer that has been present for a few weeks. He denies drainage and thinks this site healed. He denies illness. He had CircAid compression dressings. He denies fever, chill, nausea, vomiting, loss of appetite, calf pain, shortness of breath or chest pain. He denies redness or odor. Progress of Wound: right leg ulcer - Physical Exam Vital Signs Temp Pulse Resp BP 98.7 F 73 18 142/74 H 06/09/18 13:16 06/09/18 13:16 06/09/18 13:16 06/09/18 13:16 General: Alert, Oriented x3, Cooperative Extremities: No cyanosis, Capillary Refill Less than 3 Seconds, No Calf Tenderness - Negative Aline and Tamayo sign bilateral, Diminished Peripheral Pulses, Edema - Bilateral lower extremities with associated hyperpigmentation unchanged compared to previous visits Skin: Ulcer/ Wound - No purulence, no erythema, streaking, no odor, no infection bilateral. The ulcer site is stellate shaped today and there is some peripheral epithelialization noted. The peripheral skin is hairless and atrophic. No blisters or maceration are noted Wound Measurements and Assessment WC - Nurse 1 - General Ulcer Measurement Start: 06/02/18 14:57 Freq: Status: Active Protocol: Activity Type Activity Date Activity User E-Sign Co-Sign Detail Recorded Client Recorded Date Recorded By Document 06/09/18 13:16 RB [id number] 06/09/18 13:21 RB 06/09/18 13:16 Wound Center Nurse 1 [Ulcer Assessment] #10 R Junior -Combined with other wound No -Current Size (cm) - Length 1.6 -Current Size (cm) - Width 2 -Current Size (cm) - Depth 0.1 -Total Square Cm 3.2 -Photo Taken No -Exudate Amt Medium (34-66%) -Exudate Type Serosanguineous -Wound Margin Distinct, Outline Attached -Granulation Amt Medium (34-66%) -Granulation Quality Red -Necrosis Amt Medium (34-66%) -Necrotic Tissue Type Adherent Slough -Structure Exposed N/A -Texture (Candy-wound Skin Appearance) Localized Edema Scarring -Moisture (Cadny-wound Skin Appearance Maceration ) -Color (Candy-wound Skin Appearance) Hemosiderin Staining -Temperature (Candy-wound Skin No Abnormality Appearance) (Pt Warm) -Ulcer Cleansing Wound Cleanser -Foul Odor after Cleansing No -Anesthetic Used 4% Lidocaine Solution [Edema Assessment] -Right Calf (cm) 50.5 -Right Ankle (cm) 30 -Left Calf (cm) 52.2 -Left Ankle (cm) 29.3 WC - Nurse 2 - General Ulcer CM Notes Start: 06/02/18 14:57 Freq: Status: Active Protocol: Activity Type Activity Date Activity User E-Sign Co-Sign Detail Recorded Client Recorded Date Recorded By Document 06/09/18 13:35 RB [id number] 06/09/18 13:40 RB 06/09/18 13:35 Wound Center Nurse 2 [Procedure/Treatment] #10 R Junior -Time 13:36 -Correct Patient Yes -Correct Side, Site, Position Yes -Correct Procedure Yes -Procedure Performed Yes -Type of Procedure Debridement -Clinical Debridement Subcutaneous -Post Debridement Size (cm) - Length 2.6 -Post Debridement Size (cm) - Width 2.0 -Post Debridement Size (cm) - Depth 0.1 -Total Square Cm 5.20 -Wound/Ulcer Outcome Not Healed -Ulcer Cleansing Rinsed/ Irrigated with Saline -Foul Odor after Cleansing No -Bioengineered Tissue No -Bleeding Controlled with Pressure -Treatment Response Procedure Tolerated Well [See Physician Procedure note for Specifics] Pain Scale: 0-10 Numeric [Pain] -Is Patient Pain Free? Yes Musculoskeletal: No Tenderness to Palpation of Joints or Extremities, Muscle Wasting, - - Compartments are soft to touch right lower extremity Neurological: - - Lack of epicritic sensation light touch right lower extremity Psych/Mental Status: Normal Affect, Appropriate Debridement Note Post-Debridement Measurements/Treatment WC - Nurse 2 - General Ulcer CM Notes Start: 06/02/18 14:57 Freq: Status: Active Protocol: Activity Type Activity Date Activity User E-Sign Co-Sign Detail Recorded Client Recorded Date Recorded By Document 06/02/18 15:26 TM [id number] 06/02/18 15:27 TM Document 06/09/18 13:35 RB [id number] 06/09/18 13:40 RB 06/02/18 06/09/18 15:26 13:35 Wound Center Nurse 2 #10 R Ujnior -Time 15:27 13:36 -Correct Patient Yes Yes -Correct Side, Site, Position Yes Yes -Correct Procedure Yes Yes -Procedure Performed Yes Yes -Type of Procedure Debridement Debridement -Clinical Debridement Subcutaneous Subcutaneous -Post Debridement Size (cm) - Length 2.6 2.6 -Post Debridement Size (cm) - Width 2.1 2.0 -Post Debridement Size (cm) - Depth 0.1 0.1 -Total Square Cm 5.46 5.20 -Wound/Ulcer Outcome Not Healed Not Healed -Ulcer Cleansing Rinsed/ Rinsed/ Irrigated with Irrigated with Saline Saline -Foul Odor after Cleansing No No -Bioengineered Tissue No No -Topical Lidocaine (%) 4 -Bleeding Controlled with Pressure Pressure -Treatment Response Procedure Procedure Tolerated Well Tolerated Well Pain Scale: 0-10 Numeric Is Patient Pain Free? Yes Yes Wound debrided: leg Laterality: Right Type of Debridement: Excisional debridement Anesthesia Used: 4% Lidocaine Solution Depth: in the subcutaneous layer Percentage of wound debrided: 100 Instrument Used: #15 blade Tissue Removed: fibrous, devitalized subcutaneous, biofilm, slough Severity: Fat Layer Exposed Amount of bleeding with debridement: Mild Bleeding Controlled with: Pressure Patient tolerated procedure well Assessment/Plan Active Problems Ulcer of right lower extremity with fat layer exposed (Chronic) Edema of both legs (Chronic) Venous insufficiency (Chronic) Malnutrition (Chronic) Lymphedema (Chronic) Assessment: right leg ulcer with fat layer exposed, no infection. Lower extremity edema. Venous insufficiency. Lymphedema. Diabetes with complications. Compliance challenge Plan: I reviewed and discussed his case today. Subcutaneous excisional debridement was performed as noted in the clinical panel to the left toe. Hydrogel was applied; to change 1-2 days. He was reassured no infection was noted. Incompetent veins were previously noted on the venous Doppler he is referred to Dr. Pearson for potential intervention to assist in timely wound healing and future prevention. He is following up as advised. To elevate the legs at rest and to avoid idle sitting and standing. To wear protective shoes.To continue CircAid compression dressings. I also recommend a lymphedema clinic referral or compression pumps may also be considered in the future. To continue to use a non-irritating soap for personal hygiene daily. He is progressing well. Debridement was performed as noted in the clinic panel to the right leg. To change dressing with noah daily at this time. I recommend advance wound care product application to optimize a faster healing rate; epifix. This prior authorization is still pending and was confirmed today. The indications, planned procedure, benefits, risks, and anticipated stage management were discussed. This is medically necessary to optimize timely healing. I answered all his questions. To return to clinic in 1 week or call sooner if he has any questions or concerns.
[2018-06-16 14:07] VITALS: BP 141/74; PULSE 74; RESP 18; TEMP 37.3
--- NOTE | 2018-06-16 14:36 | PN.PCM_ITS ---
(1) Ulcer of right lower extremity with fat layer exposed Status: Chronic Current Visit: Yes Code(s): L97.912 - Non-pressure chronic ulcer of unspecified part of right lower leg with fat layer exposed (2) Edema of both legs Status: Chronic Current Visit: Yes Code(s): R60.0 - Localized edema (3) Venous insufficiency Status: Chronic Current Visit: Yes Code(s): I87.2 - Venous insufficiency (chronic) (peripheral) (4) Malnutrition Status: Chronic Current Visit: Yes Code(s): E46 - Unspecified protein- calorie malnutrition (5) Lymphedema Status: Chronic Current Visit: Yes Code(s): I89.0 - Lymphedema, not elsewhere classified Type of Wound Date of Service: 06/16/18 Chief Complaint: right leg ulcer History of Wound: This 53-year-old male with multiple comorbidities presents for follow-up of chronic leg swelling and left toe ulcer that has been present for a few weeks. He denies drainage and thinks this site healed. He denies illness. He had CircAid compression dressings. He denies fever, chill, nausea, vomit ing, loss of appetite, calf pain, shortness of breath or chest pain. He denies redness or odor. Progress of Wound: right leg ulcer - Physical Exam Vital Signs Temp Pulse Resp BP 99.1 F 74 18 141/74 H 06/16/18 14:07 06/16/18 14:07 06/16/18 14:07 06/16/18 14:07 General: Alert, Oriented x3, Cooperative Extremities: No cyanosis, Capillary Refill Less than 3 Seconds, No Calf Tenderness - Negative Aline and Tamayo sign bilateral, Diminished Peripheral Pulses, Edema - Bilateral lower extremities Skin: Ulcer/ Wound - No purulence, erythema, streaking, odor, or acute infection. Peripheral epithelialization is noted. The adjacent skin is fuchs irless and atrophic right leg Wound Measurements and Assessment WC - Nurse 1 - General Ulcer Measurement Start: 06/02/18 14:57 Freq: Status: Active Protocol: Activity Type Activity Date Activity User E-Sign Co-Sign Detail Recorded Client Recorded Date Recorded By Document 06/16/18 14:07 TN [id number] 06/16/18 14:12 TN 06/16/18 14:07 Wound Center Nurse 1 [Ulcer Assessment] #10 R Junior -Combined with other wound No -Current Size (cm) - Length 0.3 -Current Size (cm) - Width 0.5 -Current Size (cm) - Depth 0.1 -Total Square Cm 0.15 -Photo Taken No -Epithelialization None Present -Tunneling No -Undermining/Tunneling No -Circular Undermining No -Classification - Thickness Full Thickness without Exposed Support Structure -Change in Wound Grade/Stage No Query Text:If change please identify the Stage/Grade in the comment (ie. S2 G3) -Exudate Amt Small (1-33%) -Exudate Type Serosanguineous -Wound Margin Distinct, Outline Attached -Granulation Amt Large (67-100%) -Granulation Quality Red -Slough/Fibrin Yes -Necrotic Tissue Type Adherent Slough -Structure Exposed None/Limited to Skin Breakdown -Texture (Candy-wound Skin Appearance) Assessed Scarring -Moisture (Candy-wound Skin Appearance No Abnormality ) Assessed -Color (Candy-wound Skin Appearance) Assessed Hemosiderin Staining -Temperature (Candy-wound Skin No Abnormality Appearance) (Pt Warm) -Tenderness on Palpation (Candy-wound No Skin Appearance) -Ulcer Cleansing Rinsed/ Irrigated with Saline -Foul Odor after Cleansing No -Anesthetic Used 4% Lidocaine Solution [Edema Assessment] -Lower Limb Edema Present Yes -Right Calf (cm) 51 -Right Ankle (cm) 31 -Left Calf (cm) 49.6 -Left Ankle (cm) 31.5 WC - Nurse 2 - General Ulcer CM Notes Start: 06/02/18 14:57 Freq: Status: Active Protocol: Activity Type Activity Date Activity User E-Sign Co-Sign Detail Recorded Client Recorded Date Recorded By Document 06/16/18 14:33 [id number] 06/16/18 14:34 06/16/18 14:33 Wound Center Nurse 2 [Procedure/Treatment] #10 R Junior -Time 14:33 -Correct Patient Yes -Correct Side, Site, Position Yes -Correct Procedure Yes -Procedure Performed Yes -Type of Procedure Debridement -Clinical Debridement Subcutaneous -Post Debridement Size (cm) - Length 0.3 -Post Debridement Size (cm) - Width 0.3 -Post Debridement Size (cm) - Depth 0.1 -Total Square Cm 0.09 -Wound/Ulcer Outcome Not Healed -Ulcer Cleansing Rinsed/ Irrigated with Saline -Foul Odor after Cleansing No -Bioengineered Tissue No -Topical Lidocaine (%) 4 -Bleeding Controlled with Pressure -Treatment Response Procedure Tolerated Well [See Physician Procedure note for Specifics] Pain Scale: 0-10 Numeric [Pain] -Is Patient Pain Free? Yes Musculoskeletal: No Tenderness to Palpation of Joints or Extremities, Muscle Wasting Neurological: - - Lack of normal epicritic sensation light touch no pain with wound manipulation Psych/Mental Status: Normal Affect, Appropriate Debridement Note Post-Debridement Measurements/Treatment WC - Nurse 2 - General Ulcer CM Notes Start: 06/02/18 14:57 Freq: Status: Active Protocol: Activity Type Activity Date Activity User E-Sign Co-Sign Detail Recorded Client Recorded Date Recorded By Document 06/02/18 15:26 TM [id number] 06/02/18 15:27 TM Document 06/09/18 13:35 RB [id number] 06/09/18 13:40 RB Document 06/16/18 14:33 TM [id number] 06/16/18 14:34 TM 06/02/18 06/09/18 06/16/18 15:26 13:35 14:33 Wound Center Nurse 2 #10 R Junior -Time 15:27 13:36 14:33 -Correct Patient Yes Yes Yes -Correct Side, Site, Position Yes Yes Yes -Correct Procedure Yes Yes Yes -Procedure Performed Yes Yes Yes -Type of Procedure Debridement Debridement Debridement -Clinical Debridement Subcutaneous Subcutaneous Subcutaneous -Post Debridement Size (cm) - Length 2.6 2.6 0.3 -Post Debridement Size (cm) - Width 2.1 2.0 0.3 -Post Debridement Size (cm) - Depth 0.1 0.1 0.1 -Total Square Cm 5.46 5.20 0.09 -Wound/Ulcer Outcome Not Healed Not Healed Not Healed -Ulcer Cleansing Rinsed/ Rinsed/ Rinsed/ Irrigated with Irrigated with Irrigated with Saline Saline Saline -Foul Odor after Cleansing No No No -Bioengineered Tissue No No No -Topical Lidocaine (%) 4 4 -Bleeding Controlled with Pressure Pressure Pressure -Treatment Response Procedure Procedure Procedure Tolerated Well Tolerated Well Tolerated Well Pain Scale: 0-10 Numeric Is Patient Pain Free? Yes Yes Yes Wound debrided: leg Laterality: Right Type of Debridement: Excisional debridement Anesthesia Used: 4% Lidocaine Solution Depth: in the subcutaneous layer Percentage of wound debrided: 100 Instrument Used: #15 blade Tissue Removed: fibrous, devitalized subcutaneous, biofilm, slough Severity: Fat Layer Exposed Amount of bleeding with debridement: Mild Bleeding Controlled with: Pressure Patient tolerated procedure well Assessment/Plan Active Problems Ulcer of right lower extremity with fat layer exposed (Chronic) Edema of both legs (Chronic) Venous insufficiency (Chronic) Malnutrition (Chronic) Lymphedema (Chronic) Assessment: right leg ulcer with fat layer exposed, no infection. Lower extremity edema. Venous insufficiency. Lymphedema. Diabetes with compli cations. Compliance challenge Plan: I reviewed and discussed his case today. Subcutaneous excisional debridement was performed as noted in the clinical panel to the left toe. Hydrogel was applied; to change 1-2 days. He was reassured no infection was noted. Incompetent veins were previously noted on the venous Doppler he is referred to Dr. Pearson for potential intervention to assist in timely wound healing and future prevention. He is following up as advised. To elevate the legs at rest and to avoid idle sitting and standing. To wear protective shoes.To continue CircAid compression dressings. I also recommend a lymphedema clinic referral or compression pumps may also be considered in the future. To continue to use a non-irritating soap for personal hygiene daily. He is progressing well. Debridement was performed as noted in the clinic panel to the right leg. To change dressing with noah daily at this time. I recommend advance wound care product application to optimize a faster healing rate; epifix. This prior authorization is still pending and was confirmed today. The indications, planned procedure, benefits, risks, and anticipated stage management were discussed. This is medically necessary to optimize timely healing. I answered all his questions. To return to clinic in 1 week or call sooner if he has any questions or concerns.
[2018-06-23 14:22] VITALS: BP 168/85; PULSE 79; RESP 18; TEMP 36.4
--- NOTE | 2018-06-23 15:05 | PCM.WC.PN ---
(1) Ulcer of right lower extremity with fat layer exposed Status: Resolved Code(s): L97.912 - Non-pressure chronic ulcer of unspecified part of right lower leg with fat layer exposed (2) Edema of both legs Status: Chronic Code(s): R60.0 - Localized edema (3) Venous insufficiency Status: Chronic Code(s): I87.2 - Venous insufficiency (chronic) (peripheral) (4) Malnutrition Status: Chronic Code(s): E46 - Unspecified protein-calorie malnutrition (5) Lymphedema Status: Chronic Code(s): I89.0 - Lymphedema, not elsewhere classified Type of Wound Date of Service: 06/23/18 Chief Complaint: right leg ulcer History of Wound: This 53-year-old male with multiple comorbidities presents for follow-up of chronic leg swelling and left toe ulcer that has been present for a few weeks. He denies drainage and thinks this site healed. He denies illness. He had CircAid compression dressings. He denies leg drainage or redness and thinks the ulcer site has healed. Progress of Wound: Healed - Physical Exam Vital Signs Temp Pulse Resp BP 97.6 F L 79 18 168/85 H 06/23/18 14:22 06/23/18 14:22 06/23/18 14:22 06/23/18 14:22 General: Alert, Oriented x3, Cooperative Extremities: No cyanosis, Capillary Refill Less than 3 Seconds, No Calf Tenderness - Negative Aline and Tamayo sign bilateral, Diminished Peripheral Pulses, Edema - Moderate bilateral lower extremities Skin: Ulcer/ Wound - No purulence, erythema, skin, odor, or infection. His leg skin is hairless and atrophic. His skin integrity has improved and appears to be moisturize properly today. There is full epithelialization and the ulcer site is healed Wound Measurements and Assessment WC - Nurse 1 - General Ulcer Measurement Start: 06/02/18 14:57 Freq: Status: Active Protocol: Activity Type Activity Date Activity User E-Sign Co-Sign Detail Recorded Client Recorded Date Recorded By Document 06/23/18 14:22 DV [id number] 06/23/18 14:27 DV 06/23/18 14:22 Wound Center Nurse 1 [Ulcer Assessment] #10 R Junior -Combined with other wound No -Current Size (cm) - Length 0.1 -Current Size (cm) - Width 0.1 -Current Size (cm) - Depth 0.1 -Total Square Cm 0.01 -Photo Taken Yes -Epithelialization Large 67-100% [Edema Assessment] -Lower Limb Edema Present Yes -Right Calf (cm) 49.5 -Right Ankle (cm) 31.0 -Left Calf (cm) 50.0 -Left Ankle (cm) 32.0 - Nurse 2 - General Ulcer CM Notes Start: 06/02/18 14:57 Freq: Status: Active Protocol: Activity Type Activity Date Activity User E-Sign Co-Sign Detail Recorded Client Recorded Date Recorded By Document 06/23/18 14:47 [id number] 06/23/18 14:48 06/23/18 14:47 Wound Center Nurse 2 [Procedure/Treatment] #10 R Junior -Correct Patient No -Correct Side, Site, Position No -Correct Procedure No -Procedure Performed No -Post Debridement Size (cm) - Length 0 -Post Debridement Size (cm) - Width 0 -Post Debridement Size (cm) - Depth 0 -Total Square Cm 0 -Wound/Ulcer Outcome Healed- Epithelialized [See Physician Procedure note for Specifics] Pain Scale: 0-10 Numeric [Pain] -Is Patient Pain Free? Yes Musculoskeletal: No Tenderness to Palpation of Joints or Extremities, Muscle Wasting Neurological: - - Lack of normal epicritic sensation light touch Psych/Mental Status: Normal Affect, Appropriate Debridement Note Post-Debridement Measurements/Treatment - Nurse 2 - General Ulcer CM Notes Start: 06/02/18 14:57 Freq: Status: Active Protocol: Activity Type Activity Date Activity User E-Sign Co-Sign Detail Recorded Client Recorded Date Recorded By Document 06/02/18 15:26 [id number] 06/02/18 15:27 Document 06/09/18 13:35 [id number] 06/09/18 13:40 Document 06/16/18 14:33 [id number] 06/16/18 14:34 Document 06/23/18 14:47 [id number] 06/23/18 14:48 06/02/18 06/09/18 06/16/18 15:26 13:35 14:33 Wound Center Nurse 2 #10 R Junior -Time 15:27 13:36 14:33 -Correct Patient Yes Yes Yes -Correct Side, Site, Position Yes Yes Yes -Correct Procedure Yes Yes Yes -Procedure Performed Yes Yes Yes -Type of Procedure Debridement Debridement Debridement -Clinical Debridement Subcutaneous Subcutaneous Subcutaneous -Post Debridement Size (cm) - Length 2.6 2.6 0.3 -Post Debridement Size (cm) - Width 2.1 2.0 0.3 -Post Debridement Size (cm) - Depth 0.1 0.1 0.1 -Total Square Cm 5.46 5.20 0.09 -Wound/Ulcer Outcome Not Healed Not Healed Not Healed -Ulcer Cleansing Rinsed/ Rinsed/ Rinsed/ Irrigated with Irrigated with Irrigated with Saline Saline Saline -Foul Odor after Cleansing No No No -Bioengineered Tissue No No No -Topical Lidocaine (%) 4 4 -Bleeding Controlled with Pressure Pressure Pressure -Treatment Response Procedure Procedure Procedure Tolerated Well Tolerated Well Tolerated Well Pain Scale: 0-10 Numeric Is Patient Pain Free? Yes Yes Yes 06/23/18 14:47 Wound Center Nurse 2 #10 R Junior -Time -Correct Patient No -Correct Side, Site, Position No -Correct Procedure No -Procedure Performed No -Type of Procedure -Clinical Debridement -Post Debridement Size (cm) - Length 0 -Post Debridement Size (cm) - Width 0 -Post Debridement Size (cm) - Depth 0 -Total Square Cm 0 -Wound/Ulcer Outcome Healed- Epithelialized -Ulcer Cleansing -Foul Odor after Cleansing -Bioengineered Tissue -Topical Lidocaine (%) -Bleeding Controlled with -Treatment Response Pain Scale: 0-10 Numeric Is Patient Pain Free? Yes No debridement was completed today - The ulcer site has healed Assessment/Plan Assessment: right leg ulcer -healed. Lower extremity edema. Venous insufficiency. Lymphedema. Diabetes with complications. Compliance challenge Plan: I reviewed and discussed his case today. No debridement was performed today because all ulcer sites have healed. Incompetent veins were previously noted on the venous Doppler he is referred to Dr. Pearson for potential intervention to assist in timely wound healing and future prevention. He is following up as advised. To elevate the legs at rest and to avoid idle sitting and standing. To wear protective shoes.To continue CircAid compression dressings. To continue to use a non-irritating soap for personal hygiene daily. To moisturize the skin daily to maintain good skin integrity. He has healed well. To discontinue all dressing care because the ulcer site has healed. He is discharged from the wound healing center at this time. To follow-up at the foot and ankle center in the future for any lower extremity issues.
== END 2018-06-30 23:59 ==
LOC: WC 14:30
PROVIDERS: Referring Provider Family Medicine; Visit Provider Podiatrist
DX: E11.622 Type 2 diabetes mellitus with other skin ulcer (principal); I87.2 Venous insufficiency (chronic) (peripheral); L97.812 Non-pressure chronic ulcer of other part of right lower leg with fat layer exposed; R60.0 Localized edema; I89.0 Lymphedema, not elsewhere classified
CPT/HCPCS: 11042; 99213; G0463

== ENCOUNTER 2019-08-26 15:00 | Outpatient (RCR) | payer MEDICAID, SELFPAY ==
[2019-08-05 13:16] VITALS: BP 148/95; PULSE 90; RESP 20; TEMP 37.4; BMI 54.2
--- NOTE | 2019-08-05 19:16 | PCM.WC.HP ---
(1) Cellulitis of left leg Status: Acute Current Visit: Yes Code(s): L03.116 - Cellulitis of left lower limb (2) Cellulitis of right leg Status: Acute Current Visit: Yes Code(s): L03.115 - Cellulitis of right lower limb (3) Ulcer of left lower extremity with fat layer exposed Status: Acute Current Visit: Yes Code(s): L97.922 - Non-pressure chronic ulcer of unspecified part of left lower leg with fat layer exposed (4) Venous insufficiency Status: Chronic Current Visit: Yes Code(s): I87.2 - Venous insufficiency (chronic) (peripheral) (5) Diabetes mellitus with complication Status: Chronic Current Visit: Yes Code(s): E11.8 - Type 2 diabetes mellitus with unspecified complications (6) Lymphedema Status: Chronic Current Visit: Yes Code(s): I89.0 - Lymphedema, not elsewhere classified History of Present Illness Date of Service: 08/05/19 Chief Complaint: left leg ulcers History of Wound: This 53-year-old male with multiple comorbidities presents for evaluation and treatment of ulcers of his left lower leg and edema to both legs. He has been maintaining edema well with Circaids but needed to replace velcro on his circaids and was unable to wear them for a couple of weeks and over that time period his edema has worsened and yesterday his legs started to weep and show signs of ulceration as he has experienced in past so he contacted the wound center to be seen and treated to prevent worsening ulcers. He started using his Circaids again earlier this week but the swelling has not been as controlled. He denies any systemic signs of infection such as nausea, vomiting, fever or chills. He has CircAid compression dressings with him. He admits leg drainage or redness and thinks the ulcer site has healed. Past Medical History Past Medical History: Chronic Problems Hammertoe of left foot (Chronic) Edema of both legs (Chronic) Venous insufficiency (Chronic) Malnutrition (Chronic) Diabetes mellitus with complication (Chronic) Lymphedema (Chronic) Tinea unguium (Chronic) Surgical History: no surgical history Allergies/Adverse Reactions: Allergies Penicillins [PCN] Allergy (Verified 03/24/18 13:32) Other skin peels Home Medications: Ambulatory Orders Medication Instructions Recorded Alogliptin Benzoate [Nesina] 25 mg PO DAILY 10/14/17 Clonidine HCl 0.1 mg PO BID 10/14/17 Furosemide [Lasix] 20 mg PO BID 10/14/17 Lisinopril [Zestril] 10 mg PO DAILY 10/14/17 Metoprolol Tartrate [Lopressor 100 mg PO BID 10/14/17 (beta maxim)] Rivaroxaban [Xarelto] 20 mg PO DAILY 10/14/17 hydrALAZINE [Apresoline] 25 mg PO TID 10/14/17 Insulin Glargine,Hum.rec.anlog 1 dose SQ DAILY 03/17/18 [Basaglar Kwikpen U-100] glipiZIDE [Glucotrol] 10 mg PO DAILY@0730 #30 tab 03/20/18 - Family History Maternal Diabetes Paternal No pertinent history Smoking Status: Never smoker Tobacco Use: Non-smoker Alcohol: None Drugs: None Review of Systems Constitutional: Denies: Chills, Fever, Weight Change Eyes: Denies: Pain, Vision Change HEENT: Denies: Difficulty Hearing, Difficulty Swallowing, Sinus Congestion Cardiovascular: Denies: Chest Pain, Palpitations Respiratory: Denies: Cough, Shortness of Breath Gastrointestinal: Denies: Diarrhea, Nausea, Vomiting Genitourinary: Denies: Dysuria, Hematuria Skin: Reports: Skin Changes, Wounds Endocrine: Denies: Heat/ Cold Intolerance, Polydipsia, Polyuria Hematologic/ Lymphatic: Denies: Easy Bruising, Easy Bleeding - Physical Exam Vital Signs Temp Pulse Resp BP 99.3 F H 90 20 H 148/95 H 08/05/19 13:16 08/05/19 13:16 08/05/19 13:16 08/05/19 13:16 General: Alert, Oriented x3, Cooperative, No apparent distress HEENT: Atraumatic, Normocephalic Oral: Moist Mucosa Neck: Supple Lungs: Clear to auscultation Cardiovascular: Regular rate, Regular Rhythm Abdomen: Soft, Non Tender, Obese Extremities: Edema Skin: Ulcer/ Wound Wound Measurements and Assessment WC - Nurse 1 - General Ulcer Measurement Start: 08/05/19 13:16 Freq: Status: Active Protocol: Activity Type Activity Date Activity User E-Sign Co-Sign Detail Recorded Client Recorded Date Recorded By Document 08/05/19 13:16 MW [id number] 08/05/19 13:35 MW 08/05/19 13:16 Wound Center Nurse 1 [Ulcer Assessment] #12 LEFT MEDIAL LE -Combined with other wound No -Current Size (cm) - Length 0.3 -Current Size (cm) - Width 0.3 -Current Size (cm) - Depth 0.1 -Total Square Cm 0.09 -Date of Last Picture (Recall this 08/05/19 field) -Photo Taken Yes -Epithelialization None Present -Tunneling No -Undermining/Tunneling No -Circular Undermining No -Exudate Amt Large -Exudate Type Serous -Wound Margin Flat & Intact -Granulation Amt None Present (0 %) -Granulation Quality N/A -Slough/Fibrin Yes -Necrosis Amt Large (67-100%) -Necrotic Tissue Type Adherent Slough -Structure Exposed N/A -Texture (Candy-wound Skin Appearance) Assessed, Localized Edema -Moisture (Candy-wound Skin Appearance Assessed, ) Weeping -Color (Candy-wound Skin Appearance) Assessed,Rubor -Temperature (Candy-wound Skin No Abnormality Appearance) (Pt Warm) -Tenderness on Palpation (Candy-wound No Skin Appearance) -Ulcer Cleansing SOAP AND WATER -Foul Odor after Cleansing No #11 LEFT POSTERIOR LE -Combined with other wound No -Current Size (cm) - Length 9.0 -Current Size (cm) - Width 14.0 -Current Size (cm) - Depth 0.1 -Total Square Cm 126.00 -Date of Last Picture (Recall this 08/05/19 field) -Photo Taken Yes -Epithelialization None Present -Tunneling No -Undermining/Tunneling No -Circular Undermining No -Exudate Amt Large -Exudate Type Serous -Wound Margin Flat & Intact -Granulation Amt Small (1-33%) -Granulation Quality Pale -Slough/Fibrin Yes -Necrosis Amt Medium (34-66%) -Necrotic Tissue Type Adherent Slough -Structure Exposed N/A -Texture (Candy-wound Skin Appearance) Assessed, Localized Edema -Moisture (Candy-wound Skin Appearance Assessed, ) Weeping -Color (Candy-wound Skin Appearance) Assessed,Rubor -Temperature (Candy-wound Skin No Abnormality Appearance) (Pt Warm) -Tenderness on Palpation (Candy-wound No Skin Appearance) -Ulcer Cleansing SOAP AND WATER -Foul Odor after Cleansing No -Anesthetic Used 4% Lidocaine Solution [Edema Assessment] -Lower Limb Edema Present Yes -Right Calf (cm) 59.5 -Right Ankle (cm) 34.0 -Left Calf (cm) 62.0 -Left Ankle (cm) 34.9 Psych/Mental Status: Normal Affect, Appropriate Debridement Note Wound debrided: left lower extremity Laterality: Left No debridement was completed today - due to there not being any slough present Assessment/Plan Active Problems Cellulitis of left leg (Acute) Cellulitis of right leg (Acute) Ulcer of left lower extremity with fat layer exposed (Acute) Venous insufficiency (Chronic) Diabetes mellitus with complication (Chronic) Lymphedema (Chronic) Assessment: right leg ulcer -healed. Lower extremity edema. Venous insufficiency. Lymphedema. Diabetes with complications. Compliance challenge Plan: Nathaniel's legs were evaluated but no debridement was performed due to the skin only being broken down and no slough present. Will treat him with UNNA boot compression and treat him with Keflex for potential cellulitis. He will return on Thursday for a change in compression and Thursday for re-evaluation. I anticipate improvement and healing and him to be able to return to using his Circaids for maintenance. Incompetent veins were previously noted on the venous Doppler, he was referred to Dr. Pearson for potential intervention but no intervention has been done at this time. He has been instructed to elevate the legs at rest and to avoid idle sitting and standing. To wear protective shoes. To continue CircAid compression dressings. To continue to use a non-irritating soap for personal hygiene daily. To moisturize the skin daily to maintain good skin integrity. F/U in 1 week.
[2019-08-09 13:53] VITALS: BP 161/99; PULSE 91; RESP 22; TEMP 36.4; BMI 54.2
[2019-08-12 12:48] VITALS: BP 148/90; PULSE 79; RESP 22; TEMP 36.8; BMI 54.2
--- NOTE | 2019-08-12 16:17 | PN.PCM_ITS ---
(1) Cellulitis of left leg Status: Acute Current Visit: Yes Code(s): L03.116 - Cellulitis of left lower limb (2) Cellulitis of right leg Status: Acute Current Visit: Yes Code(s): L03.115 - Cellulitis of right lower limb (3) Ulcer of left lower extremity with fat layer exposed Status: Acute Current Visit: Yes Code(s): L97.922 - Non-pressure chronic ulcer of unspecified part of left lower leg with fat layer exposed (4) Venous insufficiency Status: Chronic Current Visit: Yes Code(s): I87.2 - Venous insufficiency (chronic) (peripheral) (5) Diabetes mellitus with complication Status: Chronic Current Visit: Yes Code(s): E11.8 - Type 2 diabetes mellitus with unspecified complications (6) Lymphedema Status: Chronic Current Visit: Yes Code(s): I89.0 - Lymphedema, not elsewhere classified Type of Wound Date of Service: 08/12/19 Chief Complaint: left leg ulcers History of Wound: This 53-year-old male with multiple comorbidities presents for evaluation and treatment of ulcers of his left lower leg and edema to both legs. He has been maintaining edema well with Circaids but needed to replace velcro on his circaids and was unable to wear them for a couple of weeks and over that time period his edema has worsened and yesterday his legs started to weep and show signs of ulceration as he has experienced in past so he contacted the wound center to be seen and treated to prevent worsening ulcers. He started using his Circaids again earlier this week but the swelling has not been as controlled. He denies any systemic signs of infection such as nausea, vomiting, fever or chills. He has CircAid compression dressings with him. He admits leg drainage or redness and thinks the ulcer site has healed. Progress of Wound: Nathaniel tolerated UNNA boot compression and has had significant improvement in his lower extremity edema and his ulcers. Tolerating Keflex. Denies fever, chills, odor, pain. - Physical Exam Vital Signs Temp Pulse Resp BP 98.2 F 79 22 H 148/90 H 08/12/19 12:48 08/12/19 12:48 08/12/19 12:48 08/12/19 12:48 General: Alert, Oriented x3, Cooperative, No apparent distress HEENT: Atraumatic, Normocephalic Oral: Moist Mucosa Abdomen: Obese Extremities: Edema Skin: Ulcer/ Wound Wound Measurements and Assessment WC - Nurse 1 - General Ulcer Measurement Start: 08/05/19 13:16 Freq: Status: Active Protocol: Activity Type Activity Date Activity User E-Sign Co-Sign Detail Recorded Client Recorded Date Recorded By Document 08/12/19 12:48 DL [id number] 08/12/19 12:59 DL 08/12/19 12:48 Wound Center Nurse 1 [Ulcer Assessment] #12 LEFT MEDIAL LE -Current Size (cm) - Length 3.6 -Current Size (cm) - Width 3 -Current Size (cm) - Depth 0.1 -Total Square Cm 10.8 -Photo Taken No -Exudate Amt Small -Exudate Type Serosanguineous -Wound Margin Flat & Intact -Granulation Amt Large (67-100%) -Granulation [facility] -Necrosis Amt None Present (0 %) -Structure Exposed N/A -Texture (Candy-wound Skin Appearance) No Abnormality -Moisture (Candy-wound Skin Appearance Weeping ) -Color (Candy-wound Skin Appearance) Hemosiderin Staining -Temperature (Candy-wound Skin No Abnormality Appearance) (Pt Warm) -Tenderness on Palpation (Candy-wound No Skin Appearance) -Ulcer Cleansing Wound Cleanser -Foul Odor after Cleansing No -Anesthetic Used 4% Lidocaine Solution #11 LEFT POSTERIOR LE -Current Size (cm) - Length 0.1 -Current Size (cm) - Width 0.1 -Current Size (cm) - Depth 0.1 -Total Square Cm 0.01 -Photo Taken No -Exudate Amt None Present -Wound Margin Flat & Intact -Granulation Amt Large (67-100%) -Granulation [facility] -Necrosis Amt None Present (0 %) -Structure Exposed N/A -Texture (Candy-wound Skin Appearance) No Abnormality -Moisture (Candy-wound Skin Appearance No Abnormality ) -Color (Candy-wound Skin Appearance) Hemosiderin Staining -Temperature (Candy-wound Skin No Abnormality Appearance) (Pt Warm) -Tenderness on Palpation (Candy-wound No Skin Appearance) -Ulcer Cleansing Wound Cleanser -Foul Odor after Cleansing No -Anesthetic Used 4% Lidocaine Solution [Edema Assessment] -Right Calf (cm) 50.6 -Right Ankle (cm) 32 -Point of measurement (cm from the 52 medial instep) -Point of Measurement (cm from the 32 medial instep) WC - Nurse 2 - General Ulcer CM Notes Start: 08/05/19 13:16 Freq: Status: Active Protocol: Activity Type Activity Date Activity User E-Sign Co-Sign Detail Recorded Client Recorded Date Recorded By Document 08/12/19 13:07 MW [id number] 08/12/19 13:12 MW 08/12/19 13:07 Wound Center Nurse 2 [Procedure/Treatment] #12 LEFT MEDIAL LE -Time 13:08 -Correct Patient Yes -Correct Side, Site, Position Yes -Correct Procedure Yes -Procedure Performed No -Wound/Ulcer Outcome Not Healed -Foul Odor after Cleansing No -Bioengineered Tissue No -Bleeding Controlled with NA -Offloading No -Treatment Response Procedure Tolerated Well #11 LEFT POSTERIOR LE -Time 13:09 -Correct Patient Yes -Correct Side, Site, Position Yes -Correct Procedure Yes -Procedure Performed No -Wound/Ulcer Outcome Not Healed -Foul Odor after Cleansing No -Offloading No -Treatment Response Procedure Tolerated Well [See Physician Procedure note for Specifics] Pain Scale: 0-10 Numeric [Pain] -Is Patient Pain Free? Yes Psych/Mental Status: Normal Affect, Appropriate Debridement Note Post-Debridement Measurements/Treatment WC - Nurse 2 - General Ulcer CM Notes Start: 08/05/19 13:16 Freq: Status: Active Protocol: Activity Type Activity Date Activity User E-Sign Co-Sign Detail Recorded Client Recorded Date Recorded By Document 08/12/19 13:07 MW [id number] 08/12/19 13:12 MW 08/12/19 13:07 Wound Center Nurse 2 #12 LEFT MEDIAL LE -Time 13:08 -Correct Patient Yes -Correct Side, Site, Position Yes -Correct Procedure Yes -Procedure Performed No -Wound/Ulcer Outcome Not Healed -Foul Odor after Cleansing No -Bioengineered Tissue No -Bleeding Controlled with NA -Offloading No -Treatment Response Procedure Tolerated Well #11 LEFT POSTERIOR LE -Time 13:09 -Correct Patient Yes -Correct Side, Site, Position Yes -Correct Procedure Yes -Procedure Performed No -Wound/Ulcer Outcome Not Healed -Foul Odor after Cleansing No -Offloading No -Treatment Response Procedure Tolerated Well Pain Scale: 0-10 Numeric Is Patient Pain Free? Yes No debridement was completed today - no slough to debride. Legs seeping serous drainage Assessment/Plan Active Problems Cellulitis of left leg (Acute) Cellulitis of right leg (Acute) Ulcer of left lower extremity with fat layer exposed (Acute) Venous insufficiency (Chronic) Diabetes mellitus with complication (Chronic) Lymphedema (Chronic) Assessment: right leg ulcer -healed. Lower extremity edema. Venous insufficiency. Lymphedema. Diabetes with complications. Compliance challenge Plan: Nathaniel's legs were evaluated but no debridement was performed due to the skin only being broken down and no slough present. Will treat him with 3M compression. He will follow up in 1 week. I anticipate improvement and healing and him to be able to return to using his Circaids for maintenance. Incompetent veins were previously noted on the venous Doppler, he was referred to Dr. Pearson for potential intervention but no intervention has been done at this time. He has been instructed to elevate the legs at rest and to avoid idle sitting and standing. To wear protective shoes. To continue CircAid compression dressings. To continue to use a non-irritating soap for personal hygiene daily. To moisturize the skin daily to maintain good skin integrity. F/U in 1 week.
[2019-08-19 09:01] VITALS: BP 135/80; PULSE 77; RESP 18; TEMP 36.3; BMI 54.2
--- NOTE | 2019-08-19 13:17 | PCM.WC.PN ---
(1) Cellulitis of left leg Status: Resolved Current Visit: Yes Code(s): L03.116 - Cellulitis of left lower limb (2) Cellulitis of right leg Status: Resolved Current Visit: Yes Code(s): L03.115 - Cellulitis of right lower limb (3) Ulcer of left lower extremity with fat layer exposed Status: Acute Current Visit: Yes Code(s): L97.922 - Non-pressure chronic ulcer of unspecified part of left lower leg with fat layer exposed (4) Venous insufficiency Status: Chronic Current Visit: Yes Code(s): I87.2 - Venous insufficiency (chronic) (peripheral) (5) Diabetes mellitus with complication Status: Chronic Current Visit: Yes Code(s): E11.8 - Type 2 diabetes mellitus with unspecified complications (6) Lymphedema Status: Chronic Current Visit: Yes Code(s): I89.0 - Lymphedema, not elsewhere classified Type of Wound Date of Service: 08/19/19 Chief Complaint: left leg ulcers History of Wound: This 53-year-old male with multiple comorbidities presents for evaluation and treatment of ulcers of his left lower leg and edema to both legs. He has been maintaining edema well with Circaids but needed to replace velcro on his circaids and was unable to wear them for a couple of weeks and over that time period his edema has worsened and yesterday his legs started to weep and show signs of ulceration as he has experienced in past so he contacted the wound center to be seen and treated to prevent worsening ulcers. He started using his Circaids again earlier this week but the swelling has not been as controlled. He denies any systemic signs of infection such as nausea, vomiting, fever or chills. He has CircAid compression dressings with him. He admits leg drainage or redness and thinks the ulcer site has healed. Progress of Wound: Nathaniel tolerated 3M compression and has had significant improvement in his lower extremity edema and his ulcers. Completed Keflex. Denies fever, chills, odor, pain. - Physical Exam Vital Signs Temp Pulse Resp BP 97.3 F L 77 18 135/80 H 08/19/19 09:01 08/19/19 09:01 08/19/19 09:01 08/19/19 09:01 General: Alert, Oriented x3, Cooperative, No apparent distress HEENT: Atraumatic, Normocephalic Oral: Moist Mucosa Abdomen: Obese Extremities: Edema Skin: Ulcer/ Wound Wound Measurements and Assessment WC - Nurse 1 - General Ulcer Measurement Start: 08/05/19 13:16 Freq: Status: Active Protocol: Activity Type Activity Date Activity User E-Sign Co-Sign Detail Recorded Client Recorded Date Recorded By Document 08/19/19 09:01 RB [id number] 08/19/19 09:15 RB 08/19/19 09:01 Wound Center Nurse 1 [Ulcer Assessment] #12 LEFT MEDIAL LE -Combined with other wound No -Current Size (cm) - Length 2 -Current Size (cm) - Width 1.3 -Current Size (cm) - Depth 0.1 -Total Square Cm 2.6 -Tunneling No -Undermining/Tunneling No -Circular Undermining No -Exudate Amt Small -Exudate Type Serosanguineous -Wound Margin Flat & Intact -Granulation Amt Large (67-100%) -Granulation Quality [facility] -Slough/Fibrin Yes -Necrosis Amt Small (1-33%) -Necrotic Tissue Type Adherent Slough -Structure Exposed N/A -Texture (Candy-wound Skin Appearance) Assessed -Moisture (Candy-wound Skin Appearance Dry/Scaly ) -Color (Candy-wound Skin Appearance) Hemosiderin Staining -Temperature (Candy-wound Skin No Abnormality Appearance) (Pt Warm) -Tenderness on Palpation (Candy-wound No Skin Appearance) -Ulcer Cleansing Wound Cleanser -Foul Odor after Cleansing No -Anesthetic Used 5% Lidocaine Gel #11 LEFT POSTERIOR LE -Combined with other wound No -Current Size (cm) - Length 0.1 -Current Size (cm) - Width 0.1 -Current Size (cm) - Depth 0.1 -Total Square Cm 0.01 -Tunneling No -Undermining/Tunneling No -Circular Undermining No -Exudate Amt Small -Exudate Type Serosanguineous -Wound Margin Flat & Intact -Granulation Amt Large (67-100%) -Granulation Quality Red -Slough/Fibrin Yes -Necrosis Amt Small (1-33%) -Necrotic Tissue Type Adherent Slough -Structure Exposed N/A -Texture (Candy-wound Skin Appearance) Assessed -Moisture (Candy-wound Skin Appearance Dry/Scaly ) -Color (Candy-wound Skin Appearance) Hemosiderin Staining -Temperature (Candy-wound Skin No Abnormality Appearance) (Pt Warm) -Tenderness on Palpation (Candy-wound No Skin Appearance) -Ulcer Cleansing Wound Cleanser -Foul Odor after Cleansing No -Anesthetic Used 5% Lidocaine Gel [Edema Assessment] -Lower Limb Edema Present Yes -Right Calf (cm) 49.7 -Right Ankle (cm) 30.5 -Left Calf (cm) 50.5 -Left Ankle (cm) 30 WC - Nurse 2 - General Ulcer CM Notes Start: 08/05/19 13:16 Freq: Status: Active Protocol: Activity Type Activity Date Activity User E-Sign Co-Sign Detail Recorded Client Recorded Date Recorded By Document 08/19/19 10:06 DV [id number] 08/19/19 10:10 DV 08/19/19 10:06 Wound Center Nurse 2 [Procedure/Treatment] #12 LEFT MEDIAL LE -Time 10:09 -Correct Patient Yes -Correct Side, Site, Position Yes -Correct Procedure No -Procedure Performed No -Wound/Ulcer Outcome Not Healed #11 LEFT POSTERIOR LE -Time 10:09 -Correct Patient Yes -Correct Side, Site, Position Yes -Correct Procedure No -Procedure Performed No -Wound/Ulcer Outcome Not Healed [See Physician Procedure note for Specifics] Pain Scale: 0-10 Numeric [Pain] -Is Patient Pain Free? Yes Psych/Mental Status: Normal Affect, Appropriate Debridement Note Post-Debridement Measurements/Treatment WC - Nurse 2 - General Ulcer CM Notes Start: 08/05/19 13:16 Freq: Status: Active Protocol: Activity Type Activity Date Activity User E-Sign Co-Sign Detail Recorded Client Recorded Date Recorded By Document 08/12/19 13:07 MW [id number] 08/12/19 13:12 MW Document 08/19/19 10:06 DV [id number] 08/19/19 10:10 DV 08/12/19 08/19/19 13:07 10:06 Wound Center Nurse 2 #12 LEFT MEDIAL LE -Time 13:08 10:09 -Correct Patient Yes Yes -Correct Side, Site, Position Yes Yes -Correct Procedure Yes No -Procedure Performed No No -Wound/Ulcer Outcome Not Healed Not Healed -Foul Odor after Cleansing No -Bioengineered Tissue No -Bleeding Controlled with NA -Offloading No -Treatment Response Procedure Tolerated Well #11 LEFT POSTERIOR LE -Time 13:09 10:09 -Correct Patient Yes Yes -Correct Side, Site, Position Yes Yes -Correct Procedure Yes No -Procedure Performed No No -Wound/Ulcer Outcome Not Healed Not Healed -Foul Odor after Cleansing No -Offloading No -Treatment Response Procedure Tolerated Well Pain Scale: 0-10 Numeric Is Patient Pain Free? Yes Yes Wound debrided: left medial LE Laterality: Left No debridement was completed today - Additional Wound Wound debrided: Left calf posterior Laterality: Left Operative Diagnosis: no debridement completed today Assessment/Plan Active Problems Ulcer of left lower extremity with fat layer exposed (Acute) Venous insufficiency (Chronic) Diabetes mellitus with complication (Chronic) Lymphedema (Chronic) Assessment: right leg ulcer -healed. Lower extremity edema. Venous insufficiency. Lymphedema. Diabetes with complications. Compliance challenge Plan: Nathaniel's legs were evaluated but no debridement was performed due to the skin only being broken down slightly and no slough present. Will treat him with 3M compression. He will follow up in 1 week. I anticipate healing at next visit and him to be able to return to using his Circaids for maintenance. Incompetent veins were previously noted on the venous Doppler, he was referred to Dr. Pearson for potential intervention but no intervention has been done at this time. He has been instructed to elevate the legs at rest and to avoid idle sitting and standing. To wear protective shoes. To continue CircAid compression dressings. To continue to use a non-irritating soap for personal hygiene daily. To moisturize the skin daily to maintain good skin integrity. F/U in 1 week.
[2019-08-26 15:22] VITALS: BP 149/87; PULSE 84; RESP 16; TEMP 36.9; BMI 54.2
--- NOTE | 2019-08-26 18:20 | PN.PCM_ITS ---
(1) Ulcer of left lower extremity with fat layer exposed Status: Chronic Code(s): L97.922 - Non-pressure chronic ulcer of unspecified part of left lower leg with fat layer exposed (2) Venous insufficiency Status: Chronic Code(s): I87.2 - Venous insufficiency (chronic) (peripheral) (3) Diabetes mellitus with complication Status: Chronic Code(s): E11.8 - Type 2 diabetes mellitus with unspecified complications (4) Lymphedema Status: Chronic Code(s): I89.0 - Lymphedema, not elsewhere classified Type of Wound Date of Service: 08/26/19 Chief Complaint: left leg ulcers History of Wound: This 53-year-old male with multiple comorbidities presents for evaluation and treatment of ulcers of his left lower leg and edema to both legs. He has been maintaining edema well with Circaids but needed to replace velcro on his circaids and was unable to wear them for a couple of weeks and over that time period his edema has worsened and yesterday his legs started to weep and show signs of ulceration as he has experienced in past so he contacted the wound center to be seen and treated to prevent worsening ulcers. He started using his Circaids again earlier this week but the swelling has not been as controlled. He denies any systemic signs of infection such as nausea, vomiting, fever or chills. He has CircAid compression dressings with him. He admits leg drainage or redness and thinks the ulcer site has healed. Progress of Wound: Nathaniel tolerated 3M compression and has had significant improvement in his lower extremity edema and his ulcers and they are healed. Denies fever, chills, odor, pain. - Physical Exam Vital Signs Temp Pulse Resp BP 98.4 F 84 16 149/87 H 08/26/19 15:22 08/26/19 15:22 08/26/19 15:22 08/26/19 15:22 General: Alert, Oriented x3, Cooperative, No apparent distress HEENT: Atraumatic, Normocephalic Oral: Moist Mucosa Abdomen: Obese Extremities: Edema Skin: Ulcer/ Wound Wound Measurements and Assessment WC - Nurse 1 - General Ulcer Measurement Start: 08/05/19 13:16 Freq: Status: Active Protocol: Activity Type Activity Date Activity User E-Sign Co-Sign Detail Recorded Client Recorded Date Recorded By Document 08/26/19 15:22 [facility] [id number] 08/26/19 15:25 [facility] 08/26/19 15:22 Wound Center Nurse 1 [Ulcer Assessment] #12 LEFT MEDIAL LE -Combined with other wound No -Current Size (cm) - Length 0.1 -Current Size (cm) - Width 0.1 -Current Size (cm) - Depth 0.1 -Total Square Cm 0.01 -Photo Taken No -Epithelialization Large 67-100% -Tunneling No -Undermining/Tunneling No -Circular Undermining No -Exudate Amt None Present -Slough/Fibrin Yes -Necrosis Amt Small (1-33%) -Necrotic Tissue Type Adherent Slough -Texture (Candy-wound Skin Appearance) Assessed, Scarring -Moisture (Candy-wound Skin Appearance Assessed,Dry/ ) Scaly -Color (Candy-wound Skin Appearance) Assessed, Hemosiderin Staining -Temperature (Candy-wound Skin No Abnormality Appearance) (Pt Warm) -Tenderness on Palpation (Candy-wound No Skin Appearance) -Ulcer Cleansing soapy water -Foul Odor after Cleansing No #11 LEFT POSTERIOR LE -Combined with other wound No -Current Size (cm) - Length 0.1 -Current Size (cm) - Width 0.1 -Current Size (cm) - Depth 0.1 -Total Square Cm 0.01 -Photo Taken No -Epithelialization Large 67-100% -Tunneling No -Undermining/Tunneling No -Circular Undermining No -Exudate Amt None Present -Granulation Amt None Present (0 %) -Slough/Fibrin Yes -Necrosis Amt Small (1-33%) -Necrotic Tissue Type Adherent Slough -Texture (Candy-wound Skin Appearance) Assessed, Scarring -Moisture (Candy-wound Skin Appearance Assessed,Dry/ ) Scaly -Color (Candy-wound Skin Appearance) Assessed, Hemosiderin Staining -Temperature (Candy-wound Skin No Abnormality Appearance) (Pt Warm) -Tenderness on Palpation (Candy-wound No Skin Appearance) -Ulcer Cleansing soapy water -Foul Odor after Cleansing No [Edema Assessment] -Lower Limb Edema Present Yes -Right Calf (cm) 50.5 -Right Ankle (cm) 30.2 -Left Calf (cm) 50.4 -Left Ankle (cm) 30.2 WC - Nurse 2 - General Ulcer CM Notes Start: 08/05/19 13:16 Freq: Status: Active Protocol: Activity Type Activity Date Activity User E-Sign Co-Sign Detail Recorded Client Recorded Date Recorded By Document 08/26/19 16:08 MW [id number] 08/26/19 16:10 MW 08/26/19 16:08 Wound Center Nurse 2 [Procedure/Treatment] #12 LEFT MEDIAL LE -Time 16:08 -Correct Patient Yes -Correct Side, Site, Position Yes -Correct Procedure Yes -Procedure Performed No -Post Debridement Size (cm) - Length 0 -Post Debridement Size (cm) - Width 0 -Post Debridement Size (cm) - Depth 0 -Total Square Cm 0 -Wound/Ulcer Outcome Healed- Epithelialized #11 LEFT POSTERIOR LE -Time 16:09 -Correct Patient Yes -Correct Side, Site, Position Yes -Correct Procedure Yes -Procedure Performed No -Post Debridement Size (cm) - Length 0 -Post Debridement Size (cm) - Width 0 -Post Debridement Size (cm) - Depth 0 -Total Square Cm 0 -Wound/Ulcer Outcome Healed- Epithelialized [See Physician Procedure note for Specifics] Pain Scale: 0-10 Numeric [Pain] -Is Patient Pain Free? Yes Psych/Mental Status: Normal Affect, Appropriate Debridement Note Post-Debridement Measurements/Treatment WC - Nurse 2 - General Ulcer CM Notes Start: 08/05/19 13:16 Freq: Status: Active Protocol: Activity Type Activity Date Activity User E-Sign Co-Sign Detail Recorded Client Recorded Date Recorded By Document 08/12/19 13:07 MW [id number] 08/12/19 13:12 MW Document 08/19/19 10:06 DV [id number] 08/19/19 10:10 DV Document 08/26/19 16:08 MW [id number] 08/26/19 16:10 MW 08/12/19 08/19/19 08/26/19 13:07 10:06 16:08 Wound Center Nurse 2 #12 LEFT MEDIAL LE -Time 13:08 10:09 16:08 -Correct Patient Yes Yes Yes -Correct Side, Site, Position Yes Yes Yes -Correct Procedure Yes No Yes -Procedure Performed No No No -Post Debridement Size (cm) - Length 0 -Post Debridement Size (cm) - Width 0 -Post Debridement Size (cm) - Depth 0 -Total Square Cm 0 -Wound/Ulcer Outcome Not Healed Not Healed Healed- Epithelialized -Foul Odor after Cleansing No -Bioengineered Tissue No -Bleeding Controlled with NA -Offloading No -Treatment Response Procedure Tolerated Well #11 LEFT POSTERIOR LE -Time 13:09 10:09 16:09 -Correct Patient Yes Yes Yes -Correct Side, Site, Position Yes Yes Yes -Correct Procedure Yes No Yes -Procedure Performed No No No -Post Debridement Size (cm) - Length 0 -Post Debridement Size (cm) - Width 0 -Post Debridement Size (cm) - Depth 0 -Total Square Cm 0 -Wound/Ulcer Outcome Not Healed Not Healed Healed- Epithelialized -Foul Odor after Cleansing No -Offloading No -Treatment Response Procedure Tolerated Well Pain Scale: 0-10 Numeric Is Patient Pain Free? Yes Yes Yes Wound debrided: left medial LE Laterality: Left No debridement was completed today - Additional Wound Wound debrided: left posterior LE Laterality: Left Operative Diagnosis: No debridement completed because his ulcer is healed. Assessment/Plan Assessment: right leg ulcer -healed. Lower extremity edema. Venous insufficiency. Lymphedema. Diabetes with complications. Compliance challenge Plan: Nathaniel's legs were evaluated and he is healed today. He will return to using his Circaids for maintenance. Incompetent veins were previously noted on the venous Doppler, he was referred to Dr. Pearson for potential intervention but no intervention has been done at this time. He has been instructed to elevate the legs at rest and to avoid idle sitting and standing. To wear protective shoes. To continue CircAid compression dressings. To continue to use a non-irritating soap for personal hygiene daily. To moisturize the skin daily to maintain good skin integrity. He is discharged but will follow up in the future if needed.
== END 2019-08-30 23:59 ==
LOC: WC 15:00
PROVIDERS: Visit Provider Family Medicine
DX: I87.2 Venous insufficiency (chronic) (peripheral) (principal); I89.0 Lymphedema, not elsewhere classified; E11.622 Type 2 diabetes mellitus with other skin ulcer; L97.822 Non-pressure chronic ulcer of other part of left lower leg with fat layer exposed; L03.115 Cellulitis of right lower limb; L03.116 Cellulitis of left lower limb; B35.1 Tinea unguium; R60.0 Localized edema
CPT/HCPCS: 29580; 29581; 99212; 99213; 99214; G0463

== ENCOUNTER 2019-09-29 09:00 | Outpatient (RCR) | payer MEDICAID, SELFPAY ==
[2019-08-31 01:02] VITALS: BP 149/87; PULSE 84; RESP 16; TEMP 36.9
[2019-09-15 09:56] VITALS: BP 160/91; PULSE 82; RESP 18; TEMP 36.7
--- NOTE | 2019-09-15 12:03 | PCM.WC.HP ---
(1) Ulcer of left lower extremity with fat layer exposed Status: Acute Current Visit: Yes Code(s): L97.922 - Non-pressure chronic ulcer of unspecified part of left lower leg with fat layer exposed (2) Ulcer of right lower extremity with fat layer exposed Status: Acute Current Visit: Yes Code(s): L97.912 - Non-pressure chronic ulcer of unspecified part of right lower leg with fat layer exposed (3) Ulcer of right lower extremity with fat layer exposed Status: Acute Current Visit: No Code(s): L97.912 - Non-pressure chronic ulcer of unspecified part of right lower leg with fat layer exposed (4) Peripheral vascular disease Status: Ruled-out Current Visit: No Code(s): I73.9 - Peripheral vascular disease, unspecified (5) Lymphedema Status: Chronic Current Visit: Yes Code(s): I89.0 - Lymphedema, not elsewhere classified History of Present Illness Date of Service: 09/15/19 Chief Complaint: Bilateral lower extremity ulcers History of Wound: Mr Kent is known to the wound center and reports today due to new bilateral lower extremity ulcers. He was discharged less than a month ago after healing of bilateral lower extremity ulcers. He states that he traveled and had his legs dependent for a long time with subsequent blistering/ulceration. Reports compliance with his CircAid's but also states that they are old. Feels well otherwise. Denies chills, fever nausea vomiting. Past Medical History Past Medical History: Chronic Problems Hammertoe of left foot (Chronic) Edema of both legs (Chronic) Venous insufficiency (Chronic) Malnutrition (Chronic) Diabetes mellitus with complication (Chronic) Lymphedema (Chronic) Tinea unguium (Chronic) Surgical History: no surgical history Allergies/Adverse Reactions: Allergies Penicillins [PCN] Allergy (Verified 03/24/18 13:32) Other skin peels Home Medications: Ambulatory Orders Medication Instructions Recorded Alogliptin Benzoate [Nesina] 25 mg PO DAILY 10/14/17 Clonidine HCl 0.1 mg PO BID 10/14/17 Furosemide [Lasix] 20 mg PO BID 10/14/17 Lisinopril [Zestril] 10 mg PO DAILY 10/14/17 Metoprolol Tartrate [Lopressor 100 mg PO BID 10/14/17 (beta maxim)] Rivaroxaban [Xarelto] 20 mg PO DAILY 10/14/17 hydrALAZINE [Apresoline] 25 mg PO TID 10/14/17 Insulin Glargine,Hum.rec.anlog 1 dose SQ DAILY 03/17/18 [Basaglar Kwikpen U-100] glipiZIDE [Glucotrol] 10 mg PO DAILY@0730 #30 tab 03/20/18 - Family History Maternal Diabetes Paternal No pertinent history Smoking Status: Never smoker Tobacco Use: Non-smoker Review of Systems Constitutional: Denies: Anorexia, Chills, Fever Eyes: Denies: Blurred vision, Pain, Redness HEENT: Denies: Difficulty Swallowing Cardiovascular: Denies: Chest Pain, Chest Pressure Respiratory: Denies: Hemoptysis Gastrointestinal: Denies: Hematemesis, Vomiting Skin: Denies: Jaundice - Physical Exam Vital Signs Temp Pulse Resp BP 98.0 F 82 18 160/91 H 09/15/19 09:56 09/15/19 09:56 09/15/19 09:56 09/15/19 09:56 General: Alert, Oriented x3, Cooperative, No apparent distress HEENT: Atraumatic, Normocephalic Neck: Supple Lungs: Normal air movement Cardiovascular: Regular rate, Regular Rhythm, Normal S1, Normal S2 Abdomen: Non Tender, Obese Extremities: No cyanosis, Edema Skin: Ulcer/ Wound Wound Measurements and Assessment WC - Nurse 1 - General Ulcer Measurement Start: 09/15/19 09:56 Freq: Status: Active Protocol: Activity Type Activity Date Activity User E-Sign Co-Sign Detail Recorded Client Recorded Date Recorded By Document 09/15/19 09:56 [id number] 09/15/19 10:09 CARMELINA 09/15/19 09:56 Wound Center Nurse 1 [Ulcer Assessment] 15-Left lópez -Combined with other wound No -Current Size (cm) - Length 0.7 -Current Size (cm) - Width 0.5 -Current Size (cm) - Depth 0.1 -Total Square Cm 0.35 -Photo Taken Yes -Epithelialization Small 1-33% -Tunneling No -Undermining/Tunneling No -Circular Undermining No -Exudate Amt Small -Exudate Type Serosanguineous -Wound Margin Flat & Intact -Granulation Amt Medium (34-66%) -Granulation Quality Red -Slough/Fibrin Yes -Necrosis Amt Small (1-33%) -Necrotic Tissue Type Adherent Slough -Structure Exposed N/A -Texture (Candy-wound Skin Appearance) Assessed, Localized Edema -Moisture (Candy-wound Skin Appearance Assessed,Dry/ ) Scaly -Color (Candy-wound Skin Appearance) Assessed -Temperature (Candy-wound Skin No Abnormality Appearance) (Pt Warm) -Tenderness on Palpation (Candy-wound No Skin Appearance) -Ulcer Cleansing Rinsed/ Irrigated with Saline -Foul Odor after Cleansing No -Anesthetic Used 4% Lidocaine Solution 14-right calf -Combined with other wound No -Current Size (cm) - Length 6.0 -Current Size (cm) - Width 9.5 -Current Size (cm) - Depth 0.1 -Total Square Cm 57.00 -Photo Taken Yes -Epithelialization Small 1-33% -Tunneling No -Undermining/Tunneling No -Circular Undermining No -Exudate Amt Medium -Exudate Type Serosanguineous -Wound Margin Flat & Intact -Granulation Amt Medium (34-66%) -Granulation Quality [place] -Slough/Fibrin Yes -Necrosis Amt Medium (34-66%) -Necrotic Tissue Type Adherent Slough -Structure Exposed N/A -Texture (Candy-wound Skin Appearance) Assessed, Localized Edema -Moisture (Candy-wound Skin Appearance Assessed,Dry/ ) Scaly -Color (Candy-wound Skin Appearance) Assessed, Hemosiderin Staining -Temperature (Candy-wound Skin No Abnormality Appearance) (Pt Warm) -Tenderness on Palpation (Candy-wound No Skin Appearance) -Ulcer Cleansing Rinsed/ Irrigated with Saline -Foul Odor after Cleansing No -Anesthetic Used 4% Lidocaine Solution 13-right lópez -Combined with other wound No -Current Size (cm) - Length 0.8 -Current Size (cm) - Width 0.9 -Current Size (cm) - Depth 0.1 -Total Square Cm 0.72 -Photo Taken Yes -Epithelialization Medium 34-66% -Tunneling No -Undermining/Tunneling No -Circular Undermining No -Exudate Amt Small -Exudate Type Serosanguineous -Wound Margin Flat & Intact -Granulation Amt Large (67-100%) -Granulation Quality Red -Slough/Fibrin Yes -Necrosis Amt Small (1-33%) -Necrotic Tissue Type Adherent Slough -Structure Exposed N/A -Texture (Candy-wound Skin Appearance) Assessed, Localized Edema -Moisture (Candy-wound Skin Appearance Assessed,Dry/ ) Scaly -Color (Candy-wound Skin Appearance) Assessed, Hemosiderin Staining -Temperature (Candy-wound Skin No Abnormality Appearance) (Pt Warm) -Tenderness on Palpation (Candy-wound No Skin Appearance) -Ulcer Cleansing Rinsed/ Irrigated with Saline -Foul Odor after Cleansing No -Anesthetic Used 4% Lidocaine Solution [Edema Assessment] -Lower Limb Edema Present Yes -Right Calf (cm) 58.3 -Right Ankle (cm) 34.0 -Left Calf (cm) 53.0 -Left Ankle (cm) 32.5 WC - Nurse 2 - General Ulcer CM Notes Start: 09/15/19 09:56 Freq: Status: Active Protocol: Activity Type Activity Date Activity User E-Sign Co-Sign Detail Recorded Client Recorded Date Recorded By Document 09/15/19 10:43 MW [id number] 09/15/19 10:48 MW 09/15/19 10:43 Wound Center Nurse 2 [Procedure/Treatment] 15-Left lópez -Time 10:45 -Correct Patient Yes -Correct Side, Site, Position Yes -Correct Procedure Yes -Procedure Performed Yes -Type of Procedure Debridement -Clinical Debridement Subcutaneous -Post Debridement Size (cm) - Length 0.7 -Post Debridement Size (cm) - Width 0.5 -Post Debridement Size (cm) - Depth 0.1 -Total Square Cm 0.35 -Wound/Ulcer Outcome Not Healed -Ulcer Cleansing Rinsed/ Irrigated with Saline -Foul Odor after Cleansing No -Bioengineered Tissue No -Bleeding Controlled with Pressure -Offloading No -Treatment Response Procedure Tolerated Well 14-right calf -Time 10:46 -Correct Patient Yes -Correct Side, Site, Position Yes -Correct Procedure Yes -Procedure Performed Yes -Type of Procedure Debridement -Clinical Debridement Subcutaneous -Post Debridement Size (cm) - Length 6.0 -Post Debridement Size (cm) - Width 10.0 -Post Debridement Size (cm) - Depth 0.1 -Total Square Cm 60.00 -Wound/Ulcer Outcome Not Healed -Ulcer Cleansing Rinsed/ Irrigated with Saline -Foul Odor after Cleansing No -Bioengineered Tissue No -Bleeding Controlled with Pressure -Offloading No -Treatment Response Procedure Tolerated Well 13-right lópez -Time 10:46 -Correct Patient Yes -Correct Side, Site, Position Yes -Correct Procedure Yes -Procedure Performed Yes -Type of Procedure Debridement -Clinical Debridement Subcutaneous -Post Debridement Size (cm) - Length 1.0 -Post Debridement Size (cm) - Width 1.0 -Post Debridement Size (cm) - Depth 0.1 -Total Square Cm 1.00 -Wound/Ulcer Outcome Not Healed -Ulcer Cleansing Rinsed/ Irrigated with Saline -Foul Odor after Cleansing No -Bioengineered Tissue No -Bleeding Controlled with Pressure -Offloading No -Treatment Response Procedure Tolerated Well [See Physician Procedure note for Specifics] Pain Scale: 0-10 Numeric [Pain] -Is Patient Pain Free? Yes Musculoskeletal: No Muscle Wasting Neurological: Cranial nerves II-XII grossly intact Psych/Mental Status: Normal Affect Debridement Note Post-Debridement Measurements/Treatment WC - Nurse 2 - General Ulcer CM Notes Start: 09/15/19 09:56 Freq: Status: Active Protocol: Activity Type Activity Date Activity User E-Sign Co-Sign Detail Recorded Client Recorded Date Recorded By Document 09/15/19 10:43 MW [id number] 09/15/19 10:48 MW 09/15/19 10:43 Wound Center Nurse 2 15-Left lópez -Time 10:45 -Correct Patient Yes -Correct Side, Site, Position Yes -Correct Procedure Yes -Procedure Performed Yes -Type of Procedure Debridement -Clinical Debridement Subcutaneous -Post Debridement Size (cm) - Length 0.7 -Post Debridement Size (cm) - Width 0.5 -Post Debridement Size (cm) - Depth 0.1 -Total Square Cm 0.35 -Wound/Ulcer Outcome Not Healed -Ulcer Cleansing Rinsed/ Irrigated with Saline -Foul Odor after Cleansing No -Bioengineered Tissue No -Bleeding Controlled with Pressure -Offloading No -Treatment Response Procedure Tolerated Well 14-right calf -Time 10:46 -Correct Patient Yes -Correct Side, Site, Position Yes -Correct Procedure Yes -Procedure Performed Yes -Type of Procedure Debridement -Clinical Debridement Subcutaneous -Post Debridement Size (cm) - Length 6.0 -Post Debridement Size (cm) - Width 10.0 -Post Debridement Size (cm) - Depth 0.1 -Total Square Cm 60.00 -Wound/Ulcer Outcome Not Healed -Ulcer Cleansing Rinsed/ Irrigated with Saline -Foul Odor after Cleansing No -Bioengineered Tissue No -Bleeding Controlled with Pressure -Offloading No -Treatment Response Procedure Tolerated Well 13-right lópez -Time 10:46 -Correct Patient Yes -Correct Side, Site, Position Yes -Correct Procedure Yes -Procedure Performed Yes -Type of Procedure Debridement -Clinical Debridement Subcutaneous -Post Debridement Size (cm) - Length 1.0 -Post Debridement Size (cm) - Width 1.0 -Post Debridement Size (cm) - Depth 0.1 -Total Square Cm 1.00 -Wound/Ulcer Outcome Not Healed -Ulcer Cleansing Rinsed/ Irrigated with Saline -Foul Odor after Cleansing No -Bioengineered Tissue No -Bleeding Controlled with Pressure -Offloading No -Treatment Response Procedure Tolerated Well Pain Scale: 0-10 Numeric Is Patient Pain Free? Yes Wound debrided: Right lópez Type of Debridement: Excisional debridement Anesthesia Used: 4% Lidocaine Solution Depth: Down to and including healthy tissue, in the subcutaneous layer Percentage of wound debrided: 100 Instrument Used: 3mm curette Tissue Removed: Slough devitalized tissue Severity: Fat Layer Exposed Amount of bleeding with debridement: Mild Bleeding Controlled with: Pressure Patient tolerated procedure well - Additional Wound Wound debrided: Right leg posterior Type of Debridement: Excisional debridement Anesthesia Used: 4% Lidocaine Solution Depth: Down to and including healthy tissue, in the subcutaneous layer Percentage of wound debrided: 100 Instrument Used: 5mm curette Tissue Removed: Slough and devitalized tissue Severity: Fat Layer Exposed Amount of bleeding with debridement: Mild Bleeding Controlled with: Pressure Patient tolerated procedure: Patient tolerated procedure well - Additional Wound Wound debrided: Left lópez Type of Debridement: Excisional debridement Anesthesia Used: 4% Lidocaine Solution Depth: Down to and including healthy tissue, in the subcutaneous layer Percentage of wound debrided: 100 Instrument Used: 3mm curette Tissue Removed: Slough and devitalized tissue Severity: Fat Layer Exposed Amount of bleeding with debridement: Mild Bleeding Controlled with: Pressure Patient tolerated procedure: Patient tolerated procedure well Assessment/Plan Active Problems Ulcer of left lower extremity with fat layer exposed (Acute) Ulcer of right lower extremity with fat layer exposed (Acute) Lymphedema (Chronic) Assessment: Recurrent bilateral lower extremity ulcers secondary to chronic lymphedema. Morbid obesity. Plan: Debridement done as documented above. Procedure was well-tolerated. Fibracol to all ulcers. 3M wraps for edema management. Follow-up on Thursday for change. Elevate lower extremities when seated and in bed. Avoid idle sitting or standing. Exercise as tolerated. Increase protein intake. Follow-up in a week with me. His questions were answered and he was advised to call with any further questions or concerns. This note was generated with [employer]ation software. It may contain incorrect words, spelling, and punctuation that were not noted in checking the note before signing. Multi Select Codes - Visit Charges Office Visit/Consults: 89091 OV L3 Est - E and M code level 3 - Integumentary Integumentary CPT Codes: 73295 Nadine subq tissue 20 sq cm/<
[2019-09-19 16:31] VITALS: BP 149/89; PULSE 88; RESP 18; TEMP 37.2; BMI 54.2
[2019-09-22 10:23] VITALS: BP 140/85; PULSE 86; RESP 18; TEMP 36.1; BMI 54.2
--- NOTE | 2019-09-22 10:47 | PCM.WC.PN ---
(1) Ulcer of left lower extremity with fat layer exposed Status: Acute Current Visit: Yes Code(s): L97.922 - Non-pressure chronic ulcer of unspecified part of left lower leg with fat layer exposed (2) Ulcer of right lower extremity with fat layer exposed Status: Acute Current Visit: Yes Code(s): L97.912 - Non-pressure chronic ulcer of unspecified part of right lower leg with fat layer exposed (3) Ulcer of right lower extremity with fat layer exposed Status: Acute Current Visit: Yes Code(s): L97.912 - Non-pressure chronic ulcer of unspecified part of right lower leg with fat layer exposed (4) Lymphedema Status: Chronic Current Visit: Yes Code(s): I89.0 - Lymphedema, not elsewhere classified Type of Wound Date of Service: 09/22/19 Chief Complaint: Bilateral lower extremity ulcers History of Wound: Mr Kent is known to the wound center and reports today due to new bilateral lower extremity ulcers. He was discharged less than a month ago after healing of bilateral lower extremity ulcers. He states that he traveled and had his legs dependent for a long time with subsequent blistering/ulceration. Reports compliance with his CircAid's but also states that they are old. Feels well otherwise. Denies chills, fever nausea vomiting. Progress of Wound: No new concerns at this time. Tolearted 3M wraps well. - Physical Exam Vital Signs Temp Pulse Resp BP 97 F L 86 18 140/85 H 09/22/19 10:23 09/22/19 10:23 09/22/19 10:23 09/22/19 10:23 General: Alert, Oriented x3, Cooperative, No apparent distress HEENT: Atraumatic, Normocephalic Oral: Moist Mucosa Neck: Supple Lungs: Normal air movement Abdomen: Non Tender, Obese Extremities: No cyanosis, Edema Skin: Ulcer/ Wound Wound Measurements and Assessment WC - Nurse 1 - General Ulcer Measurement Start: 09/15/19 09:56 Freq: Status: Active Protocol: Activity Type Activity Date Activity User E-Sign Co-Sign Detail Recorded Client Recorded Date Recorded By Document 09/19/19 16:31 DV [id number] 09/19/19 16:35 DV Document 09/22/19 10:23 RB [id number] 09/22/19 10:31 RB 09/19/19 09/22/19 16:31 10:23 [Ulcer Assessment] 15-Left lópez -Combined with other wound No -Current Size (cm) - Length 0.1 -Current Size (cm) - Width 0.1 -Current Size (cm) - Depth 0.1 -Total Square Cm 0.01 -Tunneling No -Undermining/Tunneling No -Circular Undermining No -Exudate Amt None Present -Wound Margin Flat & Intact -Granulation Amt Small (1-33%) -Granulation Quality [place] -Slough/Fibrin Yes -Necrosis Amt Medium (34-66%) -Necrotic Tissue Type Adherent Slough -Structure Exposed N/A -Texture (Candy-wound Skin Appearance) Assessed -Moisture (Candy-wound Skin Appearance Assessed ) -Color (Candy-wound Skin Appearance) Assessed -Temperature (Candy-wound Skin No Abnormality Appearance) (Pt Warm) -Tenderness on Palpation (Candy-wound No Skin Appearance) -Ulcer Cleansing Wound Cleanser -Foul Odor after Cleansing No -Anesthetic Used 4% Lidocaine Solution 14-right calf -Combined with other wound No -Current Size (cm) - Length 9.8 -Current Size (cm) - Width 9 -Current Size (cm) - Depth 0.1 -Total Square Cm 88.2 -Tunneling No -Undermining/Tunneling No -Circular Undermining No -Exudate Amt Large -Exudate Type Serosanguineous -Wound Margin Flat & Intact -Granulation Amt Large (67-100%) -Granulation Quality [place] -Slough/Fibrin Yes -Necrosis Amt Small (1-33%) -Necrotic Tissue Type Adherent Slough -Structure Exposed N/A -Texture (Candy-wound Skin Appearance) Assessed -Moisture (Candy-wound Skin Appearance Assessed, ) Maceration -Color (Candy-wound Skin Appearance) Assessed -Temperature (Candy-wound Skin No Abnormality Appearance) (Pt Warm) -Tenderness on Palpation (Candy-wound No Skin Appearance) -Ulcer Cleansing Wound Cleanser -Foul Odor after Cleansing No -Anesthetic Used 4% Lidocaine Solution 13-right lópez -Combined with other wound No -Current Size (cm) - Length 1 -Current Size (cm) - Width 0.7 -Current Size (cm) - Depth 0.1 -Total Square Cm 0.7 -Tunneling No -Undermining/Tunneling No -Circular Undermining No -Exudate Amt Small -Exudate Type Serosanguineous -Wound Margin Flat & Intact -Granulation Amt Small (1-33%) -Granulation Quality [place] -Slough/Fibrin Yes -Necrosis Amt Large (67-100%) -Necrotic Tissue Type Adherent Slough -Structure Exposed N/A -Texture (Candy-wound Skin Appearance) Assessed -Moisture (Candy-wound Skin Appearance Assessed ) -Color ([place]-wound Skin Appearance) Assessed -Temperature (Candy-wound Skin No Abnormality Appearance) (Pt Warm) -Tenderness on Palpation (Candy-wound No Skin Appearance) -Ulcer Cleansing Wound Cleanser -Anesthetic Used 4% Lidocaine Solution Wound Center Nurse 1 [Edema Assessment] -Lower Limb Edema Present Yes -Right Calf (cm) 52.0 52 -Right Ankle (cm) 31.5 31.5 -Left Calf (cm) 51.0 50.5 -Left Ankle (cm) 29.9 30 WC - Nurse 2 - General Ulcer CM Notes Start: 09/15/19 09:56 Freq: Status: Active Protocol: Activity Type Activity Date Activity User E-Sign Co-Sign Detail Recorded Client Recorded Date Recorded By Document 09/22/19 10:38 MW [id number] 09/22/19 10:43 MW 09/22/19 10:38 Wound Center Nurse 2 [Procedure/Treatment] 15-Left lópez -Time 10:40 -Correct Patient Yes -Correct Side, Site, Position Yes -Correct Procedure Yes -Procedure Performed No -Post Debridement Size (cm) - Length 0 -Post Debridement Size (cm) - Width 0 -Post Debridement Size (cm) - Depth 0 -Total Square Cm 0 -Wound/Ulcer Outcome Healed- Epithelialized -Ulcer Cleansing Not Cleansed 14-right calf -Time 10:40 -Correct Patient Yes -Correct Side, Site, Position Yes -Correct Procedure Yes -Procedure Performed Yes -Type of Procedure Debridement -Clinical Debridement Subcutaneous -Post Debridement Size (cm) - Length 7.0 -Post Debridement Size (cm) - Width 8.0 -Post Debridement Size (cm) - Depth 0.1 -Total Square Cm 56.00 -Wound/Ulcer Outcome Not Healed -Ulcer Cleansing Rinsed/ Irrigated with Saline -Foul Odor after Cleansing No -Bioengineered Tissue No -Bleeding Controlled with Pressure -Offloading No -Treatment Response Procedure Tolerated Well 13-right lópez -Time 10:39 -Correct Patient Yes -Correct Side, Site, Position Yes -Correct Procedure Yes -Procedure Performed Yes -Type of Procedure Debridement -Clinical Debridement Subcutaneous -Post Debridement Size (cm) - Length 0.5 -Post Debridement Size (cm) - Width 0.5 -Post Debridement Size (cm) - Depth 0.1 -Total Square Cm 0.25 -Wound/Ulcer Outcome Not Healed -Ulcer Cleansing Rinsed/ Irrigated with Saline -Foul Odor after Cleansing No -Bioengineered Tissue No -Bleeding Controlled with Pressure -Offloading No -Treatment Response Procedure Tolerated Well [See Physician Procedure note for Specifics] Pain Scale: 0-10 Numeric [Pain] -Is Patient Pain Free? Yes Musculoskeletal: No Muscle Wasting Neurological: Cranial nerves II-XII grossly intact Psych/Mental Status: Normal Affect Debridement Note Post-Debridement Measurements/Treatment WC - Nurse 2 - General Ulcer CM Notes Start: 09/15/19 09:56 Freq: Status: Active Protocol: Activity Type Activity Date Activity User E-Sign Co-Sign Detail Recorded Client Recorded Date Recorded By Document 09/15/19 10:43 MW [id number] 09/15/19 10:48 MW Document 09/22/19 10:38 MW [id number] 09/22/19 10:43 MW 09/15/19 09/22/19 10:43 10:38 Wound Center Nurse 2 15-Left lópez -Time 10:45 10:40 -Correct Patient Yes Yes -Correct Side, Site, Position Yes Yes -Correct Procedure Yes Yes -Procedure Performed Yes No -Type of Procedure Debridement -Clinical Debridement Subcutaneous -Post Debridement Size (cm) - Length 0.7 0 -Post Debridement Size (cm) - Width 0.5 0 -Post Debridement Size (cm) - Depth 0.1 0 -Total Square Cm 0.35 0 -Wound/Ulcer Outcome Not Healed Healed- Epithelialized -Ulcer Cleansing Rinsed/ Not Cleansed Irrigated with Saline -Foul Odor after Cleansing No -Bioengineered Tissue No -Bleeding Controlled with Pressure -Offloading No -Treatment Response Procedure Tolerated Well 14-right calf -Time 10:46 10:40 -Correct Patient Yes Yes -Correct Side, Site, Position Yes Yes -Correct Procedure Yes Yes -Procedure Performed Yes Yes -Type of Procedure Debridement Debridement -Clinical Debridement Subcutaneous Subcutaneous -Post Debridement Size (cm) - Length 6.0 7.0 -Post Debridement Size (cm) - Width 10.0 8.0 -Post Debridement Size (cm) - Depth 0.1 0.1 -Total Square Cm 60.00 56.00 -Wound/Ulcer Outcome Not Healed Not Healed -Ulcer Cleansing Rinsed/ Rinsed/ Irrigated with Irrigated with Saline Saline -Foul Odor after Cleansing No No -Bioengineered Tissue No No -Bleeding Controlled with Pressure Pressure -Offloading No No -Treatment Response Procedure Procedure Tolerated Well Tolerated Well 13-right lópez -Time 10:46 10:39 -Correct Patient Yes Yes -Correct Side, Site, Position Yes Yes -Correct Procedure Yes Yes -Procedure Performed Yes Yes -Type of Procedure Debridement Debridement -Clinical Debridement Subcutaneous Subcutaneous -Post Debridement Size (cm) - Length 1.0 0.5 -Post Debridement Size (cm) - Width 1.0 0.5 -Post Debridement Size (cm) - Depth 0.1 0.1 -Total Square Cm 1.00 0.25 -Wound/Ulcer Outcome Not Healed Not Healed -Ulcer Cleansing Rinsed/ Rinsed/ Irrigated with Irrigated with Saline Saline -Foul Odor after Cleansing No No -Bioengineered Tissue No No -Bleeding Controlled with Pressure Pressure -Offloading No No -Treatment Response Procedure Procedure Tolerated Well Tolerated Well Pain Scale: 0-10 Numeric Is Patient Pain Free? Yes Yes Wound debrided: Right Leg ( Posterior ) Type of Debridement: Excisional debridement Anesthesia Used: 4% Lidocaine Solution Depth: Down to and including healthy tissue, in the subcutaneous layer Percentage of wound debrided: 100 Instrument Used: 7mm curette Tissue Removed: Slough and devitalized tissue Severity: Fat Layer Exposed Amount of bleeding with debridement: Mild Bleeding Controlled with: Pressure Patient tolerated procedure well - Additional Wound Wound debrided: Right López Type of Debridement: Excisional debridement Anesthesia Used: 4% Lidocaine Solution Depth: Down to and including healthy tissue Instrument Used: 3mm curette Tissue Removed: Devitalized tissue Severity: Fat Layer Exposed Amount of bleeding with debridement: Mild Bleeding Controlled with: Pressure Patient tolerated procedure: Patient tolerated procedure well Assessment/Plan Active Problems Ulcer of right lower extremity with fat layer exposed (Acute) Ulcer of left lower extremity with fat layer exposed (Acute) Ulcer of right lower extremity with fat layer exposed (Acute) Lymphedema (Chronic) Assessment: Recurrent bilateral lower extremity ulcers secondary to chronic lymphedema. Morbid obesity. Plan: Debridement done as documented above. Procedure was well-tolerated. Aquacel extra to all ulcers. 3M wraps for edema management. Follow-up on Thursday for change. Elevate lower extremities when seated and in bed. Avoid idle sitting or standing. Exercise as tolerated. Increase protein intake. Follow-up in a week with me. His questions were answered and he was advised to call with any further questions or concerns. This note was generated with [employer] dictation software. It may contain incorrect words, spelling, and punctuation that were not noted in checking the note before signing. Code Visit 111xxx-113xx: 26434 Nadine subq tissue 20 sq cm/< - Additional Sq Cm debrided. Please refer to clinical note.
[2019-09-26 14:35] VITALS: BP 141/103; PULSE 97; RESP 18; TEMP 36.9; BMI 54.2
[2019-09-29 10:51] VITALS: BP 125/67; PULSE 75; RESP 18; TEMP 36.6; BMI 54.2
--- NOTE | 2019-09-29 11:30 | PCM.WC.PN ---
(1) Ulcer of left lower extremity with fat layer exposed Status: Acute Current Visit: Yes Code(s): L97.922 - Non-pressure chronic ulcer of unspecified part of left lower leg with fat layer exposed (2) Ulcer of right lower extremity with fat layer exposed Status: Acute Current Visit: Yes Code(s): L97.912 - Non-pressure chronic ulcer of unspecified part of right lower leg with fat layer exposed (3) Ulcer of right lower extremity with fat layer exposed Status: Acute Current Visit: Yes Code(s): L97.912 - Non-pressure chronic ulcer of unspecified part of right lower leg with fat layer exposed (4) Lymphedema Status: Chronic Current Visit: Yes Code(s): I89.0 - Lymphedema, not elsewhere classified Type of Wound Date of Service: 09/29/19 Chief Complaint: Bilateral lower extremity ulcers History of Wound: Mr Kent is known to the wound center and reports today due to new bilateral lower extremity ulcers. He was discharged less than a month ago after healing of bilateral lower extremity ulcers. He states that he traveled and had his legs dependent for a long time with subsequent blistering/ulceration. Reports compliance with his CircAid's but also states that they are old. Feels well otherwise. Denies chills, fever nausea vomiting. Progress of Wound: Increased drainage from right posterior leg ulcer. right lópez is healed and left stays healed. - Physical Exam Vital Signs Temp Pulse Resp BP 97.8 F 75 18 125/67 H 09/29/19 10:51 09/29/19 10:51 09/29/19 10:51 09/29/19 10:51 General: Alert, Oriented x3, Cooperative, No apparent distress HEENT: Atraumatic, Normocephalic Oral: Moist Mucosa Neck: Supple Lungs: Normal air movement Abdomen: Non Tender, Obese Extremities: No cyanosis, Edema Skin: Ulcer/ Wound Wound Measurements and Assessment WC - Nurse 1 - General Ulcer Measurement Start: 09/15/19 09:56 Freq: Status: Active Protocol: Activity Type Activity Date Activity User E-Sign Co-Sign Detail Recorded Client Recorded Date Recorded By Document 09/26/19 14:35 MW [id number] 09/26/19 14:39 MW Document 09/29/19 10:51 RB [id number] 09/29/19 10:59 RB 09/26/19 09/29/19 14:35 10:51 Wound Center Nurse 1 [Ulcer Assessment] 14-right calf -Combined with other wound No -Current Size (cm) - Length 12.5 -Current Size (cm) - Width 13 -Current Size (cm) - Depth 0.1 -Total Square Cm 162.5 -Tunneling No -Undermining/Tunneling No -Circular Undermining No -Exudate Amt Large -Exudate Type Serosanguineous -Wound Margin Flat & Intact -Granulation Amt Large (67-100%) -Granulation Quality [place],Red -Slough/Fibrin Yes -Necrosis Amt Small (1-33%) -Necrotic Tissue Type Adherent Slough -Structure Exposed N/A -Texture (Candy-wound Skin Appearance) Assessed, Assessed Localized Edema -Moisture (Candy-wound Skin Appearance No Abnormality, Assessed ) Assessed -Color (Candy-wound Skin Appearance) Assessed, Assessed, Hemosiderin Hemosiderin Staining Staining -Temperature (Candy-wound Skin No Abnormality Appearance) (Pt Warm) -Tenderness on Palpation (Candy-wound No Skin Appearance) -Ulcer Cleansing SOAP AND WATER Wound Cleanser -Foul Odor after Cleansing No -Anesthetic Used 4% Lidocaine Solution 13-right lópez -Combined with other wound No -Current Size (cm) - Length 0.1 -Current Size (cm) - Width 0.1 -Current Size (cm) - Depth 0.1 -Total Square Cm 0.01 -Tunneling No -Undermining/Tunneling No -Circular Undermining No -Exudate Amt None Present -Wound Margin Flat & Intact -Granulation Amt Large (67-100%) -Granulation Quality [place] -Slough/Fibrin Yes -Necrosis Amt Small (1-33%) -Structure Exposed N/A -Texture (Candy-wound Skin Appearance) Assessed, Assessed Localized Edema -Moisture (Candy-wound Skin Appearance No Abnormality, Assessed ) Assessed -Color (Candy-wound Skin Appearance) Assessed, Assessed Hemosiderin Staining -Temperature (Candy-wound Skin No Abnormality Appearance) (Pt Warm) -Tenderness on Palpation (Candy-wound No Skin Appearance) -Ulcer Cleansing SOAP AND WATER Wound Cleanser -Foul Odor after Cleansing No No [Edema Assessment] -Lower Limb Edema Present Yes Yes -Right Calf (cm) 49.0 49.2 -Right Ankle (cm) 31.2 31 -Left Calf (cm) 48.5 48.5 -Left Ankle (cm) 29.2 -Point of Measurement (cm from the 28.6 medial instep) WC - Nurse 2 - General Ulcer CM Notes Start: 09/15/19 09:56 Freq: Status: Active Protocol: Activity Type Activity Date Activity User E-Sign Co-Sign Detail Recorded Client Recorded Date Recorded By Document 09/29/19 11:11 MW [id number] 09/29/19 11:19 MW 09/29/19 11:11 Wound Center Nurse 2 [Procedure/Treatment] 14-right calf -Time 11:15 -Correct Patient Yes -Correct Side, Site, Position Yes -Correct Procedure Yes -Procedure Performed Yes -Type of Procedure Debridement -Clinical Debridement Subcutaneous -Post Debridement Size (cm) - Length 6.5 -Post Debridement Size (cm) - Width 8.0 -Post Debridement Size (cm) - Depth 0.1 -Total Square Cm 52.00 -Wound/Ulcer Outcome Not Healed -Ulcer Cleansing Rinsed/ Irrigated with Saline -Foul Odor after Cleansing No -Bioengineered Tissue No -Bleeding Controlled with Pressure -Offloading No -Treatment Response Procedure Tolerated Well 13-right lópez -Time 11:15 -Correct Patient Yes -Correct Side, Site, Position Yes -Correct Procedure Yes -Procedure Performed No -Post Debridement Size (cm) - Length 0 -Post Debridement Size (cm) - Width 0 -Post Debridement Size (cm) - Depth 0 -Total Square Cm 0 -Wound/Ulcer Outcome Healed- Epithelialized [See Physician Procedure note for Specifics] Pain Scale: 0-10 Numeric [Pain] -Is Patient Pain Free? Yes Musculoskeletal: No Muscle Wasting Neurological: Cranial nerves II-XII grossly intact Debridement Note Post-Debridement Measurements/Treatment WC - Nurse 2 - General Ulcer CM Notes Start: 09/15/19 09:56 Freq: Status: Active Protocol: Activity Type Activity Date Activity User E-Sign Co-Sign Detail Recorded Client Recorded Date Recorded By Document 09/15/19 10:43 MW [id number] 09/15/19 10:48 MW Document 09/22/19 10:38 MW [id number] 09/22/19 10:43 MW Document 09/29/19 11:11 MW [id number] 09/29/19 11:19 MW 09/15/19 09/22/19 09/29/19 10:43 10:38 11:11 Wound Center Nurse 2 15-Left lópez -Time 10:45 10:40 -Correct Patient Yes Yes -Correct Side, Site, Position Yes Yes -Correct Procedure Yes Yes -Procedure Performed Yes No -Type of Procedure Debridement -Clinical Debridement Subcutaneous -Post Debridement Size (cm) - Length 0.7 0 -Post Debridement Size (cm) - Width 0.5 0 -Post Debridement Size (cm) - Depth 0.1 0 -Total Square Cm 0.35 0 -Wound/Ulcer Outcome Not Healed Healed- Epithelialized -Ulcer Cleansing Rinsed/ Not Cleansed Irrigated with Saline -Foul Odor after Cleansing No -Bioengineered Tissue No -Bleeding Controlled with Pressure -Offloading No -Treatment Response Procedure Tolerated Well 14-right calf -Time 10:46 10:40 11:15 -Correct Patient Yes Yes Yes -Correct Side, Site, Position Yes Yes Yes -Correct Procedure Yes Yes Yes -Procedure Performed Yes Yes Yes -Type of Procedure Debridement Debridement Debridement -Clinical Debridement Subcutaneous Subcutaneous Subcutaneous -Post Debridement Size (cm) - Length 6.0 7.0 6.5 -Post Debridement Size (cm) - Width 10.0 8.0 8.0 -Post Debridement Size (cm) - Depth 0.1 0.1 0.1 -Total Square Cm 60.00 56.00 52.00 -Wound/Ulcer Outcome Not Healed Not Healed Not Healed -Ulcer Cleansing Rinsed/ Rinsed/ Rinsed/ Irrigated with Irrigated with Irrigated with Saline Saline Saline -Foul Odor after Cleansing No No No -Bioengineered Tissue No No No -Bleeding Controlled with Pressure Pressure Pressure -Offloading No No No -Treatment Response Procedure Procedure Procedure Tolerated Well Tolerated Well Tolerated Well 13-right lópez -Time 10:46 10:39 11:15 -Correct Patient Yes Yes Yes -Correct Side, Site, Position Yes Yes Yes -Correct Procedure Yes Yes Yes -Procedure Performed Yes Yes No -Type of Procedure Debridement Debridement -Clinical Debridement Subcutaneous Subcutaneous -Post Debridement Size (cm) - Length 1.0 0.5 0 -Post Debridement Size (cm) - Width 1.0 0.5 0 -Post Debridement Size (cm) - Depth 0.1 0.1 0 -Total Square Cm 1.00 0.25 0 -Wound/Ulcer Outcome Not Healed Not Healed Healed- Epithelialized -Ulcer Cleansing Rinsed/ Rinsed/ Irrigated with Irrigated with Saline Saline -Foul Odor after Cleansing No No -Bioengineered Tissue No No -Bleeding Controlled with Pressure Pressure -Offloading No No -Treatment Response Procedure Procedure Tolerated Well Tolerated Well Pain Scale: 0-10 Numeric Is Patient Pain Free? Yes Yes Yes Wound debrided: Right Leg, posterior Type of Debridement: Excisional debridement Anesthesia Used: 4% Lidocaine Solution Depth: Down to and including healthy tissue, in the subcutaneous layer Percentage of wound debrided: 100 Instrument Used: 5mm curette Tissue Removed: Slough and devitalized tissue Severity: Fat Layer Exposed Amount of bleeding with debridement: Mild Bleeding Controlled with: Pressure Patient tolerated procedure well Assessment/Plan Active Problems Ulcer of right lower extremity with fat layer exposed (Acute) Ulcer of left lower extremity with fat layer exposed (Acute) Ulcer of right lower extremity with fat layer exposed (Acute) Lymphedema (Chronic) Assessment: Recurrent bilateral lower extremity ulcers secondary to chronic lymphedema. Morbid obesity. Plan: Debridement done as documented above. Procedure was well-tolerated. Left and right lópez ulces are healed. Culture taken due to concerns with increased drainage. Switch to Fibrocol with ABD over top to right posterior leg ulcer.. 3M wraps for edema management. Follow-up on Thursday for change. Elevate lower extremities when seated and in bed. Avoid idle sitting or standing. Exercise as tolerated. Increase protein intake. Follow-up in a week with me. His questions were answered and he was advised to call with any further questions or concerns. This note was generated with [employer] software. It may contain incorrect words, spelling, and punctuation that were not noted in checking the note before signing. Code Visit 111xxx-113xx: 22161 Nadine subq tissue 20 sq cm/<
== END 2019-09-30 23:59 ==
LOC: WC 09:00
PROVIDERS: Referring Provider Family Medicine; Visit Provider Family Medicine
DX: E11.621 Type 2 diabetes mellitus with foot ulcer (principal); I89.0 Lymphedema, not elsewhere classified; E11.51 Type 2 diabetes mellitus with diabetic peripheral angiopathy without gangrene; B35.1 Tinea unguium; Z79.899 Other long term (current) drug therapy; Z79.4 Long term (current) use of insulin; L97.822 Non-pressure chronic ulcer of other part of left lower leg with fat layer exposed; L97.812 Non-pressure chronic ulcer of other part of right lower leg with fat layer exposed; E66.01 Morbid (severe) obesity due to excess calories; Z68.43 Body mass index [BMI] 50.0-59.9, adult
CPT/HCPCS: 11042; 11045; 29581; 87070; 87075; 87077; 87186; 87205; 99213; G0463

== ENCOUNTER 2019-10-27 10:00 | Outpatient (RCR) | payer MEDICAID, SELFPAY ==
[2019-10-01 00:55] VITALS: BP 125/67; PULSE 75; RESP 18; TEMP 36.6
[2019-10-03 15:13] VITALS: BP 166/83; PULSE 80; RESP 18; TEMP 36.9; BMI 54.2
[2019-10-06 11:31] VITALS: BP 145/81; PULSE 94; RESP 20; TEMP 35.4; BMI 54.2
--- NOTE | 2019-10-06 12:01 | PN.PCM_ITS ---
(1) Ulcer of right lower extremity with fat layer exposed Status: Chronic Current Visit: Yes Code(s): L97.912 - Non-pressure chronic ulcer of unspecified part of right lower leg with fat layer exposed (2) Lymphedema Status: Chronic Current Visit: Yes Code(s): I89.0 - Lymphedema, not elsewhere classified Type of Wound Date of Service: 10/06/19 Chief Complaint: Bilateral lower extremity ulcers History of Wound: Mr Kent is known to the wound center and reports today due to new bilateral lower extremity ulcers. He was discharged less than a month ago after healing of bilateral lower extremity ulcers. He states that he traveled and had his legs dependent for a long time with subsequent blistering/ul ceration. Reports compliance with his CircAid's but also states that they are old. Feels well otherwise. Denies chills, fever nausea vomiting. Progress of Wound: Still with significant drainage and culture grew Pseudomonas and Staph. - Physical Exam Vital Signs Temp Pulse Resp BP 95.8 F L 94 20 H 145/81 H 10/06/19 11:31 10/06/19 11:31 10/06/19 11:31 10/06/19 11:31 General: Alert, Oriented x3, Cooperative, No apparent distress HEENT: Atraumatic, Normocephalic Oral: Moist Mucosa Neck: Supple Lungs: Normal air movement Abdomen: Non Tender, Obese Extremities: Edema Skin: Ulcer/ Wound Wound Measurements and Assessment WC - Nurse 1 - General Ulcer Measurement Start: 10/03/19 14:49 Freq: Status: Active Protocol: Activity Type Activity Date Activity User E-Sign Co-Sign Detail Recorded Client Recorded Date Recorded By Document 10/03/19 15:13 MW [id number] 10/03/19 15:16 MW Document 10/06/19 11:31 CS [id number] 10/06/19 11:41 CS 10/03/19 10/06/19 15:13 11:31 [Ulcer Assessment] 14-right calf -Combined with other wound No -Current Size (cm) - Length 8.4 -Current Size (cm) - Width 10.2 -Current Size (cm) - Depth 0.1 -Total Square Cm 85.68 -Photo Taken No -Epithelialization None Present -Tunneling No -Undermining/Tunneling No -Circular Undermining No -Exudate Amt Large -Exudate Type Serosanguineous -Wound Margin Distinct, Outline Attached -Granulation Amt Large (67-100%) -Granulation Quality Red -Slough/Fibrin Yes -Necrosis Amt None Present (0 %) -Necrotic Tissue Type Adherent Slough -Structure Exposed N/A -Texture (Candy-wound Skin Appearance) No Abnormality, Assessed -Moisture (Candy-wound Skin Appearance Dry/Scaly ) -Color (Candy-wound Skin Appearance) Assessed, Hemosiderin Staining -Temperature (Candy-wound Skin No Abnormality Appearance) (Pt Warm) -Tenderness on Palpation (Candy-wound No Skin Appearance) -Ulcer Cleansing Wound Cleanser -Foul Odor after Cleansing No -Anesthetic Used 4% Lidocaine Solution Wound Center Nurse 1 [Edema Assessment] -Lower Limb Edema Present Yes Yes -Right Calf (cm) 49.0 49.1 -Right Ankle (cm) 30.7 39.5 -Left Calf (cm) 47.5 48.2 -Left Ankle (cm) 27.8 28.5 WC - Nurse 2 - General Ulcer CM Notes Start: 10/03/19 14:49 Freq: Status: Active Protocol: Activity Type Activity Date Activity User E-Sign Co-Sign Detail Recorded Client Recorded Date Recorded By Document 10/06/19 11:54 MW [id number] 10/06/19 12:01 MW 10/06/19 11:54 Wound Center Nurse 2 [Procedure/Treatment] 14-right calf -Time 11:58 -Correct Patient Yes -Correct Side, Site, Position Yes -Correct Procedure Yes -Procedure Performed Yes -Type of Procedure Debridement -Clinical Debridement Subcutaneous -Post Debridement Size (cm) - Length 7.5 -Post Debridement Size (cm) - Width 11.0 -Post Debridement Size (cm) - Depth 0.1 -Total Square Cm 82.50 -Wound/Ulcer Outcome Not Healed -Ulcer Cleansing Rinsed/ Irrigated with Saline -Foul Odor after Cleansing No -Bioengineered Tissue No -Bleeding Controlled with Pressure -Offloading No -Treatment Response Procedure Tolerated Well [See Physician Procedure note for Specifics] Pain Scale: 0-10 Numeric [Pain] -Is Patient Pain Free? Yes Musculoskeletal: No Muscle Wasting Neurological: Cranial nerves II-XII grossly intact Psych/Mental Status: Normal Affect Debridement Note Post-Debridement Measurements/Treatment WC - Nurse 2 - General Ulcer CM Notes Start: 10/03/19 14:49 Freq: Status: Active Protocol: Activity Type Activity Date Activity User E-Sign Co-Sign Detail Recorded Client Recorded Date Recorded By Document 10/06/19 11:54 MW [id number] 10/06/19 12:01 MW 10/06/19 11:54 Wound Center Nurse 2 14-right calf -Time 11:58 -Correct Patient Yes -Correct Side, Site, Position Yes -Correct Procedure Yes -Procedure Performed Yes -Type of Procedure Debridement -Clinical Debridement Subcutaneous -Post Debridement Size (cm) - Length 7.5 -Post Debridement Size (cm) - Width 11.0 -Post Debridement Size (cm) - Depth 0.1 -Total Square Cm 82.50 -Wound/Ulcer Outcome Not Healed -Ulcer Cleansing Rinsed/ Irrigated with Saline -Foul Odor after Cleansing No -Bioengineered Tissue No -Bleeding Controlled with Pressure -Offloading No -Treatment Response Procedure Tolerated Well Pain Scale: 0-10 Numeric Is Patient Pain Free? Yes Wound debrided: Right Leg Type of Debridement: Excisional debridement Anesthesia Used: 4% Lidocaine Solution Depth: Down to and including healthy tissue, in the subcutaneous layer Percentage of wound debrided: 100 Instrument Used: 7mm curette Tissue Removed: Slough and devitalized Severity: Fat Layer Exposed Amount of bleeding with debridement: Mild Bleeding Controlled with: Pressure Patient tolerated procedure well Assessment/Plan Active Problems Ulcer of right lower extremity with fat layer exposed (Chronic) Lymphedema (Chronic) Assessment: Recurrent bilateral lower extremity ulcers secondary to chronic lymphedema. Morbid obesity. Plan: Debridement done as documented above. Procedure was well-tolerated. As above, worsening noted and culture with significant growth. Will start on Ciprofloxacin, 500 mg. Sitch to aquacel extra and continue 3M wraps for edema management. Follow-up on Thursday for change. Elevate lower extremities when seated and in bed. Avoid idle sitting or standing. Exercise as tolerated. Increase protein intake. Follow-up in a week with me. His questions were answered and he was advised to call with any further questions or concerns. This note was generated with [employer] software. It may contain incorrect words, spelling, and punctuation that were not noted in checking the note before signing. Code Visit 111xxx-113xx: 75139 Nadine subq tissue 20 sq cm/<
[2019-10-10 15:49] VITALS: BP 163/84; PULSE 85; RESP 20; TEMP 36.6; BMI 54.2
[2019-10-13 09:22] VITALS: BP 146/80; PULSE 82; RESP 18; TEMP 36.3; BMI 54.2
--- NOTE | 2019-10-13 09:40 | PN.PCM_ITS ---
(1) Ulcer of right lower extremity with fat layer exposed Status: Chronic Current Visit: Yes Code(s): L97.912 - Non-pressure chronic ulcer of unspecified part of right lower leg with fat layer exposed (2) Lymphedema Status: Chronic Current Visit: Yes Code(s): I89.0 - Lymphedema, not elsewhere classified Type of Wound Date of Service: 10/13/19 Chief Complaint: Bilateral lower extremity ulcers History of Wound: Mr Kent is known to the wound center and reports today due to new bilateral lower extremity ulcers. He was discharged less than a month ago after healing of bilateral lower extremity ulcers. He states that he traveled and had his legs dependent for a long time with subsequent blistering/ul ceration. Reports compliance with his CircAid's but also states that they are old. Feels well otherwise. Denies chills, fever nausea vomiting. Progress of Wound: Improving. No new concerns at this time. - Physical Exam Vital Signs Temp Pulse Resp BP 97.3 F L 82 18 146/80 H 10/13/19 09:22 10/13/19 09:22 10/13/19 09:22 10/13/19 09:22 General: Alert, Oriented x3, Cooperative, No apparent distress HEENT: Atraumatic, Normocephalic Oral: Moist Mucosa Neck: Supple Lungs: Normal air movement Abdomen: Non Tender, Obese Skin: Ulcer/ Wound Wound Measurements and Assessment WC - Nurse 1 - General Ulcer Measurement Start: 10/03/19 14:49 Freq: Status: Active Protocol: Activity Type Activity Date Activity User E-Sign Co-Sign Detail Recorded Client Recorded Date Recorded By Document 10/10/19 15:49 MW [id number] 10/10/19 15:51 MW Document 10/13/19 09:22 RB [id number] 10/13/19 09:26 RB 10/10/19 10/13/19 15:49 09:22 [Ulcer Assessment] 14-right calf -Combined with other wound No -Current Size (cm) - Length 3.7 -Current Size (cm) - Width 5.5 -Current Size (cm) - Depth 0.1 -Total Square Cm 20.35 -Tunneling No -Undermining/Tunneling No -Circular Undermining No -Exudate Amt Medium -Exudate Type Serosanguineous -Wound Margin Thickened -Granulation Amt Medium (34-66%) -Granulation Quality [place] -Necrosis Amt Medium (34-66%) -Necrotic Tissue Type Adherent Slough -Structure Exposed N/A -Texture (Candy-wound Skin Appearance) Assessed -Moisture (Candy-wound Skin Appearance Assessed ) -Color (Candy-wound Skin Appearance) Assessed -Temperature (Candy-wound Skin No Abnormality Appearance) (Pt Warm) -Tenderness on Palpation (Candy-wound No Skin Appearance) -Ulcer Cleansing Wound Cleanser -Foul Odor after Cleansing No -Anesthetic Used 4% Lidocaine Solution Wound Center Nurse 1 [Edema Assessment] -Lower Limb Edema Present Yes Yes -Right Calf (cm) 50.0 50.7 -Right Ankle (cm) 31.5 32.1 -Left Calf (cm) 49.6 48.3 -Left Ankle (cm) 30.0 29.6 WC - Nurse 2 - General Ulcer CM Notes Start: 10/03/19 14:49 Freq: Status: Active Protocol: Activity Type Activity Date Activity User E-Sign Co-Sign Detail Recorded Client Recorded Date Recorded By Document 10/13/19 09:37 MW [id number] 10/13/19 09:40 MW 10/13/19 09:37 Wound Center Nurse 2 [Procedure/Treatment] 14-right calf -Time 09:38 -Correct Patient Yes -Correct Side, Site, Position Yes -Correct Procedure Yes -Procedure Performed Yes -Type of Procedure Debridement -Clinical Debridement Subcutaneous -Post Debridement Size (cm) - Length 4.5 -Post Debridement Size (cm) - Width 6.0 -Post Debridement Size (cm) - Depth 0.1 -Total Square Cm 27.00 -Wound/Ulcer Outcome Not Healed -Ulcer Cleansing Rinsed/ Irrigated with Saline -Foul Odor after Cleansing No -Bioengineered Tissue No -Bleeding Controlled with Pressure -Offloading No -Treatment Response Procedure Tolerated Well [See Physician Procedure note for Specifics] Pain Scale: 0-10 Numeric [Pain] -Is Patient Pain Free? Yes Musculoskeletal: No Muscle Wasting Neurological: Cranial nerves II-XII grossly intact Psych/Mental Status: Normal Affect Debridement Note Post-Debridement Measurements/Treatment WC - Nurse 2 - General Ulcer CM Notes Start: 10/03/19 14:49 Freq: Status: Active Protocol: Activity Type Activity Date Activity User E-Sign Co-Sign Detail Recorded Client Recorded Date Recorded By Document 10/06/19 11:54 MW [id number] 10/06/19 12:01 MW Document 10/13/19 09:37 MW [id number] 10/13/19 09:40 MW 10/06/19 10/13/19 11:54 09:37 Wound Center Nurse 2 14-right calf -Time 11:58 09:38 -Correct Patient Yes Yes -Correct Side, Site, Position Yes Yes -Correct Procedure Yes Yes -Procedure Performed Yes Yes -Type of Procedure Debridement Debridement -Clinical Debridement Subcutaneous Subcutaneous -Post Debridement Size (cm) - Length 7.5 4.5 -Post Debridement Size (cm) - Width 11.0 6.0 -Post Debridement Size (cm) - Depth 0.1 0.1 -Total Square Cm 82.50 27.00 -Wound/Ulcer Outcome Not Healed Not Healed -Ulcer Cleansing Rinsed/ Rinsed/ Irrigated with Irrigated with Saline Saline -Foul Odor after Cleansing No No -Bioengineered Tissue No No -Bleeding Controlled with Pressure Pressure -Offloading No No -Treatment Response Procedure Procedure Tolerated Well Tolerated Well Pain Scale: 0-10 Numeric Is Patient Pain Free? Yes Yes Wound debrided: Right Leg ( Posterior ) Type of Debridement: Excisional debridement Anesthesia Used: 4% Lidocaine Solution Depth: Down to and including healthy tissue, in the subcutaneous layer Percentage of wound debrided: 100 Instrument Used: 5mm curette Tissue Removed: Slough and devitalized tissue Severity: Fat Layer Exposed Amount of bleeding with debridement: Mild Bleeding Controlled with: Pressure Patient tolerated procedure well Assessment/Plan Active Problems Ulcer of right lower extremity with fat layer exposed (Chronic) Lymphedema (Chronic) Assessment: Recurrent bilateral lower extremity ulcers secondary to chronic lymphedema. Morbid obesity. Plan: Debridement done as documented above. Procedure was well-tolerated. Significant improvement noted in the past week. Currently on Ciprofloxacin and has tolerated this well. Continue aquacel extra and 3M wraps for edema management. Follow-up on Thursday for change. Elevate lower extremities when seated and in bed. Avoid idle sitting or standing. Exercise as tolerated. Increase protein intake. Follow-up in a week with me. His questions were answered and he was advised to call with any further questions or concerns. This note was generated with [employer] software. It may contain incorrect words, spelling, and punctuation that were not noted in checking the note before signing. Code Visit 111xxx-113xx: 65156 Nadine subq tissue 20 sq cm/<
[2019-10-17 10:53] VITALS: BP 134/78; PULSE 76; RESP 22; TEMP 36.6; BMI 54.2
[2019-10-20 10:04] VITALS: BP 157/100; PULSE 70; RESP 18; TEMP 36.2; BMI 54.2
--- NOTE | 2019-10-20 10:32 | PCM.WC.PN ---
(1) Ulcer of right lower extremity with fat layer exposed Status: Chronic Current Visit: Yes Code(s): L97.912 - Non-pressure chronic ulcer of unspecified part of right lower leg with fat layer exposed (2) Lymphedema Status: Chronic Current Visit: Yes Code(s): I89.0 - Lymphedema, not elsewhere classified Type of Wound Date of Service: 10/20/19 Chief Complaint: Bilateral lower extremity ulcers History of Wound: Mr Kent is known to the wound center and reports today due to new bilateral lower extremity ulcers. He was discharged less than a month ago after healing of bilateral lower extremity ulcers. He states that he traveled and had his legs dependent for a long time with subsequent blistering/ulceration. Reports compliance with his CircAid's but also states that they are old. Feels well otherwise. Denies chills, fever nausea vomiting. Progress of Wound: Healed. No new concerns. - Physical Exam Vital Signs Temp Pulse Resp BP 97.1 F L 70 18 157/100 H 10/20/19 10:04 10/20/19 10:04 10/20/19 10:04 10/20/19 10:04 General: Alert, Oriented x3, Cooperative, No apparent distress HEENT: Atraumatic, Normocephalic Oral: Moist Mucosa Neck: Supple Lungs: Normal air movement Extremities: No cyanosis, Edema Skin: Ulcer/ Wound Wound Measurements and Assessment WC - Nurse 1 - General Ulcer Measurement Start: 10/03/19 14:49 Freq: Status: Active Protocol: Activity Type Activity Date Activity User E-Sign Co-Sign Detail Recorded Client Recorded Date Recorded By Document 10/17/19 10:53 DL [id number] 10/17/19 10:56 DL Document 10/20/19 10:04 RB [id number] 10/20/19 10:10 RB 10/17/19 10/20/19 10:53 10:04 Wound Center Nurse 1 [Ulcer Assessment] 14-right calf -Combined with other wound No -Current Size (cm) - Length 0.1 -Current Size (cm) - Width 0.1 -Current Size (cm) - Depth 0.1 -Total Square Cm 0.01 -Tunneling No -Undermining/Tunneling No -Circular Undermining No -Exudate Amt Small Small -Exudate Type Serosanguineous Serosanguineous -Wound Margin Distinct, Flat & Intact Outline Attached -Granulation Amt Large (67-100%) -Granulation Quality [place] -Slough/Fibrin Yes -Necrosis Amt Small (1-33%) -Necrotic Tissue Type Adherent Slough -Structure Exposed N/A -Texture (Candy-wound Skin Appearance) No Abnormality Assessed -Moisture (Candy-wound Skin Appearance No Abnormality Dry/Scaly ) -Color (Candy-wound Skin Appearance) Hemosiderin Assessed Staining -Temperature (Candy-wound Skin No Abnormality No Abnormality Appearance) (Pt Warm) (Pt Warm) -Tenderness on Palpation (Candy-wound No No Skin Appearance) -Ulcer Cleansing Wound Cleanser Wound Cleanser -Foul Odor after Cleansing No No -Anesthetic Used 4% Lidocaine Solution [Edema Assessment] -Lower Limb Edema Present Yes -Right Calf (cm) 50.5 -Right Ankle (cm) 31 -Left Calf (cm) 50.5 -Left Ankle (cm) 29.5 WC - Nurse 2 - General Ulcer CM Notes Start: 10/03/19 14:49 Freq: Status: Active Protocol: Activity Type Activity Date Activity User E-Sign Co-Sign Detail Recorded Client Recorded Date Recorded By Document 10/20/19 10:25 MW [id number] 10/20/19 10:26 MW 10/20/19 10:25 Wound Center Nurse 2 [Procedure/Treatment] 14-right calf -Time 10:25 -Correct Patient Yes -Correct Side, Site, Position Yes -Correct Procedure Yes -Procedure Performed No -Post Debridement Size (cm) - Length 0 -Post Debridement Size (cm) - Width 0 -Post Debridement Size (cm) - Depth 0 -Total Square Cm 0 -Wound/Ulcer Outcome Healed- Epithelialized [See Physician Procedure note for Specifics] Pain Scale: 0-10 Numeric [Pain] -Is Patient Pain Free? Yes Musculoskeletal: No Muscle Wasting Neurological: Cranial nerves II-XII grossly intact Psych/Mental Status: Normal Affect Debridement Note Post-Debridement Measurements/Treatment WC - Nurse 2 - General Ulcer CM Notes Start: 10/03/19 14:49 Freq: Status: Active Protocol: Activity Type Activity Date Activity User E-Sign Co-Sign Detail Recorded Client Recorded Date Recorded By Document 10/06/19 11:54 MW [id number] 10/06/19 12:01 MW Document 10/13/19 09:37 MW [id number] 10/13/19 09:40 MW Document 10/20/19 10:25 MW [id number] 10/20/19 10:26 MW 10/06/19 10/13/19 10/20/19 11:54 09:37 10:25 Wound Center Nurse 2 14-right calf -Time 11:58 09:38 10:25 -Correct Patient Yes Yes Yes -Correct Side, Site, Position Yes Yes Yes -Correct Procedure Yes Yes Yes -Procedure Performed Yes Yes No -Type of Procedure Debridement Debridement -Clinical Debridement Subcutaneous Subcutaneous -Post Debridement Size (cm) - Length 7.5 4.5 0 -Post Debridement Size (cm) - Width 11.0 6.0 0 -Post Debridement Size (cm) - Depth 0.1 0.1 0 -Total Square Cm 82.50 27.00 0 -Wound/Ulcer Outcome Not Healed Not Healed Healed- Epithelialized -Ulcer Cleansing Rinsed/ Rinsed/ Irrigated with Irrigated with Saline Saline -Foul Odor after Cleansing No No -Bioengineered Tissue No No -Bleeding Controlled with Pressure Pressure -Offloading No No -Treatment Response Procedure Procedure Tolerated Well Tolerated Well Pain Scale: 0-10 Numeric Is Patient Pain Free? Yes Yes Yes No debridement was completed today Assessment/Plan Active Problems Ulcer of right lower extremity with fat layer exposed (Chronic) Lymphedema (Chronic) Assessment: Recurrent bilateral lower extremity ulcers secondary to chronic lymphedema. Morbid obesity. Plan: Healed. No new concerns at this time. Aquacel and 3M wraps for edema management. Leave in place for a week. Elevate lower extremities when seated and in bed. Avoid idle sitting or standing. Exercise as tolerated. Increase protein intake. Follow-up in a week with me and anticipate discharge. He was advised to come in with his Circaid. His questions were answered and he was advised to call with any further questions or concerns. This note was generated with [employer] dictation software. It may contain incorrect words, spelling, and punctuation that were not noted in checking the note before signing. Code Visit Office Visits / Consults: [id number] OV L3 Est - E and M code level 3.
[2019-10-27 10:11] VITALS: BP 140/83; PULSE 69; RESP 18; TEMP 35.8; BMI 54.2
--- NOTE | 2019-10-27 10:28 | PN.PCM_ITS ---
(1) Ulcer of right lower extremity with fat layer exposed Status: Chronic Current Visit: Yes Code(s): L97.912 - Non-pressure chronic ulcer of unspecified part of right lower leg with fat layer exposed (2) Lymphedema Status: Chronic Current Visit: Yes Code(s): I89.0 - Lymphedema, not elsewhere classified Type of Wound Date of Service: 10/27/19 Chief Complaint: Bilateral lower extremity ulcers History of Wound: Mr Kent is known to the wound center and reports today due to new bilateral lower extremity ulcers. He was discharged less than a month ago after healing of bilateral lower extremity ulcers. He states that he traveled and had his legs dependent for a long time with subsequent blistering/ul ceration. Reports compliance with his CircAid's but also states that they are old. Feels well otherwise. Denies chills, fever nausea vomiting. Progress of Wound: Yet to recieve his circaids. New superficial skin tear. - Physical Exam Vital Signs Temp Pulse Resp BP 96.5 F L 69 18 140/83 H 10/27/19 10:11 10/27/19 10:11 10/27/19 10:11 10/27/19 10:11 General: Alert, Oriented x3, Cooperative, No apparent distress HEENT: Atraumatic, Normocephalic Oral: Moist Mucosa Neck: Supple Lungs: Normal air movement Abdomen: Non Tender, Obese Extremities: No cyanosis, Edema Skin: Ulcer/ Wound Wound Measurements and Assessment WC - Nurse 1 - General Ulcer Measurement Start: 10/03/19 14:49 Freq: Status: Active Protocol: Activity Type Activity Date Activity User E-Sign Co-Sign Detail Recorded Client Recorded Date Recorded By Document 10/27/19 10:11 RB [id number] 10/27/19 10:19 RB 10/27/19 10:11 Wound Center Nurse 1 [Edema Assessment] -Lower Limb Edema Present Yes -Right Calf (cm) 48.5 -Right Ankle (cm) 30.5 -Left Calf (cm) 49.5 -Left Ankle (cm) 28.7 Neurological: Cranial nerves II-XII grossly intact Psych/Mental Status: Normal Affect Debridement Note Post-Debridement Measurements/Treatment WC - Nurse 2 - General Ulcer CM Notes Start: 10/03/19 14:49 Freq: Status: Active Protocol: Activity Type Activity Date Activity User E-Sign Co-Sign Detail Recorded Client Recorded Date Recorded By Document 10/06/19 11:54 MW [id number] 10/06/19 12:01 MW Document 10/13/19 09:37 MW [id number] 10/13/19 09:40 MW Document 10/20/19 10:25 MW [id number] 10/20/19 10:26 MW 10/06/19 10/13/19 10/20/19 11:54 09:37 10:25 Wound Center Nurse 2 14-right calf -Time 11:58 09:38 10:25 -Correct Patient Yes Yes Yes -Correct Side, Site, Position Yes Yes Yes -Correct Procedure Yes Yes Yes -Procedure Performed Yes Yes No -Type of Procedure Debridement Debridement -Clinical Debridement Subcutaneous Subcutaneous -Post Debridement Size (cm) - Length 7.5 4.5 0 -Post Debridement Size (cm) - Width 11.0 6.0 0 -Post Debridement Size (cm) - Depth 0.1 0.1 0 -Total Square Cm 82.50 27.00 0 -Wound/Ulcer Outcome Not Healed Not Healed Healed- Epithelialized -Ulcer Cleansing Rinsed/ Rinsed/ Irrigated with Irrigated with Saline Saline -Foul Odor after Cleansing No No -Bioengineered Tissue No No -Bleeding Controlled with Pressure Pressure -Offloading No No -Treatment Response Procedure Procedure Tolerated Well Tolerated Well Pain Scale: 0-10 Numeric Is Patient Pain Free? Yes Yes Yes No debridement was completed today Assessment/Plan Active Problems Ulcer of right lower extremity with fat layer exposed (Chronic) Lymphedema (Chronic) Assessment: Recurrent bilateral lower extremity ulcers secondary to chronic lymphedema. Morbid obesity. Plan: Still largely healed. New minimal superficial skin tear. Adaptic and guaze and 3M wraps for edema management. Leave in place for a week. Elevate lower extremities when seated and in bed. Avoid idle sitting or standing. Exercise as tolerated. Increase protein intake. Follow-up in a week with me and anticipate discharge. Will hopefully get his Circaid then. His questions were answered and he was advised to call with any further questions or concerns. This note was generated with [id number] software. It may contain incorrect words, spelling, and punctuation that were not noted in checking the note before signing. Code Visit Office Visits / Consults: [id number] OV L3 Est
== END 2019-10-29 23:59 ==
LOC: WC 10:00
PROVIDERS: Referring Provider Family Medicine; Visit Provider Internal Medicine
DX: E11.621 Type 2 diabetes mellitus with foot ulcer (principal); I89.0 Lymphedema, not elsewhere classified; L97.212 Non-pressure chronic ulcer of right calf with fat layer exposed; E66.01 Morbid (severe) obesity due to excess calories
CPT/HCPCS: 11042; 11045; 29581; 99212; 99213; G0463

== ENCOUNTER 2019-11-03 09:55 | Outpatient (RCR) | payer MEDICAID, SELFPAY ==
[2019-10-30 00:42] VITALS: BP 140/83; PULSE 69; RESP 18; TEMP 35.8
[2019-11-03 10:53] VITALS: BP 154/89; PULSE 78; RESP 18; TEMP 36.6; BMI 54.2
--- NOTE | 2019-11-03 11:54 | PCM.WC.PN ---
(1) Lymphedema Status: Chronic Current Visit: Yes Code(s): I89.0 - Lymphedema, not elsewhere classified (2) Edema of both legs Status: Chronic Current Visit: Yes Code(s): R60.0 - Localized edema Type of Wound Date of Service: 11/03/19 Chief Complaint: Bilateral lower extremity ulcers History of Wound: Mr Kent is known to the wound center and reports today due to new bilateral lower extremity ulcers. He was discharged less than a month ago after healing of bilateral lower extremity ulcers. He states that he traveled and had his legs dependent for a long time with subsequent blistering/ulceration. Reports compliance with his CircAid's but also states that they are old. Feels well otherwise. Denies chills, fever nausea vomiting. Progress of Wound: No new concerns. Ulcer stays healed and now has his Circaids. - Physical Exam Vital Signs Temp Pulse Resp BP 97.9 F 78 18 154/89 H 11/03/19 10:53 11/03/19 10:53 11/03/19 10:53 11/03/19 10:53 General: Alert, Oriented x3, Cooperative, No apparent distress HEENT: Atraumatic, Normocephalic Oral: Moist Mucosa Neck: Supple Abdomen: Non Tender, Obese Extremities: No cyanosis, Edema Wound Measurements and Assessment WC - Nurse 1 - General Ulcer Measurement Start: 11/03/19 10:53 Freq: Status: Active Protocol: Activity Type Activity Date Activity User E-Sign Co-Sign Detail Recorded Client Recorded Date Recorded By Document 11/03/19 10:53 DV [id number] 11/03/19 11:03 DV 11/03/19 10:53 Wound Center Nurse 1 [Edema Assessment] -Lower Limb Edema Present Yes -Right Calf (cm) 52.2 -Right Ankle (cm) 31.5 -Left Calf (cm) 50.0 -Left Ankle (cm) 30.0 WC - Nurse 2 - General Ulcer CM Notes Start: 11/03/19 10:53 Freq: Status: Active Protocol: Activity Type Activity Date Activity User E-Sign Co-Sign Detail Recorded Client Recorded Date Recorded By Document 11/03/19 11:15 MW [id number] 11/03/19 11:16 MW 11/03/19 11:15 Pain Scale: 0-10 Numeric [Pain] -Is Patient Pain Free? Yes Musculoskeletal: No Muscle Wasting Neurological: Cranial nerves II-XII grossly intact Psych/Mental Status: Normal Affect Debridement Note Post-Debridement Measurements/Treatment WC - Nurse 2 - General Ulcer CM Notes Start: 11/03/19 10:53 Freq: Status: Active Protocol: Activity Type Activity Date Activity User E-Sign Co-Sign Detail Recorded Client Recorded Date Recorded By Document 11/03/19 11:15 MW [id number] 11/03/19 11:16 MW 11/03/19 11:15 Pain Scale: 0-10 Numeric Is Patient Pain Free? Yes No debridement was completed today Assessment/Plan Active Problems Edema of both legs (Chronic) Lymphedema (Chronic) Assessment: Recurrent bilateral lower extremity ulcers secondary to chronic lymphedema. Morbid obesity. Plan: Healed. Circaids applied today. Wear daily. Elevate lower extremities when seated and in bed. Avoid idle sitting or standing. Exercise as tolerated. Increase protein intake. His questions were answered and he was advised to call with any further questions or concerns. Discharged from the wound clinic. Call with any concerns. This note was generated with [employer] dictation software. It may contain incorrect words, spelling, and punctuation that were not noted in checking the note before signing. Office Visits / Consults: [id number] OV L3 Est
== END 2019-11-29 23:59 ==
LOC: WC 09:55
PROVIDERS: Referring Provider Family Medicine; Visit Provider Internal Medicine
DX: Z09 Encounter for follow-up examination after completed treatment for conditions other than malignant neoplasm (principal); R60.0 Localized edema; I89.0 Lymphedema, not elsewhere classified; E66.01 Morbid (severe) obesity due to excess calories
CPT/HCPCS: 99212; G0463